=== PATIENT | female | born 1990 | race Caucasian/White ===

== ENCOUNTER 2023-01-31 21:58 | Inpatient (IN) ==
[2023-01-31 23:02] LABS: Hematocrit (blood only) 27.9 % (37.0-47.0); Hemoglobin 8.7 g/dl (12.0-16.0); Mean Corpuscular Hemoglobin 26.6 pg (25.0-34.0); Mean Corpuscular Hgb Conc 31.2 g/dL (32.0-36.0); Mean Corpuscular Volume 85.3 fL (80.0-100.0); Mean Platelet Volume 11.4 fL (9.4-12.4); Platelet Count 322 K/uL (130-400); RDW Coefficient of Variation 18.7 % (11.5-14.5); Red Blood Count 3.27 M/uL (4.20-5.40); White Blood Count 2.74 K/ul (4.8-10.8)
[2023-01-31 23:12] LABS: Albumin Globulin Ratio 1.1 (0.9-2); Albumin Level 3.4 gm/dl (3.4-5.0); Bilirubin,Total 0.5 mg/dl (0.2-1.0); Calcium 8.3 mg/dl (8.6-10.3); Creatinine Clr Calc Pharmacy 49.1 ml/min; Est GFR (African American) 70.9 ml/min; Est GFR (Non-African American) 61.2 ml/min; Potassium 3.4 mmol/L (3.5-5.1); Total Protein 6.4 gm/dl (6.0-8.3)
[2023-01-31] MEDS ORDERED: CEFEPIME 2,000 MG/20 ML VIAL IV STA (23:16)
--- NOTE | 2023-01-31 23:18 | Emergency Department Note ---
Impression & Plan Septic shock, Right lower lobe pneumonia, UTI (urinary tract infection) Admit to the ICU ED Provider Note NAME: VELASQUEZ RENEE AGE: 32 SEX: Female INFORMANT: Patient ED PROVIDER(S): Ijeoma Clement DO CHIEF COMPLAINT: High fever PLAN: Disposition: Admit to the ICU MEDICAL DECISION MAKING: This is a 32-year-old female patient with a history of stage IV breast cancer presents to the emergency department with a high fever. She states that it was as high as 107 at home. Patient states the wounds on her anterior chest wall are weeping fluid but they do not appear any different than they normally do. Laboratory studies revealed a white blood cell count of 2.7. Lactate was 3.8 procalcitonin was 45. Urinalysis appeared to be infected. Hemoglobin was low at 8.7. Patient presented to the emergency department in septic shock. She was aggressively fluid resuscitated with 2 IV lines as her port had previously been removed. Once IV crystalloids have been infused and were not supporting her blood pressure, she was switched over to IV Levophed which supported her blood pressure nicely. Initial heart rate was in the 160s. It began to come down into the 120s and 130s. She was initially treated empirically with cefepime and vancomycin. Source seems to be a right-sided pneumonia and a urinary tract infection and possibly the wounds on the anterior chest wall. I discussed the case with the [facility] hospitalist as well as the critical care team. I kept the patient and her family abreast of the situation. Care/management discussed with: manager customs, [facility] Hospitalist, critical care team, the patient's mother through an foreign language interpreter Triage Nursing notes: Reviewed and agree with them. Vital Signs: reviewed and remarkable for profound hypotension and tachycardia Chronic Medical/Social Conditions affecting care: Stage IV breast cancer- receiving chemotherapy; status post radiation Differential Diagnosis: Sepsis, septic shock, UTI, pneumonia, infected wounds about the chest Diagnostics, independently interpreted by me: ECG: Sinus tach at [address] segment elevation or signs of ischemia Cardiac Monitoring: Sinus tach at 140 Imaging studies: Portable chest x-ray: Moderate right-sided pleural effusion with underlying opacity most consistent with pneumonia as per my independent interpretation HPI: 32 year old Female arrives for evaluation of high fever. Patient has a history of stage IV breast cancer. She quickly developed a high fever to 107 at home associated with some nausea. She has had difficulty moving her bowels over the past couple days but did finally move them at home today. She describes this cancer as a recurrence with her first episode in 2019 and recurrence now in May 2022. PAST MEDICAL HISTORY: See Below, PAST SURGICAL HISTORY: See Below, SOCIAL HISTORY: See Below, HOME MEDICATIONS: See list ALLERGIES: None VITALS: See Below PHYSICAL EXAMINATION: HEENT: Head - normocephalic and atraumatic. Pupils are equal, round, and reactive to light. Extraocular eye muscles are intact, and sclera are anicteric. Nose -extremely dry nasal mucosa without discharge. Mouth - extremely dry buccal mucosa. Oropharynx is nonerythematous and there is no tonsillar exudate or edema noted. Neck: Supple; no JVD or cervical lymphadenopathy Chest wall: Patient has multiple open wounds about the anterior right chest wall status postmastectomy and radiation. These wounds are weeping and covered in Desitin. Heart: Tachycardic rate and regular rhythm. There is a normal S1 and S2 with no murmurs, clicks, or gallops appreciated. Lungs: Clear to auscultation bilaterally with no wheezes, rales, or rhonchi. Abdomen: Soft, completely nontender, nondistended, with good bowel sounds. There are no palpable pulsatile masses or hepatosplenomegaly. There is no guarding, rigidity, or rebound noted. Extremities: No evidence of cyanosis, clubbing, or edema. There are easily palpable peripheral pulses. Skin: Jaundiced, hot and dry with poor turgor and no rashes. Emergency department treatment: patient monitor, IV normal saline bolus, IV cefepime, IV Levophed, IV vancomycin Emergency department course: The patient was evaluated in room A10. A septic protocol was performed. A complete history and physical was performed. Patient was bolused with 1 L normal saline solution to support her blood pressure. Patient was given empiric IV cefepime and a portable chest x-ray was performed. Second IV lock was initiated a second liter of normal saline was infused. We used a blending tank tender helper to communicate with the patient's mother who speaks [place]itanian. Patient was given IV vancomycin. I discussed the case with the [facility] hospitalist as well as the copy chaser. The patient's blood pressure continued to drop and she was given an additional 500 cc bolus of saline and we initiated Levophed. CRITICAL CARE: I have personally spent greater than 90 minutes of critical care time in the direct management of this patient. This includes bedside care, interpretation of diagnostic studies, and testing, discussion with consultants, patient, and family members, and other required patient management activities. This 90 minutes is in excess of all separately billable procedures. Past Med/Surg History Medical History Ureteral obstruction History of anemia HX: breast cancer s/p right lumpectomy, chemo, xrt (no limb restriction) Hydronephrosis History of COVID-19 Early 01/2022 > symptoms resolved Surgical History Nephrostomy status S/P bilateral mastectomy History of hysterectomy History of section X 2 H/O myomectomy History of appendectomy H/O lumpectomy Right Sparkman teeth removed Family History Grandmother (Maternal) Lung cancer Grandmother (Paternal) Ovarian cancer Other No family history of adverse response to anesthesia Social History Smoking Status: Never smoker Second Hand Exposure: No; Do You Dip or Chew Tobacco: No; Hx Alcohol Use: No Hx Substance Use: No Preferred Language: [place]itanian Communication Ability: Effective Visual Impairment: No Limitations Food Service Aide Required: No Beliefs That Will Affect Care: None marital status: Current Living Situation: Spouse current occupational status: employed current occupation: Medical Billing Feels Safe at Home: Yes Assistive Devices: None Allergies Allergies Allergy/AdvReac Type Severity Reaction Status Date / Time No Known Allergies Allergy Verified 01/19/23 09:03 Home Meds Home Medications Medication Instructions Recorded Confirmed acetaminophen 500 mg tablet 1,000 mg PO Q6H PRN PAIN/FEVER 01/19/23 01/31/23 ondansetron HCl 8 mg tablet 8 mg PO Q8 PRN Nausea And Vomiting 01/19/23 01/31/23 oxycodone 10 mg tablet 10 mg PO .Q4-6H PRN PRN 01/19/23 01/31/23 mirtazapine 15 mg tablet 15 mg PO DAILY 12/05/23 12/05/23 oxycodone 20 mg tablet,crush 20 mg PO .Q 12 HOURS 01/31/23 01/31/23 resistant,extended release 12 hr (OxyContin) Results & Data (ED) Vital Signs Vital Signs - 24 hr 01/31/23 22:05 01/31/23 22:34 01/31/23 22:41 Temperature 37.7 C H Temperature Source Oral Pulse Rate 174 H 160 H 157 H Pulse Rate from SpO2 Sensor 157 H Respiratory Rate 18 29 H Respiratory Effort / Characteristics Non-Labored Spontaneous Respiratory Depth Normal Blood Pressure 107/71 77/53 L Blood Pressure Mean 83 61 Pulse Oximetry 95 95 Oxygen Delivery Method Room Air Room Air Sepsis Recent Fever Within 48 Hours Yes Sepsis New/Unexplained Change in Mental Status No Sepsis Action Taken by Nursing No Action Required 01/31/23 22:46 01/31/23 23:00 02/01/23 00:00 Temperature Temperature Source Pulse Rate 153 H 140 H 141 H Pulse Rate from SpO2 Sensor 154 H 140 H 134 H Respiratory Rate 31 H 25 H 29 H Respiratory Effort / Characteristics Respiratory Depth Blood Pressure 72/43 L 99/47 L 68/56 L Blood Pressure Mean 53 54 62 Pulse Oximetry 97 98 96 Oxygen Delivery Method Room Air Room Air Room Air Sepsis Recent Fever Within 48 Hours Sepsis New/Unexplained Change in Mental Status Sepsis Action Taken by Nursing 02/01/23 00:01 02/01/23 00:24 02/01/23 00:26 Temperature Temperature Source Pulse Rate 141 H 139 H 142 H Pulse Rate from SpO2 Sensor 140 H 139 H 143 H Respiratory Rate 29 H 34 H 32 H Respiratory Effort / Characteristics Respiratory Depth Blood Pressure 68/49 L 86/55 L 68/45 L Blood Pressure Mean 56 65 56 Pulse Oximetry 96 94 94 Oxygen Delivery Method Room Air Room Air Room Air Sepsis Recent Fever Within 48 Hours Sepsis New/Unexplained Change in Mental Status Sepsis Action Taken by Nursing 02/01/23 00:30 02/01/23 00:31 02/01/23 00:45 Temperature Temperature Source Pulse Rate 144 H 144 H Pulse Rate from SpO2 Sensor 144 H 144 H 142 H Respiratory Rate 34 H 34 H 38 H Respiratory Effort / Characteristics Respiratory Depth Blood Pressure 81/64 L 85/50 L 94/56 L Blood Pressure Mean 70 55 60 Pulse Oximetry 94 94 93 Oxygen Delivery Method Room Air Room Air Room Air Sepsis Recent Fever Within 48 Hours Sepsis New/Unexplained Change in Mental Status Sepsis Action Taken by Nursing 02/01/23 00:51 02/01/23 00:55 02/01/23 01:00 Temperature Temperature Source Pulse Rate 145 H 147 H 147 H Pulse Rate from SpO2 Sensor 146 H 145 H Respiratory Rate 35 H 37 H 32 H Respiratory Effort / Characteristics Respiratory Depth Blood Pressure 74/56 L 94/55 L 89/60 L Blood Pressure Mean 66 84 68 Pulse Oximetry 92 92 92 Oxygen Delivery Method Room Air Room Air Room Air Sepsis Recent Fever Within 48 Hours Sepsis New/Unexplained Change in Mental Status Sepsis Action Taken by Nursing 02/01/23 01:15 Temperature Temperature Source Pulse Rate 146 H Pulse Rate from SpO2 Sensor 146 H Respiratory Rate 33 H Respiratory Effort / Characteristics Respiratory Depth Blood Pressure 96/56 L Blood Pressure Mean 70 Pulse Oximetry 94 Oxygen Delivery Method Room Air Sepsis Recent Fever Within 48 Hours Sepsis New/Unexplained Change in Mental Status Sepsis Action Taken by Nursing Laboratory Data 02/01/23 15:18 02/01/23 15:13 Lab Results 01/31/23 01/31/23 02/01/23 Range/Units 22:25 23:55 01:27 WBC 2.74 L (4.8-10.8) K/ul RBC 3.27 L (4.20-5.40) M/uL Hgb 8.7 L (12.0-16.0) g/dl Hct 27.9 L (37.0-47.0) % MCV 85.3 (80.0-100.0) fL MCH 26.6 (25.0-34.0) pg MCHC 31.2 L (32.0-36.0) g/dL RDW Std Deviation 58.0 H (36.4-46.3) fL RDW Coeff of Marilou 18.7 H (11.5-14.5) % Plt Count 322 (130-400) K/uL MPV 11.4 (9.4-12.4) fL Immature Gran % (Auto) 0.4 % Neut % (Auto) 93.4 % Lymph % (Auto) 2.9 % Drew % (Auto) 2.9 % Eos % (Auto) 0.0 % Baso % (Auto) 0.4 % Neut # (Auto) 2.56 (1.40-6.50) K/uL Lymph # (Auto) 0.08 L (1.20-3.40) K/uL Drew # (Auto) 0.08 L (0.11-0.59) K/uL Eos # (Auto) 0.00 (0.00-0.50) K/uL Baso # (Auto) 0.01 (0.00-0.20) K/uL Immature Gran # (Auto) 0.01 (0.01-0.20) K/uL Polychromasia 1+ Sodium 130 L (136-145) mmol/L Potassium 3.4 L (3.5-5.1) mmol/L Chloride 92 L (98-107) mmol/L Carbon Dioxide 25 (21-32) mmol/L Anion Gap 13 H (3-11) BUN 14 (6-23) mg/dl Creatinine 1.17 (0.6-1.2) mg/dl Est Cr Clr Drug Dosing 49.1 ml/min Est GFR ( Amer) 70.9 ml/min Est GFR (Non-Af Amer) 61.2 ml/min BUN/Creatinine Ratio 12.0 (10-20) Glucose 131 H (70-99(Fasting)) mg/dl Lactate 3.8 H* (0.4-2.0) mmol/L Calcium 8.3 L (8.6-10.3) mg/dl Total Bilirubin 0.5 (0.2-1.0) mg/dl AST 28 (13-39) U/L ALT 20 (7-52) U/L Alkaline Phosphatase 83 (34-104) U/L Total Protein 6.4 (6.0-8.3) gm/dl Albumin 3.4 (3.4-5.0) gm/dl Globulin 3.0 (2.5-4.0) gm/dl Albumin/Globulin Ratio 1.1 (0.9-2) Procalcitonin 45.11 H (0-0.5) ng/ml Urine Color Yellow Urine Appearance Turbid A (Clear) Urine pH 8.0 H (4.5-7.5) Ur Specific [place] 1.014 (1.000-1.030) Urine Protein 4+ H (Negative) Urine Glucose (UA) Negative (Negative) Urine Ketones Negative (Negative) Urine Blood 2+ H (Negative) Urine Nitrite Positive A (Negative) Urine Bilirubin Negative (Negative) Urine Urobilinogen Negative (Negative) Ur Leukocyte Esterase 3+ H (Negative) Urine WBC (Auto) >30 H (0-5) /hpf Urine RBC (Auto) 5-10 H (0-4) /hpf U Hyaline Cast (Auto) 1-5 (0-5) /lpf U Epithel Cells (Auto) >30 H (0-5) /lpf Urine Bacteria (Auto) 4+ H (Negative) Urine Yeast Not Reportable Adenovirus (PCR) Not Detected (NotDetected) B. pertussis DNA (PCR) Not Detected (NotDetected) B.parapertussis DNA PCR Not Detected (NotDetected) C. pneumoniae DNA (PCR) Not Detected (NotDetected) Coronavirus OC43 (PCR) Not Detected (NotDetected) Coronavirus HKU1 (PCR) Not Detected (NotDetected) Coronavirus 229E (PCR) Not Detected (NotDetected) SARS-CoV-2 (PCR) Not Detected (NotDetected) Coronavirus NL63 (PCR) Not Detected (NotDetected) Human Metapneumovir PCR Not Detected (NotDetected) Influenza Type A (PCR) Not Detected (NotDetected) Influenza Type B (PCR) Not Detected (NotDetected) M. pneumoniae (PCR) Not Detected (NotDetected) Parainfluenza 1 (PCR) Not Detected (NotDetected) Parainfluenza 2 (PCR) Not Detected (NotDetected) Parainfluenza 3 (PCR) Not Detected (NotDetected) Parainfluenza 4 (PCR) Not Detected (NotDetected) RSV (PCR) Not Detected (NotDetected) Entero/Rhino (PCR) Not Detected (NotDetected) Administered Medications Acetaminophen (Acetaminophen 500 Mg Tab) 1,000 mg PO Q8H PRN PRN Reason: fever Stop: 03/03/23 03:00 Last Admin: 02/01/23 04:47 Dose: 1,000 mg Documented By: GG Enoxaparin Sodium (Enoxaparin Inj 40 Mg/0.4 Ml Syr) 40 mg SQ Q12H YESENIA Stop: 03/03/23 04:59 Last Admin: 02/01/23 06:05 Dose: 40 mg Documented By: TIA Acetaminophen (Ofirmev) 1,000 mg in 100 mls @ 400 mls/hr IV Q8H PRN PRN Reason: Fever Stop: 02/04/23 02:17 Last Infusion: 02/01/23 14:00 Dose: Infused Documented By: Admin: 02/01/23 11:33 Dose: 400 mls/hr Documented By: Infusion: 02/01/23 11:33 Dose: Infused Documented By: Admin: 02/01/23 11:25 Dose: 400 mls/hr Documented By: NEO Parenteral Electrolytes (Plasma-Lyte A Ph 7.4) 1,000 mls @ 125 mls/hr IV .Q8H YESENIA Stop: 03/03/23 02:29 Last Admin: 02/01/23 12:09 Dose: 125 mls/hr Documented By: Infusion: 02/01/23 11:14 Dose: Infused Documented By: Admin: 02/01/23 03:14 Dose: 125 mls/hr Documented By: YADIRA Vasopressin 20 units/ Sodium (Chloride) 101 mls @ 12.12 mls/hr IV .Q8H20M YESENIA Stop: 03/03/23 02:44 Last Infusion: 02/01/23 19:18 Dose: 0 unit/min, 0 mls/hr Documented By: DAQUAN Co-signed By: NEO Infusion: 02/01/23 10:40 Dose: 0 unit/min, 0 mls/hr Documented By: Infusion: 02/01/23 07:06 Dose: 0.04 unit/min, 12.1 mls/hr Documented By: TIA Co-signed By: CAM Admin: 02/01/23 04:20 Dose: 0.04 unit/min, 12.1 mls/hr Documented By: TIA Co-signed By: YADIRA Norepinephrine Bitartrate (Levophed/D5w) 4 mg in 250 mls @ 9.488 mls/hr IV .Q24H YESENIA; Protocol Stop: 03/03/23 04:44 Last Titration: 02/01/23 19:18 Dose: 0.03 mcg/kg/min, 5.7 mls/hr Documented By: Titration: 02/01/23 14:00 Dose: 0.03 mcg/kg/min, 5.7 mls/hr Documented By: Titration: 02/01/23 12:09 Dose: 0.05 mcg/kg/min, 9.5 mls/hr Documented By: Titration: 02/01/23 10:34 Dose: 0.08 mcg/kg/min, 15.2 mls/hr Documented By: Titration: 02/01/23 08:31 Dose: 0.1 mcg/kg/min, 19 mls/hr Documented By: Titration: 02/01/23 07:06 Dose: 0.12 mcg/kg/min, 22.8 mls/hr Documented By: TIA Co-signed By: NEO Admin: 02/01/23 05:26 Dose: 0.12 mcg/kg/min, 22.8 mls/hr Documented By: TIA Co-signed By: DAYANARA Vancomycin HCl 750 mg/ Sodium (Chloride) 265 mls @ 200 mls/hr IV Q12H YESENIA Stop: 02/03/23 07:59 Last Infusion: 02/01/23 11:22 Dose: Infused Documented By: Admin: 02/01/23 08:31 Dose: 200 mls/hr Documented By: NEO Meropenem 500 mg/ Syringe 10 mls @ 2 mls/min IV Q6H YESENIA; Protocol Stop: 02/08/23 09:59 Last Admin: 02/01/23 16:36 Dose: 2 mls/min Documented By: Admin: 02/01/23 11:23 Dose: 2 mls/min Documented By: NEO Mirtazapine (Mirtazapine Tab 15 Mg Tab) 15 mg PO DAILY YESENIA Stop: 03/03/23 08:59 Last Admin: 02/01/23 08:31 Dose: 15 mg Documented By: NEO Miscellaneous (Icu Protocol For Hyperglycemia) 1 each N/A ACHS YESENIA Stop: 02/03/23 07:29 Last Admin: 02/01/23 16:36 Dose: Not Given Documented By: Admin: 02/01/23 16:35 Dose: Not Given Documented By: Admin: 02/01/23 08:25 Dose: Not Given Documented By: NEO Discontinued Medications Sodium Chloride (Nss) 1,000 mls @ 999 mls/hr IV .Q1H1M YESENIA Stop: 02/01/23 01:15 Last Admin: 02/01/23 01:43 Dose: Not Given Documented By: Infusion: 02/01/23 00:22 Dose: Infused Documented By: Admin: 01/31/23 23:21 Dose: 999 mls/hr Documented By: GAUDENCIO Cefepime HCl (Maxipime) 2,000 mg in 20 mls @ 5 mls/min IV NOW STA; Protocol Stop: 01/31/23 23:19 Last Admin: 01/31/23 23:24 Dose: 5 mls/min Documented By: GAUDENCIO Vancomycin HCl 1,000 mg/ (Sodium Chloride) 520 mls @ 200 mls/hr IV NOW ONE Stop: 02/01/23 03:46 Last Infusion: 02/01/23 04:42 Dose: Infused Documented By: Admin: 02/01/23 01:33 Dose: 200 mls/hr Documented By: ELANA Potassium Chloride (K Mason / Wtr) 10 meq in 100 mls @ 100 mls/hr IV Q1H YESENIA Stop: 02/01/23 03:59 Last Infusion: 02/01/23 06:02 Dose: Infused Documented By: Admin: 02/01/23 04:47 Dose: 100 mls/hr Documented By: Infusion: 02/01/23 04:14 Dose: Infused Documented By: Admin: 02/01/23 03:14 Dose: 100 mls/hr Documented By: YADIRA Potassium Phosphate 15 mmol/ (Sodium Chloride) 255 mls @ 102 mls/hr IV 0700 ONE Stop: 02/01/23 09:29 Last Infusion: 02/01/23 11:22 Dose: Infused Documented By: Admin: 02/01/23 06:59 Dose: 102 mls/hr Documented By: YADIRA Calcium Chloride 500 mg/ (Dextrose) 55 mls @ 240 mls/hr IV NOW STA Stop: 02/01/23 08:19 Last Infusion: 02/01/23 11:21 Dose: Infused Documented By: Admin: 02/01/23 08:55 Dose: 240 mls/hr Documented By: NEO Magnesium Sulfate/Dextrose (Magnesium Sulfate / D5w) 1 gm in 100 mls @ 50 mls/hr IV Q2H YESENIA Stop: 02/01/23 12:14 Last Admin: 02/01/23 11:17 Dose: 50 mls/hr Documented By: Infusion: 02/01/23 10:34 Dose: Infused Documented By: Admin: 02/01/23 08:34 Dose: 50 mls/hr Documented By: NEO Norepinephrine Bitartrate (Norepinephrine/D5w 4 Mg/250 Ml) Confirm Administered Dose 4 mg IV .STK-MED ONE Stop: 02/01/23 00:26 Last Admin: 02/01/23 00:54 Dose: 4 mg Documented By: DMElizabeth Potassium Chloride (Potassium Chloride Crtab 20 Meq Tabcr) 40 meq PO NOW STA Stop: 02/01/23 03:02 Last Admin: 02/01/23 04:46 Dose: 40 meq Documented By: TIA Imaging Data Radiologist's Impression: Chest X-Ray 01/31/23 23:11 XR chest 1V portable CLINICAL HISTORY: fever TECHNIQUE: Single frontal radiograph of the chest was obtained. Comparison: Comparison is made to chest radiograph 01/19/2023 FINDINGS: No lines and tubes are seen. The cardiomediastinal silhouette is normal. Right lung airspace opacity has increased from prior exam. Moderate right pleural effusion. IMPRESSION: Moderate right pleural effusion with underlying opacities, likely representing atelectasis with superimposed aspiration/pneumonia. ACT 112: Negative or not required by law. Electronically signed by: Tay Merida M.D. 02/01/2023 8:14 AM Discharge Plan Visit Data Chief Complaint: Fever Stated Complaint: FEVER ED Provider: Ijeoma Clement Discharge Problem: Septic shock, Right lower lobe pneumonia, UTI (urinary tract infection) Patient Disposition: Admitted As Inpatient Discharge Instructions Interventions: ED Discharge Assessment Last Done: 02/01/23 02:26 Discharge Problem: UTI (urinary tract infection) Qualifiers: Urinary tract infection type: site unspecified Hematuria presence: with hematuria Qualified Code(s): N39.0 - Urinary tract infection, site not specified
[2023-01-31] MEDS: SODIUM CHLORIDE 0.9% 1,000 ML IV SCH (23:21)
[2023-01-31 23:24] LABS: Basophils # (auto) 0.01 K/uL (0.00-0.20); Basophils % (auto) 0.4 %; Immature Granulocytes # (auto) 0.01 K/uL (0.01-0.20); Immature Granulocytes % (auto) 0.4 %; Lymphocytes # (auto) 0.08 K/uL (1.20-3.40); Lymphocytes % (auto) 2.9 %; Monocytes # (auto) 0.08 K/uL (0.11-0.59); Monocytes % (auto) 2.9 %; Neutrophils # (auto) 2.56 K/uL (1.40-6.50); Neutrophils % (auto) 93.4 %; Polychromasia 1+
[2023-01-31 23:43] LABS: Adenovirus PCR Not Detected (NotDetected); Bordetella parapertussis PCR Not Detected (NotDetected); Bordetella pertussis PCR Not Detected (NotDetected); Chlamydia pneumoniae PCR Not Detected (NotDetected); Coronavirus 229E PCR Not Detected (NotDetected); Coronavirus CoV-2 (COVID19)PCR Not Detected (NotDetected); Coronavirus HKU1 PCR Not Detected (NotDetected); Coronavirus NL63 PCR Not Detected (NotDetected); Coronavirus OC43PCR Not Detected (NotDetected); Human Metapneumovirus PCR Not Detected (NotDetected); Influenza A PCR Not Detected (NotDetected); Influenza B PCR Not Detected (NotDetected); Mycoplasma pneumoniae PCR Not Detected (NotDetected); Parainfluenza Virus 1 PCR Not Detected (NotDetected); Parainfluenza Virus 2 PCR Not Detected (NotDetected); Parainfluenza Virus 3 PCR Not Detected (NotDetected); Parainfluenza Virus 4 PCR Not Detected (NotDetected); Respiratory Syncytial VirusPCR Not Detected (NotDetected); Rhinovirus/Enterovirus PCR Not Detected (NotDetected)
[2023-02-01] MEDS ORDERED: NOREPINEPHRINE/D5W 4 MG/250 ML IV ONE (00:25)
[2023-02-01] MEDS ORDERED: VANCOMYCIN CONSULT ACTIVE PRN (01:11)
[2023-02-01] MEDS ORDERED: VANCOMYCIN HCL 1,000 MG in SODIUM CHLORIDE 0.9% 500 ML IV ONE (01:11)
--- NOTE | 2023-02-01 01:37 | History & Physical Report ---
Date of Service February 01, 2023 Assessment & Plan (1) Septic shock: Plan: -Immunocompromised pt presents with fever, in septic shock of currently unknown source -Lactate 3.8, PCT 45, WBC 2.7 (below baseline) -Continue empiric antibiotics- cefepime, vancomycin -MRSA swab ordered -Continue infectious workup -UA pending -BCx pending, TTE ordered -CXR shows R pleural effusion, may have underlying pneumonia- will order chest CT for further evaluation -Hemodynamically unstable with hypotension, compensatory sinus tachycardia -Currently on pressor support with Levophed -Continue maintenance fluids- Plasmalyte -Tylenol PRN fever -Monitor CBC, repeat PCT in AM (2) Acute hypoxic respiratory failure: Plan: -Multiple desaturations to 80s and 70s noted in ER though pt denies dypsnea, other respiratory symptoms and currently saturating well on RA -Likely due to worsening pleural effusion which is most probably malignant -ABG ordered for acid-base assessment -Supplemental O2 as needed (3) Pleural effusion: Plan: -As above, probable malignant effusion likely driving hypoxia -Anticipate need for thoracentesis, withholding pulmonary consult for now as pt is being admitted to ICU -Chest CT pending (4) Breast cancer: Plan: -Noted stage IV metastatic invasive ductal carcinoma s/p double mastectomy and currently immunocompromised on chemotherapy -Follows with Dr. Moore at [facility] oncology -Deferring oncology consult for now until acute septic shock stabilizes (5) Anemia: Plan: -Hgb 8.7 on admission -Appears to be around baseline -No acute bleeding suspected at present -Trend CBC, added iron panel in AM (6) Hyponatremia: Plan: -Na 130 on admission -Possibly SIADH-driven given cancer, some contribution from low solute intake -Will continue fluids as above for septic shock -Monitor BMP (7) Hypokalemia: Plan: -K 3.4 on admission -Repletion per ICU protocol -Monitor BMP -Will check Mg, Phos as well in AM (8) Leukopenia: Plan: -WBC 2.7 on admission -Noted ongoing chemotherapy -Monitor CBC w/ differential (9) Depression: Plan: -Continue home mirtazapine Plan FENGI: Regular Code status: Full DVT prophylaxis: SCDs Isolation: None Unit: ICU Disposition planning: Pending clinical course History of Present Illness Chief Complaint: Fever Primary Care Provider: NO PCP Pt is 32 yo F with extensive history of stage IV metastatic b/l invasive ductal carcinoma of breast s/p chemotherapy, XRT, b/l mastectomy 11/2022 presenting with fever. Pt had onset of fever on prior evening. Denies any other symptoms including chest pain, dyspnea, cough, abdominal pain, urinary symptoms, etc although she has had sporadic fever over past month along with 2 ER visits on 12/29 (dyspnea, found to have R pleural effusion) and 01/19 (fever). Notes her fevers have been up to 105 F. Fever on 01/31 was apparently 107 F. Brought to ER by family. Pt arrived to ER hypotensive, BPs 60s-70s/40s which improved to 80s/50s with 1L NSS bolus x2. Tachycardia to 150s-170s, tachypnea to high 20s/low 30s. Afebrile in ER. Pt started on cefepime and then vancomycin in ER. Started on Levophed after persistent hypotension despite fluid repletin. Initial evaluation significant for WBC 2.7, Hgb 8.7, Na 130, K 3.4, lactate 3.8, PCT 45. CXR demonstrates worsening R pleural effusion. At present, pt denies any acute complaints. No dyspnea though multiple desaturations of O2 to 80s during evaluation, HR 130s-140s. Allergies Allergy/AdvReac Type Severity Reaction Status Date / Time No Known Allergies Allergy Verified 01/19/23 09:03 Home Medications Medication Instructions Recorded Confirmed Type acetaminophen 500 mg tablet 1,000 mg PO Q6H PRN PAIN/FEVER 01/19/23 01/31/23 History ondansetron HCl 8 mg tablet 8 mg PO Q8 PRN Nausea And Vomiting 01/19/23 01/31/23 History oxycodone 10 mg tablet 10 mg PO .Q4-6H PRN PRN 01/19/23 01/31/23 History mirtazapine 15 mg tablet 15 mg PO DAILY 01/31/23 01/31/23 History oxycodone 20 mg tablet,crush 20 mg PO .Q 12 HOURS 01/31/23 01/31/23 History resistant,extended release 12 hr (OxyContin) Past Med/Surg History Medical History Ureteral obstruction History of anemia HX: breast cancer s/p right lumpectomy, chemo, xrt (no limb restriction) Hydronephrosis History of COVID-19 Early 01/2022 > symptoms resolved Surgical History Nephrostomy status S/P bilateral mastectomy History of hysterectomy History of section X 2 H/O myomectomy History of appendectomy H/O lumpectomy Right [place] teeth removed Family History Grandmother (Maternal) Lung cancer Grandmother (Paternal) Ovarian cancer Other No family history of adverse response to anesthesia Social History Smoking Status: Never smoker Second Hand Exposure: No; Do You Dip or Chew Tobacco: No; Hx Alcohol Use: No Hx Substance Use: No Preferred Language: Yakut Communication Ability: Effective Visual Impairment: No Limitations Foreman/Pile Driving And Erection Required: No Beliefs That Will Affect Care: None marital status: Current Living Situation: Spouse current occupational status: employed current occupation: Medical Billing Feels Safe at Home: Yes Assistive Devices: None Review of Systems Review of Systems: Per HPI/Subjective Physical Exam Physical Exam: General: frail-appearing, no acute distress HEENT: PERRL, EOMI, conjunctivae clear without injection, anicteric sclerae, dry mucous membranes, clear oropharynx without exudate or erythema Neck: supple, trachea midline, no thyromegaly, no JVD, no cervical lymphadenopathy CV: RRR, normal S1 and S2, no murmurs Resp: Diminished breath sounds on R side, no increased work of breathing, no cr ackles or wheezes Abd: Soft, nontender, nondistended, no guarding or rebound, no hepatosplenomegaly MSK: Mild muscle wasting of all four extremities Neuro: AOx3, no focal motor or sensory deficits Skin: no rashes or lesions, warm and dry. Dressing over sternum from b/l mastectomy noted Ext: no LE peripheral edema or erythema, capillary refill <2s in all four extremities, 2+ LE peripheral pulses b/l Results & Data Results & Data Vital Signs (Past 12 Hours) Vital Signs Temp Pulse Resp BP Pulse Ox O2 Del Method 02/01/23 00:55 147 H 37 H 94/55 L 92 Room Air 02/01/23 00:51 145 H 35 H 74/56 L 92 Room Air 02/01/23 00:45 38 H 94/56 L 93 Room Air 02/01/23 00:31 144 H 34 H 85/50 L 94 Room Air 02/01/23 00:30 144 H 34 H 81/64 L 94 Room Air 02/01/23 00:26 142 H 32 H 68/45 L 94 Room Air 02/01/23 00:24 139 H 34 H 86/55 L 94 Room Air 02/01/23 00:01 141 H 29 H 68/49 L 96 Room Air 02/01/23 00:00 141 H 29 H 68/56 L 96 Room Air 01/31/23 23:00 140 H 25 H 99/47 L 98 Room Air 01/31/23 22:46 153 H 31 H 72/43 L 97 Room Air 01/31/23 22:41 157 H 29 H 77/53 L 95 Room Air 01/31/23 22:34 160 H 01/31/23 22:05 37.7 C H 174 H 18 107/71 95 Room Air Code Status & VTE Plan VTE Prophylaxis Plan VTE Prophylaxis will be ordered: Yes Critical Care Time 40 minutes Supervising Physician Co-Signing Physician Notes Attending addendum: I have physically seen this patient, have supervised the medical residents activities, and agree with the H&P unless as otherwise noted. Assessment and Plan: Septic shock/immunosuppression/acute hypoxemic respiratory failure- Admitted to intensive care unit Empiric broad-spectrum IV antibiotics with vancomycin IV per pharmacokinetic monitoring and cefepime 2 g IV every 12 hours Follow urine culture and sensitivity Follow blood culture and sensitivity Chest x-ray with right pleural effusion, likely parapneumonic. Order CT chest for further assessment Started on Levophed continuous infusion while in the ED, and will be continued in the ICU Maintenance fluids with Plasma-Lyte to be adjusted by ICU Acetaminophen 1 g IV every 8 hours as needed for mild pain or fever Follow serial CBC with differential, chemistry profile and magnesium level Order ABG Malignant pleural effusion- To be further characterized by CT of chest May need thoracentesis Breast cancer stage IV/metastatic invasive ductal carcinoma status post double mastectomy on chemotherapy- Consult oncology Dr. Moore to see after stabilization of blood pressure Consult edi analyst and ICU for further management staff Resident Activity Tracking Resident Involvement: Resident Care Provided Care Provided: Adult Hospital Medicine (5) Anemia Anemia type: unspecified type Qualified Code(s): D64.9 - Anemia, unspecified
[2023-02-01] MEDS: SODIUM CHLORIDE 0.9% 1,000 ML IV SCH (01:43)
[2023-02-01 01:49] LABS: Appearance Urine Turbid (Clear); Bacteria Urine Automated 4+ (Negative); Bilirubin Urine Negative (Negative); Blood Urine 2+ (Negative); Color Urine Yellow; Epithelial Cell Urine Auto >30 /lpf (0-5); Glucose Urine UA Negative (Negative); Ketones Urine Negative (Negative); Leukocyte Esterase Urine 3+ (Negative); Nitrite Urine Positive (Negative); Specific Gravity Urine 1.014 (1.000-1.030); Urobilinogen Urine Negative (Negative); WBC Urine Automated >30 /hpf (0-5)
[2023-02-01 01:52] LABS: Protein Urine 4+ (Negative)
[2023-02-01] MEDS ORDERED: STAT IV Infusion **Titration per Protocol STA ×2 (02:31→04:42)
[2023-02-01 02:40] LABS: iSTAT Arterial Blood Gas HCO3 19 meg/L (19-24); iSTAT Arterial Blood Gas pCO2 29 mmHg (35-46); iSTAT Arterial Blood Gas pH 7.42 (7.35-7.45); iSTAT Arterial Blood Gas pO2 < 32 mmHg (80-95); iSTAT Carbon Dioxide 20 mmol/L (24-31); iSTAT Hematocrit 22 % (37-47); iSTAT Hemoglobin 7.5 g/dl (12.0-16.0); iSTAT Potassium 3.3 mmol/L (3.3-5.0); iSTAT Sodium 134 mmol/L (135-144)
--- NOTE | 2023-02-01 02:44 | Critical Care Consultation ---
Date of Consultation February 01, 2023 Assessment & Plan (1) Septic shock: Reason Critically Ill: 32-year-old female with history significant for metastatic breast cancer with progression into the derma. Underwent radiation in 2020 and currently undergoing chemotherapy with docetaxol/cyclophosphamide. She presented to the emergency department earlier this evening with complaints of malaise and fever, found to be hypotensive. Admitted to ICU with septic shock, requiring vasopressor support with Levophed and vasopressin drips. Neuro - [facility] ICU: Negative Cardiac - Shockseptic in etiology from unknown source. See ID for treatment below -Remained hypotensive following IV fluid resuscitation in the emergency department. Now requiring vasopressor support with Levophed and vasopressin drip -Central venous catheter and arterial line inserted -Random cortisol pending -Troponin pending, EKG was sinus tachycardia. No ST elevation -Maintain maps greater than 65 vasopressors. Wean as tolerated -Continue with IV fluid resuscitation. Plasma-Lyte at 125 -Continuous monitoring on telemetry Respiratory - Pleural effusionchest x-ray appears to have significant progression of the right pleural effusion. She did undergo thoracentesis in November which resulted benign mesothelial cells and scattered mixed inflammation which was negative for malignancy? Possible source of infection? -She currently maintains O2 sat on room air without labored breathing when sitting up, but requires supplemental oxygen when laying flat -CT chest pending -Expect patient would like need thoracentesis versus chest tube. Defer to acute care occupational therapist -Continuous monitoring on pulse ox GI - N.p.o. RENAL/LYTES - AKIcreatinine 1.17 with previous baseline is 0.66. Likely prerenal/dehydration in the setting of sepsis -Continue with aggressive fluid resuscitation and maintain maps greater than 65 with vasopressor support -Avoid nephrotoxins and renally adjust medication -Monitor routine BMPs. Replete electrolytes as indicated History of nephrostomy tubepatient with left nephrostomy following development of hydronephrosis after hysterectomy. Does not appear to be related to metastatic disease with negative abdominal MRI. - Foleystrict I's and O's. Monitor nephrostomy output ENDO - No history of diabetes or thyroid disease ICU hyperglycemic protocol HEME - Leukopenia without neutropenia. Platelets within normal limits. Normocytic anemia. Monitor routine CBC. Transfuse for hemoglobin less than 7 ID - Sepsismultiple potential sources immunocompromise patient due to chemotherapy. Patient appears to have UTI on urinalysis. Purulent drainage from right chest wall at site of breast mass. And large right pleural effusion -Pro-Michael elevated at 45. Lactic acid elevated as well. Patient currently requiring vasopressor support -Bio fire negative -Blood cultures and urine culture pending. 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 Follows with Dr. Moore. Was noted to have poor prognosis and most recent visit noting aggressive progression of mass into the derma. She has undergone radiation in 2020 and a double mastectomy. She has undergone multiple chemotherapies and is currently being treated with docetaxel/cyclophosphamide. Most recent treatment last Monday. -Consult to heme-onc -Consult to palliative care LINES/IV ACCESS - Right internal jugular line, right radial A-line DVT PROPHYLAXIS - Toma Siu I have personally spent 70 minutes of critical care time in the direct management of this patient. This is a life/limb threatening event. This includes time spent evaluating patient, direct bedside care, chart review, placing orders, interpretation of diagnostic studies, discussion with consultants, patient, and family members, as well as other required patient management activities. This time is exclusive of all separately billable procedures, and teaching time and separate from and in addition to any other critical care service time. Thank you for allowing us to participate in the care of this patient. Please refer to my attending physician's documentation for any further recommendations. (2) Pleural effusion: (3) Metastatic malignant neoplasm to breast: (4) UTI (urinary tract infection): History of Present Illness History of Present Illness Patient is a 32-year-old female with stage IV metastatic breast cancer who presented to the emergency department with complaints of fever at home and malaise. Patient has previously gone double mastectomy and radiation in 2020, along with several different trials of chemotherapy. Her overall prognosis is poor with aggressive progression of dermal metastasis, although she has recently exhibited interest in clinical trials. She is currently undergoing treatment with Docetaxol/cyclophosphamide with the last treatment 1 week ago on Monday. On arrival to the emergency department the patient was found to be hypotensive and significantly febrile with temp of 39.4. Patient had elevated procalcitonin of 45 and lactic acid of 3.7. She was initially given IV fluid resuscitation per septic protocol, but remained hypotensive and required vasopressor support. Chest x-ray reveals significant progression of right pleural effusion. CT chest Noncon currently pending. Patient does have history of left hydronephrosis following hysterectomy, and has a nephrostomy tube. Urinalysis is consistent with UTI with +4 bacteria. Patient also has purulent drainage from cancerous mass protruding into the subcutaneous tissue in the right chest wall. She was started on broad-spectrum antibiotics with vancomycin and cefepime. She is currently awaiting transfer to the ICU, and will require central line and arterial line. I did discuss CODE STATUS with the patient and she is full code at this time. Allergies Allergy/AdvReac Type Severity Reaction Status Date / Time No Known Allergies Allergy Verified 01/19/23 09:03 Home Medications Medication Instructions Recorded Confirmed Type acetaminophen 500 mg tablet 1,000 mg PO Q6H PRN PAIN/FEVER 01/19/23 01/31/23 History ondansetron HCl 8 mg tablet 8 mg PO Q8 PRN Nausea And Vomiting 01/19/23 01/31/23 History oxycodone 10 mg tablet 10 mg PO .Q4-6H PRN PRN 01/19/23 01/31/23 History mirtazapine 15 mg tablet 15 mg PO DAILY 01/31/23 01/31/23 History oxycodone 20 mg tablet,crush 20 mg PO .Q 12 HOURS 01/31/23 01/31/23 History resistant,extended release 12 hr (OxyContin) Patient History Medical History Ureteral obstruction History of anemia HX: breast cancer s/p right lumpectomy, chemo, xrt (no limb restriction) Hydronephrosis History of COVID-19 Early 01/2022 > symptoms resolved Surgical History Nephrostomy status S/P bilateral mastectomy History of hysterectomy History of section X 2 H/O myomectomy History of appendectomy H/O lumpectomy Right [place] teeth removed Family History Grandmother (Maternal) Lung cancer Grandmother (Paternal) Ovarian cancer Other No family history of adverse response to anesthesia Social History Smoking Status: Never smoker Second Hand Exposure: No; Hx Alcohol Use: Yes Alcohol type: wine Preferred Language: Kinyarwanda Visual Impairment: No Limitations Comptometrist Required: No Beliefs That Will Affect Care: None marital status: Current Living Situation: Family current occupational status: employed current occupation: Medical Billing Feels Safe at Home: Yes Assistive Devices: Glasses Review of Systems Review of Systems: Patient reports malaise and diaphoresis with fevers at home. She reports pain at the right anterior chest wall at the site of cancerous mass. She denies headache, dizziness, syncopal events, changes in vision, cough or fevers, sore throat, shortness of breath, chest pain or palpitations, abdominal pain, nausea vomiting or diarrhea, swelling in hands or feet, changes in gait. Physical Exam Constitutional: + frail appearing and + diaphoretic Eyes: PERRL, conjunctivae normal, anicteric sclerae ENMT: external ear and nose normal, oropharynx normal Neck: trachea midline, no thyromegaly Respiratory: Left lung clear to auscultation, lungs diminished in right lung field, symmetrical chest wall movement, no labored breathing or use of accessory muscles Cardiovascular: Rate/Rhythm: regular rate and + tachycardic Vessels: no JVD Extremities: no edema Chest (Breasts): Additional Comments: Double mastectomy, right necrotic breast mass with purulent drainage and erythema Gastrointestinal (Abdomen): normal bowel sounds, soft, nontender, no hepatosplenomegaly Musculoskeletal: no cyanosis or clubbing, extremities motor strength 5/5 Skin: Right anterior chest wall with erythema and purulent drainage with necrosis from underlying mass. No rashes Neurologic: PERRL, EOMI, accommodation nl, no face palsy, no dysarthria Psychiatric: A+Ox3, euthymic affect Genitourinary: Left nephrostomy tube with dark concentrated yellow urine Results & Data Results & Data Vital Signs (Past 12 Hours) Vital Signs Temp Pulse Resp BP Pulse Ox O2 Del Method 02/01/23 02:00 150 H 36 H 80/42 L 95 Room Air 02/01/23 01:45 39.4 C H 144 H 30 H 78/45 L 93 Room Air 02/01/23 01:30 146 H 32 H 85/42 L 93 Room Air 02/01/23 01:30 153 H 40 H 85/42 L 93 Room Air 02/01/23 01:15 146 H 33 H 96/56 L 94 Room Air 02/01/23 01:00 147 H 32 H 89/60 L 92 Room Air 02/01/23 00:55 147 H 37 H 94/55 L 92 Room Air 02/01/23 00:51 145 H 35 H 74/56 L 92 Room Air 02/01/23 00:45 38 H 94/56 L 93 Room Air 02/01/23 00:31 144 H 34 H 85/50 L 94 Room Air 02/01/23 00:30 144 H 34 H 81/64 L 94 Room Air 02/01/23 00:26 142 H 32 H 68/45 L 94 Room Air 02/01/23 00:24 139 H 34 H 86/55 L 94 Room Air 02/01/23 00:01 141 H 29 H 68/49 L 96 Room Air 02/01/23 00:00 141 H 29 H 68/56 L 96 Room Air 01/31/23 23:00 140 H 25 H 99/47 L 98 Room Air 01/31/23 22:46 153 H 31 H 72/43 L 97 Room Air 01/31/23 22:41 157 H 29 H 77/53 L 95 Room Air 01/31/23 22:34 160 H 01/31/23 22:05 37.7 C H 174 H 18 107/71 95 Room Air Coding Level of Care Code 49952 CRITICAL CARE 1ST 30-74M Diagnoses Septic shock A41.9; R65.21 Pleural effusion J90 Metastatic malignant neoplasm to breast C79.81 UTI (urinary tract infection) N39.0
[2023-02-01] MEDS ORDERED: VASOPRESSIN 20 UNITS in 0.9 % SODIUM CHLORIDE 100 ML IV SCH (02:45)
[2023-02-01] MEDS ORDERED: PLASMA-LYTE A 1,000 ML IV SCH (03:01)
[2023-02-01] MEDS ORDERED: POTASSIUM CHLORIDE CRTAB 20 MEQ TABCR PO STA (03:01)
[2023-02-01] MEDS ORDERED: ACETAMINOPHEN 500 MG TAB PO PRN (03:01)
[2023-02-01] MEDS: PLASMA-LYTE A 1,000 ML IV SCH ×3 (03:14→19:57)
[2023-02-01] MEDS: POTASSIUM CHLORIDE / WTR 10 MEQ/100 ML PLCT IV SCH ×2 (03:14→04:47)
--- NOTE | 2023-02-01 04:23 | Procedure Note ---
Procedure Note Date of Service February 01, 2023 Note ARTERIAL LINE PROCEDURE NOTE: Procedure: Arterial Line Placement Attending: Dr. Pollard Provider: SRI Gomez Indication: Monitoring on Pressors Anesthesia: Lidocaine 1% Consent was signed and placed on the chart prior to procedure. Indication, risks, and benefits were explained at length. A time-out was completed verifying correct patient, procedure, site, positioning, and implant(s) or special equipment if applicable. Allens test was performed to ensure adequate perfusion. Patients right wrist was prepped and draped in the usual sterile fashion. Ultrasound guidance was used to aid needle placement. A 20g Arrow arterial line was introduced into the right radial artery. Catheter was threaded, and the needle was removed with appropriate blood return. Good waveform was observed. The patient tolerated the procedure well. Confirmation of placement with ultrasound. Blood Loss: Minimal Complications: None Procedural Ultrasound Guidance: Procedure Date: 02/01/2023 Indication: Arterial line insertion Attending: Dr. Pollard Provider: SRI Gomez Artery Identified: YES Line confirmed in Artery with ultrasound: Yes Complications: NONE Patient tolerated procedure: WELL Coding CPT Codes Tubes, Drains, and Vasc Access - Tubes, Drains, and Vasc Access: [id number] Arterial Cath/Cannulation Sampling/Monitoring/Transfusion ([id number]) Tubes, Drains, and Vasc Access - Tubes, Drains, and Vasc Access: [id number] Ultrasound Guidance For Vascular ([id number]) [facility] Procedure Codes (Charges) Tubes, Drains, and Vasc Access Procedure 1: Tubes, Drains, and Vasc Access: [id number] Arterial Cath/Cannulation Sampling/Monitoring/Transfusion Procedure 2: Tubes, Drains, and Vasc Access: [id number] Ultrasound Guidance For Vascular
--- NOTE | 2023-02-01 04:25 | Procedure Note ---
Procedure Note Date of Service February 01, 2023 Note INTERNAL JUGULAR CENTRAL LINE PROCEDURE NOTE: Procedure: Internal Jugular Central Line Placement Attending: Dr. Willis Provider: SRI Gomez Indication: Central Drug Administration Anesthesia: Lidocaine 1% Consent was signed and placed on the chart prior to procedure. Indication, risks, and benefits were explained at length. A time-out was completed verifying correct patient, procedure, site, positioning, and implants(s) or special equipment if applicable. Patients right neck was cleansed and draped in the typical sterile fashion using Chloraprep. The Internal Jugular Vein and Carotid Artery were identified using ultrasound. The superficial tissue was anesthetized using 3 mL of 1% lidocaine without epinephrine under direct visualization with the ultrasound. After adequate anesthetization was achieved, the Internal Jugular vein was cannulated under direct ultrasound guidance using an introducer needle on a syringe. Good venous blood return was maintained prior to removal of syringe from introducer needle. Using Seldinger Technique, a guide wire was advanced through the introducer needle without resistance. The introducer needle was removed and ultrasound images were obtained of the guide wire within the Internal Jugular Vein and saved to the patients medical record. A small incision was made in penetrating fashion at the guide wire insertion site utilizing an 11 blade scalpel. The dilator was advanced to the vessel without resistance. The dilator was exchanged for the triple lumen catheter which was advanced into the vessel without resistance. The guide wire was removed intact from the catheter without issue. Claves were placed on each catheter tip with confirmation of good blood flow from each lumen. Each port was easily flushed with sterile saline. The catheter was placed at 15 cm and sutured in place. BioPatch was applied to the catheter and a sterile Tegaderm dressing was applied over the catheter with careful attention to sterility. Patient tolerated procedure well. No immediate complications were met. Post procedure x-ray was completed, placement was appropriate and no pneumothorax was noted. Procedural Ultrasound Guidance: Procedure Date: 02/01/2023 Indication: Central venous catheter insertion Attending: Dr. Pollard Provider: SRI Gomez Artery AND Vein visualized: Yes Compressible Vein: Yes Guidewire or Short Catheter seen in vein prior to dilation: Yes Line confirmed in Vein with ultrasound: Yes Coding CPT Codes Tubes, Drains, and Vasc Access - Tubes, Drains, and Vasc Access: [id number] Insertion Of Non-tunneled Catheter Age 5 Yrs> ([id number]) Tubes, Drains, and Vasc Access - Tubes, Drains, and Vasc Access: [id number] Ultrasound Guidance For Vascular ([id number]) [facility] [place] Procedure Codes (Charges) Tubes, Drains, and Vasc Access Procedure 1: Tubes, Drains, and Vasc Access: [id number] Insertion Of Non-tunneled Catheter Age 4 Yrs> Procedure 2: Tubes, Drains, and Vasc Access: [id number] Ultrasound Guidance For Vascular
[2023-02-01] MEDS ORDERED: ENOXAPARIN INJ 40 MG/0.4 ML SYR SQ SCH (05:00)
[2023-02-01] MEDS: NOREPINEPHRINE/D5W 4 MG/250 ML PLCT IV SCH (05:26)
[2023-02-01 05:49] LABS: Base Excess ABG -3.2 mEq/L (-9-1.8); HCO3 ABG 19 mmol/L (19-24); Oxygen Saturation ABG 96.1 % (90-95); PCO2 ABG 27 mmHg (35-46); PO2 ABG 66 mmHg (80-95); pH ABG 7.46 (7.35-7.45)
[2023-02-01 05:50] LABS: Allen Test Pos (Pos)
--- NOTE | 2023-02-01 06:09 | CT Scan Report ---
Exam(s): CT CHEST Without Contrast EXAM: CT Chest Without Intravenous Contrast CLINICAL HISTORY: Reason for exam: Right pleural effusion, sepsis, brest CA. TECHNIQUE: Axial computed tomography images of the chest without intravenous contrast. CTDI is 8.23 mGy and DLP is 270.54 mGy-cm. Automated exposure control was utilized for the study. A dose lowering technique was utilized adhering to the principles of ALARA. COMPARISON: No relevant prior studies available. FINDINGS: Limitations: Limited evaluation in the absence of contrast. Lungs: See below. Pleural space: Redemonstrated multiple masses along the right breast and right chest wall with suspected invasion into the right pectoralis musculature and right pleural space. Additional soft tissue masses noted along the right and anterior chest wall. Please note packing material is noted overlying the lower anterior chest which likely relates to open wound. Recommend continued attention on follow-up imaging as dictated per patient's primary malignancy. Large right pleural effusion with adjacent airspace disease which may be due in part to compressive atelectasis. Superimposed infection is not excluded. This pleural effusion may be metastatic in nature. Heart: Unremarkable. No cardiomegaly. No significant pericardial effusion. No significant coronary artery calcifications. Bones/joints: Unremarkable. No acute fracture. No dislocation. Soft tissues: Bilateral axillary surgical clips. Bilateral mastectomy changes. Vasculature: Unremarkable. No thoracic aortic aneurysm. Lymph nodes: Enlarged supraclavicular lymph nodes which are likely related to metastatic disease. Other findings: Prior CT angiogram of the chest December 29, 2022. IMPRESSION: 1. Limited evaluation in the absence of contrast. 2. Redemonstrated multiple masses along the right breast and right chest wall with suspected invasion into the right pectoralis musculature and right pleural space. Additional soft tissue masses noted along the right and anterior chest wall. Please note packing material is noted overlying the lower anterior chest which likely relates to open wound. Recommend continued attention on follow-up imaging as dictated per patient's primary malignancy. 3. Large right pleural effusion with adjacent airspace disease which may be due in part to compressive atelectasis. Superimposed infection is not excluded. This pleural effusion may be metastatic in nature. 4. Enlarged supraclavicular lymph nodes which are likely related to metastatic disease. Electronically signed by: Emil Jaime MD 02/01/23 06:08 AM
[2023-02-01 06:19] LABS: Hematocrit (blood only) 21.2 % (37.0-47.0); Hemoglobin 6.7 g/dl (12.0-16.0); Mean Corpuscular Hemoglobin 26.5 pg (25.0-34.0); Mean Corpuscular Hgb Conc 31.6 g/dL (32.0-36.0); Mean Corpuscular Volume 83.8 fL (80.0-100.0); Mean Platelet Volume 11.8 fL (9.4-12.4); Platelet Count 171 K/uL (130-400); Red Blood Count 2.53 M/uL (4.20-5.40); White Blood Count 3.37 K/ul (4.8-10.8)
[2023-02-01 06:20] LABS: Immature Granulocytes # (auto) 0.14 K/uL (0.01-0.20); Immature Granulocytes % (auto) 4.2 %; Lymphocytes # (auto) 0.06 K/uL (1.20-3.40); Lymphocytes % (auto) 1.8 %; Monocytes # (auto) 0.17 K/uL (0.11-0.59); Polychromasia 1+
[2023-02-01 06:22] LABS: INR 1.6 (0.9-1.1); Prothrombin Time 16.6 Seconds (9.0-12.0)
[2023-02-01] MEDS ORDERED: SODIUM CHLORIDE 0.9% 250 ML IV PRN (06:36)
[2023-02-01 06:39] LABS: Alanine Aminotransferase 16 U/L (7-52); Albumin Globulin Ratio 1.1 (0.9-2); Albumin Level 2.4 gm/dl (3.4-5.0); Alkaline Phosphatase 57 U/L (34-104); Anion Gap 10 (3-11); Aspartate Aminotransferase 35 U/L (13-39); BUN Creatinine Ratio 13.5 (10-20); Bilirubin,Total 0.6 mg/dl (0.2-1.0); Blood Urea Nitrogen 14 mg/dl (6-23); Calcium 6.6 mg/dl (8.6-10.3); Carbon Dioxide 19 mmol/L (21-32); Chloride 103 mmol/L (98-107); Creatinine Clr Calc Pharmacy 55.3 ml/min; Est GFR (African American) 81.8 ml/min; Est GFR (Non-African American) 70.5 ml/min; Ferritin 660.4 ng/ml (8-388); Globulin 2.1 gm/dl (2.5-4.0); Glucose 115 mg/dl (70-99(Fasting)); Magnesium 1.3 mg/dl (1.7-2.4); Phosphorus 1.3 mg/dl (2.5-4.9); Potassium 3.8 mmol/L (3.5-5.1); Sodium 132 mmol/L (136-145); Total Protein 4.5 gm/dl (6.0-8.3); Troponin I High Sensitivity 92.1 pg/ml (0-14)
[2023-02-01] MEDS ORDERED: POTASSIUM PHOS 3 MMOL/1 ML INFUSION IV STA (06:43)
[2023-02-01] MEDS ORDERED: POTASSIUM PHOSPHATE 15 MMOL in SODIUM CHLORIDE 0.9% 250 ML IV ONE (07:00)
[2023-02-01] MEDS ORDERED: CEFEPIME 2,000 MG in SYRINGE 0 ML IV SCH ×2 (08:00→12:00)
[2023-02-01] MEDS ORDERED: CALCIUM CHLORIDE 10% 500 MG in DEXTROSE 5% 50 ML IV STA (08:06)
--- NOTE | 2023-02-01 08:15 | XRay Report ---
XR chest 1V portable CLINICAL HISTORY: fever TECHNIQUE: Single frontal radiograph of the chest was obtained. Comparison: Comparison is made to chest radiograph 01/19/2023 FINDINGS: No lines and tubes are seen. The cardiomediastinal silhouette is normal. Right lung airspace opacity has increased from prior exam. Moderate right pleural effusion. IMPRESSION: Moderate right pleural effusion with underlying opacities, likely representing atelectasis with super imposed aspiration/pneumonia. ACT 112: Negative or not required by law. Electronically signed by: Tay Merida M.D. 02/01/2023 8:14 AM
--- NOTE | 2023-02-01 08:17 | XRay Report ---
XR chest 1V portable CLINICAL HISTORY: CVC line placement TECHNIQUE: Single frontal radiograph of the chest was obtained. Comparison: Comparison is made to chest radiograph 01/31/2023 FINDINGS: Right central venous catheter terminates in the mid SVC. The cardiomediastinal silhouette is normal. Stable right airspace opacity and pleural effusion. IMPRESSION: Right venous catheter terminates in the mid SVC. Stable right pleural effusion and airspace opacity. ACT 112: Negative or not required by law. Electronically signed by: Tay Merida M.D. 02/01/2023 8:16 AM
[2023-02-01] MEDS: ICU Protocol for HYPERglycemia SCH ×4 (08:25→22:01)
[2023-02-01] MEDS: VANCOMYCIN HCL 750 MG in SODIUM CHLORIDE 0.9% 250 ML IV SCH ×2 (08:31→19:57)
[2023-02-01] MEDS: MIRTAZAPINE TAB 15 MG TAB PO SCH (08:31)
[2023-02-01] MEDS: MAGNESIUM SULFATE / D5W 1 GM/100 ML BAG IV SCH ×2 (08:34→11:17)
[2023-02-01 09:30] LABS: Hematocrit (blood only) 20.6 % (37.0-47.0); Hemoglobin 6.6 g/dl (12.0-16.0)
--- NOTE | 2023-02-01 09:48 | Palliative Care Consultation ---
Date of Consultation February 01, 2023 Assessment & Plan (1) Weakness generalized: (2) Palliative care by specialist: Met with pt/family. Provided overview of Palliative Medicine, a subspecialty that provides specialized medical care for people living with a serious illness by offering a focus on quality of life. Palliative Medicine is often conflated with hospice: I advised patient/family that Palliative and hospice can be partners but we are not the same. It is important to understand the difference so that we may be informed, and not afraid. Palliative Medicine works to improve QOL through reduction of symptom burden/more control over their illness, for both the patient and family. Palliative medicine clinicians are board certified, specially-trained and another member of the patient's medical care team. We often provide an extra layer of support because our care is based on the needs of the patient, not the prognosis; as such, it's appropriate at any age/advancing stage of a serious illness and can be provided along with curative treatment. Palliative Medicine clinicians are also trained in advanced communication methodologies, to facilitate complex discussions about advanced illness planning, which are needed to help assure that the treatment choices match the patient's goals, aka delivering Goal Concordant care. Finally, we discussed that hospice is a visiting nurse service that focuses on care delivered at the very end of life for patients with terminal illness, with life expectancy less than 6 month. (3) Septic shock: (4) Pleural effusion: (5) Acute hypoxic respiratory failure: (6) Metastatic malignant neoplasm to breast: (7) UTI (urinary tract infection): Urinary tract infection type: acute pyelonephritis Qualified Code(s): N10 - Acute pyelonephritis (8) Advanced care planning/counseling discussion: A [id number] advance care planning was held with patient and her mother at the bedside for approximately 45 minutes. Met with patient and her family at the bedside. Her mother was present, and her cousin was on the phone. Also present for this discussion was Dr. Moore from oncology. We reviewed our concerns that she is continue to have relatively rapid and aggressive progression of disease while on multiple lines of therapy. Interval progression is happening in a matter of a few weeks and not over a longer period of time. Concurrently, her performance status is weakening and she has lost weight and become more frail. Currently she is admitted with septic shock and respiratory distress. She is not a safe candidate for cancer related therapy at this time and chemo toxic regimens are on hold. She has conversed with her outside hospital oncology teams and their recommendations have not differed from those here at our center. She is tired and drifting off through this conversation. Family had several questions with regards to what potential next steps could be. Dr. Moore outlined that she would need to regain some strength and recover from this acute admission/infection before further chemotherapy could be considered. She also advised that we are getting lower on the list of available therapeutic options in the lower on the list we go, the less effective those regimens are known to be. The most effective regimens were the ones tried initially and in the earlier stages of her disease process. I expressed concern that when we see this combination of events happening around an advanced cancer patient, especially with rapid interval progression, it is often a sign that I may be running short and it is important that we know from the patient and her family what their goals, wishes and desires are so that the plan of care we propose provided to them is in alignment with the patient's wishes and preferences. Patient's cousin asked for a follow-up meeting. I recommended waiting 48 hours to see how she continues to respond to current septic shock therapies. So far she has been able to come off one of the vasopressors. She is tolerating the antibiotic therapy. Her diarrhea continues and so we will check for C. difficile. We agreed to have a follow-up meeting Monday at 10:30 AM in the patient's room. It is hopeful that as she may continue to improve with antibiotics, IV fluids and sepsis related therapies that she will become more alert and able to engage in the discussion. I gave the family some talking points to consider with regards to serious illness planning and encouraged them to talk amongst themselves and to also see what concerns another questions they may have. Her cousin requested that we have a x ray control equipment repairer present in room as she is finding it difficult to translate to the family some of the more nuanced medical issues. I assured her we would have medical translation services present in the room, most likely a virtual based. Plan PALLIATIVE PROGNOSTICS SCORES Palliative Prognostic Score (PaP) = 13.5 points Interpretation:30-day survival probability <30% 0 - 5.5: 30-day survival probability >70% | 5.6 - Palliative Prognostic Index Score (PPI) = 7 points Note:If the PPI is greater than 6.0, survival is less than three weeks (Sensitivity - 80%; Specificity - 85%). * Overall, palliative prognostic scoring indicates poor prognosis with high probability for 30-day mortality. She has a progressive metastatic breast cancer which is aggressively progressing despite several lines of cancer related treatment. She has a declining performance status and progressive weakness. Is unclear at this time and we will be able to tap her pleural effusion but will continue to reassess to determine a safe window of opportunity. * A [id number] advance care planning was held with patient and her mother at the bedside for approximately 45 minutes. Met with patient and her family at the bedside. Her mother was present, and her cousin was on the phone. Also present for this discussion was Dr. Moore from oncology. We reviewed our concerns that she is continue to have relatively rapid and aggressive progression of disease while on multiple lines of therapy. Interval progression is happening in a matter of a few weeks and not over a longer period of time. Concurrently, her performance status is weakening and she has lost weight and become more frail. Currently she is admitted with septic shock and respiratory distress. She is not a safe candidate for cancer related therapy at this time and chemo toxic regimens are on hold. She has conversed with her outside hospital oncology teams and their recommendations have not differed from those here at our center. She is tired and drifting off through this conversation. Family had several questions with regards to what potential next steps could be. Dr. Moore outlined that she would need to regain some strength and recover from this acute admission/infection before further chemotherapy could be considered. She also advised that we are getting lower on the list of available therapeutic options in the lower on the list we go, the less effective those regimens are known to be. The most effective regimens were the ones tried initially and in the earlier stages of her disease process. I expressed concern that when we see this combination of events happening around an advanced cancer patient, especially with rapid interval progression, it is often a sign that I may be running short and it is important that we know from the patient and her family what their goals, wishes and desires are so that the plan of care we propose provided to them is in alignment with the patient's wishes and preferences. Patient's cousin asked for a follow-up meeting. I recommended waiting 48 hours to see how she continues to respond to current septic shock therapies. So far she has been able to come off one of the vasopressors. She is tolerating the antibiotic therapy. Her diarrhea continues and so we will check for C. difficile. We agreed to have a follow-up meeting Monday at 10:30 AM in the patient's room. It is hopeful that as she may continue to improve with antibiotics, IV fluids and sepsis related therapies that she will become more alert and able to engage in the discussion. I gave the family some talking points to consider with regards to serious illness planning and encouraged them to talk amongst themselves and to also see what concerns another questions they may have. Her cousin requested that we have a x ray control equipment repairer present in room as she is finding it difficult to translate to the family some of the more nuanced medical issues. I assured her we would have medical translation services present in the room, most likely a virtual based. * I have updated nursing, primary team, critical care medicine and oncology. Thank you for allowing us to participate in the ongoing care of this patient. Please don't hesitate to call or page with any additional concerns. Dr. Vivien Stack DNP Director, Palliative Care History of Present Illness Reason for Consultation: On 02/01/23 @ 04:31 Denzel Miranda Wrote To Vivien Stack Metastatic breast CA, septic shock Attending Physician: Max Lauren DO History of Present Illness Per [facility] admission note: "Patient is a 32-year-old female with stage IV metastatic breast cancer who presented to the emergency department with complaints of fever at home and malaise. Patient has previously gone double mastectomy and radiation in 2020, along with several different trials of chemotherapy. Her overall prognosis is poor with aggressive progression of dermal metastasis, although she has recently exhibited interest in clinical trials. She is currently undergoing treatment with Docetaxol/cyclophosphamide with the last treatment 1 week ago on Monday. On arrival to the emergency department the patient was found to be hypotensive and significantly febrile with temp of 39.4. Patient had elevated procalcitonin of 45 and lactic acid of 3.7. She was initially given IV fluid resuscitation per septic protocol, but remained hypotensive and required vasopressor support. Chest x-ray reveals significant progression of right pleural effusion. CT chest Noncon currently pending. Patient does have history of left hydronephrosis following hysterectomy, and has a nephrostomy tube. Urinalysis is consistent with UTI with +4 bacteria. Patient also has purulent drainage from cancerous mass protruding into the subcutaneous tissue in the right chest wall. She was started on broad-spectrum antibiotics with vancomycin and cefepime. She is currently awaiting transfer to the ICU, and will require central line and arterial line. I did discuss CODE STATUS with the patient and she is full code at this time." Patient is seen in ICU together with oncology. She is lying supine in bed, her mother is at the bedside. Her cousin, Ling, is present by telephone. Patient is frail and acutely ill-appearing. Her skin is pale and cheeks are flushed. She has a cool washcloth across her forehead. She is very quiet and at times drifting off. Both oncology and mom confirm this is a significant departure from her usual baseline, which is noted to be talkative and engaging. Not able to provide substantial HPI. Allergies Allergy/AdvReac Type Severity Reaction Status Date / Time No Known Allergies Allergy Verified 01/19/23 09:03 Home Medications Medication Instructions Recorded Confirmed Type acetaminophen 500 mg tablet 1,000 mg PO Q6H PRN PAIN/FEVER 01/19/23 01/31/23 History ondansetron HCl 8 mg tablet 8 mg PO Q8 PRN Nausea And Vomiting 01/19/23 01/31/23 History oxycodone 10 mg tablet 10 mg PO .Q4-6H PRN PRN 01/19/23 01/31/23 History mirtazapine 15 mg tablet 15 mg PO DAILY 01/31/23 01/31/23 History oxycodone 20 mg tablet,crush 20 mg PO .Q 12 HOURS 01/31/23 01/31/23 History resistant,extended release 12 hr (OxyContin) Patient History Medical History Ureteral obstruction History of anemia HX: breast cancer s/p right lumpectomy, chemo, xrt (no limb restriction) Hydronephrosis History of COVID-19 Early 01/2022 > symptoms resolved Surgical History Nephrostomy status S/P bilateral mastectomy History of hysterectomy History of section X 2 H/O myomectomy History of appendectomy H/O lumpectomy Right [place] teeth removed Family History Grandmother (Maternal) Lung cancer Grandmother (Paternal) Ovarian cancer Other No family history of adverse response to anesthesia Social History Smoking Status: Never smoker Second Hand Exposure: No; Do You Dip or Chew Tobacco: No; Hx Alcohol Use: No Hx Substance Use: No Preferred Language: Turkish Communication Ability: Effective Visual Impairment: No Limitations Putty Glazer Required: No Beliefs That Will Affect Care: None marital status: Current Living Situation: Spouse current occupational status: employed current occupation: [employer] Feels Safe at Home: Yes Assistive Devices: None Review of Systems Review of Systems: All systems reviewed & are unremarkable except as noted in Subjective Physical Exam Physical Exam: Lying in bed, supine. Mild distress. Pale complexion. Bitemporal wasting. Pupils are equal round and reactive to light. Neck is supple. There is no stridor. No JVD. Respiratory effort is increased. She is tachycardic. Abdomen is scaphoid. Extremities are thin with significant muscle deconditioning noted. There is no gross edema, clubbing or cyanosis. She is awake and alert and oriented x 3 but she is quite tired and repeatedly drifts off to sleep. Her voice is very soft when she does answer a few questions but largely she does not speak much and most questions are answered by her family. Results & Data Vital Signs (Past 12 Hours) Vital Signs Temp Pulse Pulse Resp BP BP Pulse Ox 02/01/23 06:00 40.5 C H 135 H 34 H 103/38 L 98 02/01/23 05:30 40.6 C H 138 H 34 H 95/67 L 97 02/01/23 05:22 02/01/23 05:00 40.5 C H 143 H 34 H 109/64 99 02/01/23 04:30 146 H 34 H 84/44 L 97 02/01/23 04:00 147 H 34 H 82/40 L 96 02/01/23 04:00 02/01/23 03:30 149 H 32 H 84/46 L 95 02/01/23 03:01 153 H 02/01/23 03:00 39.7 C H 151 H 34 H 85/45 L 90 02/01/23 02:00 150 H 36 H 80/42 L 95 02/01/23 01:45 39.4 C H 144 H 30 H 78/45 L 93 02/01/23 01:30 146 H 32 H 85/42 L 93 02/01/23 01:30 153 H 40 H 85/42 L 93 02/01/23 01:15 146 H 33 H 96/56 L 94 02/01/23 01:00 147 H 32 H 89/60 L 92 02/01/23 00:55 147 H 37 H 94/55 L 92 02/01/23 00:51 145 H 35 H 74/56 L 92 02/01/23 00:45 38 H 94/56 L 93 02/01/23 00:31 144 H 34 H 85/50 L 94 02/01/23 00:30 144 H 34 H 81/64 L 94 02/01/23 00:26 142 H 32 H 68/45 L 94 02/01/23 00:24 139 H 34 H 86/55 L 94 02/01/23 00:01 141 H 29 H 68/49 L 96 02/01/23 00:00 141 H 29 H 68/56 L 96 01/31/23 23:00 140 H 25 H 99/47 L 98 01/31/23 22:46 153 H 31 H 72/43 L 97 01/31/23 22:41 157 H 29 H 77/53 L 95 01/31/23 22:34 160 H 01/31/23 22:05 37.7 C H 174 H 18 107/71 95 Pulse Ox O2 Del Method O2 Del Method O2 Flow Rate O2 Flow Rate 02/01/23 06:00 Nasal Cannula 2 02/01/23 05:30 Nasal Cannula 2 02/01/23 05:22 Nasal Cannula 2 02/01/23 05:00 Nasal Cannula 2 02/01/23 04:30 Nasal Cannula 2 02/01/23 04:00 Nasal Cannula 2 02/01/23 04:00 96 Nasal Cannula 2 02/01/23 03:30 Nasal Cannula 2 02/01/23 03:01 02/01/23 03:00 Room Air 02/01/23 02:00 Room Air 02/01/23 01:45 Room Air 02/01/23 01:30 Room Air 02/01/23 01:30 Room Air 02/01/23 01:15 Room Air 02/01/23 01:00 Room Air 02/01/23 00:55 Room Air 02/01/23 00:51 Room Air 02/01/23 00:45 Room Air 02/01/23 00:31 Room Air 02/01/23 00:30 Room Air 02/01/23 00:26 Room Air 02/01/23 00:24 Room Air 02/01/23 00:01 Room Air 02/01/23 00:00 Room Air 01/31/23 23:00 Room Air 01/31/23 22:46 Room Air 01/31/23 22:41 Room Air 01/31/23 22:34 01/31/23 22:05 Room Air Laboratory Results Data reviewed Diagnostic Findings Data reviewed PG Care Time/CCT Total # of Minutes Spent Total Time Spent: 105 Total Time Spent with Patient: Total time spent is greater than 50% in coordination of care (as documented) at patient's floor/unit and/or counseling patient: I spent 105 minutes overall addressing this case: 25 min in medical data review/discussion with referring provider(s) and/or preparation for the visit 10min in direct interaction with the patient/exam 45 min in Advance Care Planning/Goals of Care discussions as detailed above in note (must be >16min) 10 min in subsequent review and synthesis of assessment and plan 15 min communicating with other providers regarding the patient's case: Advanced Care Planning 38899 Advanced Care Planning 30 Min 17303 Advanced Care Planning Additional 30 [place] [address] IN/OBS CONSULT LVL 5,80M Patient Type New History Comprehensive Exam Comprehensive Medical Decision Making High Complexity Diagnoses Weakness generalized R53.1 Palliative care by specialist Z51.5 Septic shock A41.9; R65.21 Pleural effusion J90 Acute hypoxic respiratory failure J96.01 Metastatic malignant neoplasm to breast C79.81 Acute pyelonephritis N10 Urinary tract infection type: acute pyelonephritis Advanced care planning/counseling discussion Z71.89 Additional Codes Advanced Care Planning - 20220 Advanced Care Planning 30 Min: 27276 Advanced Care Planning 30 Min ([id number]) Advanced Care Planning - 68533 Advanced Care Planning Additional 30 Min: 48509 Advanced Care Planning Additional 30 Min ([id number])
--- NOTE | 2023-02-01 11:16 | Pharmacy Report ---
Pharmacy PK ABX Note - Date of Service February 01, 2023 - Assessment and Plan Assessment 32 year old F receiving vancomcyin/meropenem for empiric treatment of sepsis- with several possible sources including UTI, purulent drainage from right chest wall at site of breast mast, large right pleural effusion. Patient has stage IV breast cancer and is on chemotherapy. Blood cultures, urine culture, right breast culture pending. MRSA nasal screen negative. Tmax 40.6. Procal 46. Plan Vancomycin * Loading dose: 1000 mg IV x 1 * Maintenance dose: 750 mg IV every 12 hours * Regimen is predicted to achieve target AUC/TRINH of 400-600 mg/L.hr * Random level with AM labs on 02/02 Pharmacy will continue to follow and will adjust dose/frequency as necessary. Thank you. Pharmacy has transitioned to AUC monitoring for vancomycin. AUC/TRINH is the preferred PK/PD target and is associated with decreased risk of nephrotoxicity compared to traditional trough targets.
--- NOTE | 2023-02-01 11:18 | Communication Note ---
Date of Service: February 01, 2023 Patient separately seen and examined from [facility] overnight. Patient has ongoing septic shock with source being a large right breast wound that is draining pus. She remains on low-dose Levophed. She remains febrile and tachycardic. We will transition from cefepime to meropenem. Continue vancomycin. She also has a large right pleural effusion which was previously tapped and no malignancy was seen. She is fairly stable at this point and requiring low-flow oxygen. I do not suspect that the pleural effusion is the source of the infection. We can consider thoracentesis when she stabilizes. Replace electrolytes aggressively. Continue IV fluids. Appreciate palliative care and oncology input. Coding Level of Care Code None
[2023-02-01] MEDS: MEROPENEM 500 MG in SYRINGE 0 ML IV SCH ×3 (11:23→22:11)
[2023-02-01] MEDS: ACETAMINOPHEN 1,000 MG/100 ML VIAL IV PRN ×2 (11:25→11:33)
--- NOTE | 2023-02-01 13:28 | Oncology Consultation ---
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 She received cycle 1 day 8 of treatment on 01/24/2023 presented to the ER in septic shock possibly due to urinary tract infection versus right chest wall infection. Currently on broad- spectrum antibiotics with some improvement including her condition -Appreciate care from hospitalist and ICU teams as she appears to be improving from an infectious standpoint. Awaiting results from cultures but agree with broad-spectrum antibiotics for now. Also recommend considering obtaining CT abdomen and pelvis When she is more stable to assess for disease and evaluate right hydronephrosis/nephrostomy tube which is due for exchange. -Although diarrhea could be due to recent chemotherapy, recommend obtaining stool for C. difficile testing and if negative, would recommend antidiarrheal agents. -Consider thoracentesis when more stable given large right-sided pleural effusion. Would recommend obtaining cytology on sample -Had a long conversation today with the patient, her mother at bedside and her cousin over the phone with palliative care provider in attendance. Patient and her family are aware of extremely poor prognosis on multiple occasions with her and her family. She has progressed on multiple lines of treatment due to aggressive nature of her triple negative breast malignancy. She has been evaluated by oncologist at [facility] as well as [facility] and is not eligible for clinical trials. Based on our discussion today, we will wait until she is more stable to make more long-term decisions and whether she would like to try more systemic treatments. If clinical condition improves and she decides to receive more systemic therapy, would consider single agent doxorubicin as next line Of treatment Thank you for this consult. I will continue seeing patient while she is in the hospital. Please feel free to call if you have any further questions History of Present Illness Reason for Consultation: Metastatic Breast CA, septic shock Attending Physician: Max Lauren DO History of Present Illness Very pleasant but unfortunate 32-year-old female with triple negative right taiwo ast cancer for which she is s/p neoadjuvant chemoimmunotherapy treatment followed by bilateral mastectomies at [facility] on 11/29/2022. Patient has since had disease progression with anterior right chest wall masses which progressed while on Trodelvy. Was more recently started on Eribulin on 01/17/2023. Has been evaluated by medical oncologist at [facility] as well as [facility] for potential clinical trials and is not eligible for any available trials. She presented to the ER with fever, foul-smelling discharge from anterior right chest wall wound. On arrival to the ER, she was noted to be hypotensive, tachycardic for which she was placed on pressors. Workup for infection was obtained including urinalysis with reflex to culture, blood cultures, anterior chest wall wound culture. She was placed on broad-spectrum antibiotics and admitted to the ICU. Since admission, she has been weaned off vasopressin and is currently on low-dose Levophed. Continues to have temperature spikes and remains tachycardic. Urinalysis from urine collection bag revealed 4+ protein, 2+ blood, positive for nitrites, 3+ leukocyte esterase with culture pending at the time of today's visit.CT chest on 02/01/2023 revealed multiple masses along the right breast and right chest wall with suspected invasion into right pectoralis musculature and right pleural space, additional soft tissue masses noted along the right and anterior chest wall as well as large right pleural effusion with airspace disease and enlarged supraclavicular lymph nodes likely related to metastatic disease. Allergies Allergy/AdvReac Type Severity Reaction Status Date / Time No Known Allergies Allergy Verified 01/19/23 09:03 Home Medications Medication Instructions Recorded Confirmed Type acetaminophen 500 mg tablet 1,000 mg PO Q6H PRN PAIN/FEVER 01/19/23 01/31/23 History ondansetron HCl 8 mg tablet 8 mg PO Q8 PRN Nausea And Vomiting 01/19/23 01/31/23 History oxycodone 10 mg tablet 10 mg PO .Q4-6H PRN PRN 01/19/23 01/31/23 History mirtazapine 15 mg tablet 15 mg PO DAILY 01/31/23 01/31/23 History oxycodone 20 mg tablet,crush 20 mg PO .Q 12 HOURS 01/31/23 01/31/23 History resistant,extended release 12 hr (OxyContin) Patient History Medical History Ureteral obstruction History of anemia HX: breast cancer s/p right lumpectomy, chemo, xrt (no limb restriction) Hydronephrosis History of COVID-19 Early 01/2022 > symptoms resolved Surgical History Nephrostomy status S/P bilateral mastectomy History of hysterectomy History of section X 2 H/O myomectomy History of appendectomy H/O lumpectomy Right [place] teeth removed Family History Grandmother (Maternal) Lung cancer Grandmother (Paternal) Ovarian cancer Other No family history of adverse response to anesthesia Social History Smoking Status: Never smoker Second Hand Exposure: No; Do You Dip or Chew Tobacco: No; Hx Alcohol Use: No Hx Substance Use: No Preferred Language: Tongan Communication Ability: Effective Visual Impairment: No Limitations Product Support Sales Representative Required: No Beliefs That Will Affect Care: None marital status: Current Living Situation: Spouse current occupational status: employed current occupation: [employer] Feels Safe at Home: Yes Assistive Devices: None Results & Data Vital Signs (Past 12 Hours) Vital Signs Temp Pulse Pulse Resp BP BP Pulse Ox 02/01/23 12:15 39.7 C H 142 H 24 97 02/01/23 12:01 104/63 02/01/23 12:01 39.8 C H 149 H 25 H 98 02/01/23 12:00 39.8 C H 147 H 25 H 97 02/01/23 11:45 39.9 C H 146 H 33 H 98 02/01/23 11:44 39.9 C H 141 H 28 H 121/71 96 02/01/23 11:31 39.8 C H 146 H 38 H 95 02/01/23 11:31 121/71 02/01/23 11:30 39.8 C H 145 H 39 H 100 02/01/23 11:29 39.8 C H 140 H 28 H 130/70 96 02/01/23 11:15 39.7 C H 145 H 41 H 99 02/01/23 11:12 39.8 C H 144 H 14 150/53 H 97 02/01/23 11:01 95/72 L 02/01/23 11:01 39.7 C H 140 H 38 H 97 02/01/23 11:00 39.7 C H 140 H 36 H 96 02/01/23 10:45 39.6 C H 132 H 39 H 96 02/01/23 10:31 120/77 02/01/23 10:31 39.5 C H 130 H 20 95 02/01/23 10:30 39.5 C H 130 H 28 H 96 02/01/23 10:15 39.5 C H 128 H 38 H 96 02/01/23 10:01 139/79 02/01/23 10:01 39.5 C H 133 H 40 H 94 02/01/23 10:00 39.4 C H 134 H 44 H 94 02/01/23 09:31 39.4 C H 128 H 36 H 97 02/01/23 09:31 111/71 02/01/23 09:01 102/69 02/01/23 09:01 39.5 C H 126 H 37 H 02/01/23 09:00 39.5 C H 124 H 33 H 99 02/01/23 08:15 02/01/23 08:01 101/67 02/01/23 08:01 39.8 C H 130 H 43 H 99 02/01/23 08:00 39.8 C H 127 H 21 99 02/01/23 07:31 40.1 C H 133 H 11 L 97 02/01/23 07:31 101/63 02/01/23 07:01 40.2 C H 136 H 0 L 97 02/01/23 07:01 98/61 L 02/01/23 07:00 40.3 C H 135 H 7 L 97 02/01/23 06:00 40.5 C H 135 H 34 H 103/38 L 98 02/01/23 05:30 40.6 C H 138 H 34 H 95/67 L 97 02/01/23 05:22 02/01/23 05:00 40.5 C H 143 H 34 H 109/64 99 02/01/23 04:30 146 H 34 H 84/44 L 97 02/01/23 04:00 147 H 34 H 82/40 L 96 02/01/23 04:00 02/01/23 03:30 149 H 32 H 84/46 L 95 02/01/23 03:01 153 H 02/01/23 03:00 39.7 C H 151 H 34 H 85/45 L 90 02/01/23 02:00 150 H 36 H 80/42 L 95 02/01/23 01:45 39.4 C H 144 H 30 H 78/45 L 93 02/01/23 01:30 146 H 32 H 85/42 L 93 02/01/23 01:30 153 H 40 H 85/42 L 93 Pulse Ox O2 Del Method O2 Del Method O2 Flow Rate O2 Flow Rate 02/01/23 12:15 02/01/23 12:01 02/01/23 12:01 02/01/23 12:00 02/01/23 11:45 02/01/23 11:44 2 02/01/23 11:31 02/01/23 11:31 02/01/23 11:30 02/01/23 11:29 2 02/01/23 11:15 02/01/23 11:12 2 02/01/23 11:01 02/01/23 11:01 02/01/23 11:00 02/01/23 10:45 02/01/23 10:31 02/01/23 10:31 Nasal Cannula 2 02/01/23 10:30 02/01/23 10:15 02/01/23 10:01 02/01/23 10:01 02/01/23 10:00 02/01/23 09:31 02/01/23 09:31 02/01/23 09:01 02/01/23 09:01 02/01/23 09:00 02/01/23 08:15 Nasal Cannula 2 02/01/23 08:01 02/01/23 08:01 02/01/23 08:00 02/01/23 07:31 02/01/23 07:31 02/01/23 07:01 02/01/23 07:01 02/01/23 07:00 02/01/23 06:00 Nasal Cannula 2 02/01/23 05:30 Nasal Cannula 2 02/01/23 05:22 Nasal Cannula 2 02/01/23 05:00 Nasal Cannula 2 02/01/23 04:30 Nasal Cannula 2 02/01/23 04:00 Nasal Cannula 2 02/01/23 04:00 96 Nasal Cannula 2 02/01/23 03:30 Nasal Cannula 2 02/01/23 03:01 02/01/23 03:00 Room Air 02/01/23 02:00 Room Air 02/01/23 01:45 Room Air 02/01/23 01:30 Room Air 02/01/23 01:30 Room Air
--- NOTE | 2023-02-01 13:37 | XCELERA ---
[id number] \\[id number]
--- NOTE | 2023-02-01 15:24 | CT Scan Report ---
ABDOMEN AND PELVIS CT WITHOUT CONTRAST CT DOSE: 893.47 mGy.cm HISTORY: Sepsis. obstruction, infectious etiology? TECHNIQUE: Multiaxial CT images of the abdomen and pelvis were performed without contrast. A dose lo wering technique was utilized adhering to the principles of ALARA. COMPARISON STUDY: Chest CT 02/01/2023. Abdomen and pelvis CT 08/15/2022. FINDINGS: The lung bases are better appreciated on the same day chest CT. A large right pleural effus ion and a small left pleural effusions are again noted. Consolidation within the right lower lobe fav ors compressive atelectasis from the pleural effusion. Multiple soft tissue masses seen within the ri ght anterior and midline chest/abdominal wall again noted. This includes an ulcerating mass near the midline of the upper abdominal wall which demonstrates a 2 cm skin defect/wound. This skin defect ext ends to the anterior rib cartilage with associated destruction of the rib cartilage on image 27. Ther e is small focal area of bony destruction within the right side of the distal sternum best seen on im age 12 secondary to the adjacent chest wall mass. There is also mild bony destruction within the righ t anterior fifth rib on image 18 secondary to the chest wall masses. The chest wall masses surround m ultiple right anterior ribs. This is consistent with sites of metastatic disease. Left basilar consol idation also favors atelectasis. A pneumonia would be difficult to exclude by imaging. No pneumoperit oneum. No pneumatosis. Suboptimal evaluation of the upper abdominal structures due to streak artifact from the patient's overlapping arms. However, the unenhanced liver, gallbladder, pancreas, spleen, a nd adrenal glands unremarkable. A left percutaneous nephrostomy tube is unchanged in position. No lef t-sided hydronephrosis. Mild fullness within the right renal collecting system without yaa hydronep hrosis. This remains unchanged. No retroperitoneal lymphadenopathy. Normal caliber abdominal aorta. M ild bilateral perinephric edema is noted. Small amount of ascites is seen within the abdomen and pelv is. The bladder is mildly distended. There is gas within the bladder lumen likely due to the Blackwell ca theter. The catheter appears in good position. No bladder wall thickening. The uterus appears surgica lly absent. Suboptimal evaluation for bowel pathology due to the lack of intravenous and oral contras t. However, there are no dilated loops of bowel to suggest an obstruction. Questionable thickening wi thin the ascending colon hepatic flexure of the colon is likely due to underdistention. Otherwise, no definite bowel wall thickening. Fluid-filled nondilated gas-filled loops of large and small bowel se en throughout the abdomen. This can be seen in the setting of a diarrheal illness/gastroenteritis. IMPRESSION: 1. No evidence for bowel obstruction. 2. Nondilated fluid-filled loops of large small bowel. This could be seen in the setting of a gastroe nteritis/diarrheal illness. 3. Questionable thickening of the ascending colon and hepatic flexure of the colon is likely due to u nderdistention. A low-grade colitis is considered less likely but not entirely excluded. 4. Mild fullness within the right renal collecting system without yaa hydronephrosis. This is likel y secondary to the distended bladder. However, there is a Blackwell catheter within the bladder which natalie ears in good position. 5. Small amount of ascites. 6. Bilateral pleural effusions and bibasilar densities which favor atelectasis. A pneumonia would be difficult to exclude by imaging. 7. Multiple right anterior and midline chest/abdominal wall masses with adjacent bony/cartilage destr uction as described above. This is consistent with metastatic disease. 8. Additional findings as described above ACT 112: Negative or not required by law. Electronically signed by: Johnny Crain M.D. 02/01/2023 3:22 PM
[2023-02-01 15:43] LABS: Hematocrit (blood only) 25.9 % (37.0-47.0); Hemoglobin 8.5 g/dl (12.0-16.0); Mean Corpuscular Hgb Conc 32.8 g/dL (32.0-36.0); Mean Corpuscular Volume 79.2 fL (80.0-100.0); Mean Platelet Volume 10.7 fL (9.4-12.4); Platelet Count 205 K/uL (130-400); RDW Coefficient of Variation 19.3 % (11.5-14.5); RDW Standard Deviation 54.8 fL (36.4-46.3); Red Blood Count 3.27 M/uL (4.20-5.40); White Blood Count 6.39 K/ul (4.8-10.8)
--- NOTE | 2023-02-01 15:48 | Electrocardiogram Report ---
Test Reason : Blood Pressure : / mmHG Vent. Rate : 165 BPM Atrial Rate : 165 BPM P-R Int : 126 ms QRS Dur : 064 ms QT Int : 302 ms P-R-T Axes : 077 223 042 degrees QTc Int : 500 ms Sinus tachycardia Nonspecific ST and T wave abnormality Abnormal ECG When compared with ECG of 19-JAN-2023 06:46, QRS axis Shifted left Nonspecific T wave abnormality no longer evident in Inferior leads Nonspecific T wave abnormality, improved in Anterior leads Confirmed by Alton Moore ([id number]) on 02/01/2023 3:48:20 PM Referred By: REFERRED SELF Confirmed By:Alton Moore
[2023-02-01 16:01] LABS: Troponin I High Sensitivity 105.1 pg/ml (0-14)
[2023-02-01 16:09] LABS: Basophils # (auto) 0.02 K/uL (0.00-0.20); Basophils % (auto) 0.3 %; Echinocytes 1+; Immature Granulocytes # (auto) 0.14 K/uL (0.01-0.20); Immature Granulocytes % (auto) 2.2 %; Lymphocytes # (auto) 0.07 K/uL (1.20-3.40); Lymphocytes % (auto) 1.1 %; Monocytes # (auto) 0.35 K/uL (0.11-0.59); Monocytes % (auto) 5.5 %; Neutrophils # (auto) 5.81 K/uL (1.40-6.50); Neutrophils % (auto) 90.9 %; Tear Drop Cells 1+; Toxic Vacuolation 1+
[2023-02-01 16:59] LABS: BUN Creatinine Ratio 13.8 (10-20); Calcium 6.9 mg/dl (8.6-10.3); Creatinine Clr Calc Pharmacy 61.1 ml/min; Est GFR (African American) 92.4 ml/min; Est GFR (Non-African American) 79.7 ml/min; Potassium 3.3 mmol/L (3.5-5.1)
--- NOTE | 2023-02-01 17:03 | Hospitalist Progress Note ---
Date of Service February 01, 2023 Assessment & Plan (1) Metastatic malignant neoplasm to breast: Plan: With septic shockmost likely due to cellulitis, ICU also notes possible UTI. Continue empiric antibiotics, follow cultures, continue supportive care and pressor support. Appreciate school plant consultant input. Otherwise as per ICU at this time. Admission and Anticipated Discharge Date Admission Date: February 01, 2023 Subjective No acute complaints. Pain under control. Discussed with ICU team. Input appreciated. Mother present at the bedside. Physical Exam Physical Exam: In general she is awake and alert very quiet but does not appear to be in any significant distress just very still without a lot of spontaneous movement or animation. Breathing unlabored no accessory muscle use good effort. Neuro without focal deficits Results & Data Results & Data Vital Signs (Past 12 Hours) Vital Signs Temp Pulse Pulse Resp BP BP Pulse Ox 02/01/23 14:00 100.9 F H 125 H 30 H 97 02/01/23 13:45 101.3 F H 131 H 17 95 02/01/23 13:30 101.8 F H 128 H 17 97 02/01/23 13:15 102.2 F H 131 H 27 H 97 02/01/23 13:14 102.2 F H 130 H 26 H 106/45 L 98 02/01/23 13:00 102.4 F H 132 H 26 H 98 02/01/23 12:45 102.7 F H 137 H 28 H 97 02/01/23 12:31 89/51 L 02/01/23 12:31 103.1 F H 139 H 31 H 97 02/01/23 12:30 103.1 F H 139 H 29 H 98 02/01/23 12:15 103.5 F H 142 H 24 97 02/01/23 12:14 103.1 F H 134 H 28 H 110/45 L 98 02/01/23 12:01 104/63 02/01/23 12:01 103.6 F H 149 H 25 H 98 02/01/23 12:00 103.6 F H 147 H 25 H 97 02/01/23 11:45 103.8 F H 146 H 33 H 98 02/01/23 11:44 103.8 F H 141 H 28 H 121/71 96 02/01/23 11:31 103.6 F H 146 H 38 H 95 12/06/23 11:31 121/71 02/01/23 11:30 103.6 F H 145 H 39 H 100 02/01/23 11:29 103.6 F H 140 H 28 H 130/70 96 02/01/23 11:15 103.5 F H 145 H 41 H 99 02/01/23 11:12 103.6 F H 144 H 14 150/53 H 97 02/01/23 11:01 95/72 L 02/01/23 11:01 103.5 F H 140 H 38 H 97 02/01/23 11:00 103.5 F H 140 H 36 H 96 02/01/23 10:45 103.3 F H 132 H 39 H 96 02/01/23 10:31 120/77 02/01/23 10:31 103.1 F H 130 H 20 95 02/01/23 10:30 103.1 F H 130 H 28 H 96 02/01/23 10:15 103.1 F H 128 H 38 H 96 02/01/23 10:01 139/79 02/01/23 10:01 103.1 F H 133 H 40 H 94 02/01/23 10:00 102.9 F H 134 H 44 H 94 02/01/23 09:31 102.9 F H 128 H 36 H 97 02/01/23 09:31 111/71 02/01/23 09:01 102/69 02/01/23 09:01 103.1 F H 126 H 37 H 02/01/23 09:00 103.1 F H 124 H 33 H 99 02/01/23 08:15 02/01/23 08:01 101/67 02/01/23 08:01 103.6 F H 130 H 43 H 99 02/01/23 08:00 103.6 F H 127 H 21 99 02/01/23 07:31 104.2 F H 133 H 11 L 97 02/01/23 07:31 101/63 02/01/23 07:01 104.4 F H 136 H 0 L 97 02/01/23 07:01 98/61 L 02/01/23 07:00 104.5 F H 135 H 7 L 97 02/01/23 06:00 104.9 F H 135 H 34 H 103/38 L 98 02/01/23 05:30 105.1 F H 138 H 34 H 95/67 L 97 02/01/23 05:22 O2 Del Method O2 Flow Rate 02/01/23 14:00 02/01/23 13:45 02/01/23 13:30 02/01/23 13:15 02/01/23 13:14 2 02/01/23 13:00 02/01/23 12:45 02/01/23 12:31 02/01/23 12:31 02/01/23 12:30 02/01/23 12:15 02/01/23 12:14 2 02/01/23 12:01 02/01/23 12:01 02/01/23 12:00 02/01/23 11:45 02/01/23 11:44 2 02/01/23 11:31 02/01/23 11:31 02/01/23 11:30 02/01/23 11:29 2 02/01/23 11:15 02/01/23 11:12 2 02/01/23 11:01 02/01/23 11:01 02/01/23 11:00 02/01/23 10:45 02/01/23 10:31 02/01/23 10:31 Nasal Cannula 2 02/01/23 10:30 02/01/23 10:15 02/01/23 10:01 02/01/23 10:01 02/01/23 10:00 02/01/23 09:31 02/01/23 09:31 02/01/23 09:01 02/01/23 09:01 02/01/23 09:00 02/01/23 08:15 Nasal Cannula 2 02/01/23 08:01 02/01/23 08:01 02/01/23 08:00 02/01/23 07:31 02/01/23 07:31 02/01/23 07:01 02/01/23 07:01 02/01/23 07:00 02/01/23 06:00 Nasal Cannula 2 02/01/23 05:30 Nasal Cannula 2 02/01/23 05:22 Nasal Cannula 2 PG Care Time/CCT Total # of Minutes Spent Total Time Spent with Patient: Total time spent is greater than 50% in coordination of care (as documented) at patient's floor/unit and/or counseling patient: Coding Level of Care Code 38640 SUB INP/OBS CARE 03/23MIN Diagnoses Metastatic malignant neoplasm to breast C79.81
[2023-02-01 22:30] LABS: Adenovirus F 40/41 PCR Not Detected (NotDetected); Astrovirus PCR Not Detected (NotDetected); Campylobacter PCR Not Detected (NotDetected); Cryptosporidium PCR Not Detected (NotDetected); Cyclospora cayetanensis PCR Not Detected (NotDetected); Entamoeba histolytica PCR Not Detected (NotDetected); Enteroaggregative E.coli(EAEC) Not Detected (NotDetected); Enterotoxigenic E.coli (ETEC) Not Detected (NotDetected); Giardia lamblia PCR Not Detected (NotDetected); Norovirus GI/GII PCR Not Detected (NotDetected); Plesiomonas shigelloides PCR Not Detected (NotDetected); Rotavirus A PCR Not Detected (NotDetected); Salmonella PCR Not Detected (NotDetected); Sapovirus PCR Not Detected (NotDetected); Shiga-like Toxin E.coli (STEC) Not Detected (NotDetected); Vibrio cholerae PCR Not Detected (NotDetected); Vibrio species PCR Not Detected (NotDetected); Yersinia enterocolitica PCR Not Detected (NotDetected)
[2023-02-01 22:38] LABS: Enteropathogenic E.coli (EPEC) DETECTED (NotDetected); Shigella/Enteroinvasive E.coli DETECTED (NotDetected)
[2023-02-01] MEDS: ONDANSETRON INJ 2 MG/ML 2 ML VIAL IV PRN (23:37)
--- NOTE | 2023-02-02 01:35 | Billing Data ---
Date of Service February 02, 2023 Coding Level of Care Code 43125 CRITICAL CARE
[2023-02-02] MEDS: PLASMA-LYTE A 1,000 ML IV SCH ×2 (03:30→07:37)
[2023-02-02] MEDS: MEROPENEM 500 MG in SYRINGE 0 ML IV SCH ×4 (03:32→21:49)
[2023-02-02 05:43] LABS: Troponin I High Sensitivity 97.7 pg/ml (0-14)
[2023-02-02] MEDS ORDERED: POTASSIUM CHLORIDE 20 MEQ/15 ML UDC PO STA (05:54)
[2023-02-02] MEDS ORDERED: PLASMA-LYTE A 500 ML IV ONE (06:19)
[2023-02-02] MEDS: POTASSIUM CHLORIDE / WTR 20 MEQ/100 ML PLCT IV SCH ×2 (06:56→07:38)
--- NOTE | 2023-02-02 07:07 | Hospitalist Progress Note ---
Date of Service February 02, 2023 Assessment & Plan (1) Septic shock: Plan: Pt is a 32 yo immunocompromised pt with PMH of metastatic breast cancer s/p bilateral mastectomy, chemo, and radiation (in current tx) who presented to the hospital due to fevers. She was admitted to the ICU 02/01 and was downgraded to the PCU 02/02. Septic shock - improving- no longer requiring vasopressors - MRSA nares neg; blood cx neg; urine cx contaminated; wound cx growing staph and strep, awaiting sensitivities - CXR shows R pleural effusion; CT chest redemonstrated effusion and showed multiple right breast masses - continue meropenem, vanco until wound cx sensitivities result - continue midodrine 5 mg TID Acute nausea/vomiting - began last night and has persisted throughout the night into this AM - most likely viral in nature; may be secondary to ABX - s/p 1 dose of phenergan today; continue zofran 4 mg IV q6hr PRN, compazine 10 mg IV q6hr PRN, famotidine 20 mg BID, pantoprazole 40 mg BID Acute hypoxic respiratory failure - multiple desaturations upon admission; however, since admitted pt's O2 sat is stable - continue supplemental O2 as needed Elevated troponin - most likely demand ischemia in the setting of septic shock - originally downtrending, but increased again - will trend again until peak Pleural effusions - noted as above; prior thoracentesis w/o evidence of malignancy - consider pulm consult for thoracentesis once pt more stable Metastatic breast cancer - stage IV metastatic invasive ductal carcinoma s/p double mastectomy and currently immunocompromised on chemotherapy - consulted Dr. Moore, pt's primary oncologist - with pt's poor prognosis, palliative care consulted; family meeting planned for tomorrow at 10:30 AM Anemia - Hgb 8.7 on admission; appears to be around baseline - no signs of acute bleeding Electrolyte derangements - hyponatremia, hypokalemia - likely secondary to lack of PO intake and vomiting and possible contribution from SIADH in the setting of pt's malignancy - replete as necessary Depression - continue mirtazapine 15 mg daily Diet: regular Code: full VTE ppx: SCDs, lovenox BID Dispo: PCU (2) Acute hypoxic respiratory failure: (3) Pleural effusion: (4) Hyponatremia: (5) Hypokalemia: (6) Leukopenia: (7) Depression: (8) Elevated troponin: Admission and Anticipated Discharge Date Admission Date: February 01, 2023 Supervising Physician Co-Signing Physician Notes I personally examined the patient and verified all lang points of history and exam, discussed case, and agree with decision making with Dr Turner Feeling pretty terrible. Lots of nausea vomiting and diarrhea. Some abdominal pain. Vitals noted, in general she is awake and alert but appears uncomfortable and nauseaed. breathing unlabored no accessory muscles good effort abd soft mod diffuse tenderness no guarding no rebound intractable nausea/vomiting - per hx seems to have largely arisen over last ~day -- ddx viral GE > abx ADR > fallout from sepsis/whole milieu. stool EPEC and shigella noted but meropenem should be more than adequate treatment should those have been offenders (although possibly those are the offenders but it will just take more time to improve sx). supportive care. septic shock - most likely from cellulitis from breast CA - dapto; continue micaela for broad coverage since septic shock and no clear cx as of yet DVT proph - lovenox Subjective Pt vomited this morning upon examination. She has been vomiting throughout the night. Endorses mild abdominal pain. Review of Systems Review of Systems: As per HPI Physical Exam Physical Exam: Constitutional: pale, diaphoretic, ill appearing, mild distress HEENT: normocephalic, no conjunctival injection CV: tachycardic, regular rhythm, no murmur Respiratory: Clear to auscultation bilaterally. No rhonchi, wheezes, or crackles. No increased work of breathing GI: soft, nondistended, positive bowel sounds MSK: no gross deformities noted Skin: warm, diaphoretic, no rashes Neuro: alert, oriented, no FND noted Results & Data Results & Data Vital Signs (Past 12 Hours) Vital Signs Temp Pulse Resp Pulse Ox Pulse Ox O2 Del Method O2 Del Method 02/02/23 06:00 37.7 C H 117 H 8 L 94 02/02/23 05:00 37.6 C H 121 H 27 H 94 02/02/23 04:00 37.4 C 114 H 23 94 02/02/23 04:00 93 Room Air 02/02/23 03:30 37.7 C H 120 H 7 L 93 12/07/23 03:00 37.7 C H 120 H 22 94 02/02/23 02:30 37.7 C H 118 H 31 H 93 02/02/23 02:00 37.8 C H 119 H 7 L 93 02/02/23 01:00 37.7 C H 118 H 28 H 94 02/02/23 00:00 37.7 C H 117 H 40 H 95 02/01/23 23:00 37.6 C H 116 H 9 L 94 02/01/23 22:00 37.6 C H 118 H 36 H 94 02/01/23 21:00 37.7 C H 116 H 0 L 96 02/01/23 20:00 37.9 C H 118 H 6 L 95 02/01/23 20:00 Room Air Resident Activity Tracking Resident Involvement: Resident Care Provided Care Provided: Adult Hospital Medicine
[2023-02-02] MEDS ORDERED: STAT IV/IM STA (07:32)
[2023-02-02] MEDS: MIDODRINE HCL 2.5 MG TAB PO SCH ×3 (07:38→16:56)
[2023-02-02] MEDS ORDERED: SODIUM BICARBONATE 8.4% 150 MEQ in DEXTROSE 5% 1,000 ML IV SCH (07:45)
[2023-02-02 07:57] LABS: Hematocrit (blood only) 25.1 % (37.0-47.0); Hemoglobin 8.5 g/dl (12.0-16.0); Mean Corpuscular Hemoglobin 26.5 pg (25.0-34.0); Mean Corpuscular Hgb Conc 33.9 g/dL (32.0-36.0); Mean Corpuscular Volume 78.2 fL (80.0-100.0); Mean Platelet Volume 12.4 fL (9.4-12.4); Platelet Count 253 K/uL (130-400); RDW Coefficient of Variation 20.4 % (11.5-14.5); RDW Standard Deviation 57.7 fL (36.4-46.3); Red Blood Count 3.21 M/uL (4.20-5.40); White Blood Count 6.75 K/ul (4.8-10.8)
[2023-02-02] MEDS ORDERED: HYDROmorphone INJ 0.5 MG/0.5 ML SYR ONE (08:01)
[2023-02-02] MEDS: ONDANSETRON INJ 2 MG/ML 2 ML VIAL IV PRN ×3 (08:03→17:08)
[2023-02-02 08:15] LABS: Magnesium 2.6 mg/dl (1.7-2.4); Phosphorus 2.2 mg/dl (2.5-4.9)
[2023-02-02] MEDS ORDERED: DEXTROSE 50% 50 ML SYRINGE IV ONE ×2 (08:22→08:23)
[2023-02-02 08:30] LABS: Basophils # (auto) 0.02 K/uL (0.00-0.20); Basophils % (auto) 0.3 %; Immature Granulocytes % (auto) 5.9 %; Lymphocytes # (auto) 0.22 K/uL (1.20-3.40); Lymphocytes % (auto) 3.3 %; Monocytes # (auto) 0.38 K/uL (0.11-0.59); Monocytes % (auto) 5.6 %; Neutrophils # (auto) 5.73 K/uL (1.40-6.50); Neutrophils % (auto) 84.9 %; Polychromasia 1+; Tear Drop Cells 1+; Toxic Vacuolation 1+
[2023-02-02] MEDS: NOREPINEPHRINE/D5W 4 MG/250 ML PLCT IV SCH (08:37)
[2023-02-02] MEDS: ICU Protocol for HYPERglycemia SCH ×3 (08:37→15:49)
[2023-02-02] MEDS: VANCOMYCIN HCL 750 MG in SODIUM CHLORIDE 0.9% 250 ML IV SCH ×2 (08:39→19:17)
[2023-02-02] MEDS: MIRTAZAPINE TAB 15 MG TAB PO SCH (08:40)
--- NOTE | 2023-02-02 08:55 | Critical Care Progress Note ---
Date of Service February 02, 2023 Assessment & Plan (1) Septic shock: Plan: Reason Critically Ill: 32-year-old female with history significant for metastatic breast cancer with progression into the derma. Underwent radiation in 2020 and currently undergoing chemotherapy with docetaxol/cyclophosphamide. She presented to the emergency department earlier this evening with complaints of malaise and fever, found to be hypotensive. Admitted to ICU with septic sh ock, requiring vasopressor support with Levophed and vasopressin drips. Neuro - [facility] ICU: Negative 0.25 mg every 4 hours hydromorphone. Cardiac - Shockseptic in origin. Improving. Echo unremarkable with an LVEF of 50 to 55%. Continue midodrine 5 mg 3 times daily. Respiratory - Pleural effusionright pleural effusion noted. Prior thoracentesis without evidence of malignancy. Will consider thoracentesis when she stabilizes. Procedure may be technically difficult given significant body wall edema on the right. GI - N.p.o. RENAL/LYTES - AKIrenal function improving, however, he has ongoing acidosis from GI losses. Bicarbonate infusion initiated to discontinue Plasma-Lyte. History of nephrostomy tubepatient with left nephrostomy following development of hydronephrosis after hysterectomy. Does not appear to be related to metastatic disease with negative abdominal MRI. - Foleystrict I's and O's. Monitor nephrostomy output ENDO - No history of diabetes or thyroid disease ICU hyperglycemic protocol HEME - Leukopenia without neutropenia. Platelets within normal limits. Normocytic anemia. Monitor routine CBC. Transfuse for hemoglobin less than 7. Lactic acidosis yesterday was improving. Will repeat lactate today to ensure it has resolved. ID - Sepsismultiple potential sources immunocompromise patient due to chemotherapy. Patient appears to have UTI on urinalysis. Purulent drainage from right chest wall at site of breast mass. And large right pleural effusion -Pro-Michael elevated at 45. Vasopressors off at this time. -Bio fire negative -Right breast tissue growing Staphylococcus species. Blood and urine cultures pending. -Currently on vancomycin and meropenem. 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 Follows with Dr. Moore. Was noted to have poor prognosis and most recent visit noting aggressive progression of mass into the derma. She has undergone radiation in 2020 and a double mastectomy. She has undergone multiple chemotherapies and is currently being treated with docetaxel/cyclophosphamide. Most recent treatment last Monday. -Appreciate oncology and palliative care consults. Family meeting on Monday. LINES/IV ACCESS - Right internal jugular line, right radial A-line DVT PROPHYLAXIS - SCDs, Holding lovenox Likely stable for downgrade to PCU status later today. (2) Pleural effusion: (3) Metastatic malignant neoplasm to breast: (4) UTI (urinary tract infection): Admission and Anticipated Discharge Date Admission Date: February 01, 2023 Subjective Patient seen and examined. She has been weaned off of vasoactive medications. She is complaining of nausea and vomiting. She denies any chest pain. She does endorse some mild shortness of breath. No overt signs of bleeding at this time. Review of Systems Review of Systems: All systems reviewed & are unremarkable except as noted in HPI & below Physical Exam Constitutional: + frail appearing and + diaphoretic Eyes: PERRL, conjunctivae normal, anicteric sclerae ENMT: external ear and nose normal, oropharynx normal Neck: trachea midline, no thyromegaly Respiratory: Left lung clear to auscultation, lungs diminished in right lung field, symmetrical chest wall movement, no labored breathing or use of accessory muscles Cardiovascular: Rate/Rhythm: regular rate and + tachycardic Vessels: no JVD Extremities: no edema Chest (Breasts): Additional Comments: Double mastectomy, right necrotic breast mass with purulent drainage and erythema Gastrointestinal (Abdomen): normal bowel sounds, soft, nontender, no hepatosplenomegaly Musculoskeletal: no cyanosis or clubbing, extremities motor strength 5/5 Skin: Right anterior chest wall with erythema and purulent drainage with necrosis from underlying mass. No rashes Neurologic: PERRL, EOMI, accommodation nl, no face palsy, no dysarthria Psychiatric: A+Ox3, euthymic affect Genitourinary: Left nephrostomy tube with dark concentrated yellow urine Results & Data Results & Data Vital Signs (Past 12 Hours) Vital Signs Temp Pulse Resp Pulse Ox Pulse Ox O2 Del Method 02/02/23 06:00 37.7 C H 117 H 8 L 94 02/02/23 05:00 37.6 C H 121 H 27 H 94 02/02/23 04:00 37.4 C 114 H 23 94 02/02/23 04:00 93 Room Air 02/02/23 03:30 37.7 C H 120 H 7 L 93 02/02/23 03:00 37.7 C H 120 H 22 94 02/02/23 02:30 37.7 C H 118 H 31 H 93 02/02/23 02:00 37.8 C H 119 H 7 L 93 02/02/23 01:00 37.7 C H 118 H 28 H 94 02/02/23 00:00 37.7 C H 117 H 40 H 95 02/01/23 23:00 37.6 C H 116 H 9 L 94 02/01/23 22:00 37.6 C H 118 H 36 H 94 02/01/23 21:00 37.7 C H 116 H 0 L 96 Coding Level of Care Code 20190 SUB INP/OBS CARE MIN Diagnoses Septic shock A41.9; R65.21 Pleural effusion J90 Metastatic malignant neoplasm to breast C79.81 Acute pyelonephritis N10 Urinary tract infection type: acute pyelonephritis (4) UTI (urinary tract infection) Urinary tract infection type: acute pyelonephritis Qualified Code(s): N10 - Acute pyelonephritis
[2023-02-02] MEDS ORDERED: GLUCOSE 10 TAB/TUBE PO PRN (09:45)
[2023-02-02] MEDS ORDERED: DEXTROSE 50% 50 ML SYRINGE IV PRN (09:45)
[2023-02-02] MEDS ORDERED: GLUCAGON FOR INJ 1 MG VIAL SQ PRN (09:45)
[2023-02-02] MEDS ORDERED: CARBOHYDRATES FOR HYPOGLYCEMIA PO PRN (09:45)
[2023-02-02] MEDS ORDERED: GLUCOSE 40% GEL 15 GM TUBE PO PRN (09:45)
[2023-02-02 10:25] LABS: BUN Creatinine Ratio 17.9 (10-20); Calcium 7.1 mg/dl (8.6-10.3); Creatinine Clr Calc Pharmacy 73.7 ml/min; Est GFR (African American) 115.8 ml/min; Est GFR (Non-African American) 99.9 ml/min; Potassium 2.9 mmol/L (3.5-5.1)
[2023-02-02] MEDS: HYDROmorphone INJ 0.5 MG/0.5 ML SYR IV PRN ×2 (12:19→23:57)
--- NOTE | 2023-02-02 12:24 | Pharmacy Report ---
Pharmacy PK ABX Note - Date of Service February 02, 2023 - Assessment and Plan Assessment 02/02: Patient now titrated off of vasospressors. White count improved. Stool testing positive for EPEC, SHigella/EIEC. Breast culture growing staph species and grp A Strep. Blood cultures negative at 24 hours. Urine culture with 3+ organisms, repeat culture pending. Fever curve improving. SCr improving. Random level this AM predicts therapeutic dosing 02/01 32 year old F receiving vancomcyin/meropenem for empiric treatment of sepsis- with several possible sources including UTI, purulent drainage from right chest wall at site of breast mast, large right pleural effusion. Patient has stage IV breast cancer and is on chemotherapy. Blood cultures, urine culture, right breast culture pending. MRSA nasal screen negative. Tmax 40.6. Procal 46. Plan Vancomycin * Random level this AM 15.7 mcg/mL * Continue maintenance dose: 750 mg IV every 12 hours * Regimen is predicted to achieve target AUC/TRINH of 400-600 mg/L.hr * Random level with AM labs on 02/03- Pharmacy will continue to follow and will adjust dose/frequency as necessary. Thank you. Pharmacy has transitioned to AUC monitoring for vancomycin. AUC/TRINH is the preferred PK/PD target and is associated with decreased risk of nephrotoxicity compared to traditional trough targets.
[2023-02-02] MEDS: D5W AND NSS 1,000 ML IV SCH ×2 (12:45→21:50)
[2023-02-02] MEDS ORDERED: PROMETHAZINE HCL 12.5 MG in SODIUM CHLORIDE 0.9% 50 ML IV STA (12:47)
[2023-02-02] MEDS ORDERED: PROCHLORPERAZINE 10 MG in SYRINGE 8 ML IV PRN (13:04)
[2023-02-02] MEDS ORDERED: FAMOTIDINE 20 MG in SYRINGE 3 ML IV ONE (13:15)
--- NOTE | 2023-02-02 14:05 | Hematology/Oncology Prog Note ---
Date of Service February 02, 2023 Assessment & Plan (1) UTI (urinary tract infection): (2) Right lower lobe pneumonia: (3) Acute hypoxic respiratory failure: (4) Metastatic malignant neoplasm to breast: Plan Appears to be doing better clinically. Appreciate care from ICU and hospitalist teams. Since she continues to complain of GI symptoms, consider antibiotic coverage for Shigella Family meeting scheduled for tomorrow with palliative care. I will personally not be in the hospital tomorrow, but would be available by phone to join in if needed Admission and Anticipated Discharge Date Admission Date: February 01, 2023 Subjective Clinically appears to be doing better. Weaned off pressors. Wound culture positive for staph. Urine culture growing multiple microorganisms. Stool positive for Shigella. Complains of nausea, vomiting and diarrhea. Otherwise feels a lot better Results & Data Vital Signs (Past 12 Hours) Vital Signs Temp Pulse Resp Pulse Ox Pulse Ox O2 Del Method O2 Del Method 02/02/23 09:00 37.9 C H 128 H 43 H 90 02/02/23 08:00 118 H 02/02/23 08:00 37.8 C H 121 H 0 L 92 02/02/23 08:00 Room Air 02/02/23 07:00 37.7 C H 123 H 14 95 02/02/23 06:00 37.7 C H 117 H 8 L 94 02/02/23 05:00 37.6 C H 121 H 27 H 94 02/02/23 04:00 37.4 C 114 H 23 94 02/02/23 04:00 93 Room Air 02/02/23 03:30 37.7 C H 120 H 7 L 93 02/02/23 03:00 37.7 C H 120 H 22 94 02/02/23 02:30 37.7 C H 118 H 31 H 93 (1) UTI (urinary tract infection) Hematuria presence: with hematuria Urinary tract infection type: site unspecified Qualified Code(s): N39.0 - Urinary tract infection, site not specified; R31.9 - Hematuria, unspecified
--- NOTE | 2023-02-02 16:24 | Billing Data ---
Date of Service February 02, 2023 Coding Level of Care Code 91872 SUB INP/OBS CARE MIN
[2023-02-02] MEDS: metroNIDAZOLE 500 MG/100 ML BAG IV SCH ×2 (16:56→23:44)
[2023-02-02] MEDS ORDERED: ICU ELECTROLYTE REPLACEMENT PROTOCOL SCH (18:00)
[2023-02-02] MEDS: FAMOTIDINE 20 MG in SYRINGE 3 ML IV SCH (20:01)
[2023-02-02] MEDS: PANTOprazole 40 MG TAB PO SCH ×2 (20:01→20:11)
[2023-02-02] MEDS ORDERED: PROMETHAZINE HCL 6.25 MG in SODIUM CHLORIDE 0.9% 50 ML IV STA (22:38)
[2023-02-03] MEDS: MEROPENEM 500 MG in SYRINGE 0 ML IV SCH ×2 (04:15→09:00)
[2023-02-03 05:36] LABS: BUN Creatinine Ratio 17.8 (10-20); Calcium 7.1 mg/dl (8.6-10.3); Creatinine Clr Calc Pharmacy 86.7 ml/min; Est GFR (African American) 125.4 ml/min; Est GFR (Non-African American) 108.2 ml/min; Magnesium 2.4 mg/dl (1.7-2.4); Phosphorus 1.1 mg/dl (2.5-4.9); Potassium 2.7 mmol/L (3.5-5.1)
[2023-02-03] MEDS ORDERED: POTASSIUM PHOS 3 MMOL/1 ML INFUSION IV STA (05:47)
[2023-02-03] MEDS ORDERED: POTASSIUM PHOSPHATE 40 MMOL in SODIUM CHLORIDE 0.9% 1,000 ML IV ONE (06:00)
[2023-02-03] MEDS: POTASSIUM CHLORIDE / WTR 10 MEQ/100 ML PLCT IV SCH ×4 (06:09→10:24)
[2023-02-03] MEDS: ONDANSETRON INJ 2 MG/ML 2 ML VIAL IV PRN (07:35)
[2023-02-03] MEDS: D5W AND NSS 1,000 ML IV SCH ×2 (07:35→20:40)
[2023-02-03] MEDS: HYDROmorphone INJ 0.5 MG/0.5 ML SYR IV PRN ×2 (07:35→20:39)
[2023-02-03] MEDS: MIDODRINE HCL 2.5 MG TAB PO SCH ×2 (07:36→11:36)
[2023-02-03] MEDS: VANCOMYCIN HCL 750 MG in SODIUM CHLORIDE 0.9% 250 ML IV SCH (07:38)
[2023-02-03] MEDS: metroNIDAZOLE 500 MG/100 ML BAG IV SCH (07:38)
[2023-02-03] MEDS: MIRTAZAPINE TAB 15 MG TAB PO SCH (08:58)
[2023-02-03] MEDS: PANTOprazole 40 MG TAB PO SCH ×2 (08:59→20:40)
[2023-02-03] MEDS: FAMOTIDINE 20 MG in SYRINGE 3 ML IV SCH ×2 (09:00→20:39)
[2023-02-03] MEDS ORDERED: LORazepam 0.5 MG TAB PO STA ×2 (11:28→13:02)
--- NOTE | 2023-02-03 12:27 | Ultrasound Report ---
Ultrasound-guided thoracentesis INDICATION: Right pleural effusion PROCEDURE: Procedure and risks were explained. Informed consent was obtained. A final timeout was com pleted. The right posterior thorax was prepped and draped in sterile fashion. 1% buffered lidocaine w as utilized for skin anesthesia. Utilizing ultrasound guidance, a 5 [place] safety centesis catheter was advanced into the right pleura l effusion. Ultrasound images were obtained. 1500 mL of pleural fluid was removed and sent to the lab . The catheter was removed and Band-Aid applied. The patient tolerated the procedure well. Post proce dure chest x-ray is pending. Vital signs will be monitored postprocedure. IMPRESSION: Right thoracentesis as above. Performed, dictated, and signed by Emil Gaffney PA-C; to be co-signed by Dr. Curt Cortes. Electronically signed by: Curt Cortes M.D. 02/03/2023 12:35 PM
--- NOTE | 2023-02-03 12:51 | XRay Report ---
XR chest 1V portable HISTORY: Status post thoracentesis. COMPARISON: Chest 02/01/2023. FINDINGS: Significant decrease in size in the now small right pleural effusion status post thoracente sis. Right basilar densities have improved and favor atelectasis. No pneumothorax. No left pleural ef fusion. The heart remains mildly enlarged. There are low lung volumes. Surgical clips seen within the chest. Right jugular catheter terminates at the SVC. There is a 2.6 cm lobular pleural density withi n the right midlung zone. IMPRESSION: 1. Significant decrease in size in the now small right pleural effusion status post thoracentesis. No pneumothorax. 2. Stable cardiomegaly. 3. A 2.2 cm pleural lobular density within the right midlung zone. This could represent a pleural les ion or loculated pleural fluid. ACT 112: Negative or not required by law. Electronically signed by: Johnny Crain M.D. 02/03/2023 12:49 PM
--- NOTE | 2023-02-03 12:54 | Hospitalist Progress Note ---
Date of Service February 03, 2023 Assessment & Plan (1) Septic shock: Plan: Pt is a 32 yo immunocompromised pt with PMH of metastatic breast cancer s/p bilateral mastectomy, chemo, and radiation (in current tx) who presented to the hospital due to fevers. She was admitted to the ICU 02/01 and was downgraded to the PCU 02/02. Septic shock- resolved - no longer requiring vasopressors - MRSA nares neg; blood cx neg; urine cx neg; wound cx growing MSSA - CXR shows R pleural effusion; CT chest redemonstrated effusion and showed multiple right breast masses - d/c meropenem, vanco, and flagyl (1 day); continue tx with cefazolin (day 3 of total ABX tx) - hold midodrine 5 mg TID as MAP WNL Acute nausea/vomiting- improving - most likely viral in nature; may also be secondary to ABX - continue zofran 4 mg IV q6hr PRN, compazine 10 mg IV q6hr PRN, famotidine 20 mg BID, pantoprazole 40 mg BID Acute hypoxic respiratory failure in setting of pleural effusions - multiple desaturations upon admission; however, since admitted pt's O2 sat is stable - prior thoracentesis w/o evidence of malignancy - thoracentesis performed today by IR with removal of 1500mL of fluid; fluid studies pending - continue supplemental O2 as needed Metastatic breast cancer - stage IV metastatic invasive ductal carcinoma s/p double mastectomy and currently immunocompromised on chemotherapy - consulted Dr. Moore, pt's primary oncologist - with pt's poor prognosis, palliative care consulted; family meeting 02/03- refer to palliative note for details; with pt's anxiety increased due to family discussion, she was given PO ativan 0.5mg x2 Anemia - Hgb 8.7 on admission; appears to be around baseline - Hgb dropped to 6.6 and she was transfused 1u 02/01 - Hgb remains stable - no signs of acute bleeding Electrolyte derangements - hyponatremia, hypokalemia, hypophosphatemia - likely secondary to lack of PO intake and vomiting and possible contribution from SIADH in the setting of pt's malignancy - replete as necessary Elevated troponin - most likely demand ischemia in the setting of septic shock - trended to peak and has since downtrended Depression - continue mirtazapine 15 mg daily Diet: regular Code: full VTE ppx: SCDs, will resume lovenox as Hgb stable and pt high risk Dispo: PCU (2) Acute hypoxic respiratory failure: (3) Hyponatremia: (4) Hypokalemia: (5) Leukopenia: (6) Depression: (7) Elevated troponin: Admission and Anticipated Discharge Date Admission Date: February 01, 2023 Supervising Physician Co-Signing Physician Notes I personally examined the patient and verified all lang points of history and exam, discussed case, and agree with decision making with Dr Turner Nausea and vomiting are doing better. Vitals noted, in general she is awake and alert and does appear brighter than either of the previous 2 days. Breathing unlabored no accessory muscle use good effort. Skin shows no rashes no pallor or icterus. Neuro without focal deficits. intractable nausea/vomiting -has improved. Likely can reduce supportive care in the near future. septic shock - most likely from cellulitis from breast CA -shock is resolved. Continue antibiotics DVT proph - lovenox othewrise as above Subjective Pt seen this AM. Feeling about the same or slightly better in terms of nausea/vomiting/diarrhea. Otherwise no complaints. Called back to room later in the morning due to acute SOB. She and her mom endorse she was feeling anxious in anticipation of the family meeting scheduled for 10:30AM and she typically feels this way when she gets "emotionally excited." Review of Systems Review of Systems: As per HPI Physical Exam Physical Exam: Constitutional: well appearing, no acute distress HEENT: normocephalic, no conjunctival injection CV: regular rhythm, tachycardic, no murmur, no LE edema Respiratory: tachypneic but nonlabored breathing. Crackles heard in RLL base. Upper lungs clear. MSK: no gross deformities noted Skin: warm, dry, no rashes Neuro: alert, oriented, no FND noted Psych: mood and affect congruent Results & Data Results & Data Vital Signs (Past 12 Hours) Vital Signs Temp Pulse Resp BP Pulse Ox Pulse Ox O2 Del Method 02/03/23 11:05 124/87 02/03/23 11:05 37.8 C H 101 H 49 H 91 02/03/23 08:00 Room Air 02/03/23 07:06 37.8 C H 106 H 37 H 92 Room Air 02/03/23 07:06 133/84 02/03/23 04:36 37.2 C 110 H 28 H 94 02/03/23 04:36 137/92 02/03/23 04:00 91 02/03/23 02:35 119/80 02/03/23 02:35 37.8 C H 92 H 29 H 93 O2 Del Method 02/03/23 11:05 02/03/23 11:05 02/03/23 08:00 02/03/23 07:06 02/03/23 07:06 02/03/23 04:36 02/03/23 04:36 02/03/23 04:00 Room Air 02/03/23 02:35 02/03/23 02:35 Resident Activity Tracking Resident Involvement: Resident Care Provided Care Provided: Adult Hospital Medicine
[2023-02-03] MEDS ORDERED: LORazepam 2 MG/1 ML VIAL IM STA (12:58)
[2023-02-03 16:10] LABS: Glucose Pleural Fluid 87 mg/dl; LDH Pleural Fluid 868 U/L; Total Protein Pleural Fluid < 3.0 gm/dl
[2023-02-03 16:28] LABS: Hematocrit (blood only) 27.9 % (37.0-47.0); Hemoglobin 8.8 g/dl (12.0-16.0)
[2023-02-03] MEDS: ceFAZolin 2000MG 2,000 MG/15 ML SYR IV SCH ×2 (16:46→23:19)
[2023-02-03 16:57] LABS: Appearance Pleural Fluid Clear; Color Pleural Fluid Yellow; Lymphocytes, Fluid 3 %; Mono,Macrophage,Mesothelial 20 %; Neutrophils, Fluid 77 %; RBC Pleural Fluid Auto < 2000 /uL; Source Pleural Fluid Other; WBC Pleural Fluid Auto 573 /uL
[2023-02-03] MEDS ORDERED: ENOXAPARIN INJ 40 MG/0.4 ML SYR SQ SCH (17:45)
--- NOTE | 2023-02-03 18:46 | Billing Data ---
Date of Service February 03, 2023 Coding Level of Care Code 70153 SUB INP/OBS CARE
[2023-02-04] MEDS: HYDROmorphone INJ 0.5 MG/0.5 ML SYR IV PRN (00:42)
[2023-02-04 04:37] LABS: Basophils # (auto) 0.01 K/uL (0.00-0.20); Basophils % (auto) 0.1 %; Eosinophils # (auto) 0.01 K/uL (0.00-0.50); Eosinophils % (auto) 0.1 %; Hematocrit (blood only) 25.6 % (37.0-47.0); Hemoglobin 8.1 g/dl (12.0-16.0); Immature Granulocytes # (auto) 0.05 K/uL (0.01-0.20); Immature Granulocytes % (auto) 0.7 %; Lymphocytes # (auto) 0.72 K/uL (1.20-3.40); Lymphocytes % (auto) 9.8 %; Mean Corpuscular Hgb Conc 31.6 g/dL (32.0-36.0); Mean Corpuscular Volume 82.1 fL (80.0-100.0); Mean Platelet Volume 10.8 fL (9.4-12.4); Monocytes # (auto) 0.62 K/uL (0.11-0.59); Monocytes % (auto) 8.5 %; Neutrophils # (auto) 5.91 K/uL (1.40-6.50); Neutrophils % (auto) 80.8 %; Platelet Count 165 K/uL (130-400); RDW Coefficient of Variation 20.7 % (11.5-14.5); RDW Standard Deviation 61.7 fL (36.4-46.3); Red Blood Count 3.12 M/uL (4.20-5.40); White Blood Count 7.32 K/ul (4.8-10.8)
[2023-02-04 04:58] LABS: INR 1.2 (0.9-1.1); Prothrombin Time 13.5 Seconds (9.0-12.0)
[2023-02-04 05:04] LABS: BUN Creatinine Ratio 10.4 (10-20); Calcium 7.3 mg/dl (8.6-10.3); Creatinine Clr Calc Pharmacy 93.9 ml/min; Est GFR (African American) 133.9 ml/min; Est GFR (Non-African American) 115.5 ml/min; Magnesium 1.7 mg/dl (1.7-2.4); Phosphorus 2.2 mg/dl (2.5-4.9)
[2023-02-04 05:18] LABS: Anisocytosis Present; Ovalocytes 1+; Tear Drop Cells 1+
[2023-02-04] MEDS: D5W AND NSS 1,000 ML IV SCH (05:59)
[2023-02-04] MEDS ORDERED: POTASSIUM PHOS 3 MMOL/1 ML INFUSION IV STA (07:54)
[2023-02-04] MEDS ORDERED: POTASSIUM CHLORIDE CRTAB 20 MEQ TABCR PO STA (07:57)
[2023-02-04] MEDS ORDERED: INFLUENZA VIRUS QUADRIVALENT VACCINE (IIV4) 0.5 ML SYR IM ONE (08:00)
[2023-02-04] MEDS ORDERED: POTASSIUM PHOSPHATE 21 MMOL in SODIUM CHLORIDE 0.9% 500 ML IV ONE (08:15)
[2023-02-04] MEDS: PANTOprazole 40 MG TAB PO SCH (08:27)
[2023-02-04] MEDS: MIRTAZAPINE TAB 15 MG TAB PO SCH ×2 (08:27→09:16)
[2023-02-04] MEDS: ceFAZolin 2000MG 2,000 MG/15 ML SYR IV SCH (08:27)
[2023-02-04] MEDS: FAMOTIDINE 20 MG in SYRINGE 3 ML IV SCH (08:28)
--- NOTE | 2023-02-04 08:39 | Palliative Care Progress Note ---
Date of Service February 04, 2023 Assessment & Plan (1) Cancer related pain: (2) Weakness generalized: (3) Nausea & vomiting: (4) Dyspnea and respiratory abnormalities: (5) Metastatic malignant neoplasm to breast: (6) Diarrhea: (7) Advanced care planning/counseling discussion: Plan: 75-minute [id number] advance care planning conversation was held at the patient's bedside with the patient, her mother, her and then present by phone or her cousin Viktoria and her Father Mark. Also present from the medical team was the spiritual care continuity person, Anabella. Additionally, the hospital's director of graduate medical education service was used through virtual connection by iPad with video and audio capacity. The flat knitter helper's name is Lana. Our conversation today was extremely complicated and covered a broad range of concerns and questions raised by the multiple family members. Her father began with the question of stating he feels she needs to go to a clinical trial at the [facility] [place] in [place] where he found through his online research a clinical trial that he believes will help her. Patient indicated a preference to remain close to home and avoid extensive or laborious travel because she does not want to be away from her children and also because she wants to spend what ever time she can with them. I took this opportunity to ask Farheen if she could tell me what her top 2-3 goals for herself would be at this time so that we as a medical team could focus our interventions and recommendations to be in line with what she wants for herself. She responded that she definitely wanted to make the most of the time she could with her children and did not want to be away from them for very long. She also stated that another very important priority to her was to have an improvement in her cancer pain management regimen. She told me she could not identify a third goal at this time and wanted more time to think about this. Her father expressed concern that "Farheen is not of her right mind right now and cannot make decisions." I advised family that Farheen is lucid and mentally intact at this time. She is able to make her own decisions and it is important to her not to be away from her children and therefore trying to pursue or impose upon her plans of care that would require extensive travel and time away from the children would not aligned with her wishes, goals and preferences for herself. We then discussed the overriding concerns with regards to her disease progression and the complications we are beginning to see with the recurrent pleural effusions, the need for multiple admissions, with continued and worsening cancer related pain, her declining performance status/progressive weakness/malabsorption/cachexia, as well as the fact that her disease has progressed on multiple lines of chemotherapy and that the options are becoming less likely to offer meaningful benefit. We reviewed the recommendations that we had had in our conversation Monday with Dr. Sheikh. At that time we discussed there was the potential to offer new chemotherapy which we did not expect would cure her but may help buy some more time. The overriding concern however is that given how frail she has become and how prone she is now to more and more complications related to chemo as well as cancer progression which is including infections and such, the toxicities of these therapies may become more than she can bear and also may potentially accelerate and mortality versus the option of transitioning a focus that may be more about comfort good symptom management and quality of life. She was unsure which she would want at this time. She states that she is still hopeful that she can pursue cancer directed therapy. She still wants an opportunity to decide if chemo can be done and offer some benefit. She is very fearful of considering any scenario beyond continuing chemotherapy at this time and she expresses a deep and persistent concern and worry for the welfare of her children. Her mother had several questions with regards to home-based support. They want to know if there is a way that they can have [id number] nursing and caregiving support. I did advise them that the healthcare system and in surances do not offer that kind of support and that if it is felt patients need [id number] or 19/09 support and placement into a alf facility would be where that level of care would happen. Otherwise, patients are able to return home with some support through visiting nurse services and their families. Advised that she was recently referred to [facility] home health. They do offer a palliative senior living health program which is one of the Medicare transitional care programs. Transitional care is a pre-hospice program designed to advanced illness patients the care they want at home and keep them out of the hospital. Transitional care addresses the needs of patients in a declining state of health who are not yet ready to enter hospice care. Patients may continue to receive life-prolonging treatments in additional to palliative care that focuses on comfort measures and pain relief. Studies demonstrate these Palliative therapies can have a positive effect on a patients mobility, happiness and overall quality of life. In Transitional care programs, nurses and other members of the home care and hospice team will regularly visit patients at home to teach them how to better manage their diseases, advance care planning and when necessary, end of life care. Providers will review and modify medication regimen to assure patient is not getting any unnecessary medications. Unlike hospice care, patients in this program don't need to have a prognosis of six months or less to live, and they can continue getting treatment that is aimed at curing their illnesses, not just treating symptoms. Transitional care programs are useful for patients who may be at or nearing the point where they starting to realize there disease is becoming more end stage/advanced and medical moda lities have been maximized but no longer provide the relief they once did when patients' disease was not so severe. The overall goal of transitional care is to help our patients through this process so it's not filled with chaos. I advised that transitional care may be able to provide additional support in the home with home health aides. I emphasized very clearly however that this support is still on a visiting basis and would likely be in the 1 to 2-hour range. However this is a visit that can help offset some of the burdens of care from the family. The nurses would continue to visit on a scheduled basis to provide medication management, wound care, and overall medical assessment. or on-call support in that manner. If patient has issues that arise after hours and they called the visiting nurse service it is more than likely they will be advised to come to the emergency room for further assessment. They are able to be called for after-hours needs but they are not a 24/7 in-home presents. Patient's family had several questions with regards to her cancer at this stage. Her mother asked that I rereview the information presented at the discussion Monday when oncology was present. Patient states that she remembers people were in her room but cannot remember anything that was discussed. I provided her with a summary of that meeting, advising that Dr. Moore had told us about the overall disease progression, the fact that this was not a curable cancer, and that certainly we are very worried as a medical team that time is running out. I reviewed that she has been on multiple lines of chemotherapy and continued to have progression as well as additional complications. We continue to move down the list of cancer directed therapy options which also tells us that we are looking at options that offer less potential benefits. I advised patient that my concern for her is that time is looking shorter than we would like it to be given the overall picture of decline and continued complications we are seeing. That being said, I advised I feel it is important we also spent some time focusing on the things that matter most to her especially since she is able to tell me her talk to priorities are the welfare of her children as well as ongoing improvements in pain and symptom management. I advised her we can assist with Legacy work and other resource support for her children. Her cousin at that time stated that she has been initiating some early work in regards to legacy projects for her children and would like to speak with me inpatient privately when an opportunity can be arranged. Patient was in agreement for this. Her did not have any questions for me throughout the meeting. He was at times noted to be emotional and tearful. Patient's father felt all his questions were answered to his satisfaction. She continued to express concerns that patient should not make any decisions until she is feeling better and thinking more lucidly. Patient's mother remains concerned that she needs more help and support at home. She is reassured by the fact that the visiting nurse service has been notified of this need and that hopefully through the [facility] palliative care at home program they may have additional support. Her mother asked about the logistics of how they would follow-up with me and I advised him that I have an in person clinic in radiation oncology on and that I can also potentially see them by telemedicine if [facility]. Patient advised she does have a portal account and does access her records as does her cousin who is the approved HIPAA contact. I advised him that I would be happy to do a portal based telemedicine visit if transport to the hospital was felt to be too difficult for. Her mother asked if I would be able to offer any in-home visits or support and I advised that I do not do at home visits at this time. I also advised them that the palliative care at home program may offer some assistance with regards to child life support and child life mental health. I also advised him that there are child psychologist available to the [facility] physician group and that these are located in the [place] practice office. Patient asked if I could tell her a little bit more about what palliative medicine is. I provided overview of Palliative Medicine, a subspecialty that provides specialized medical care for people living with a serious illness by offering a focus on quality of life. Palliative Medicine is often conflated with hospice: I advised patient/family that Palliative and hospice can be partners but we are not the same. It is important to understand the difference so that we may be informed, and not afraid. Palliative Medicine works to improve QOL through reduction of symptom burden/more control over their illness, for both the patient and family. Palliative medicine clinicians are board certified, specially-trained and another member of the patient's medical care team. We often provide an extra layer of support because our care is based on the needs of the patient, not the prognosis; as such, it's appropriate at any age/advancing stage of a serious illness and can be provided along with curative treatment. Palliative Medicine clinicians are also trained in advanced communication methodologies, to facilitate complex discussions about advanced illness planning, which are needed to help assure that the treatment choices match the patient's goals, aka delivering Goal Concordant care. Finally, we discussed that hospice is a visiting nurse service that focuses on care delivered at the very end of life for patients with terminal illness, with life expectancy less than 6 month. Patient asked if at this time she was being told she could not have more chemotherapy. I advised her that that was not the case. Right now, she is dealing with an acute infection episode with septic shock. She is fortunately recovering from this, but no longer requires multi pressor support, antibiotics were able to be stopped and narrow down, and she needs some time to recover from this acute illness. I advised her that my recommendation would be that once she is discharged home, she spend a little time resting and recovering with the integration of home-based physical therapy to improve her conditioning and return to outpatient oncology clinic within 2 to 3 weeks of discharge to be reevaluated. At that time additional labs etc. can be done in addition to the assessment to determine what might be the best timing to offer further cancer directed therapies. That time we can also revisit the options available and determine what could be safely offered. I advised her I would continue to follow her through this admission as well as post discharge and outpatient palliative medicine. I told her that nothing I do in terms of pain and symptom management would interfere, did her or limit her in any way from obtaining her additional cancer directed therapies. I explained very specifically that I am another medical collections on her team working in collaboration with the rest of her medical specialists and like her oncologist or pulmonary providers, I am another specialty medicine provider with an area of focus on serious illness management. I advised her that part of serious illness management includes these types of very complex conversations about planning for serious illness and advance care as well as discussions that oftentimes can be complex and emotionally challenging as they focus on the potential what if scenarios of mortality. Advised her that she is not alone in this process and that we are all here to help her. Our goal of having these conversations, is difficult as they may be, is to assure that the care we offer in the plans we recommend continue to be in line with what she wants for herself. (8) Palliative care by specialist: (9) Acute hypoxic respiratory failure: Plan * Extensive family meeting with advance care planning discussion as documented above. * She is currently being offered hydromorphone 0.25 mg IV every 4 hours. I recommend increasing this to 0.5 every 4 hours as needed for cancer related pain and hold for somnolence or respiratory rate less than 14. * Please increase Zofran to 8 mg IV every 8 hours on a scheduled basis. * Please increase Remeron to 30 mg p.o. daily, might be easiest if this is given at bedtime. * Ativan should be offered 0.5 mg p.o. 3 times daily as needed for anxiety, panic, nausea vomiting, insomnia. * Add probiotic capsule daily * A "BRAT" diet (bananas, rice, apples, tea/toast) should be encouraged to relieve some of the symptoms of her diarrhea. Additionally, adding some binding foods with gelatin base such as marshmallows may help decrease total output of the diarrhea related to her Shigella and improve some comfort. * Plan of care at this time is to continue the current course, work towards an eventual discharge home. Oncology navigation has already submitted a referral to [facility] home health for their palliative care at home program. Patient should be discharged home with update to [facility] so the palliative care program can see her the same day she is discharged to ensure she is signed on and that they are working out a schedule of providing support and home for patient particularly after this acute admission when she may require more frequent visits and support. Additionally I would inform them that child life services may also need to be integrated. I will update cancer navigation team with regards to providing a referral to the peds psychology group/[facility]. Thank you for allowing us to participate in the ongoing care of this patient. Please don't hesitate to call or page with any additional concerns. Dr. Vivien Stack DNP Director, Palliative Care Admission and Anticipated Discharge Date Admission Date: February 01, 2023 Connie Reynolds is seen bedside with her mother and present. On the phone by mildred are her cousin Dori and father Mark. A spanish lecturer is used for the entirety of this visit, via iPad virtual connection. Gail has stage IV metastatic invasive ductal carcinoma who is status post double mastectomy and several lines of chemotherapy with continued disease progression in spite of therapy. Oncology has had several discussions with patient and family prior noting that overall she has a very poor prognosis and likely limited time. She is admitted from home with septic shock and acute hypoxic respiratory failure in the setting of pleural effusions. She is anticipated to have a thoracentesis today in interventional radiology. Prior admission, IR removed 1500 mL of fluid. That thoracentesis did not have evidence of malignancy. She is no longer requiring multi pressor support. Her MRSA swab was negative. Her blood cultures and urine cultures are negative. Her cancer related chest wound is growing MSSA. Her antibiotics have been discontinued: Meropenem, Vanco and Flagyl. Her stool was noted to be Shigella positive. She remains on cefazolin. She has continued nausea and vomiting. This is slightly improved but she cont inues to require Zofran IV every 6 hours along with Compazine. She is currently downgraded to PCU status. At the time of my visit this morning, she is awake and alert and oriented. She is more able to participate in conversation. She reports a continued struggle with she of the year and uncontrolled cancer related pain. She tells me she would like more attention given to improving her pain management. She is not feeling that hungry. She is having a regular diet but eats in small amounts and generally still prefers cooler liquids. Stefani continues to feel both cool and hot in the room. The time of this visit she is mostly huddled under a layer of several blankets. Review of Systems Review of Systems: All systems reviewed & are unremarkable except as noted in Subjective Physical Exam Physical Exam: Frail, cachectic appearing female, lying supine in bed. Multiple layers of blankets noted. Blackwell in place. Bitemporal wasting noted. Pupils are equal, round and reactive to light. Extraocular movements are intact. Neck is supple, without stridor and there is no JVD. Chest sounds are diminished. There are a few fine crackles. Heart tones S1-S2, noted to be tachycardic. Abdomen is soft and slightly distended. Mildly tender to palpation. Hyperactive bowel sounds. Generalized weakness. Skin is pale and cool to touch. There is no overt cyanosis. There is some mild edema to the lower extremities. She is awake alert and oriented x 3. She is able to follow simple commands. She is noted to be significantly anxious. This is her baseline. She notes that any discussions about her medical issues tend to make her more anxious and she describes herself as "emotionally excitable." Results & Data Vital Signs (Past 12 Hours) Vital Signs Temp Pulse Resp BP Pulse Ox Pulse Ox O2 Del Method 02/04/23 04:00 93 02/04/23 03:35 37.7 C H 92 H 38 H 02/04/23 03:35 119/84 02/04/23 00:27 90 02/03/23 23:27 92 Room Air 02/03/23 23:06 37.8 C H 90 34 H 02/03/23 23:06 131/90 O2 Del Method 02/04/23 04:00 Room Air 02/04/23 03:35 02/04/23 03:35 02/04/23 00:27 02/03/23 23:27 02/03/23 23:06 02/03/23 23:06 Laboratory Results Data reviewed see HPI Diagnostic Findings Data reviewed see HPI PG Care Time/CCT Total # of Minutes Spent Total Time Spent: 140 Total Time Spent with Patient: Total time spent is greater than 50% in coordination of care (as documented) at patient's floor/unit and/or counseling patient: I spent 140 minutes overall addressing this very complicated case: 15 min in medical data review/discussion with referring provider(s) and/or preparation for the visit 15 min in direct interaction with the patient/exam 75 min in Advance Care Planning/Goals of Care discussions as detailed above in note (must be >16min) 15 min in subsequent review and synthesis of assessment and plan 20 min communicating with other providers regarding the patient's case:ccm, pulm, oncology, nursing, continuity person Prolonged Care Time Prolonged Care Time: Yes Advanced Care Planning 66583 Advanced Care Planning 30 Min 34036 Advanced Care Planning Additional 30 Min [place] [address] SUB INP/OBS CARE 3/50MIN Patient Type Established History Comprehensive Exam Comprehensive Medical Decision Making High Complexity Diagnoses Cancer related pain G89.3 Weakness generalized R53.1 Nausea and vomiting, unspecified vomiting type R11.2 Vomiting type: unspecified Dyspnea and respiratory abnormalities R06.00; R06.89 Metastatic malignant neoplasm to breast C79.81 Diarrhea of presumed infectious origin R19.7 Diarrhea type: presumed infectious Advanced care planning/counseling discussion Z71.89 Palliative care by specialist Z51.5 Acute hypoxic respiratory failure J96.01 Additional Codes Advanced Care Planning - 44392 Advanced Care Planning 30 Min: 24106 Advanced Care Planning 30 Min ([id number]) Advanced Care Planning - 79326 Advanced Care Planning Additional 30 Min: 89722 Advanced Care Planning Additional 30 Min ([id number]) Prolonged Care Time - Prolonged Care Time: Yes ([id number]) (3) Nausea & vomiting Vomiting type: unspecified Qualified Code(s): R11.2 - Nausea with vomiting, unspecified (6) Diarrhea Diarrhea type: presumed infectious Qualified Code(s): R19.7 - Diarrhea, unspecified
[2023-02-04] MEDS ORDERED: ACETAMINOPHEN 1,000 MG/100 ML VIAL IV PRN (09:51)
[2023-02-04] MEDS ORDERED: LOPERAMIDE HCL 2 MG CAP PO PRN (09:51)
--- NOTE | 2023-02-04 12:58 | Discharge Summary ---
Date of Service February 04, 2023 Admission HPI Per Admitting Provider Pt is 32 yo F with extensive history of stage IV metastatic b/l invasive ductal carcinoma of breast s/p chemotherapy, XRT, b/l mastectomy 11/2022 presenting with fever. Pt had onset of fever on prior evening. Denies any other symptoms including chest pain, dyspnea, cough, abdominal pain, urinary symptoms, etc although she has had sporadic fever over past month along with 2 ER visits on 12/29 (dyspnea, found to have R pleural effusion) and 01/19 (fever). Notes her fevers have been up to 105 F. Fever on 01/31 was apparently 107 F. Brought to ER by family. Pt arrived to ER hypotensive, BPs 60s-70s/40s which improved to 80s/50s with 1L NSS bolus x2. Tachycardia to 150s-170s, tachypnea to high 20s/low 30s. Afebrile in ER. Pt started on cefepime and then vancomycin in ER. Started on Levophed after persistent hypotension despite fluid repletin. Initial evaluation significant for WBC 2.7, Hgb 8.7, Na 130, K 3.4, lactate 3.8, PCT 45. CXR demonstrates worsening R pleural effusion. At present, pt denies any acute complaints. No dyspnea though multiple desaturations of O2 to 80s during evaluation, HR 130s-140s. Admission Exam Per Admitting Provider General: frail-appearing, no acute distress HEENT: PERRL, EOMI, conjunctivae clear without injection, anicteric sclerae, dry mucous membranes, clear oropharynx without exudate or erythema Neck: supple, trachea midline, no thyromegaly, no JVD, no cervical lymphadenopathy CV: RRR, normal S1 and S2, no murmurs Resp: Diminished breath sounds on R side, no increased work of breathing, no crackles or wheezes Abd: Soft, nontender, nondistended, no guarding or rebound, no hepatosplenomegaly MSK: Mild muscle wasting of all four extremities Neuro: AOx3, no focal motor or sensory deficits Skin: no rashes or lesions, warm and dry. Dressing over sternum from b/l mastectomy noted Ext: no LE peripheral edema or erythema, capillary refill <2s in all four extremities, 2+ LE peripheral pulses b/l Principal Diagnosis septic shock secondary to right wound Discharge Exam Constitutional: well appearing, no acute distress HEENT: normocephalic, no conjunctival injection CV: regular rhythm, tachycardic, no murmur, no LE edema Respiratory: Clear to auscultation bilaterally. No rhonchi, wheezes, or crackles. No increased work of breathing MSK: no gross deformities noted Neuro: alert, oriented, no FND noted Discharge Data Allergies Allergy/AdvReac Type Severity Reaction Status Date / Time No Known Allergies Allergy Verified 01/19/23 09:03 Consultations 02/01/23 00:21 ED Decision to Admit Stat 02/01/23 01:29 Consult Director [facility]it System Routine 02/01/23 04:29 Consult Palliative Care Routine 02/01/23 06:45 Consult Oncology Routine Ordered Studies 02/01/23 01:45 CT chest diagnostic wo con Stat IMPRESSION: 1. Limited evaluation in the absence of contrast. 2. Redemonstrated multiple masses along the right breast and right chest wall with suspected invasion into the right pectoralis musculature and right pleural space. Additional soft tissue masses noted along the right and anterior chest wall. Please note packing material is noted overlying the lower anterior chest which likely relates to open wound. Recommend continued attention on follow-up imaging as dictated per patient's primary malignancy. 3. Large right pleural effusion with adjacent airspace disease which may be due in part to compressive atelectasis. Superimposed infection is not excluded. This pleural effusion may be metastatic in nature. 4. Enlarged supraclavicular lymph nodes which are likely related to metastatic disease. 02/01/23 02:59 US point of care ultrasound Stat 02/01/23 12:48 CT abd pelvis wo con Stat IMPRESSION: 1. No evidence for bowel obstruction. 2. Nondilated fluid-filled loops of large small bowel. This could be seen in the setting of a gastroenteritis/diarrheal illness. 3. Questionable thickening of the ascending colon and hepatic flexure of the colon is likely due to underdistention. A low-grade colitis is considered less likely but not entirely excluded. 4. Mild fullness within the right renal collecting system without yaa hydronephrosis. This is likely secondary to the distended bladder. However, there is a Blackwell catheter within the bladder which appears in good position. 5. Small amount of ascites. 6. Bilateral pleural effusions and bibasilar densities which favor atelectasis. A pneumonia would be difficult to exclude by imaging. 7. Multiple right anterior and midline chest/abdominal wall masses with adjacent bony/cartilage destruction as described above. This is consistent with metastatic disease. 8. Additional findings as described above 02/03/23 09:41 IR thoracentesis wo tube US Urgent Hospital Course (1) Septic shock: Pt is a 32 yo immunocompromised pt with PMH of metastatic breast cancer s/p bilateral mastectomy, chemo, and radiation (in current tx) who presented to the hospital due to fevers. She was admitted to the ICU 02/01 and was downgraded to the PCU 02/02. Septic shock- resolved - no longer requiring vasopressors - MRSA nares neg; blood cx neg; urine cx neg; wound cx growing MSSA - CXR shows R pleural effusion; CT chest redemonstrated effusion and showed multiple right breast masses - d/c meropenem, vanco, and flagyl (1 day); tx with cefazolin x2 days - d/c midodrine 5 mg TID as MAP WNL - discharged with 12 day course of keflex; may need to be extended based on clinical improvement Acute nausea/vomiting/diarrhea- improving - most likely viral in nature; may also be secondary to ABX - received zofran 4 mg IV q6hr PRN, compazine 10 mg IV q6hr PRN, famotidine 20 mg BID, pantoprazole 40 mg BID - may continue zofran, PPI, and H2 corazon PRN as outpatient - may use immodium PRN Acute hypoxic respiratory failure in setting of pleural effusions - multiple desaturations upon admission; however, since admitted pt's O2 sat is stable - prior thoracentesis w/o evidence of malignancy - thoracentesis performed 02/03 by IR with removal of 1500mL of fluid; fluid studies pending Metastatic breast cancer - stage IV metastatic invasive ductal carcinoma s/p double mastectomy and currently immunocompromised on chemotherapy - consulted Dr. Moore, pt's primary oncologist - with pt's poor prognosis, palliative care consulted; family meeting 02/03- refer to palliative note for details - f/u with Dr. Moore within 1-2 weeks after discharge Anemia - Hgb 8.7 on admission; appears to be around baseline - Hgb dropped to 6.6 and she was transfused 1u 02/01 - Hgb remained stable - no signs of acute bleeding Electrolyte derangements - hyponatremia, hypokalemia, hypophosphatemia - likely secondary to lack of PO intake and vomiting and possible contribution from SIADH in the setting of pt's malignancy - repleted as necessary Elevated troponin - most likely demand ischemia in the setting of septic shock - trended to peak and has since downtrended Depression - continue mirtazapine 15 mg daily Diet: regular Code: full VTE ppx: lovenox Dispo: home with close outpatient f/u (2) Acute hypoxic respiratory failure: (3) Hyponatremia: (4) Hypokalemia: (5) Leukopenia: (6) Depression: (7) Elevated troponin: Total Time Total Time Spent Total Time Spent (In Minutes): <30 Discharge Plan Discharge Items Patient Disposition: Home - Self-Care Reason For Visit: SEPTIC SHOCK Discharge Diagnosis: septic shock secondary to right chest wound infection Activity: Per Instructions section Non-emergency contact: Primary Care Provider and Oncologist Call non-emergency contact if: you have any medication questions and your symptoms worsen Follow-up/Referrals: Hailee Turner DO [Resident] - ( f/u right chest wall wound) PCP,NO [Primary Care Provider] - 02/07/23 2:00 pm (PCP follow up: Dr Guera Byrd 02/07/23 @2pm) Diet: Regular Addtl Attending Provider Instructions: You were admitted to the hospital for an infection causing your blood pressures to be too low (septic shock). You were treated with antibiotics for the infection of your right chest wall. It was also found that there was a fluid collection in your right lung- this was drained. The fluid was sent for further analysis. By the time of discharge, you were no longer requiring medication to keep your blood pressures within a reasonable range. A discharge summary will be sent to your primary care physician to ensure continuity of care. Please bring this discharge summary with you to your next office appointment so that your provider can review it at that time. Medications: Your medication list has been reviewed and reconciled upon discharge to ensure accuracy and continuity of care. An updated list of all your medications is included with your hospital discharge paperwork. Please review this list closely and make note of any changes to your medications. - You are to take the antibiotic cephalexin (Keflex) 1 capsule every 6 hours for at least the next 12 days. Further antibiotics should be discussed with your PCP/oncologist. - You may take loperamide (Imodium) as needed for diarrhea. A script was sent for this, but you may also buy it over the counter instead. Follow up appointments: - Make a follow up appointment with your PCP within the next week. Since you have not had a PCP in the past, you are able to follow up with Dr. Turner (who saw you in the hospital) or any of the physicians at [facility] ([address] Josue, in front of the hospital, phone number [phone]) if you so choose. We recommend you see a PCP within the next week to check on your chest wall infection. - You should also see your oncologist, Dr. Moore, sometime within the next 1-2 weeks. - Keep all of your follow up appointments as already scheduled. If you cannot make an appointment, notify your provider. CONTACT YOUR PRIMARY CARE PROVIDER if you experience any of the following: - Difficulty following your treatment plan - Difficulty taking any of your medications CALL 911 OR GO TO THE EMERGENCY DEPARTMENT if you experience any of the following: - Persistent fevers - Worsening of your wound infection - Lethargy, confusion, or altered mental status - Sudden, severe abdominal pain or nausea/vomiting - Severe chest pain or chest pain that radiates to your jaw or arm - Sudden, severe shortness of breath or difficulty breathing Pending Studies at Discharge: No Stand-Alone Forms: My [facility], Smoking Cessation Medications and DC Order Prescriptions: New loperamide 2 mg Capsule 2 mg PO Q8H PRN (Reason: loose stool) Qty: 20 0RF cephalexin 500 mg capsule 500 mg PO Q6H 12 Days Qty: 48 0RF cephalexin 500 mg capsule 500 mg PO Q6H 12 Days Qty: 48 0RF Continued ondansetron HCl 8 mg tablet 8 mg PO Q8 PRN (Reason: Nausea And Vomiting) acetaminophen 500 mg Tablet 1,000 mg PO Q6H PRN (Reason: PAIN/FEVER) oxycodone 10 mg tablet 10 mg PO .Q4-6H MDD PAIN PRN (Reason: PRN) mirtazapine 15 mg tablet 15 mg PO DAILY oxycodone [OxyContin] 20 mg tablet,oral only,ext.rel.12 hr 20 mg PO .Q 12 HOURS Discharge Orders: Discharge Order (Routine); Ordered 02/04/23 Ordered By: Hailee Turner Admission Data Admit Date/Time: 02/01/23 01:29 Attending Provider: Max Lauren Admit Provider: Sandoval Pichardo Primary Care Provider: PCP,NO Other Providers: David Mcclendon; Salvatore Bhat; Balwinder Muniz; Luis Pollard; Denzel Miranda; Bryant Ibarra; Itzel Armenta; Jez Awad; Rosario Borges; Shani Vazquez; Jose Guadalupe Charles; Alejandro Leonard; Damaris Stock; Vivien Stack; Willian Terrazas; Eboni Duran; Tamara Rivera; Cuauhtemoc Thomas; Autumn Cespedes; Juan Carlos Britt; Charlotte Tierney; Zaria Orellana; Ashu Rodrigez; John Marinelli; Gemini Moore; lisaCCP,No Attending; [facility]; [facility] Other Interventions: Discharge Summary Assessment (RN) Last Done: 02/04/23 13:44 Supervising Physician Co-Signing Physician Notes I personally examined the patient and verified all lang points of history and exam, discussed case, and agree with decision making with Dr Turner Feels okay, repeatedly asking about going home. After in-depth discussion that with her immunosuppression and septic shock, medically speaking I would prefer that she stay until she is at least 24 hours afebrile, at the same time with her terrible diagnosis and poor prognosis we discussed that if her value system really is to spend what time she has left with her family even if it means not following as tightly with recovery from the infection as would be medically warranted, it is quite reasonable. She expressed that she very much wants to spend her remaining time with her family, and would like to go home. Vitals noted, in general she is awake and alert continues to appear quite bright. Breathing unlabored no accessory muscle use good effort. Skin shows no rashes no pallor or icterus. Neuro without focal deficits. septic shock - most likely from cellulitis from breast CA -shock is resolved. Continue antibioticshas been on cefazolin, after discussion of risk/benefit we will send home on cephalexin. Hard to gauge the duration she will needwill treat for presumptive 14 days, but would ask that she is seen weekly or more as she is improving, given her immune system and the open wound, treatment may need to be extended. DVT proph - lovenox otherwise as above Resident Activity Tracking Resident Involvement: Resident Care Provided Care Provided: Adult Hospital Medicine
--- NOTE | 2023-02-04 14:32 | Billing Data ---
Date of Service February 04, 2023 Coding Level of Care Code 26220 IN/OBS DISCH 30 MIN/LESS
== END 2023-02-04 14:38 | disposition home health service (06) | DRG 871 ==
LOC: ED 21:58 → 1E 02-01 01:29 → SUATTDRO 02-01 01:29 → 1E 02-01 02:26

== ENCOUNTER 2023-02-21 08:20 | Inpatient (IN) ==
--- OUTSIDE RECORDS SUMMARY | 2023-02-21 08:29 | External Medical Summary | Continuity of Care Document ---
Author Name Unknown Organization [facility] Address [address] [place] [phone] Care Team Providers Care Pediatric Dentist Name Role Phone Laura De La Vega Primary Care Physician [phone] Encounter [facility] [id number] Date(s): 02/15/23 - 02/15/[address] [phone] Encounter Diagnosis Unspecified hydronephrosis(Final) - Encounter for attention to other artificial openings of urinary tract(Final) - Discharge Disposition: Home or Self Care Attending Physician: MD Silas, Chris Shi Referring Physician: MD Villalba Frank C Allergies, Adverse Reactions, Alerts No Known Allergies Assessment and Plan Extracted from: Title:CVIR Orders for 02/02/2023 Author :TORRIE Smith, Jailene Johnson Date:01/09/23 INTERVENTIONAL RADIOLOGY OUTPATIENT ORDERS Name: VELASQUEZ RENEE Patient Number: [id number] : 1990 Date of Service: 01/09/2023 PROCEDURE: CVIR Evaluation and Treatment SCHEDULED DATE: 02/02/2023 Diet and Medications: No food after midnight except for clear non-carbonated liquids up to 1 hour prior to arrival time. Take all prescribed medications with small sips of water except as directed below. Medications dexamethasone 4 mg oral tablet Start: 07/07/22 10:20:00 EDT, 12 each, TAKE TWO TABLETS BY MOUTH TWICE A DAY THE DAY BEFORE, THEN DAY OF AND THE DAY AFTER DOCETAXEL THERAPY. Start Date: 07/07/22 Status: Ordered ondansetron 8 mg oral tablet Start: 07/07/22 10:19:00 EDT, 30 each, TAKE ONE TABLET BY MOUTH EVERY 8 HOURS NEEDED FOR NAUSEA Start Date: 07/07/22 Status: Ordered oxyCODONE 5 mg oral tablet Start: 07/07/22 10:19:00 EDT, 60 each, TAKE ONE TABLET BY MOUTH EVERY 4 TO 6 HOURS NEEDED FOR PAIN Start Date: 07/07/22 Status: Ordered OxyCONTIN Start: 11/10/22 8:55:00 EDT, 20 mg =, PO, q12h, Refills: 0 Start Date: 11/10/22 Status: Ordered prochlorperazine 10 mg oral tablet Start: 07/07/22 10:20:00 EDT, 100 each, TAKE ONE TABLET BY MOUTH EVERY 6 HOURS NEEDED Start Date: 07/07/22 Status: Ordered Problem List Condition Confirmation Course Effective Dates Status Health St atus Informant Breast CA Confirmed Active Ureteral stricture, left Confirmed Active Procedures Procedure Date Related Diagnosis Body Site Status Hysterectomy Completed Lumpectomy of right breast Completed Percutaneous insertion of LE FT nephrostomy tube Completed Results Radiology Reports * Exam Date Time Procedure Performing Provider Status 02/15/23 10:55 AM IR Neph Tube Change Jeremy Medeiros; Final Notes: (IR Neph Tube Change) Reason For Exam: Routine left nephrostomy change IR Neph Tube Change EXAMINATION: IR Neph Tube Change CLINICAL HISTORY: N13.30: Unspecified hydronephrosis; Routine left nephrostomy change PROCEDURES: Moderate Sedation, Physician Supervised Nephrostogram Nephrostomy Tube Change HISTORY: 33-year-old female with a history of Unspecified hydronephrosis; Other artificial openings of urinary tract status INDICATIONS: Routine Tube Change PHYSICIANS: MD Jez Falcon DO SUPERVISION: The Attending was physically present in the room and supervised the performance of the procedure. SEDATION: The risks and benefits of moderate sedation were discussed with the patient as part of the procedural informed consent process. Provider supervised intra- procedure moderate sedation was performed using a trained independent observer who monitored the patient's level of sedation and physiologic status throughout the procedure. Pre-procedure and post-procedure sedation assessments were performed inaccordance with institutional sedation policy and are documented separately in the medical record. Total Provider Sedation Supervision Time: 15 minutes. MEDICATIONS: Fentanyl 50 mcg Midazolam 1 mg CONTRAST: Omnipaque 300 - 10 ml DOSIMETRY: Fluoroscopy Time: 1.40 min Cumulative Dose: 10 mGy MEASUREMENTS: None. IMPLANTED DEVICES: [employer] Multipurpose Drainage Catheter 10.2FR 25 cm (Reference # [id number] Lot [id number]) SPECIMENS: None. EST. BLOOD LOSS: None. COMPLICATIONS: None. SUPPORTING DOCUMENTATION: Pre-Procedure Verification (Physician/Provider) [X]: Patient Name and Verified Against Patient ID Band [ ]: Written Consent Verified (Patient, Procedure, Site/Side) [ ]: Site Marking Verified (keep unchecked if not applicable) [X]: H \T\ P Completed (if required) Documented 02/15/2023 at 10:23:50 By Laverne Francisco MD Pre-Procedure Verification (Nurse/Technologist) [X]: Patient Name and Verified Against Patient ID Band [ ]: Written Consent Verified (Patient, Procedure, Site/Side) [ ]: Site Marking Verified (keep unchecked if not applicable) [X]: H \T\ P Verified (if required) Documented 02/15/2023 at 10:23:50 By Mitul Crowley RN Time Out [X]: Patient Identified by Name and [ ]: Written Consent Verified (Patient,Procedure, Site/Side) [X]: Patient Positioned Correctly [X]: Patient Records Available (Order, Images) [X]: Anticipated Procedure Equipment / Devices Available [ ]: Site / Side Marking Completed (keep unchecked if not applicable) [ ]: Preprocedure Medications Administered (Antibiotics,Premedications, or n/a) [X]: All team members are present and are in agreement with Time Out (not documented prior to 07/08/2017). Documented 02/15/2023 at 10:45:49 By Nanette Max RN Physician Post Procedure Sign Out [X]: Diagnosis Confirmed [X]: Performed Procedure Confirmed [ ]: Specimen Identification Confirmed [X]: Patient Recovery / Post Procedure Care Concerns Discussed Documented 02/15/2023 at 11:55:12 By Laverne Francisco MD TECHNIQUE: Following a conversation with verbal consent, verification of the correct patient identity and planned procedure, the left flank, including the left nephrostomy tube was sterilely prepped and draped. Local anesthesia around the tube was administered using 1% Lidocaine. Contrast was injected through the tube and spot film imaging was performed as a baseline nephrostogram. The tube was removed over an Amplatz Extra Stiff wire. Over the wire, a new 10.2FR , 25 cm MPD was introduced under fluoroscopic guidance. The pigtail was formed and locked in the renal pelvis. Post placement nephrostogram confirmed appropriate position. The tube was sutured to the skin and placed to gravity drainage. FINDINGS: 1. The indwelling catheter is in good position with the loop in the renal pelvis. 2. The collecting system is decompressed. The distal ureter is occluded. 3. The newly placed catheter is in good position with the loop in the renal pelvis. INTERPRETATION: 1. Uneventful left 10.2FR, 25 cm MPD change. 2. Routine tube change should be performed in 12 weeks. Workstation ID: [id number] Final Dictated by:MD Francisco Allene S Dictated DT/TM:02/15/2023 12:54 Signed by:MD Francisco Allene S Signed (Electronic Signature):02/15/2023 12:53 Vital Signs Most recent to oldest [Reference Range]: 1 2 Patient Weight 63 kg (02/15/23 7:11 AM) Temperature [36.5-37.9 DegC] 36.4 DegC *LOW* (02/15/23 11:13 AM) 36.4 DegC *LOW* (02/15/23 9:32 AM) Heart Rate 132 bpm (02/15/23 11:13 AM) 131 bpm (02/15/23 9:32 AM) Respiratory Rate 16 br/min (02/15/23 11:13 AM) 18 br/min (02/15/23 9:32 AM) Blood Pressure 123/80mmHg (02/15/23 11:13 AM) 131/85mmHg (02/15/23 9:32 AM) Cuff Pulse Pressure 43 mmHg (02/15/23 11:13 AM) 46 mmHg (02/15/23 9:32 AM) Social History Social History Type Response Smoking Status Never smoked cigaret rob Sex Female Pre-OP H & P * MD Francisco Allene S: PERFORM Event Display: Pre-OP H & P Authored Date: [id number] Interventional Radiology Pre-procedure History and Physical Patient Name: VELASQUEZ RENEE Date Of : 1990 Medical Record: [id number] Date of Service: 2023-02-15 Planned Procedure: IR Neph Tube Change Reason For Consult: : Nephrostomy Tube Change History of Present Illness: 33 yof w/ L hydro s/p failed retrograde stenting/unable to cross obstruction antegrade. For ureteral recon. after chemo completed. Last PCN change 11/10/22. 10.2 Fr 25 cm MPD. Past Medical and Surgical History: Left hydronephrosis, Left ureteral obstruction/disruption, Breast cancer, Surgical Procedures, Hysterectomy, Right breast lumpectomy, Mastectomy Allergies: NKA Medications: Ondansetron, Oxycodone, Prochlorperazine, Dexamethasone Other Studies: XA 11/10/22: The tube is patent and in good position. The renal pelvis was non- dilated. The ureter is occluded distally. 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 Physical Exam: LOC / Mental Status: Awake, Alert, Oriented Airway: Mallampati Score: Class 3: Visualization only of the base of the uvula Lungs: Clear Cardiac: Normal Sinus Rhythm Tachy Abdomen: Left sided PCN Other: Multiple right chest wall tumors ASA Classification: Class I: Normal healthy patient Assessment: 33 yof w/ L hydro s/p failed retrograde stenting/unable to cross obstruction antegrade. For ureteral recon. after chemo completed. LastPCN change 11/10/22. 10.2 Fr 25 cm MPD. Plan: Routine 12 week left nephrostomy tube change sedation for last change. Patient position is RLD due to chest wall tumors and inability to be prone Sedation / Anesthesia Plan: Moderate Sedation Consent by Patient Electronic Signature on File Electronically Reviewed/Signed by: Laverne Francisco MD Author Signature Dt/Tm:02/15/2023 10:23 AM [facility] Interventional Rad Outpt Note * TORRIE Smith, Jailene Johnson: PERFORM Event Display: Interventional Rad Outpt Note Authored Date: [id number] INTERVENTIONAL RADIOLOGY OUTPATIENT ORDERS Name: VELASQUEZ RENEE Patient Number: [id number] : 1990 Date of Service: 01/09/2023 PROCEDURE: CVIR Evaluation and Treatment SCHEDULED DATE: 02/02/2023 Diet and Medications: No food after midnight except for clear non-carbonated liquids up to 1 hour prior to arrival time. Take all prescribed medications with small sips of water except as directed below. Electronic Signature on File Electronically Reviewed/Signed by: Jailene Smith PA-C Author Signature Dt/Tm:01/09/2023 08:45 AM Division of Interventional Cardiology [facility] records * Services, CPDI: PERFORM Event Display: Sedation & Analgesia Record Authored Date: [id number] Patient Care team information Care Team Personnel Name: MD Ceferino, Laura Zhong Position: Referring Member Role: Primary Care Provider Address: Address: [facility] [address] [place] [id number]
[2023-02-21] MEDS ORDERED: ACETAMINOPHEN 1,000 MG/100 ML VIAL IV STA (08:41)
[2023-02-21] MEDS ORDERED: fentaNYL citrate PF 100 MCG/2 ML VIAL IV STA (08:41)
--- NOTE | 2023-02-21 08:46 | Emergency Department Note ---
Impression & Plan Septic shock, Complicated wound infection, Open wound of chest wall, Radiation burn, Pleural effusion on right ED Provider Note Name: VELASQUEZ RENEE Age: 33 Sex: Female Arrives Via: Walk-In Informant: Patient, brother, mother ED Provider: Oleg Lieberman MD Chief Complaint: Illness Impression: As per impressions above Medical Decision Makin-year-old female with metastatic breast cancer who is still attempting to try and be on chemo arrives for evaluation of worsening illness and fever.Patient is quite unwell on arrival. She is tachycardic with a heart rate in the 170s her blood pressure is in the 60s and she is febrile. Septic protocol initiated. Chest x-ray with large right pleural effusion which is new. She is weeping from the wound on the right chest due to radiation miller. Weeping seems to be new as well. There is no evidence of necrotizing fasciitis though by examination. I suspect the source is pleural effusion infected versus skin. She is denying any urinary burning or frequency. She does not have any abdominal pain or flank pain to suggest obstructing stone and she is not meningitis by examination. Labs are remarkable for an elevated lactic acid and mildly elevated procalcitonin. Following 2 L of fluid she looks remarkably better. Blood pressure is now 100/60 following fluids and she is breathing comfortably. Heart rate has come down from 170s to the 120s. She was empirically given IV Zosyn and IV vancomycin. Hospitalist consulted for further management. Triage/Nursing Notes reviewed by Me Differential: Sepsis, UTI, pneumonia, metabolic, electrolyte abnormalities, cardiac sources, intracerebral event, toxicologic, neurologic, as well as other pathologies. Vital Signs: reviewed and remarkable for tachy, hypotension, febrile Interventions: Normal Saline bolus 2 L IV, Zosyn IV, Vanco IV, fentanyl 25 mcg IV, Tylenol 1 g IV Labs:ED labs Reviewed by me and remarkable for elevated lactate, elevated procalcitonin Imagin view chest x-ray as per my interpretation moderate to large sized right-sided pleural effusion which is new EKG:As per my interpretation. Indication sepsis. Sinus tachycardia 168 bpm QTc of 491. There is no ectopy nor overt ischemic changes. When compared to EKG of January 31, 2023 is actually relatively similar when she was here previously for sepsis. Cardiac/Tele Monitoring: Cardiac Monitoring: An Order was placed for continuous cardiac monitoring. The monitor shows a rate of 170 with a sinus tach rhythm. Consults:Dr Hakan MORALES Hospitalist Plan: Disposition:Hospitalization Condition: Critically ill History of Present Illness: 33-year-old female with metastatic breast cancer arrives for evaluation of fevers chills and illness. Patient notes feeling increasingly ill overnight. Developed fevers at home. Associated with increasing drainage from the wounds on her right chest. Patient states that she is having increasing pain in the wound on her right chest from previous radiation. Using gabapentin at home with mild improvement. Denies syncope. Notes increasing shortness of breath, cough, chills. Denies any abdominal or back pain. Patient was recently discharged from the hospital following septic shock secondary to pneumonia and UTI. She denies any current flank pain or abdominal discomfort. Past Medical History:See Below Home Medications:See Below Allergies:nkda Vitals:Blood Pressure: 67/56, Pulse 183, RR 18, T 38.3C, O2 96% on RA Physical Exam: GENERAL: Patient is unwell/ill appearing and in mild distress. Dehydrated appearing. Cachectic CHEST: Extensive weeping radiation wounds of right chest. Drainage right lower medial chest wound from 2x3 cm opening. RESPIRATORY: Tachypneic, dyspneic, crackles RLL. CARDIOVASCULAR: Tachy.No murmur appreciated. GASTROINTESTINAL: Abdomen soft, non-tender, no peritonitis. EXTREMITIES: Normal motion all extremities, no cyanosis, no edema. NEUROLOGIC: Alert and oriented. No focal neurologic deficits appreciated SKIN: No rash, no jaundice, no diaphoresis. PSYCH: Appropriate GCS: 15 ED Course: Times/Reassessments: Patient was given 2 L normal saline bolus IV with vast improvement in her blood pressure and heart rate. 11:30 AM on 02/21/2023 repeat volume status exam by me and sepsis evaluation patient does not require further fluids her blood pressure is improved to her baseline. Good cap refill patient review of systems obtained unremarkable other than above. Critical Care: I have personally spent 45 minutes of critical care time in the direct management of this patient. Acute septic shock secondary. This was a life/limb threatening event. This 45 minutes is in excess of all separately billable procedures. Oleg Lieberman MD Past Med/Surg History Medical History Ureteral obstruction History of anemia HX: breast cancer s/p right lumpectomy, chemo, xrt (no limb restriction) Hydronephrosis History of COVID-19 Early 01/2022 > symptoms resolved Surgical History Nephrostomy status S/P bilateral mastectomy History of hysterectomy History of section X 2 H/O myomectomy History of appendectomy H/O lumpectomy Right [place] teeth removed Family History Grandmother (Maternal) Lung cancer Grandmother (Paternal) Ovarian cancer Other No family history of adverse response to anesthesia Social History Smoking Status: Never smoker Second Hand Exposure: No; Do You Dip or Chew Tobacco: No; Hx Alcohol Use: No Hx Substance Use: No Preferred Language: Estonian Communication Ability: Effective Visual Impairment: No Limitations Cvt Rn Required: No Beliefs That Will Affect Care: None marital status: Current Living Situation: Family current occupational status: employed current occupation: [employer] Feels Safe at Home: Yes Assistive Devices: Glasses Allergies Allergies Allergy/AdvReac Type Severity Reaction Status Date / Time No Known Allergies Allergy Verified 01/19/23 09:03 Home Meds Home Medications Medication Instructions Recorded Confirmed acetaminophen 500 mg tablet 1,000 mg PO Q6H PRN PAIN/FEVER 01/19/23 01/31/23 ondansetron HCl 8 mg tablet 8 mg PO Q8 PRN Nausea And Vomiting 01/19/23 02/21/23 mirtazapine 15 mg tablet 15 mg PO DAILY 01/31/23 02/21/23 cephalexin 500 mg capsule 500 mg PO Q6H 02/21/23 02/21/23 olanzapine 2.5 mg tablet 2.5 mg PO DIRECTED nausea 02/21/23 02/21/23 Previous Rx's Medication Instructions Recorded loperamide 2 mg capsule 2 mg PO Q8H PRN loose stool #20 02/04/23 caps oxycodone 10 mg tablet 10 mg PO Q4H PRN breakthru cancer 02/16/23 pain 1 month #120 tabs oxycodone 30 mg tablet,crush 30 mg PO BID very severe 02/16/23 resistant,extended release 12 hr metastatic cancer pain 1 month #60 (OxyContin) tabs Results & Data (ED) Vital Signs Vital Signs - 24 hr 02/21/23 08:21 02/21/23 08:39 02/21/23 08:39 Temperature 38.3 C H Temperature Source Oral Pulse Rate 183 H 172 H Pulse Rate from SpO2 Sensor Pulse Rhythm Respiratory Rate 18 17 Blood Pressure 67/56 L 101/66 Blood Pressure Mean 59 78 Pulse Oximetry 96 Oxygen Delivery Method Sepsis Recent Fever Within 48 Hours No Sepsis New/Unexplained Change in Mental Status N/A Sepsis Action Taken by Nursing Physician Notified 02/21/23 08:40 02/21/23 08:44 02/21/23 08:46 Temperature Temperature Source Pulse Rate 169 H 161 H 172 H Pulse Rate from SpO2 Sensor 169 H Pulse Rhythm Regular Respiratory Rate 42 H Blood Pressure Blood Pressure Mean Pulse Oximetry 95 97 Oxygen Delivery Method Room Air Sepsis Recent Fever Within 48 Hours Sepsis New/Unexplained Change in Mental Status Sepsis Action Taken by Nursing 02/21/23 08:50 02/21/23 09:00 02/21/23 09:10 Temperature Temperature Source Pulse Rate 169 H 167 H 167 H Pulse Rate from SpO2 Sensor 167 H 167 H Pulse Rhythm Respiratory Rate 40 H 36 H 31 H Blood Pressure Blood Pressure Mean Pulse Oximetry 96 96 Oxygen Delivery Method Sepsis Recent Fever Within 48 Hours Sepsis New/Unexplained Change in Mental Status Sepsis Action Taken by Nursing 02/21/23 09:13 02/21/23 09:13 02/21/23 09:15 Temperature Temperature Source Pulse Rate 161 H 161 H Pulse Rate from SpO2 Sensor 162 H 161 H Pulse Rhythm Respiratory Rate 38 H 37 H Blood Pressure 91/52 L Blood Pressure Mean 61 Pulse Oximetry 97 97 Oxygen Delivery Method Sepsis Recent Fever Within 48 Hours Sepsis New/Unexplained Change in Mental Status Sepsis Action Taken by Nursing 02/21/23 09:30 02/21/23 09:30 02/21/23 09:45 Temperature Temperature Source Pulse Rate 151 H 153 H Pulse Rate from SpO2 Sensor 151 H 154 H Pulse Rhythm Respiratory Rate 30 H 27 H Blood Pressure 103/55 L Blood Pressure Mean 65 Pulse Oximetry 95 96 Oxygen Delivery Method Sepsis Recent Fever Within 48 Hours Sepsis New/Unexplained Change in Mental Status Sepsis Action Taken by Nursing 02/21/23 10:00 02/21/23 10:00 02/21/23 10:15 Temperature Temperature Source Pulse Rate 148 H 139 H Pulse Rate from SpO2 Sensor 148 H 140 H Pulse Rhythm Respiratory Rate 25 H 34 H Blood Pressure 104/50 L Blood Pressure Mean 68 Pulse Oximetry 94 94 Oxygen Delivery Method Sepsis Recent Fever Within 48 Hours Sepsis New/Unexplained Change in Mental Status Sepsis Action Taken by Nursing 02/21/23 10:30 02/21/23 10:36 02/21/23 10:45 Temperature 37.9 C H Temperature Source Oral Pulse Rate 135 H 134 H Pulse Rate from SpO2 Sensor 136 H 133 H Pulse Rhythm Respiratory Rate 24 36 H Blood Pressure Blood Pressure Mean Pulse Oximetry 94 95 Oxygen Delivery Method Sepsis Recent Fever Within 48 Hours Sepsis New/Unexplained Change in Mental Status Sepsis Action Taken by Nursing 02/21/23 10:47 02/21/23 10:47 02/21/23 11:00 Temperature Temperature Source Pulse Rate 134 H Pulse Rate from SpO2 Sensor 134 H Pulse Rhythm Respiratory Rate 31 H Blood Pressure 88/47 L 85/43 L Blood Pressure Mean 59 58 Pulse Oximetry 95 Oxygen Delivery Method Sepsis Recent Fever Within 48 Hours Sepsis New/Unexplained Change in Mental Status Sepsis Action Taken by Nursing 02/21/23 11:00 02/21/23 11:15 02/21/23 11:15 Temperature Temperature Source Pulse Rate 123 H 121 H Pulse Rate from SpO2 Sensor 124 H Pulse Rhythm Respiratory Rate 20 19 Blood Pressure 86/44 L Blood Pressure Mean 61 Pulse Oximetry 94 94 Oxygen Delivery Method Sepsis Recent Fever Within 48 Hours Sepsis New/Unexplained Change in Mental Status Sepsis Action Taken by Nursing Laboratory Data 02/21/23 08:58 02/21/23 08:58 Lab Results 02/21/23 02/21/23 02/21/23 Range/Units 08:58 09:52 10:47 WBC 6.21 (4.8-10.8) K/ul RBC 3.76 L (4.20-5.40) M/uL Hgb 9.9 L (12.0-16.0) g/dl Hct 32.2 L (37.0-47.0) % MCV 85.6 (80.0-100.0) fL MCH 26.3 (25.0-34.0) pg MCHC 30.7 L (32.0-36.0) g/dL RDW Std Deviation 61.7 H (36.4-46.3) fL RDW Coeff of Marilou 19.8 H (11.5-14.5) % Plt Count 260 (130-400) K/uL MPV 10.1 (9.4-12.4) fL Immature Gran % (Auto) 3.5 % Neut % (Auto) 81.7 % Lymph % (Auto) 5.6 % Mclean % (Auto) 2.7 % Eos % (Auto) 6.3 % Baso % (Auto) 0.2 % Neut # (Auto) 5.07 (1.40-6.50) K/uL Lymph # (Auto) 0.35 L (1.20-3.40) K/uL Mclean # (Auto) 0.17 (0.11-0.59) K/uL Eos # (Auto) 0.39 (0.00-0.50) K/uL Baso # (Auto) 0.01 (0.00-0.20) K/uL Immature Gran # (Auto) 0.22 H (0.01-0.20) K/uL VBG pH 7.41 (7.36-7.41) VBG pCO2 46 (38-50) mmHg VBG pO2 26 mmHg VBG HCO3 29 mmol/L VBG O2 Saturation < 60.0 % VBG Base Excess 4.1 mEq/L Sodium 135 L (136-145) mmol/L Potassium 3.9 (3.5-5.1) mmol/L Chloride 97 L (98-107) mmol/L Carbon Dioxide 28 (21-32) mmol/L Anion Gap 10 (3-11) BUN 14 (6-23) mg/dl Creatinine 0.87 (0.6-1.2) mg/dl Est Cr Clr Drug Dosing 65.4 ml/min Est GFR ( Amer) 100.7 ml/min Est GFR (Non-Af Amer) 86.9 ml/min BUN/Creatinine Ratio 16.1 (10-20) Glucose 130 H (70-99(Fasting)) mg/dl Lactate 2.4 H* 1.3 (0.4-2.0) mmol/L Calcium 9.2 (8.6-10.3) mg/dl Magnesium 1.9 (1.7-2.4) mg/dl Total Bilirubin 0.5 (0.2-1.0) mg/dl Direct Bilirubin 0.1 (0-0.2) mg/dl AST 30 (13-39) U/L ALT 29 (7-52) U/L Alkaline Phosphatase 89 (34-104) U/L Troponin I High Sens 6.9 (0-14) pg/ml Total Protein 6.8 (6.0-8.3) gm/dl Albumin 3.4 (3.4-5.0) gm/dl Procalcitonin 2.71 H (0-0.5) ng/ml Adenovirus (PCR) Not Detected (NotDetected) B. pertussis DNA (PCR) Not Detected (NotDetected) B.parapertussis DNA PCR Not Detected (NotDetected) C. pneumoniae DNA (PCR) Not Detected (NotDetected) Coronavirus OC43 (PCR) Not Detected (NotDetected) Coronavirus HKU1 (PCR) Not Detected (NotDetected) Coronavirus 229E (PCR) Not Detected (NotDetected) SARS-CoV-2 (PCR) Not Detected (NotDetected) Coronavirus NL63 (PCR) Not Detected (NotDetected) Human Metapneumovir PCR Not Detected (NotDetected) Influenza Type A (PCR) Not Detected (NotDetected) Influenza Type B (PCR) Not Detected (NotDetected) M. pneumoniae (PCR) Not Detected (NotDetected) Parainfluenza 1 (PCR) Not Detected (NotDetected) Parainfluenza 2 (PCR) Not Detected (NotDetected) Parainfluenza 3 (PCR) Not Detected (NotDetected) Parainfluenza 4 (PCR) Not Detected (NotDetected) RSV (PCR) Not Detected (NotDetected) Entero/Rhino (PCR) Not Detected (NotDetected) Administered Medications Enoxaparin Sodium (Enoxaparin Inj 40 Mg/0.4 Ml Syr) 40 mg SQ Q24H [facility] Stop: 03/23/23 13:59 Last Admin: 02/21/23 16:08 Dose: Not Given Documented By: ETHELP Potassium Chloride/Sodium Chloride (Normal Saline W/20 Meq Kcl) 20 meq in 1,000 mls @ 100 mls/hr IV .Q10H [facility] Stop: 02/22/23 09:59 Last Admin: 02/21/23 14:09 Dose: 100 mls/hr Documented By: RICARDO Piperacillin Sod/Tazobactam (Sod 4.5 gm/ Dextrose) 100 mls @ 25 mls/hr IV Q8H [facility]; Protocol Stop: 02/28/23 15:59 Last Admin: 02/21/23 16:08 Dose: 25 mls/hr Documented By: RICARDO Oxycodone HCl (Oxycodone Hcl Ir 5 Mg Tab (Immediate Release)) 10 mg PO Q4H PRN PRN Reason: breakthru cancer pain Stop: 03/07/23 13:11 Last Admin: 02/21/23 14:56 Dose: 10 mg Documented By: RICARDO Discontinued Medications Fentanyl Citrate (Fentanyl Citrate Pf 100 Mcg/2 Ml Vial) 25 mcg IV NOW STA Stop: 02/21/23 08:42 Last Admin: 02/21/23 09:21 Dose: 25 mcg Documented By: AM Sodium Chloride (Nss) 1,000 mls @ 999 mls/hr IV .Q1H1M YESENIA Stop: 02/21/23 10:45 Last Infusion: 02/21/23 12:25 Dose: Infused Documented By: Admin: 02/21/23 11:24 Dose: 999 mls/hr Documented By: Infusion: 02/21/23 11:24 Dose: Infused Documented By: Admin: 02/21/23 09:36 Dose: 999 mls/hr Documented By: AM Acetaminophen (Ofirmev) 1,000 mg in 100 mls @ 400 mls/hr IV NOW STA Stop: 02/21/23 08:55 Last Infusion: 02/21/23 09:55 Dose: Infused Documented By: Admin: 02/21/23 09:25 Dose: 400 mls/hr Documented By: AM Piperacillin Sod/Tazobactam Sod (Zosyn) 4.5 gm in 100 mls @ 200 mls/hr IV NOW ONE Stop: 02/21/23 09:36 Last Infusion: 02/21/23 10:34 Dose: Infused Documented By: Admin: 02/21/23 09:59 Dose: 200 mls/hr Documented By: AM Vancomycin HCl 1,000 mg/ (Sodium Chloride) 520 mls @ 200 mls/hr IV NOW ONE Stop: 02/21/23 11:36 Last Infusion: 02/21/23 14:13 Dose: Infused Documented By: Admin: 02/21/23 10:34 Dose: 200 mls/hr Documented By: AM Imaging Data Radiologist's Impression: Chest X-Ray 02/21/23 08:41 XR chest 1V portable CLINICAL HISTORY: Sepsis. Breast cancer. COMPARISON STUDY: Chest CT February 01, 2023. Chest radiograph February 03, 2023. FINDINGS: A moderate to large right pleural effusion has significantly increased in size since prior chest radiograph. Associated airspace opacity is present. There is no pneumothorax. No left pleural effusion. No evidence for pulmonary edema. There are bilateral axillary surgical clips. IMPRESSION: Significant increase in size of a moderate to large right pleural effusion with asymmetric right lung airspace opacity. No pneumothorax. ACT 112: Negative or not required by law. Electronically signed by: Jc Wilson M.D. 02/21/2023 9:12 AM Discharge Plan Visit Data Chief Complaint: Illness Stated Complaint: HIGH FEVER, COUGH ED Provider: Oleg Lieberman Discharge Problem: Septic shock, Complicated wound infection, Open wound of chest wall, Radiation burn, Pleural effusion on right Patient Disposition: Admitted As Inpatient Discharge Instructions Interventions: ED Discharge Assessment Last Done: 02/21/23 12:23 Discharge Problem: Open wound of chest wall Qualifiers: Encounter type: initial encounter Laterality: right Qualified Code(s): S21.101A - Unspecified open wound of right front wall of thorax without penetration into thoracic cavity, initial encounter
[2023-02-21] MEDS ORDERED: VANCOMYCIN HCL 1,000 MG in SODIUM CHLORIDE 0.9% 500 ML IV ONE (09:07)
[2023-02-21] MEDS ORDERED: PIPERACILLIN/TAZOBACTAM 4.5 GM/100 ML BAG IV ONE (09:07)
[2023-02-21] MEDS ORDERED: VANCOMYCIN CONSULT ACTIVE PRN ×2 (09:07→13:12)
--- NOTE | 2023-02-21 09:13 | XRay Report ---
XR chest 1V portable CLINICAL HISTORY: Sepsis. Breast cancer. COMPARISON STUDY: Chest CT February 01, 2023. Chest radiograph February 03, 2023. FINDINGS: A moderate to large right pleural effusion has significantly increased in size since prior chest radiograph. Associated airspace opacity is present. There is no pneumothorax. No left pleural e ffusion. No evidence for pulmonary edema. There are bilateral axillary surgical clips. IMPRESSION: Significant increase in size of a moderate to large right pleural effusion with asymmetr ic right lung airspace opacity. No pneumothorax. ACT 112: Negative or not required by law. Electronically signed by: Jc Wilson M.D. 02/21/2023 9:12 AM
[2023-02-21 09:22] LABS: Basophils # (auto) 0.01 K/uL (0.00-0.20); Basophils % (auto) 0.2 %; Eosinophils # (auto) 0.39 K/uL (0.00-0.50); Eosinophils % (auto) 6.3 %; Hematocrit (blood only) 32.2 % (37.0-47.0); Hemoglobin 9.9 g/dl (12.0-16.0); Immature Granulocytes # (auto) 0.22 K/uL (0.01-0.20); Immature Granulocytes % (auto) 3.5 %; Lymphocytes # (auto) 0.35 K/uL (1.20-3.40); Lymphocytes % (auto) 5.6 %; Mean Corpuscular Hemoglobin 26.3 pg (25.0-34.0); Mean Corpuscular Hgb Conc 30.7 g/dL (32.0-36.0); Mean Corpuscular Volume 85.6 fL (80.0-100.0); Mean Platelet Volume 10.1 fL (9.4-12.4); Monocytes # (auto) 0.17 K/uL (0.11-0.59); Monocytes % (auto) 2.7 %; Neutrophils # (auto) 5.07 K/uL (1.40-6.50); Neutrophils % (auto) 81.7 %; Platelet Count 260 K/uL (130-400); RDW Coefficient of Variation 19.8 % (11.5-14.5); RDW Standard Deviation 61.7 fL (36.4-46.3); Red Blood Count 3.76 M/uL (4.20-5.40); White Blood Count 6.21 K/ul (4.8-10.8)
[2023-02-21] MEDS: SODIUM CHLORIDE 0.9% 1,000 ML IV SCH ×2 (09:36→11:24)
[2023-02-21 09:46] LABS: Albumin Level 3.4 gm/dl (3.4-5.0); BUN Creatinine Ratio 16.1 (10-20); Bilirubin Direct 0.1 mg/dl (0-0.2); Bilirubin,Total 0.5 mg/dl (0.2-1.0); Calcium 9.2 mg/dl (8.6-10.3); Creatinine Clr Calc Pharmacy 65.4 ml/min; Est GFR (African American) 100.7 ml/min; Est GFR (Non-African American) 86.9 ml/min; Magnesium 1.9 mg/dl (1.7-2.4); Potassium 3.9 mmol/L (3.5-5.1); Total Protein 6.8 gm/dl (6.0-8.3)
[2023-02-21 09:52] LABS: Troponin I High Sensitivity 6.9 pg/ml (0-14)
[2023-02-21 09:59] LABS: Base Excess VBG 4.1 mEq/L; HCO3 VBG 29 mmol/L; Oxygen Saturation VBG < 60.0 %; PCO2 VBG 46 mmHg (38-50); PO2 VBG 26 mmHg; pH VBG 7.41 (7.36-7.41)
[2023-02-21 10:14] LABS: Adenovirus PCR Not Detected (NotDetected); Bordetella parapertussis PCR Not Detected (NotDetected); Bordetella pertussis PCR Not Detected (NotDetected); Chlamydia pneumoniae PCR Not Detected (NotDetected); Coronavirus 229E PCR Not Detected (NotDetected); Coronavirus CoV-2 (COVID19)PCR Not Detected (NotDetected); Coronavirus HKU1 PCR Not Detected (NotDetected); Coronavirus NL63 PCR Not Detected (NotDetected); Coronavirus OC43PCR Not Detected (NotDetected); Human Metapneumovirus PCR Not Detected (NotDetected); Influenza A PCR Not Detected (NotDetected); Influenza B PCR Not Detected (NotDetected); Mycoplasma pneumoniae PCR Not Detected (NotDetected); Parainfluenza Virus 1 PCR Not Detected (NotDetected); Parainfluenza Virus 2 PCR Not Detected (NotDetected); Parainfluenza Virus 3 PCR Not Detected (NotDetected); Parainfluenza Virus 4 PCR Not Detected (NotDetected); Respiratory Syncytial VirusPCR Not Detected (NotDetected); Rhinovirus/Enterovirus PCR Not Detected (NotDetected)
--- NOTE | 2023-02-21 11:57 | History & Physical Report ---
Date of Service February 21, 2023 Assessment & Plan (1) Metastatic breast cancer: (2) Diarrhea: (3) Cancer related pain: (4) Septic shock: (5) Depression: (6) Hypotension: Plan Sepsis of unknown source- Patient at risk due to undergoing chemotherapy for metastatic breast cancer Follow urine culture and sensitivity Follow blood culture and sensitivity Noted to have drainage from chest wall wound, follow culture and sensitivity Empiric vancomycin IV and Zosyn IV Blood pressure upon arrival 67/56, which did improve with 2 L normal saline bolus and maintained at 85/42 Admit to telemetry Required ICU level admission earlier in January from 02/01-02/04/2023 with pressor support Right pleural effusion- Underwent thoracentesis during last admission, with 1500 mL fluid removed, with final diagnosis negative for malignancy. Did show histiocytes, mesothelial cells and inflammatory cells Gram stain showed moderate polys, rare mononucleated cells and no organisms seen Aerobic and anaerobic cultures showed no growth Fluid has returned Consult pulmonology Dr. Armenta Metastatic breast cancer/breast cancer pain- Continue outpatient regimen of oxycodone and OxyContin as noted per palliative Insomnia- Continue mirtazapine History of Present Illness Chief Complaint: The patient returns to the emergency department with concerns regarding fevers, chills and generalized malaise over the past 24 hours Primary Care Provider: NO PCP The patient is a 33-year-old female with a past medical history including metastatic breast cancer, cancer pain, urinary tract infection, pneumonia, septic shock requiring ICU admission, and diarrhea. She presents to the emergency department with fevers, chills, generalized malaise worsening over the past 24 hours. Her most recent hospitalization from 02/01-02/04/2023 involved ICU level admission due to hypotension requiring pressors. Patient presented to the emergency department with blood pressure 67/56, which has responded to 2 L normal saline, has been maintaining an 86/44 zone. Allergies Allergy/AdvReac Type Severity Reaction Status Date / Time No Known Allergies Allergy Verified 01/19/23 09:03 Home Medications Medication Instructions Recorded Confirmed Type acetaminophen 500 mg tablet 1,000 mg PO Q6H PRN PAIN/FEVER 01/19/23 01/31/23 History ondansetron HCl 8 mg tablet 8 mg PO Q8 PRN Nausea And Vomiting 01/19/23 01/31/23 History mirtazapine 15 mg tablet 15 mg PO DAILY 01/31/23 01/31/23 History loperamide 2 mg capsule 2 mg PO Q8H PRN loose stool #20 02/04/23 Rx caps oxycodone 10 mg tablet 10 mg PO Q4H PRN breakthru cancer 02/16/23 02/16/23 Rx pain 1 month #120 tabs oxycodone 30 mg tablet,crush 30 mg PO BID very severe 02/16/23 02/16/23 Rx resistant,extended release 12 hr metastatic cancer pain 1 month #60 (OxyContin) tabs Past Med/Surg History Medical History Ureteral obstruction History of anemia HX: breast cancer s/p right lumpectomy, chemo, xrt (no limb restriction) Hydronephrosis History of COVID-19 Early 01/2022 > symptoms resolved Surgical History Nephrostomy status S/P bilateral mastectomy History of hysterectomy History of section X 2 H/O myomectomy History of appendectomy H/O lumpectomy Right [place] teeth removed Family History Grandmother (Maternal) Lung cancer Grandmother (Paternal) Ovarian cancer Other No family history of adverse response to anesthesia Social History Smoking Status: Never smoker Second Hand Exposure: No; Do You Dip or Chew Tobacco: No; Hx Alcohol Use: No Hx Substance Use: No Preferred Language: Greenlandic Communication Ability: Effective Visual Impairment: No Limitations Black Pickler Required: No Beliefs That Will Affect Care: None marital status: Current Living Situation: Spouse current occupational status: employed current occupation: [employer] Feels Safe at Home: Yes Assistive Devices: None Review of Systems Review of Systems: The patient denies chest pain, palpitations, shortness of breath, dyspnea on exertion, lower extremity swelling, sore throat, nausea, vomiting, diarrhea , constipation, abdominal pain, pelvic pain, blood in urine or stool, dysuria, urinary frequency or urgency, lightheadedness, dizziness, headache, rash, abnormal bruising or bleeding, imbalance, focal weakness, numbness or tingling in arms or legs, generalized arthralgias or myalgias, back or neck pain, or night sweats. The review of systems is otherwise negative other than for that already noted above, and at least 10 systems have been reviewed. Physical Exam Physical Exam: The patient is awake, alert and oriented 3, well developed and well nourished, normocephalic and atraumatic, lying in bed and in no acute distress. HEENT--PERRL, EOMI, mucous membranes and oropharynx mildly dry. Neck--supple. No JVD. No bruits. Thyroid normal, trachea midline, no adenopathy. Heart--normal S1 and S2. No murmurs, rubs or gallops. Lungs--clear bilaterally, no respiratory distress, no accessory muscle use. Abdomen--normal bowel sounds and soft. Nontender. Nondistended Extremities--no cyanosis or clubbing. No edema. Dermatologic--normal skin turgor, Neurologic--cranial nerves II through XII grossly intact. Rheumatologic--normal range of motion. Psychiatric--normal affect. Results & Data Results & Data Vital Signs (Past 12 Hours) Vital Signs Temp Pulse Resp BP Pulse Ox O2 Del Method 02/21/23 11:15 121 H 19 94 02/21/23 11:15 86/44 L 02/21/23 11:00 123 H 20 94 02/21/23 11:00 85/43 L 02/21/23 10:47 88/47 L 02/21/23 10:47 134 H 31 H 95 02/21/23 10:45 134 H 36 H 95 02/21/23 10:36 37.9 C H 02/21/23 10:30 135 H 24 94 02/21/23 10:15 139 H 34 H 94 02/21/23 10:00 148 H 25 H 94 02/21/23 10:00 104/50 L 02/21/23 09:45 153 H 27 H 96 02/21/23 09:30 151 H 30 H 95 02/21/23 09:30 103/55 L 02/21/23 09:15 161 H 37 H 97 02/21/23 09:13 161 H 38 H 97 02/21/23 09:13 91/52 L 02/21/23 09:10 167 H 31 H 96 02/21/23 09:00 167 H 36 H 96 02/21/23 08:50 169 H 40 H 02/21/23 08:46 172 H 02/21/23 08:44 161 H 97 Room Air 02/21/23 08:40 169 H 42 H 95 02/21/23 08:39 101/66 02/21/23 08:39 172 H 17 02/21/23 08:21 38.3 C H 183 H 18 67/56 L 96 Laboratory Results Laboratory Results WBC 6.21 K/ul (4.8-10.8) 02/21/23 08:58 RBC 3.76 M/uL (4.20-5.40) L 02/21/23 08:58 Hgb 9.9 g/dl (12.0-16.0) L 02/21/23 08:58 Hct 32.2 % (37.0-47.0) L 02/21/23 08:58 MCV 85.6 fL (80.0-100.0) 02/21/23 08:58 MCH 26.3 pg (25.0-34.0) 02/21/23 08:58 MCHC 30.7 g/dL (32.0-36.0) L 02/21/23 08:58 RDW Std Deviation 61.7 fL (36.4-46.3) H 02/21/23 08:58 RDW Coeff of Marilou 19.8 % (11.5-14.5) H 02/21/23 08:58 Plt Count 260 K/uL (130-400) 02/21/23 08:58 MPV 10.1 fL (9.4-12.4) 02/21/23 08:58 Immature Gran % (Auto) 3.5 % 02/21/23 08:58 Neut % (Auto) 81.7 % 02/21/23 08:58 Lymph % (Auto) 5.6 % 02/21/23 08:58 [place] % (Auto) 2.7 % 02/21/23 08:58 Eos % (Auto) 6.3 % 02/21/23 08:58 Baso % (Auto) 0.2 % 02/21/23 08:58 Neut # (Auto) 5.07 K/uL (1.40-6.50) 02/21/23 08:58 Lymph # (Auto) 0.35 K/uL (1.20-3.40) L 02/21/23 08:58 [place] # (Auto) 0.17 K/uL (0.11-0.59) 02/21/23 08:58 Eos # (Auto) 0.39 K/uL (0.00-0.50) 02/21/23 08:58 Baso # (Auto) 0.01 K/uL (0.00-0.20) 02/21/23 08:58 Immature Gran # (Auto) 0.22 K/uL (0.01-0.20) H 02/21/23 08:58 VBG pH 7.41 (7.36-7.41) 02/21/23 09:52 VBG pCO2 46 mmHg (38-50) 02/21/23 09:52 VBG pO2 26 mmHg 02/21/23 09:52 VBG HCO3 29 mmol/L 02/21/23 09:52 VBG O2 Saturation < 60.0 % 02/21/23 09:52 VBG Base Excess 4.1 mEq/L 02/21/23 09:52 Sodium 135 mmol/L (136-145) L 02/21/23 08:58 Potassium 3.9 mmol/L (3.5-5.1) 02/21/23 08:58 Chloride 97 mmol/L (98-107) L 02/21/23 08:58 Carbon Dioxide 28 mmol/L (21-32) 02/21/23 08:58 Anion Gap 10 (3-11) 02/21/23 08:58 BUN 14 mg/dl (6-23) 02/21/23 08:58 Creatinine 0.87 mg/dl (0.6-1.2) 02/21/23 08:58 Est Cr Clr Drug Dosing 65.4 ml/min 02/21/23 08:58 Est GFR ( Amer) 100.7 ml/min 02/21/23 08:58 Est GFR (Non-Af Amer) 86.9 ml/min 02/21/23 08:58 BUN/Creatinine Ratio 16.1 (10-20) 02/21/23 08:58 Glucose 130 mg/dl (70-99(Fasting)) H 02/21/23 08:58 Lactate 1.3 mmol/L (0.4-2.0) 02/21/23 10:47 Calcium 9.2 mg/dl (8.6-10.3) 02/21/23 08:58 Magnesium 1.9 mg/dl (1.7-2.4) 02/21/23 08:58 Total Bilirubin 0.5 mg/dl (0.2-1.0) 02/21/23 08:58 Direct Bilirubin 0.1 mg/dl (0-0.2) 02/21/23 08:58 AST 30 U/L (13-39) 02/21/23 08:58 ALT 29 U/L (7-52) 02/21/23 08:58 Alkaline Phosphatase 89 U/L (34-104) 02/21/23 08:58 Troponin I High Sens 6.9 pg/ml (0-14) 02/21/23 08:58 Total Protein 6.8 gm/dl (6.0-8.3) 02/21/23 08:58 Albumin 3.4 gm/dl (3.4-5.0) 02/21/23 08:58 Procalcitonin 2.71 ng/ml (0-0.5) H 02/21/23 08:58 Adenovirus (PCR) Not Detected (NotDetected) 02/21/23 08:58 B. pertussis DNA (PCR) Not Detected (NotDetected) 02/21/23 08:58 B.parapertussis DNA PCR Not Detected (NotDetected) 02/21/23 08:58 C. pneumoniae DNA (PCR) Not Detected (NotDetected) 02/21/23 08:58 Coronavirus OC43 (PCR) Not Detected (NotDetected) 02/21/23 08:58 Coronavirus HKU1 (PCR) Not Detected (NotDetected) 02/21/23 08:58 Coronavirus 229E (PCR) Not Detected (NotDetected) 02/21/23 08:58 SARS-CoV-2 (PCR) Not Detected (NotDetected) 02/21/23 08:58 Coronavirus NL63 (PCR) Not Detected (NotDetected) 02/21/23 08:58 Human Metapneumovir PCR Not Detected (NotDetected) 02/21/23 08:58 Influenza Type A (PCR) Not Detected (NotDetected) 02/21/23 08:58 Influenza Type B (PCR) Not Detected (NotDetected) 02/21/23 08:58 M. pneumoniae (PCR) Not Detected (NotDetected) 02/21/23 08:58 Parainfluenza 1 (PCR) Not Detected (NotDetected) 02/21/23 08:58 Parainfluenza 2 (PCR) Not Detected (NotDetected) 02/21/23 08:58 Parainfluenza 3 (PCR) Not Detected (NotDetected) 02/21/23 08:58 Parainfluenza 4 (PCR) Not Detected (NotDetected) 02/21/23 08:58 RSV (PCR) Not Detected (NotDetected) 02/21/23 08:58 Entero/Rhino (PCR) Not Detected (NotDetected) 02/21/23 08:58 Impressions Chest X-Ray 02/21/23 08:41 XR chest 1V portable CLINICAL HISTORY: Sepsis. Breast cancer. COMPARISON STUDY: Chest CT February 01, 2023. Chest radiograph February 03, 2023. FINDINGS: A moderate to large right pleural effusion has significantly increased in size since prior chest radiograph. Associated airspace opacity is present. There is no pneumothorax. No left pleural effusion. No evidence for pulmonary edema. There are bilateral axillary surgical clips. IMPRESSION: Significant increase in size of a moderate to large right pleural effusion with asymmetric right lung airspace opacity. No pneumothorax. ACT 112: Negative or not required by law. Electronically signed by: Jc Wilson M.D. 02/21/2023 9:12 AM Code Status & VTE Plan Code Status Full code VTE Prophylaxis Plan VTE Prophylaxis will be ordered: Yes PG Care Time/CCT Total # of Minutes Spent Total Time Spent with Patient: Total time spent is greater than 50% in coordination of care (as documented) at patient's floor/unit and/or counseling patient: Coding Level of Care Code 27542 INT INP/OBS CARE 3/75MIN Diagnoses Metastatic breast cancer C50.919 Diarrhea of presumed infectious origin R19.7 Diarrhea type: presumed infectious Cancer related pain G89.3 Septic shock A41.9; R65.21 Depression F32.A Hypotension I95.9 (2) Diarrhea Diarrhea type: presumed infectious Qualified Code(s): R19.7 - Diarrhea, unspecified
[2023-02-21] MEDS ORDERED: oxyCODONE HCL IR 5 MG TAB (IMMEDIATE RELEASE) PO PRN (13:12)
--- NOTE | 2023-02-21 13:43 | Pharmacy Report ---
Pharmacy PK ABX Note - Date of Service February 21, 2023 - Assessment and Plan Assessment 33 year old F receiving vancomycin/zosyn for treatment of pulmonary indication. Pertinent microbiologic data includes: breast culture from 02/01 grew MSSA. Patient previously admitted early January for which she received meropenem, vancomycin (at 750 mg IV q12), and keflex Day # 1 of antimicrobial therapy. Plan Vancomycin * Loading dose: 1000 mg IV x 1 * Maintenance dose: 750 mg IV every 12 hours * Regimen is predicted to achieve target AUC/TRINH of 400-600 mg/L.hr * Random level ordered for: 02/23/23 Pharmacy will continue to follow and will adjust dose/frequency as necessary. Thank you. Pharmacy has transitioned to AUC monitoring for vancomycin. AUC/TRINH is the preferred PK/PD target and is associated with decreased risk of nephrotoxicity compared to traditional trough targets.
[2023-02-21] MEDS ORDERED: ONDANSETRON 4 MG OD TAB PO PRN (13:46)
--- NOTE | 2023-02-21 14:04 | Pulmonary Consultation ---
Date of Consultation February 21, 2023 Assessment & Plan (1) Pleural effusion on right: (2) Open wound of chest wall: Encounter type: initial encounter Laterality: right Qualified Code(s): S21.101A - Unspecified open wound of right front wall of thorax without penetration into thoracic cavity, initial encounter (3) Metastatic breast cancer: Plan Chest x-ray 02/21/2023 personally reviewed: Large right-sided pleural effusion 2D echo 02/01/2023: EF 50-55%, RV normal in size and function -- Right-sided pleural effusion Patient had 2 thoracentesis done in the past Last one on 02/03/2023 with removal of 1500 mill pleural fluid Cytology has been negative twice so far Respiratory bio fire negative for everything Consideration for thoracentesis versus Pleurx could be made of Patient is not interested in Pleurx catheter or any other foreign body/tubes. She does understand that the fluid is most likely coming from underlying cancer --Fever Etiology is not clear Procalcitonin 2.71 Chest x-ray does not show any significant change compared to before, right-sided pleural effusion is worsened UA is clean, will send UA from the nephrostomy tube Cancer itself can give fever Cellulitis of the ulcerating wound is a possibility Plan: For thoracentesis tomorrow. Hold Lovenox Continue with antibiotic All questions inquiries of the patient as well as patient's were answered in depth. Please note the above document was generated using voice recognition software. It may contain grammatical, syntax or spelling errors.Any formal questions or concerns about the content, text or information contained within the body of this dictation should be directly addressed to the provider for clarification. History of Present Illness Attending Physician: David Mcclendon MD History of Present Illness 33-year-old female presented to hospital for fever Past medical history: Metastatic breast cancer Pulmonary consulted for pleural effusion At the time of examination patient was in the room.. She was not any respiratory distress. Saturating 94% on room air. She was lying in the bed Has been complaining of cough since last week or so. Bringing up clear phlegm. Denies any hemoptysis No pleuritic chest pain. No dysuria, no diarrhea. Nephrostomy was changed on the left side approximately a week ago. Denies any unusual headache or blurry vision No night sweats, no new unintentional weight loss Social history: Lifetime non-smoker Allergies Allergy/AdvReac Type Severity Reaction Status Date / Time No Known Allergies Allergy Verified 01/19/23 09:03 Home Medications Medication Instructions Recorded Confirmed Type acetaminophen 500 mg tablet 1,000 mg PO Q6H PRN PAIN/FEVER 01/19/23 01/31/23 History ondansetron HCl 8 mg tablet 8 mg PO Q8 PRN Nausea And Vomiting 01/19/23 02/21/23 History mirtazapine 15 mg tablet 15 mg PO DAILY 01/31/23 02/21/23 History loperamide 2 mg capsule 2 mg PO Q8H PRN loose stool #20 02/04/23 02/21/23 Rx caps oxycodone 10 mg tablet 10 mg PO Q4H PRN breakthru cancer 02/16/23 02/21/23 Rx pain 1 month #120 tabs oxycodone 30 mg tablet,crush 30 mg PO BID very severe 02/16/23 02/21/23 Rx resistant,extended release 12 hr metastatic cancer pain 1 month #60 (OxyContin) tabs cephalexin 500 mg capsule 500 mg PO Q6H 02/21/23 02/21/23 History olanzapine 2.5 mg tablet 2.5 mg PO DIRECTED nausea 02/21/23 02/21/23 History Patient History Medical History Ureteral obstruction History of anemia HX: breast cancer s/p right lumpectomy, chemo, xrt (no limb restriction) Hydronephrosis History of COVID-19 Early 01/2022 > symptoms resolved Surgical History Nephrostomy status S/P bilateral mastectomy History of hysterectomy History of section X 2 H/O myomectomy History of appendectomy H/O lumpectomy Right [place] teeth removed Family History Grandmother (Maternal) Lung cancer Grandmother (Paternal) Ovarian cancer Other No family history of adverse response to anesthesia Social History Smoking Status: Never smoker Second Hand Exposure: No; Do You Dip or Chew Tobacco: No; Hx Alcohol Use: No Hx Substance Use: No Preferred Language: Setswana Communication Ability: Effective Visual Impairment: No Limitations 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 Beliefs That Will Affect Care: None marital status: Current Living Situation: Family current occupational status: employed current occupation: [employer] Feels Safe at Home: Yes Assistive Devices: Glasses Review of Systems 2 Review of Systems: All systems reviewed & are unremarkable except as noted in HPI & below Physical Exam 2 Physical Exam: Constitutional: No acute distress HEENT: EOMI, PERRLA Respiratory system: Decreased air entry on the right side, no wheeze, no rhonchi, no crackles CVS: S1-S2 positive, no murmurs or gallops, tachycardia Abdomen: Soft, nontender, nondistended, positive bowel sounds x4 Extremities: +2 pulses bilaterally radialis/ dorsalis pedis, no cyanosis, s welling of the right upper extremity, no edema bilateral lower extremity Neuro: Awake alert oriented x3 Psych: Normal mood and affect G/U: No Blackwell, left-sided nephrostomy Skin: Right anterior chest tumor with ulcerations and greenish drainage. No clear fluctuance Skin: no rashes, warm and dry Lymphatic: no cervical or axillary lymphadenopathy Results & Data Results & Data Vital Signs (Past 12 Hours) Vital Signs Temp Pulse Resp BP BP Pulse Ox O2 Del Method 02/21/23 12:41 36.9 C 17 90/55 L 97 Room Air 02/21/23 12:15 117 H 20 95 02/21/23 12:15 90/42 L 02/21/23 12:00 115 H 15 94 02/21/23 12:00 87/44 L 02/21/23 11:45 117 H 20 94 02/21/23 11:45 85/42 L 02/21/23 11:30 115 H 26 H 94 02/21/23 11:30 88/40 L 02/21/23 11:15 121 H 19 94 02/21/23 11:15 86/44 L 02/21/23 11:00 123 H 20 94 02/21/23 11:00 85/43 L 02/21/23 10:47 88/47 L 02/21/23 10:47 134 H 31 H 95 02/21/23 10:45 134 H 36 H 95 02/21/23 10:36 37.9 C H 02/21/23 10:30 135 H 24 94 02/21/23 10:15 139 H 34 H 94 02/21/23 10:00 148 H 25 H 94 02/21/23 10:00 104/50 L 02/21/23 09:45 153 H 27 H 96 02/21/23 09:30 151 H 30 H 95 02/21/23 09:30 103/55 L 02/21/23 09:15 161 H 37 H 97 02/21/23 09:13 161 H 38 H 97 02/21/23 09:13 91/52 L 02/21/23 09:10 167 H 31 H 96 02/21/23 09:00 167 H 36 H 96 02/21/23 08:50 169 H 40 H 02/21/23 08:46 172 H 02/21/23 08:44 161 H 97 Room Air 02/21/23 08:40 169 H 42 H 95 02/21/23 08:39 101/66 02/21/23 08:39 172 H 17 02/21/23 08:21 38.3 C H 183 H 18 67/56 L 96 Laboratory Results 02/21/23 08:58 02/21/23 08:58 PG Care Time/CCT Total # of Minutes Spent Total Time Spent with Patient: Total time spent is greater than 50% in coordination of care (as documented) at patient's floor/unit and/or counseling patient: Coding Level of Care Code 43197 INT INP/OBS CARE 3/75MIN Diagnoses Pleural effusion on right J90 Open wound of chest wall S21.101A Encounter type: initial encounter Laterality: right Metastatic breast cancer C50.919
[2023-02-21] MEDS: NSS + 20MEQ KCL 20 MEQ/1,000 ML BAG IV SCH (14:09)
[2023-02-21 15:24] LABS: Appearance Urine Clear (Clear); Bilirubin Urine Negative (Negative); Blood Urine Negative (Negative); Color Urine Orange; Glucose Urine UA Negative (Negative); Ketones Urine Negative (Negative); Leukocyte Esterase Urine Negative (Negative); Nitrite Urine Negative (Negative); Protein Urine Negative (Negative); Urobilinogen Urine Negative (Negative); pH Urine 6.5 (4.5-7.5)
--- NOTE | 2023-02-21 15:47 | Electrocardiogram Report ---
Test Reason : Blood Pressure : / mmHG Vent. Rate : 168 BPM Atrial Rate : 168 BPM P-R Int : 116 ms QRS Dur : 062 ms QT Int : 294 ms P-R-T Axes : 062 212 031 degrees QTc Int : 491 ms Sinus tachycardia Right superior axis deviation Incomplete right bundle branch block Abnormal ECG When compared with ECG of 31-JAN-2023 22:19, No significant change was found Confirmed by Kaden Garnica ([id number]) on 02/21/2023 3:46:21 PM Referred By: REFERRED SELF Confirmed By:Anuj Garnica
[2023-02-21] MEDS: PIPERACILLIN/TAZOBACTAM 4.5 GM in DEXTROSE 5% MINI-B 100 ML IV SCH ×2 (16:08→23:42)
[2023-02-21] MEDS: ENOXAPARIN INJ 40 MG/0.4 ML SYR SQ SCH (16:08)
[2023-02-21] MEDS: ACETAMINOPHEN 500 MG TAB PO PRN (18:26)
[2023-02-21] MEDS: oxyCODONE HCL 15 MG TABCR (OxyCONTIN) PO SCH (21:01)
[2023-02-21] MEDS: MIRTAZAPINE TAB 15 MG TAB PO SCH (21:01)
[2023-02-21] MEDS: guaiFENesin/DEXTROM SYRUP 200MG/20MG 10ML UDC PO PRN (21:01)
[2023-02-21] MEDS: VANCOMYCIN HCL 750 MG in SODIUM CHLORIDE 0.9% 250 ML IV SCH (21:02)
[2023-02-21 22:38] LABS: A calco-baum cmplx NotReported Not Detected (NotDetected); Bact fragilis Not Reported Not Detected (NotDetected); Blood Culture Id Panel See PCR Comment (NotDetected); C auris Not Reported Not Detected (NotDetected); Calbicans Not Reported Not Detected (NotDetected); Candida glabrata Not Reported Not Detected (NotDetected); Candida krusei Not Reported Not Detected (NotDetected); Cneoformans/gatti Not Reported Not Detected (NotDetected); Cparapsilosis Not Reported Not Detected (NotDetected); E cloacae compx Not Reported Not Detected (NotDetected); Efaecalis Not Reported Not Detected (NotDetected); Efaecium Not Reported Not Detected (NotDetected); Enterobacterales Not Reported Not Detected (NotDetected); Escherichia coli Not Reported Not Detected (NotDetected); H influenzae Not Reported Not Detected (NotDetected); K aerogenes Not Reported Not Detected (NotDetected); Koxytoca Not Reported Not Detected (NotDetected); Kpneumoniae grp Not Reported Not Detected (NotDetected); Lmonocyt Not Reported Not Detected (NotDetected); N meningitidis Not Reported Not Detected (NotDetected); P aeruginosa Not Reported Not Detected (NotDetected); Proteus spp Not Reported Not Detected (NotDetected); Salmonella spp Not Reported Not Detected (NotDetected); Smarcescens Not Reported Not Detected (NotDetected); Staph lugdunensis Not Reported Not Detected (NotDetected); Staph spp. Not Reported Not Detected (NotDetected); Staphaureus Not Reported Not Detected (NotDetected); Staphepi Not Reported Not Detected (NotDetected); Stenmaltophilia Not Reported Not Detected (NotDetected); Strep agal(GrpB) Not Reported Not Detected (NotDetected); Strep pneum Not Reported Not Detected (NotDetected); Strep pyog (GrpA) Not Reported DETECTED (NotDetected); Strep spp Not Reported DETECTED (NotDetected)
[2023-02-21 22:41] LABS: Streptococcus pyogenes (GrpA) DETECTED (NotDetected); Streptococcus spp DETECTED (NotDetected)
[2023-02-22] MEDS: ACETAMINOPHEN 500 MG TAB PO PRN (03:22)
[2023-02-22] MEDS: guaiFENesin/DEXTROM SYRUP 200MG/20MG 10ML UDC PO PRN ×3 (03:31→17:02)
[2023-02-22] MEDS: NSS + 20MEQ KCL 20 MEQ/1,000 ML BAG IV SCH (06:16)
[2023-02-22] MEDS: PIPERACILLIN/TAZOBACTAM 4.5 GM in DEXTROSE 5% MINI-B 100 ML IV SCH ×3 (08:08→23:28)
[2023-02-22] MEDS: oxyCODONE HCL 15 MG TABCR (OxyCONTIN) PO SCH ×3 (08:27→21:10)
[2023-02-22] MEDS: VANCOMYCIN HCL 750 MG in SODIUM CHLORIDE 0.9% 250 ML IV SCH ×2 (08:40→21:08)
[2023-02-22] MEDS ORDERED: LIDOCAINE 2% LOCAL 50 ML VIAL ONE (14:00)
--- NOTE | 2023-02-22 14:43 | Pulmonology Progress Note ---
Date of Service February 22, 2023 Assessment & Plan (1) Pleural effusion on right: (2) Open wound of chest wall: Encounter type: initial encounter Laterality: right Qualified Code(s): S21.101A - Unspecified open wound of right front wall of thorax without penetration into thoracic cavity, initial encounter (3) Metastatic breast cancer: Plan Chest x-ray 02/21/2023 personally reviewed: Large right-sided pleural effusion 2D echo 02/01/2023: EF 50-55%, RV normal in size and function -- Right-sided pleural effusion Patient had 2 thoracentesis done in the past Last one on 02/03/2023 with removal of 1500 mill pleural fluid Cytology has been negative twice so far Respiratory bio fire negative for everything Consideration for thoracentesis versus Pleurx could be made of although it would be very difficult given the significant deformity/ulceration of the right anterior chest Patient is not interested in Pleurx catheter or any other foreign body/tubes. She does understand that the fluid is most likely coming from underlying cancer --Fever Etiology is not clear Procalcitonin 2.71 Chest x-ray does not show any significant change compared to before, right-sided pleural effusion is worsened UA is clean, will send UA from the nephrostomy tube Cancer itself can give fever Cellulitis of the ulcerating wound is a possibility Plan: For thoracentesis today Risk and benefit of the procedure explained to the patient in depth Consent signed, witnessed and put in the chart Please note the above document was generated using voice recognition software. It may contain grammatical, syntax or spelling errors.Any formal questions or concerns about the content, text or information contained within the body of this dictation should be directly addressed to the provider for clarification. Admission and Anticipated Discharge Date Admission Date: February 21, 2023 Subjective Patient seen and examined at bedside. No acute distress, no events overnight Denies any headache, no nausea, no vomiting Still complains of cough bringing up clear phlegm Denies any hemoptysis Appetite is poor No headache, no blurry vision Review of Systems 2 Review of Systems: All systems reviewed & are unremarkable except as noted in Subjective Physical Exam 2 Physical Exam: Constitutional: No acute distress HEENT: EOMI, PERRLA Respiratory system: Decreased air entry on the right side, no wheeze, no rhonchi, no crackles CVS: S1-S2 positive, no murmurs or gallops, tachycardia Abdomen: Soft, nontender, nondistended, positive bowel sounds x4 Extremities: +2 pulses bilaterally radialis/ dorsalis pedis, no cyanosis, s welling of the right upper extremity, no edema bilateral lower extremity Neuro: Awake alert oriented x3 Psych: Normal mood and affect G/U: No Blackwell, left-sided nephrostomy Skin: Right anterior chest tumor with ulcerations and greenish drainage. No clear fluctuance Skin: no rashes, warm and dry Lymphatic: no cervical or axillary lymphadenopathy Results & Data Results & Data Vital Signs (Past 12 Hours) Vital Signs Temp Pulse Pulse Resp BP Pulse Ox O2 Del Method 02/22/23 10:38 36.9 C 116 H 18 107/68 94 Room Air 02/22/23 09:00 116 H 02/22/23 07:23 36.6 C 108 H 17 99/65 L Room Air 02/22/23 03:13 39.5 C H 121 H 20 108/56 L 92 Room Air Laboratory Results 02/21/23 08:58 02/21/23 08:58 PG Care Time/CCT Total # of Minutes Spent Total Time Spent with Patient: Total time spent is greater than 50% in coordination of care (as documented) at patient's floor/unit and/or counseling patient: Coding Level of Care Code 04893 SUB INP/OBS CARE 3/50MIN Diagnoses Pleural effusion on right J90 Open wound of chest wall S21.101A Encounter type: initial encounter Laterality: right Metastatic breast cancer C50.919
[2023-02-22] MEDS ORDERED: LIDOCAINE 2% LOCAL 50 ML VIAL INFIL STA (14:45)
--- NOTE | 2023-02-22 14:47 | Procedure Note ---
Procedure Note Date of Service February 22, 2023 Note Procedure: Diagnostic therapeutic ultrasound-guided catheter thoracentesis Supervising Editor News Reel: Dr. Itzel Armenta Indication: Right pleural effusion Consent: Signed by patient and verified with timeout prior to procedure Anesthesia: 1% lidocaine without epinephrine local. Procedure: Consent was verified and timeout performed. Appropriate imaging studies were reviewed prior to the procedure. Patient was placed in a seated position and limited thoracic ultrasound was performed of the right chest. See separate imaging. Appropriate site above the diaphragm for thoracentesis was selected. The skin was prepped and draped in normal sterile fashion. Lidocaine was used for local analgesia. Fluid was aspirated via the finder needle. A small skin miriam was made with the scalpel and the catheter over the needle apparatus was advanced over the rib into the pleural space. Using the syringe one-way valve system, a total of 1100 mL's of serous-cloudy fluid was removed. The catheter was removed and observed to be intact. A sterile dressing was applied. Post procedure chest x-ray was ordered. Fluid was sent for labs, culture and cytology. Complications: None Blood loss: Less than 1 cc Coding CPT Codes Pulmonary/Thoracic - Pulmonary and Thoracic: 36503 Thoracentesis w imaging ([id number]) [facility] [place] Procedure Codes (Charges) Pulmonary/Thoracic Procedure 1: Pulmonary and Thoracic: 07603 Thoracentesis w imaging
--- NOTE | 2023-02-22 15:06 | XRay Report ---
XR chest 1V portable HISTORY: 33 years-old Female s/p right thorcentesis follow-up study in a patient with right-sided pl eural effusion COMPARISON: Chest radiograph 02/21/2023, chest CT 02/01/2023. TECHNIQUE: AP view of the chest FINDINGS: Cardiac silhouette is enlarged. Decreased size of the right pleural effusion status post thoracentesi s. Persistent right lung volume loss with right lung opacities. No postprocedural pneumothorax. The l eft lung is generally clear. Surgical clips are again noted projected over the chest. The bones appea r grossly intact. Mass lesions of the right chest wall are better seen on the prior chest CT. IMPRESSION: 1. Decreased size of the right pleural effusion status post thoracentesis. 2. Persistent right pleural effusion with right lung opacities. 3. No postprocedural pneumothorax identified. ACT 112: Negative or not required by law. The above report was generated using voice recognition software. It may contain grammatical, syntax o r spelling errors. Electronically signed by: Curt Cortes M.D. 02/22/2023 3:04 PM
--- NOTE | 2023-02-22 15:40 | Hospitalist Progress Note ---
Date of Service February 22, 2023 Assessment & Plan (1) Metastatic breast cancer: Plan: High likelihood of malignant right pleural effusion. She underwent thoracentesis again today, February 22. 1100 cc of serous fluid were aspirated. Studies are pending. She is receiving local care for the metastatic wounds to the right anterior chest wall. She remains on vancomycin and Zosyn. Recent cardiac echo reveals normal ejection fraction. She is on room air. (2) Diarrhea: Plan: Doubt infectious etiology. Supportive care (3) Cancer related pain: Plan: Pain control measures in place (4) Septic shock: Plan: Blood pressure was somewhat low on admission but has responded to IV fluids. This may not have been septic shock but may have simply been volume depletion. She remains on intravenous vancomycin and Zosyn. Cultures are pending (5) Depression: Plan: Supportive care. Continue current medical management Plan Anticipate eventual discharge back to her home. Awaiting final culture results. Admission and Anticipated Discharge Date Admission Date: February 21, 2023 Subjective The patient was seen before she underwent thoracentesis today. She is alert and oriented. She subsequently had right thoracentesis with aspiration of 1100 cc of serous fluid. Studies are pending. Follow-up chest x-ray is negative for pneumothorax. She remains on vancomycin and Zosyn. Appreciate pulmonology consultation and recommendations. She remains on room air. Review of Systems 2 Review of Systems: Constitutional-intermittent fever. No rigors ENT-no blurred vision, no double vision, no epistaxis, no sore throat Respiratory-nonproductive cough. Dyspnea on exertion Cardiac-no palpitations, no chest pain, no syncope GI-no nausea, vomiting, diarrhea, melena, hematochezia -no urinary retention, no urinary incontinence, no dysuria, no hematuria Musculoskeletal-no joint pain, no muscle tenderness Skin-no bruising, no rashes, no pruritus Neuro-no isolated weakness, no paresthesia, no weakness Psych-no depression, no anxiety Physical Exam 2 Physical Exam: General-alert and oriented x3. No distress HEENT-head atraumatic and normocephalic, pupils equal and reactive to light, extraocular muscles intact Neck-no lymphadenopathy or thyromegaly, trachea midline Chest-diminished breath sounds and dullness right midlung field to right base. No wheezing. Bandages in place over metastatic lesions right anterior chest wall i Cardiac-regular rate and rhythm, normal S1 and S2 Abdomen-normal bowel sounds, nontender, no hepatosplenomegaly Extremities-no cyanosis, clubbing, or edema Neuro-cranial nerves II through XII intact, motor and sensory function within normal limits, strength symmetrical, no focal deficits Psych-flat affect Results & Data Results & Data Vital Signs (Past 12 Hours) Vital Signs Temp Pulse Pulse Resp BP Pulse Ox O2 Del Method 02/22/23 15:24 38.1 C H 144 H 20 117/65 Room Air 02/22/23 10:38 36.9 C 116 H 18 107/68 94 Room Air 02/22/23 09:00 116 H 02/22/23 07:23 36.6 C 108 H 17 99/65 L Room Air Laboratory Results 02/21/23 08:58 02/21/23 08:58 PG Care Time/CCT Total # of Minutes Spent Total Time Spent with Patient: Total time spent is greater than 50% in coordination of care (as documented) at patient's floor/unit and/or counseling patient: Coding Level of Care Code 20786 SUB INP/OBS CARE 3/50MIN Diagnoses Metastatic breast cancer C50.919 Diarrhea of presumed infectious origin R19.7 Diarrhea type: presumed infectious Cancer related pain G89.3 Septic shock A41.9; R65.21 Depression F32.A (2) Diarrhea Diarrhea type: presumed infectious Qualified Code(s): R19.7 - Diarrhea, unspecified
[2023-02-22 16:08] LABS: Total Protein Pleural Fluid 3.6 gm/dl
[2023-02-22 16:19] LABS: Appearance Pleural Fluid Hazy; Color Pleural Fluid Yellow; Lymphocytes, Fluid 8 %; Mono,Macrophage,Mesothelial 1 %; Neutrophils, Fluid 91 %; RBC Pleural Fluid Auto 4000 /uL; Source Pleural Fluid Right Lung; WBC Pleural Fluid Auto 1380 /uL
[2023-02-22] MEDS: MIRTAZAPINE TAB 15 MG TAB PO SCH (23:27)
[2023-02-23] MEDS: PIPERACILLIN/TAZOBACTAM 4.5 GM in DEXTROSE 5% MINI-B 100 ML IV SCH ×2 (07:43→15:07)
--- NOTE | 2023-02-23 08:14 | Pulmonology Progress Note ---
Date of Service February 23, 2023 Assessment & Plan (1) Pleural effusion on right: (2) Open wound of chest wall: Encounter type: initial encounter Laterality: right Qualified Code(s): S21.101A - Unspecified open wound of right front wall of thorax without penetration into thoracic cavity, initial encounter (3) Metastatic breast cancer: Plan Chest x-ray 02/21/2023 personally reviewed: Large right-sided pleural effusion 2D echo 02/01/2023: EF 50-55%, RV normal in size and function -- Right-sided pleural effusion Patient had 2 thoracentesis done in the past Last one on 02/03/2023 with removal of 1500 mill pleural fluid, Cytology has been negative twice so far S/p thoracentesis 02/22/2023, 1100 mL cloudy serous fluid removed, neutrophilic, exudative Pleural fluid: LDH 1329, protein 3.6, pH 7.43 Respiratory bio fire negative for everything Consideration for thoracentesis versus Pleurx could be made of although it would be very difficult given the significant deformity/ulceration of the right anterior chest Patient is not interested in Pleurx catheter or any other foreign body/tubes. She does understand that the fluid is most likely coming from underlying cancer --Fever Etiology is not clear Procalcitonin 2.71 Chest x-ray does not show any significant change compared to before, right-sided pleural effusion is worsened UA is clean, will send UA from the nephrostomy tube Cancer itself can give fever Cellulitis of the ulcerating wound is a possibility Plan: Chest x-ray from today does not show any significant change compared to yesterday. Right costophrenic angle is still blunted Patient fluid is likely malignant from underlying history of cancer. She might benefit from Pleurx catheter but unfortunately her anatomy is restricted from the skin ulceration anteriorly. Patient is also not interested in Pleurx catheter herself. Serial thoracentesis could be thought of going forward. No further recommendation from pulmonary perspective, will sign off, please call directly with any questions Please note the above document was generated using voice recognition software. It may contain grammatical, syntax or spelling errors.Any formal questions or concerns about the content, text or information contained within the body of this dictation should be directly addressed to the provider for clarification. Admission and Anticipated Discharge Date Admission Date: February 21, 2023 Subjective Patient seen and examined at bedside. No acute distress, notable symptoms overnight She says she is feeling better after taking the fluid off Occasional cough with clear phlegm. No hemoptysis Denies any nausea or vomiting, appetite is poor Urinating well Review of Systems 2 Review of Systems: All systems reviewed & are unremarkable except as noted in Subjective Physical Exam 2 Physical Exam: Constitutional: No acute distress HEENT: EOMI, PERRLA Respiratory system: Decreased air entry on the right side, no wheeze, no rhonchi, no crackles CVS: S1-S2 positive, no murmurs or gallops, tachycardia Abdomen: Soft, nontender, nondistended, positive bowel sounds x4 Extremities: +2 pulses bilaterally radialis/ dorsalis pedis, no cyanosis, s welling of the right upper extremity, no edema bilateral lower extremity Neuro: Awake alert oriented x3 Psych: Normal mood and affect G/U: No Blackwell, left-sided nephrostomy Skin: Right anterior chest tumor with ulcerations and greenish drainage. No clear fluctuance Skin: no rashes, warm and dry Lymphatic: no cervical or axillary lymphadenopathy Results & Data Results & Data Vital Signs (Past 12 Hours) Vital Signs Temp Pulse Pulse Resp BP Pulse Ox O2 Del Method 02/23/23 07:36 36.7 C 116 H 18 120/75 98 Room Air 02/23/23 03:04 36.8 C 113 H 20 123/69 98 Room Air 02/22/23 22:57 37.1 C 119 H 20 111/70 97 Room Air 02/22/23 22:00 117 H Laboratory Results 02/21/23 08:58 02/21/23 08:58 PG Care Time/CCT Total # of Minutes Spent Total Time Spent with Patient: Total time spent is greater than 50% in coordination of care (as documented) at patient's floor/unit and/or counseling patient: Coding Level of Care Code 44679 SUB INP/OBS CARE 2/35MIN Diagnoses Pleural effusion on right J90 Open wound of chest wall S21.101A Encounter type: initial encounter Laterality: right Metastatic breast cancer C50.919
--- NOTE | 2023-02-23 08:39 | XRay Report ---
XR chest 1V portable CLINICAL HISTORY: f/u COMPARISON STUDY: Chest CT February 01, 2023. Chest radiograph February 22, 2023. FINDINGS: No pneumothorax is identified. Bilateral axillary surgical clips are present. Small right p leural effusion and right lung airspace opacity have minimally increased since prior chest radiograph . Left lung is clear. Cardiomediastinal silhouette is stable. IMPRESSION: 1. Slight increase in a small right pleural effusion with asymmetric right lung opacity and interstit ial thickening. 2. No pneumothorax. ACT 112: Negative or not required by law. Electronically signed by: Jc Wilson M.D. 02/23/2023 8:38 AM
[2023-02-23] MEDS: oxyCODONE HCL 15 MG TABCR (OxyCONTIN) PO SCH ×2 (08:44→23:03)
[2023-02-23 10:36] LABS: Creatinine Clr Calc Pharmacy 90.4 ml/min; Est GFR (African American) 135.6 ml/min
[2023-02-23] MEDS: VANCOMYCIN HCL 750 MG in SODIUM CHLORIDE 0.9% 250 ML IV SCH (11:09)
[2023-02-23] MEDS ORDERED: PROMETHAZINE HCL 12.5 MG in SODIUM CHLORIDE 0.9% 50 ML IV STA (11:13)
[2023-02-23] MEDS ORDERED: PROMETHAZINE HCL 12.5 MG in SODIUM CHLORIDE 0.9% 50 ML IV PRN (11:53)
--- NOTE | 2023-02-23 13:26 | Pharmacy Report ---
Pharmacy PK ABX Note - Date of Service February 23, 2023 - Assessment and Plan Assessment 33 year old F receiving vancomycin/zosyn for treatment of pulmonary indication. Pertinent microbiologic data includes: breast culture from 02/01 grew MSSA. Blood cultures from 02/21 growing Group A Beta Strep. Patient previously admitted early January for which she received meropenem, vancomycin (at 750 mg IV q12), and keflex Day # 2 of antimicrobial therapy. Plan Vancomycin * Random level this morning was 11.3 which was prior to steady state * Maintenance dose: 750 mg IV every 12 hours * Regimen is predicted to achieve target AUC/TRINH of 400-600 mg/L.hr * Random level ordered for: 02/24/23 Pharmacy will continue to follow and will adjust dose/frequency as necessary. Thank you. Pharmacy has transitioned to AUC monitoring for vancomycin. AUC/TRINH is the preferred PK/PD target and is associated with decreased risk of nephrotoxicity compared to traditional trough targets.
--- NOTE | 2023-02-23 14:52 | Hospitalist Progress Note ---
Date of Service February 23, 2023 Assessment & Plan (1) Streptococcal bacteremia: Plan: Blood cultures obtained February 21 that are positive. She remains on Zosyn for now. Vancomycin has been discontinued. Infectious disease consultation requested and pending. Will repeat blood cultures again today, Feb 23. Recent transthoracic cardiac echo was negative for any evidence of vegetations. Will await ID recommendations whether this needs to be repeated. (2) Metastatic breast cancer: Plan: High likelihood of malignant right pleural effusion. She underwent thoracentesis again on February 22. 1100 cc of serous fluid were aspirated. Studies are pending. She is receiving local care for the metastatic wounds to the right anterior chest wall. (3) Diarrhea: Plan: Doubt infectious etiology. Probably associated with IV antibiotics. Supportive care (4) Cancer related pain: Plan: Pain control measures in place (5) Septic shock: Plan: Blood pressure was somewhat low on admission but has responded to IV fluids. Probably was septic shock since blood cultures are positive for strep. She remains on Zosyn. Infectious disease consultation pending. (6) Depression: Plan: Supportive care. Continue current medical management Plan Anticipate eventual discharge back to her home. Admission and Anticipated Discharge Date Admission Date: February 21, 2023 Subjective Alert and oriented. No distress. Unfortunately, blood cultures obtained February 21 are growing group A beta strep. Vancomycin has been discontinued and she remains on Zosyn. Infectious disease consultation ordered and pending. I suspect the antibiotics will be changed again and PICC line will be recommended for long-term IV antibiotic therapy. Recent transthoracic cardiac echo was negative for any evidence of vegetations. I am not sure if infectious disease will recommend this to be repeated. She has some loose stools probably from the antibiotics. She also has some nausea and vomiting which should respond to Phenergan IV. Chest x-ray looks better after right thoracentesis completed yesterday, February 22, at which time 1100 cc of fluid were aspirated. Review of Systems 2 Review of Systems: Constitutional-intermittent fever. No rigors ENT-no blurred vision, no double vision, no epistaxis, no sore throat Respiratory-nonproductive cough. Dyspnea on exertion Cardiac-no palpitations, no chest pain, no syncope GI-no nausea, vomiting, diarrhea, melena, hematochezia -no urinary retention, no urinary incontinence, no dysuria, no hematuria Musculoskeletal-no joint pain, no muscle tenderness Skin-chronic skin wounds anterior right chest are bandaged Neuro-no isolated weakness, no paresthesia Psych-no depression, no anxiety Physical Exam 2 Physical Exam: General-alert and oriented x3. No distress HEENT-head atraumatic and normocephalic, pupils equal and reactive to light, extraocular muscles intact Neck-no lymphadenopathy or thyromegaly, trachea midline Chest-diminished breath sounds and dullness right base. No wheezing. Bandages in place over metastatic lesions right anterior chest wall i Cardiac-regular rate and rhythm, normal S1 and S2 Abdomen-normal bowel sounds, nontender, no hepatosplenomegaly Extremities-no cyanosis, clubbing, or edema Neuro-cranial nerves II through XII intact, motor and sensory function within normal limits, strength symmetrical, no focal deficits Psych-flat affect Results & Data Results & Data Vital Signs (Past 12 Hours) Vital Signs Temp Pulse Pulse Resp BP Pulse Ox O2 Del Method 02/23/23 11:11 36.7 C 106 H 18 109/73 99 Room Air 02/23/23 09:24 109 H 02/23/23 07:36 36.7 C 116 H 18 120/75 98 Room Air 02/23/23 03:04 36.8 C 113 H 20 123/69 98 Room Air Laboratory Results 02/21/23 08:58 02/23/23 06:14 PG Care Time/CCT Total # of Minutes Spent Total Time Spent with Patient: Total time spent is greater than 50% in coordination of care (as documented) at patient's floor/unit and/or counseling patient: Coding Level of Care Code 61351 SUB INP/OBS CARE 3/50MIN Diagnoses Streptococcal bacteremia R78.81; B95.5 Metastatic breast cancer C50.919 Diarrhea of presumed infectious origin R19.7 Diarrhea type: presumed infectious Cancer related pain G89.3 Septic shock A41.9; R65.21 Depression F32.A (3) Diarrhea Diarrhea type: presumed infectious Qualified Code(s): R19.7 - Diarrhea, unspecified
[2023-02-23] MEDS: ENOXAPARIN INJ 40 MG/0.4 ML SYR SQ SCH (15:07)
--- NOTE | 2023-02-23 16:01 | Infectious Disease Consult ---
Date of Consultation February 23, 2023 Assessment & Plan (1) Streptococcal bacteremia: (2) Open wound of chest wall: (3) Pleural effusion on right: Plan Micro: 02/23 BCx x2: pending 02/22 Pleural fluid -Aerobic/anaerobic cx: NGTD. GS--neg -AFB smear, cx: pending 02/21 RVP: negative 02/21 BCx x2: GAS in 4/4 bottles (S penicillin) 02/03 Pleural fluid cx: NG 02/01 R breast wound cx: GAS, MSSA (S clinda, tetra, TMP/SMX) Abx: Pip-tazo 02/21 - present Vancomycin 02/21 - 02/23 Problems: #Group A Strep bacteremia #Metastatic breast cancer #R chest wall wound with SSTI 33 yo F with history of metastatic breast cancer s/p bilateral mastectomy (11/29/22), chemo, radiation, with continued growth in anterior chest wall tumors, R pleural effusion, recent admission for septic shock thought due to MSSA/GAS R chest wall wound infection, who presented on 02/21 with fevers, chills, generalized malaise, found to have Group A Strep bacteremia thought 2/2 wound infection. During her recent admission, she had foul-smelling purulent drainage from her anterior R chest wall wound, and wound culture grew MSSA and Group A Strep. She was treated with IV antibiotics, then discharged on 02/04 on cephalexin 500 mg q6h x 12 days. On presentation 02/21, pt was febrile to 38.3, HR 183, BP 67/56 with WBC 6.21, lactate 2.4, CRP 21.42, procalcitonin 2.71. CXR showed significant increase in size of moderate to large R pleural effusion with asymmetric R lung airspace opacities. She was noted to have drainage from her chest wall wound. Pt was started on empiric vanc, pip-tazo. Her BP improved with IVF. Blood cultures grew Group A Strep in 4/4 bottles. Pt underwent R thoracentesis on 02/22, with fluid studies showing an exudative effusion. Pleural fluid gram stain negative, culture NGTD. Group A Strep bacteremia may be due to R chest wall wound infection. Strep pyogenes endocarditis is uncommon. Recent CT chest on 02/01 showed multiple masses along R breast and R chest wall with suspected invasion into the right pectoralis musculature and right pleural space--worry that a wound infection may enter the pleural space. R pleural fluid culture from 02/22 is NGTD, after receiving ~1 day of antibiotics. I worry that with rapid growth in her chest wall tumors, she may continue to have wound infections. Recommendations: -Strep pyogenes endocarditis is uncommon, but in the setting of high grade bacteremia despite recent treatment of wound infection with appropriate antibiotics, think it is reasonable to obtain a TTE. Ordered -Follow-up 02/23 blood cultures for clearance -Ordered R chest wound culture -Discontinued pip-tazo, started cefazolin 2 g IV q8h. This will cover Strep pyogenes, as well as MSSA which grew from prior wound culture -If TTE negative and blood cultures clear, hope to discharge on PO antibiotic. Discussed with hospitalist. Will continue to follow. Please page [facility] Call Center with further questions. Consultation Information This patient recommendation is based on a telemedicine consult request which was completed asynchronously through chart review and information provided by the primary physician. The patient was not seen or examined today. The evaluation is consultative in nature and all patient care and treatment decisions can either be accepted or rejected by the patient's primary hospital-based treating physician using their own independent medical judgment for their patient. Overhauler Bus Truck contact information: Please call [facility] Call Center . (Phone Number For Physician Use Only) Time Spent Reviewing Chart: 31+ minutes History of Present Illness Reason for Consultation: Group A Strep bacteremia Attending Physician: Mitul Boucher MD History of Present Illness 33 yo F with history of metastatic breast cancer s/p bilateral mastectomy (11/29/22), chemo, radiation, with continued growth in anterior chest wall tumors, R pleural effusion, recent admission for septic shock thought due to MSSA wound infection, who presented on 02/21 with fevers, chills, generalized malaise worsening over the last 24 hours. She was recently admitted to [facility] from 02/01-02/04 with septic shock thought due to cellulitis. At that time, she had foul-smelling purulent drainage from her anterior R chest wall wound. CT chest on 02/01 showed multiple masses along R breast and R chest wall with suspected invasion into the right pectoralis musculature and right pleural space. The wound culture grew MSSA and Group A Strep. She was treated with IV antibiotics while inpatient, then discharged on 02/04 on cephalexin 500 mg q6h x 12 days. On presentation 02/21, pt was febrile to 38.3, HR 183, BP 67/56, saturating well on room air. Labs showed WBC 6.21, lactate 2.4, CRP 21.42, procalcitonin 2.71. RVP negative. CXR showed significant increase in size of moderate to large R pleural effusion with asymmetric R lung airspace opacities. Blood cultures were collected, with BCID + Strep pyogenes. She was noted to have drainage from her chest wall wound. Pt was started on empiric vanc, pip-tazo. Her BP improved with IVF. Pt underwent R thoracentesis on 02/22, with removal of 1100 ml serous- cloudy fluid. Pleural fluid studies showed 1380 WBCs, 91% neutrophils, protein 3.6, LDH 1329, indicating exudative effusion. Pleural fluid gram stain negative, culture NGTD. Allergies Allergy/AdvReac Type Severity Reaction Status Date / Time No Known Allergies Allergy Verified 01/19/23 09:03 Home Medications Medication Instructions Recorded Confirmed Type acetaminophen 500 mg tablet 1,000 mg PO Q6H PRN PAIN/FEVER 01/19/23 01/31/23 History ondansetron HCl 8 mg tablet 8 mg PO Q8 PRN Nausea And Vomiting 01/19/23 02/21/23 History mirtazapine 15 mg tablet 15 mg PO DAILY 01/31/23 02/21/23 History loperamide 2 mg capsule 2 mg PO Q8H PRN loose stool #20 02/04/23 02/21/23 Rx caps oxycodone 10 mg tablet 10 mg PO Q4H PRN breakthru cancer 02/16/23 02/21/23 Rx pain 1 month #120 tabs oxycodone 30 mg tablet,crush 30 mg PO BID very severe 02/16/23 02/21/23 Rx resistant,extended release 12 hr metastatic cancer pain 1 month #60 (OxyContin) tabs cephalexin 500 mg capsule 500 mg PO Q6H 02/21/23 02/21/23 History olanzapine 2.5 mg tablet 2.5 mg PO DIRECTED nausea 02/21/23 02/21/23 History Patient History Medical History Ureteral obstruction History of anemia HX: breast cancer s/p right lumpectomy, chemo, xrt (no limb restriction) Hydronephrosis History of COVID-19 Early 01/2022 > symptoms resolved Surgical History Nephrostomy status S/P bilateral mastectomy History of hysterectomy History of section X 2 H/O myomectomy History of appendectomy H/O lumpectomy Right [place] teeth removed Family History Grandmother (Maternal) Lung cancer Grandmother (Paternal) Ovarian cancer Other No family history of adverse response to anesthesia Social History Smoking Status: Never smoker Second Hand Exposure: No; Do You Dip or Chew Tobacco: No; Hx Alcohol Use: No Hx Substance Use: No Preferred Language: Japanese Communication Ability: Effective Visual Impairment: No Limitations Predatory Animal Hunter Required: No Beliefs That Will Affect Care: None marital status: Current Living Situation: Family current occupational status: employed current occupation: Medical Billing Feels Safe at Home: Yes Assistive Devices: None Review of System pt not seen Physical Exam Physical Exam: pt not seen Results & Data Vital Signs (Past 12 Hours) Vital Signs Temp Pulse Pulse Resp BP Pulse Ox O2 Del Method 02/23/23 15:17 122 H 02/23/23 11:11 36.7 C 106 H 18 109/73 99 Room Air 02/23/23 09:24 109 H 02/23/23 07:36 36.7 C 116 H 18 120/75 98 Room Air Laboratory Results [facility] 02/23/23 06:14 Creatinine 0.63 Liver Function 02/22/23 Range/Units 15:37 Albumin 3.0 L (3.4-5.0) gm/dl Diagnostic Findings Chest X-Ray 02/21/23 08:41 XR chest 1V portable CLINICAL HISTORY: Sepsis. Breast cancer. COMPARISON STUDY: Chest CT February 01, 2023. Chest radiograph February 03, 2023. FINDINGS: A moderate to large right pleural effusion has significantly increased in size since prior chest radiograph. Associated airspace opacity is present. There is no pneumothorax. No left pleural effusion. No evidence for pulmonary edema. There are bilateral axillary surgical clips. IMPRESSION: Significant increase in size of a moderate to large right pleural effusion with asymmetric right lung airspace opacity. No pneumothorax. ACT 112: Negative or not required by law. Electronically signed by: Jc Wilson M.D. 02/21/2023 9:12 AM Chest X-Ray 02/22/23 14:15 XR chest 1V portable HISTORY: 33 years-old Female s/p right thorcentesis follow-up study in a patient with right-sided pleural effusion COMPARISON: Chest radiograph 02/21/2023, chest CT 02/01/2023. TECHNIQUE: AP view of the chest FINDINGS: Cardiac silhouette is enlarged. Decreased size of the right pleural effusion status post thoracentesis. Persistent right lung volume loss with right lung opacities. No postprocedural pneumothorax. The left lung is generally clear. Surgical clips are again noted projected over the chest. The bones appear grossly intact. Mass lesions of the right chest wall are better seen on the prior chest CT. IMPRESSION: 1. Decreased size of the right pleural effusion status post thoracentesis. 2. Persistent right pleural effusion with right lung opacities. 3. No postprocedural pneumothorax identified. ACT 112: Negative or not required by law. The above report was generated using voice recognition software. It may contain grammatical, syntax or spelling errors. Electronically signed by: Curt Cortes M.D. 02/22/2023 3:04 PM Chest X-Ray 02/23/23 07:00 XR chest 1V portable CLINICAL HISTORY: f/u COMPARISON STUDY: Chest CT February 01, 2023. Chest radiograph February 22, 2023. FINDINGS: No pneumothorax is identified. Bilateral axillary surgical clips are present. Small right pleural effusion and right lung airspace opacity have minimally increased since prior chest radiograph. Left lung is clear. Cardiomediastinal silhouette is stable. IMPRESSION: 1. Slight increase in a small right pleural effusion with asymmetric right lung opacity and interstitial thickening. 2. No pneumothorax. ACT 112: Negative or not required by law. Electronically signed by: Jc Wilson M.D. 02/23/2023 8:38 AM Medications Administered Current Inpatient Medications Acetaminophen (Acetaminophen 500 Mg Tab) 1,000 mg PO Q6H PRN PRN Reason: Pain or Fever Stop: 03/23/23 13:11 Last Admin: 02/22/23 03:22 Dose: 1,000 mg Enoxaparin Sodium (Enoxaparin Inj 40 Mg/0.4 Ml Syr) 40 mg SQ Q24H YESENIA Stop: 03/23/23 13:59 Last Admin: 02/23/23 15:07 Dose: 40 mg Guaifenesin/Dextromethorphan (Guaifenesin/Dextrom Syrup 200mg/20mg 10ml Udc) 10 ml PO Q6H PRN PRN Reason: Cough Stop: 03/23/23 20:33 Last Admin: 02/22/23 17:02 Dose: 10 ml Piperacillin Sod/Tazobactam (Sod 4.5 gm/ Dextrose) 100 mls @ 25 mls/hr IV Q8H YESENIA; Protocol Stop: 02/28/23 15:59 Last Admin: 02/23/23 15:07 Dose: 25 mls/hr Promethazine HCl 12.5 mg/ (Sodium Chloride) 50.5 mls @ 202 mls/hr IV Q6H PRN PRN Reason: Nausea And Vomiting Stop: 03/25/23 11:52 Mirtazapine (Mirtazapine Tab 15 Mg Tab) 15 mg PO HS YESENIA Stop: 03/23/23 20:59 Last Admin: 02/22/23 23:27 Dose: Not Given Oxycodone HCl (Oxycodone Hcl 15 Mg Tabcr (Oxycontin)) 30 mg PO BID YESENIA Stop: 03/07/23 20:59 Last Admin: 02/23/23 08:44 Dose: Not Given Oxycodone HCl (Oxycodone Hcl Ir 5 Mg Tab (Immediate Release)) 10 mg PO Q4H PRN PRN Reason: breakthru cancer pain Stop: 03/07/23 13:11 Last Admin: 02/21/23 14:56 Dose: 10 mg (2) Open wound of chest wall Encounter type: initial encounter Laterality: right Qualified Code(s): S21.101A - Unspecified open wound of right front wall of thorax without penetration into thoracic cavity, initial encounter
[2023-02-23] MEDS: SODIUM CHLORIDE 0.9% 1,000 ML IV SCH (16:58)
[2023-02-23] MEDS ORDERED: PROCHLORPERAZINE 5 MG in SYRINGE 4 ML IV PRN (17:20)
[2023-02-23] MEDS: ondansetron HCL 8 MG in DEXTROSE 5% 50 ML IV PRN (21:32)
[2023-02-23] MEDS ORDERED: diphenhydrAMINE 50 MG/ML VIAL IV STA (22:50)
[2023-02-23] MEDS: PSYLLIUM or GUAR GUM FIBER POWDER PACKET PO SCH (23:03)
[2023-02-23] MEDS: MIRTAZAPINE TAB 15 MG TAB PO SCH (23:03)
[2023-02-23] MEDS: ceFAZolin 2000MG 2,000 MG/15 ML SYR IV SCH (23:12)
[2023-02-24] MEDS ORDERED: LORazepam 0.5 MG in SYRINGE 0.25 ML IV STA (01:34)
[2023-02-24] MEDS ORDERED: METOCLOPRAMIDE HCL INJ 5 MG/ML 2 ML VIAL IV STA (05:53)
[2023-02-24 06:19] LABS: Hematocrit (blood only) 25.7 % (37.0-47.0); Hemoglobin 7.9 g/dl (12.0-16.0); Immature Granulocytes # (auto) 0.03 K/uL (0.01-0.20); Immature Granulocytes % (auto) 0.5 %; Lymphocytes # (auto) 0.48 K/uL (1.20-3.40); Lymphocytes % (auto) 8.1 %; Mean Corpuscular Hemoglobin 26.3 pg (25.0-34.0); Mean Corpuscular Hgb Conc 30.7 g/dL (32.0-36.0); Mean Corpuscular Volume 85.7 fL (80.0-100.0); Monocytes # (auto) 0.31 K/uL (0.11-0.59); Monocytes % (auto) 5.2 %; Neutrophils % (auto) 86.2 %; Platelet Count 271 K/uL (130-400); RDW Coefficient of Variation 19.2 % (11.5-14.5); RDW Standard Deviation 60.3 fL (36.4-46.3); White Blood Count 5.92 K/ul (4.8-10.8)
[2023-02-24 06:33] LABS: BUN Creatinine Ratio 12.1 (10-20); Creatinine Clr Calc Pharmacy 86.3 ml/min; Est GFR (African American) 133.6 ml/min; Est GFR (Non-African American) 115.3 ml/min
[2023-02-24 06:41] LABS: Polychromasia 2+; Tear Drop Cells 1+
[2023-02-24] MEDS: ceFAZolin 2000MG 2,000 MG/15 ML SYR IV SCH (07:23)
[2023-02-24] MEDS: PSYLLIUM or GUAR GUM FIBER POWDER PACKET PO SCH ×2 (07:28→21:26)
[2023-02-24] MEDS: oxyCODONE HCL 15 MG TABCR (OxyCONTIN) PO SCH ×2 (07:28→21:30)
[2023-02-24] MEDS: SODIUM CHLORIDE 0.9% 1,000 ML IV SCH ×2 (07:28→17:48)
--- NOTE | 2023-02-24 09:03 | Infectious Disease Progress Nt ---
Date of Service February 24, 2023 Assessment & Plan (1) Streptococcal bacteremia: (2) Open wound of chest wall: (3) Pleural effusion on right: Plan Micro: 02/23 R breast wound cx: GNRs, Staph species, low counts probable skin monty. GS--GPCs 02/23 BCx x2: NGTD 02/22 Pleural fluid -Aerobic/anaerobic cx: NGTD. GS--neg -AFB smear, cx: pending 02/21 RVP: negative 02/21 BCx x2: GAS in 4/4 bottles (S penicillin) 02/03 Pleural fluid cx: NG 02/01 R breast wound cx: GAS, MSSA (S clinda, tetra, TMP/SMX) Abx: Cefazolin 02/23-02/24 Pip-tazo 02/21 - 02/23 Vancomycin 02/21 - 02/23 Problems: #Group A Strep bacteremia #Metastatic breast cancer #R chest wall wound with SSTI 33 yo F with history of metastatic breast cancer s/p bilateral mastectomy (11/29/22), chemo, radiation, with continued growth in anterior chest wall tumors, R pleural effusion, recent admission for septic shock thought due to MSSA/GAS R chest wall wound infection, who presented on 02/21 with fevers, chills, generalized malaise, found to have Group A Strep bacteremia likely 2/2 wound infection. During her recent admission, she had foul-smelling purulent drainage from her anterior R chest wall wound, and wound culture grew MSSA and Group A Strep. She was treated with IV antibiotics, then discharged on 02/04 on cephalexin 500 mg q6h x 12 days. On presentation 02/21, pt was febrile to 38.3, HR 183, BP 67/56 with WBC 6.21, lactate 2.4, CRP 21.42, procalcitonin 2.71. CXR showed significant increase in size of moderate to large R pleural effusion with asymmetric R lung airspace opacities. She was noted to have drainage from her chest wall wound. Pt was started on empiric vanc, pip-tazo. Her BP improved with IVF. Blood cultures grew Group A Strep in 4/4 bottles. Pt underwent R thoracentesis on 02/22, with fluid studies showing an exudative effusion. Pleural fluid gram stain negative, culture NGTD. Group A Strep bacteremia may be due to R chest wall wound infection. Recent CT chest on 02/01 showed multiple masses along R breast and R chest wall with suspected invasion into the right pectoralis musculature and right pleural space--worry that a wound infection may enter the pleural space. However, R pleural fluid culture from 02/22 is NGTD (after receiving ~1 day of antibiotics). I worry that with rapid growth in her chest wall tumors, she may continue to have wound infections. She has already been admitted twice this month with septic shock related to wound infections, so it would be reasonable to discharge pt with fpc antibiotics to help prevent further hospitalizations. A TTE today was technically limited, insufficient to exclude valvular vegetations or endocarditis. Strep pyogenes is a rare/unusual cause of endocarditis, so think endocarditis is less likely here. Repeat blood cultures from 02/23 are NGTD. Recommendations: -With wound culture growing GNRs and Staph species, will stop cefazolin and start ceftriaxone 2 g IV q24h (will cover group A Strep, MSSA, many GNRs) -Follow-up 02/23 blood cultures for clearance -Follow-up R chest wound culture -If 02/23 blood cultures are NGTD x 2 days, ok to discharge on PO antibiotic. Pending wound culture susceptibilities, potential options include: cefadroxil 500 mg PO BID (preferred), or TMP/SMX 1 DS tab PO BID, or cefpodoxime 400 mg PO BID -Do not feel we need to pursue DIDI at this time Please note that ID will not round or write notes over the weekend including 02/27/23. If questions or concerns arise, please contact the Infectious Disease Call Center and ask to speak with the covering ID physician. Admission and Anticipated Discharge Date Admission Date: February 21, 2023 Subjective Subsequent visit was provided via telemedicine using two-way real-time interactive telecommunication between the patient and the telemedicine provider. For the duration of the visit, the provider was performing the assessment from a different facility than the patient. This includesuse of bluetooth stethoscope forauscultationperformed by the telepresenter that the telemedici ne provider can hear if described in the physical exam. Generation Mechanic Helper contact information: Please call [facility] Call Center . (Phone Number For Physician Use Only) After establishing a telemedicine visit, patient was: Patient was verified with two unique identifiers, Patient/authorized rep acknowledged consent and unde rstanding and Gave permission to continue telehealth session Time Spent with Patient: Initial => 40 min Pt denies complaints Reports feeling improved Afebrile Review of System A complete ROS was performed and is negative except as mentioned in the HPI. Physical Exam Physical Exam: GEN: laying in bed in NAD RESP: No increased work of breathing SKIN: Masses on R chest with purulent yellow discharge on dressing NEURO: Alert and oriented. Answers all questions appropriately. Speech not slurred. Results & Data Vital Signs (Past 12 Hours) Vital Signs Temp Pulse Pulse Resp BP Pulse Ox O2 Del Method 02/24/23 07:45 37.4 C 118 H 18 139/68 98 Room Air 02/24/23 07:31 116 H 02/24/23 03:13 36.8 C 116 H 22 148/82 H 99 Room Air 02/23/23 22:48 36.8 C 108 H 20 116/73 99 Room Air 02/23/23 22:00 121 H Laboratory Results Short CBC 02/24/23 Range/Units 05:44 WBC 5.92 (4.8-10.8) K/ul Hgb 7.9 L (12.0-16.0) g/dl Hct 25.7 L (37.0-47.0) % Plt Count 271 (130-400) K/uL [facility] 02/23/23 02/24/23 06:14 05:44 Sodium 139 Potassium 3.0 L Chloride 105 Carbon Dioxide 19 L BUN 8 Creatinine 0.63 0.66 Glucose 90 Calcium 9.0 Medications Administered Current Inpatient Medications Acetaminophen (Acetaminophen 500 Mg Tab) 1,000 mg PO Q6H PRN PRN Reason: Pain or Fever Stop: 03/23/23 13:11 Last Admin: 02/22/23 03:22 Dose: 1,000 mg Enoxaparin Sodium (Enoxaparin Inj 40 Mg/0.4 Ml Syr) 40 mg SQ Q24H YESENIA Stop: 03/23/23 13:59 Last Admin: 02/23/23 15:07 Dose: 40 mg Guaifenesin/Dextromethorphan (Guaifenesin/Dextrom Syrup 200mg/20mg 10ml Udc) 10 ml PO Q6H PRN PRN Reason: Cough Stop: 03/23/23 20:33 Last Admin: 02/22/23 17:02 Dose: 10 ml Promethazine HCl 12.5 mg/ (Sodium Chloride) 50.5 mls @ 202 mls/hr IV Q6H PRN PRN Reason: Nausea And Vomiting Stop: 03/25/23 11:52 Last Infusion: 02/24/23 03:50 Dose: Infused Sodium Chloride (Nss) 1,000 mls @ 80 mls/hr IV .[id number] [facility] Stop: 03/25/23 16:44 Last Admin: 02/24/23 07:28 Dose: Not Given Cefazolin Sodium (Ancef 2000mg) 2,000 mg in 15 mls @ 3.75 mls/min IV Q8H [facility] Stop: 03/09/23 22:59 Last Admin: 02/24/23 07:23 Dose: 3.75 mls/min Ondansetron HCl 8 mg/ Dextrose 54 mls @ 200 mls/hr IV Q6H PRN PRN Reason: Nausea And Vomiting Stop: 03/25/23 17:16 Last Infusion: 02/23/23 22:15 Dose: Infused Mirtazapine (Mirtazapine Tab 15 Mg Tab) 15 mg PO HS [facility] Stop: 03/23/23 20:59 Last Admin: 02/23/23 23:03 Dose: Not Given Oxycodone HCl (Oxycodone Hcl 15 Mg Tabcr (Oxycontin)) 30 mg PO BID [facility] Stop: 03/07/23 20:59 Last Admin: 02/24/23 07:28 Dose: Not Given Oxycodone HCl (Oxycodone Hcl Ir 5 Mg Tab (Immediate Release)) 10 mg PO Q4H PRN PRN Reason: breakthru cancer pain Stop: 03/07/23 13:11 Last Admin: 02/21/23 14:56 Dose: 10 mg Psyllium Hydrophilic Mucilloid (Psyllium Or Guar Gum Fiber Powder Packet) 1 pkt PO BID [facility] Stop: 03/25/23 20:59 Last Admin: 02/24/23 07:28 Dose: Not Given (2) Open wound of chest wall Encounter type: initial encounter Laterality: right Qualified Code(s): S21.101A - Unspecified open wound of right front wall of thorax without penetr ation into thoracic cavity, initial encounter
--- NOTE | 2023-02-24 10:24 | XCELERA ---
[id number] \\[id number]
[2023-02-24] MEDS: cefTRIAXone SODIUM 2,000 MG in DEXTROSE 5 % MINI-B 50 ML IV SCH (12:37)
--- NOTE | 2023-02-24 15:14 | Hospitalist Progress Note ---
Date of Service February 24, 2023 Assessment & Plan (1) Streptococcal bacteremia: Plan: Blood cultures obtained February 21 are positive for strep. Repeat blood cultures obtained February 23 are negative to date. Zosyn was switched to Ancef then again to Rocephin after the chest wall wounds grew gram-negative rods along with the staff. Infectious disease consultation and recommendations appreciated. Recent transthoracic cardiac echo was negative for any evidence of vegetations. Hopefully she can go home on an oral antibiotic, possibly cefadroxil, and avoid long-term IV antibiotic therapy. (2) Metastatic breast cancer: Plan: High likelihood of malignant right pleural effusion. She underwent thoracentesis again on February 22. 1100 cc of serous fluid were aspirated. Studies are pending. She is receiving local care for the metastatic wounds to the right anterior chest wall. Culture grew gram-negative rods and staph. (3) Diarrhea: Plan: Doubt infectious etiology. Probably associated with IV antibiotics. Supportive care (4) Cancer related pain: Plan: Pain control measures in place (5) Septic shock: Plan: Blood pressure was somewhat low on admission but has responded to IV fluids. Probably was septic shock since blood cultures are positive for strep. She is now on intravenous Ancef. Infectious disease consultation and recommendations appreciated (6) Depression: Plan: Supportive care. Continue current medical management Plan Anticipate eventual discharge back to her home. Hopefully on oral antibiotic. Possibly tomorrowFebruary 25 Admission and Anticipated Discharge Date Admission Date: February 21, 2023 Subjective As needed Phenergan has helped with nausea symptoms. Infectious disease entry noted. Blood cultures obtained on February 23 remain negative to date. Wound culture however is growing gram-negative rods and staph. Infectious disease has changed the IV antibiotic to Rocephin. Hopefully the Gram negative rods will also be sensitive to cefadroxil. The patient would like to go home tomorrow, February 25 Review of Systems 2 Review of Systems: Constitutional-intermittent fever. No rigors ENT-no blurred vision, no double vision, no epistaxis, no sore throat Respiratory-nonproductive cough. Dyspnea on exertion Cardiac-no palpitations, no chest pain, no syncope GI-nausea has improved with Phenergan. No vomiting, melena, hematochezia. She has loose stools probably from antibiotic therapy -no urinary retention, no urinary incontinence, no dysuria, no hematuria Musculoskeletal-no joint pain, no muscle tenderness Skin-chronic skin wounds anterior right chest are bandaged Neuro-no isolated weakness, no paresthesia Psych-no depression, no anxiety Physical Exam 2 Physical Exam: General-alert and oriented x3. No distress HEENT-head atraumatic and normocephalic, pupils equal and reactive to light, extraocular muscles intact Neck-no lymphadenopathy or thyromegaly, trachea midline Chest-diminished breath sounds and dullness right base. No wheezing. Bandages in place over metastatic lesions right anterior chest wall i Cardiac-regular rate and rhythm, normal S1 and S2 Abdomen-normal bowel sounds, nontender, no hepatosplenomegaly Extremities-no cyanosis, clubbing, or edema Neuro-cranial nerves II through XII intact, motor and sensory function within normal limits, strength symmetrical, no focal deficits Psych-flat affect Results & Data Results & Data Vital Signs (Past 12 Hours) Vital Signs Temp Pulse Pulse Resp BP Pulse Ox O2 Del Method 02/24/23 11:04 37.0 C 96 H 20 147/74 H 99 Room Air 02/24/23 07:45 37.4 C 118 H 18 139/68 98 Room Air 02/24/23 07:31 116 H Laboratory Results 02/24/23 05:44 02/24/23 05:44 PG Care Time/CCT Total # of Minutes Spent Total Time Spent with Patient: Total time spent is greater than 50% in coordination of care (as documented) at patient's floor/unit and/or counseling patient: Coding Level of Care Code 35926 SUB INP/OBS CARE 3/50MIN Diagnoses Streptococcal bacteremia R78.81; B95.5 Metastatic breast cancer C50.919 Diarrhea of presumed infectious origin R19.7 Diarrhea type: presumed infectious Cancer related pain G89.3 Septic shock A41.9; R65.21 Depression F32.A (3) Diarrhea Diarrhea type: presumed infectious Qualified Code(s): R19.7 - Diarrhea, unspecified
[2023-02-24] MEDS: ondansetron HCL 8 MG in DEXTROSE 5% 50 ML IV PRN (15:22)
[2023-02-24] MEDS: ENOXAPARIN INJ 40 MG/0.4 ML SYR SQ SCH (15:22)
[2023-02-24] MEDS: MIRTAZAPINE TAB 15 MG TAB PO SCH (20:06)
[2023-02-25 05:56] LABS: Appearance Urine Clear (Clear); Bilirubin Urine Negative (Negative); Blood Urine Negative (Negative); Color Urine Yellow; Glucose Urine UA Negative (Negative); Ketones Urine 2+ (Negative); Leukocyte Esterase Urine Negative (Negative); Nitrite Urine Negative (Negative); Protein Urine Negative (Negative); Specific Gravity Urine 1.015 (1.000-1.030); Urobilinogen Urine Negative (Negative); pH Urine 6.5 (4.5-7.5)
[2023-02-25] MEDS: SODIUM CHLORIDE 0.9% 1,000 ML IV SCH (06:20)
[2023-02-25 07:12] LABS: Eosinophils # (auto) 0.04 K/uL (0.00-0.50); Eosinophils % (auto) 1.1 %; Hematocrit (blood only) 23.4 % (37.0-47.0); Hemoglobin 7.3 g/dl (12.0-16.0); Immature Granulocytes # (auto) 0.09 K/uL (0.01-0.20); Immature Granulocytes % (auto) 2.4 %; Lymphocytes % (auto) 10.6 %; Mean Corpuscular Hemoglobin 26.3 pg (25.0-34.0); Mean Corpuscular Hgb Conc 31.2 g/dL (32.0-36.0); Mean Corpuscular Volume 84.2 fL (80.0-100.0); Monocytes # (auto) 0.39 K/uL (0.11-0.59); Monocytes % (auto) 10.3 %; Neutrophils # (auto) 2.85 K/uL (1.40-6.50); Neutrophils % (auto) 75.6 %; Platelet Count 267 K/uL (130-400); RDW Coefficient of Variation 19.5 % (11.5-14.5); RDW Standard Deviation 59.6 fL (36.4-46.3); Red Blood Count 2.78 M/uL (4.20-5.40); White Blood Count 3.77 K/ul (4.8-10.8)
[2023-02-25 07:21] LABS: BUN Creatinine Ratio 6.9 (10-20); Calcium 8.4 mg/dl (8.6-10.3); Creatinine Clr Calc Pharmacy 98.2 ml/min; Est GFR (African American) 139.4 ml/min; Est GFR (Non-African American) 120.3 ml/min; Potassium 2.8 mmol/L (3.5-5.1)
[2023-02-25 07:32] LABS: Anisocytosis Present; Polychromasia 1+; Tear Drop Cells 1+
[2023-02-25] MEDS ORDERED: POTASSIUM CHLORIDE CRTAB 20 MEQ TABCR PO SCH (09:00)
[2023-02-25] MEDS: PSYLLIUM or GUAR GUM FIBER POWDER PACKET PO SCH (09:24)
[2023-02-25] MEDS: oxyCODONE HCL 15 MG TABCR (OxyCONTIN) PO SCH (09:24)
[2023-02-25] MEDS ORDERED: POTASSIUM CHLORIDE PWD 20 MEQ PACK PO SCH (10:15)
[2023-02-25] MEDS: cefTRIAXone SODIUM 2,000 MG in DEXTROSE 5 % MINI-B 50 ML IV SCH (11:03)
--- NOTE | 2023-02-25 12:07 | Discharge Summary ---
Date of Service February 25, 2023 Admission HPI Per Admitting Provider The patient is a 33-year-old female with a past medical history including metastatic breast cancer, cancer pain, urinary tract infection, pneumonia, septic shock requiring ICU admission, and diarrhea. She presents to the emergency department with fevers, chills, generalized malaise worsening over the past 24 hours. Her most recent hospitalization from 02/01-02/04/2023 involved ICU level admission due to hypotension requiring pressors. Patient presented to the emergency department with blood pressure 67/56, which has responded to 2 L normal saline, has been maintaining an 86/44 zone. Principal Diagnosis Metastatic breast cancer with suspected malignant right pleural effusion, MSSA bacteremia, metastatic chest wall wounds growing Pseudomonas and MSSA Discharge Exam General-alert and oriented x3. No distress HEENT-head atraumatic and normocephalic, pupils equal and reactive to light, extraocular muscles intact Neck-no lymphadenopathy or thyromegaly, trachea midline Chest-diminished breath sounds and dullness right base. No wheezing. Bandages in place over metastatic lesions right anterior chest wall i Cardiac-regular rate and rhythm, normal S1 and S2 Abdomen-normal bowel sounds, nontender, no hepatosplenomegaly Extremities-no cyanosis, clubbing, or edema Neuro-cranial nerves II through XII intact, motor and sensory function within normal limits, strength symmetrical, no focal deficits Psych-flat affect Discharge Data Allergies Allergy/AdvReac Type Severity Reaction Status Date / Time No Known Allergies Allergy Verified 01/19/23 09:03 Consultations 02/21/23 10:59 ED Decision to Admit Stat 02/21/23 12:01 Consult Pulmonology Routine 02/23/23 14:10 Consult Infectious Diseases Routine Ordered Studies 02/22/23 11:18 US point of care ultrasound Urgent Hospital Course (1) Streptococcal bacteremia: Blood cultures obtained February 21 are positive for strep. Repeat blood cultures obtained February 23 are negative to date. Zosyn was switched to Ancef then again to Rocephin after the chest wall wounds grew gram-negative rods along with the staff. Infectious disease consultation and recommendations appreciated. Recent transthoracic cardiac echo was negative for any evidence of vegetations. Chest wall metastatic wounds growing Pseudomonas and MSSA. She will need to antibiotics at discharge including ciprofloxacin and Bactrim. (2) Metastatic breast cancer: High likelihood of malignant right pleural effusion. She underwent thoracentesis again on February 22. 1100 cc of serous fluid were aspirated. Pathology is negative for malignant cells. However, the right pleural effusion is undoubtedly caused by the breast cancer. She is receiving local care for the metastatic wounds to the right anterior chest wall. Culture grew Pseudomonas and MSSA. (3) Diarrhea: Doubt infectious etiology. Probably associated with IV antibiotics. Supportive care. The patient states this has resolved (4) Cancer related pain: Pain control measures in place (5) Septic shock: Blood pressure was somewhat low on admission but has responded to IV fluids. Probably was septic shock since blood cultures are positive for strep. Blood pressure has stabilized with antibiotic therapy. Infectious disease consultation and recommendations appreciated (6) Depression: Supportive care. Continue current medical management Plan The patient was offered blood transfusion for hemoglobin 7.3 due to her underlying chronic disease. No evidence of GI bleeding. She refused blood transfusion and wants to go home on oral antibiotics. She will be discharged home today, February 25 Total Time Total Time Spent Total Time Spent (In Minutes): 45 minutes Discharge Plan Discharge Items Patient Disposition: Home - Home Health Services Reason For Visit: SEPSIS, HYPOTENSION Discharge Diagnosis: Strep bacteremia, Pseudomonas and MSSA chest wound infection, metastatic breast cancer, malignant right pleural effusion Activity: Resume your previous activity Non-emergency contact: Primary Care Provider Call non-emergency contact if: you have any medication questions and your symptoms worsen Follow-up/Referrals: PCP,NO [Primary Care Provider] - Diet: Regular Addtl Attending Provider Instructions: Take Cipro and Bactrim antibiotics as directed. Take potassium once daily as directed Pending Studies at Discharge: No Stand-Alone Forms: [facility], Smoking Cessation Medications and DC Order Prescriptions: New potassium chloride 20 mEq Packet 20 meq PO DAILY Qty: 30 0RF ciprofloxacin HCl [Cipro] 500 mg tablet 500 mg PO BID Qty: 28 0RF sulfamethoxazole-trimethoprim [Bactrim DS] 800-160 mg tablet 1 tab PO BID 14 Days Qty: 28 0RF Continued oxycodone [OxyContin] 30 mg tablet,oral only,ext.rel.12 hr 30 mg PO BID 30 Days Qty: 60 0RF oxycodone 10 mg tablet 10 mg PO Q4H MDD 40mg PRN (Reason: breakthru cancer pain) 30 Days Qty: 120 0RF ondansetron HCl 8 mg tablet 8 mg PO Q8 PRN (Reason: Nausea And Vomiting) acetaminophen 500 mg Tablet 1,000 mg PO Q6H PRN (Reason: PAIN/FEVER) olanzapine 2.5 mg tablet 2.5 mg PO DIRECTED mirtazapine 15 mg tablet 15 mg PO DAILY loperamide 2 mg Capsule 2 mg PO Q8H PRN (Reason: loose stool) Qty: 20 0RF Discontinued cephalexin 500 mg capsule 500 mg PO Q6H Discharge Orders: Discharge Order (Routine); Ordered 02/25/23 Ordered By: Mitul Boucher Admission Data Admit Date/Time: 02/21/23 11:17 Attending Provider: Mitul Boucher Admit Provider: David Mcclendon Primary Care Provider: PCP,INDY Other Providers: David Mcclendon; Itzel Armenta; [facility]; Genevieve Vargas; Lexie Nicole; Isabela Guthrie; Lynsey Chavez; Mellisa Daniel; Anne García; Radha Steele; Dorie Ibrahim Coding Level of Care Code 61023 INP/OBS DISCH >30 MIN Diagnoses Streptococcal bacteremia R78.81; B95.5 Metastatic breast cancer C50.919 Diarrhea of presumed infectious origin R19.7 Diarrhea type: presumed infectious Cancer related pain G89.3 Septic shock A41.9; R65.21 Depression F32.A
== END 2023-02-25 14:04 | disposition home health service (06) | DRG 871 ==
LOC: ED 08:20 → 2S 11:17 → SUATTDRO 11:17 → 2S 12:23

== ENCOUNTER 2023-03-07 22:45 | Inpatient (IN) ==
[2023-03-07] MEDS ORDERED: VANCOMYCIN HCL 1,000 MG in SODIUM CHLORIDE 0.9% 500 ML IV STA (22:56)
[2023-03-07] MEDS ORDERED: PIPERACILLIN/TAZOBACTAM 4.5 GM/100 ML BAG IV STA (22:56)
[2023-03-07] MEDS ORDERED: VANCOMYCIN CONSULT ACTIVE PRN (22:56)
[2023-03-07] MEDS ORDERED: SODIUM CHLORIDE 0.9% 500 ML IV ONE (22:58)
[2023-03-07] MEDS ORDERED: ACETAMINOPHEN 1,000 MG/100 ML VIAL IV STA (22:58)
[2023-03-07] MEDS ORDERED: SODIUM CHLORIDE 0.9% 1,000 ML IV SCH (23:00)
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
[2023-03-07] MEDS ORDERED: MoRPHine SULFATE 4 MG/ML 1 ML CARP\\VIAL IV PRN (23:47)
[2023-03-07] MEDS ORDERED: ONDANSETRON INJ 2 MG/ML 2 ML VIAL IV STA (23:47)
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
[2023-03-07 23:56] LABS: Appearance Urine Cloudy (Clear); Bacteria Urine Automated Negative (Negative); Bilirubin Urine Negative (Negative); Blood Urine Negative (Negative); Color Urine Yellow; Epithelial Cell Urine Auto >30 /lpf (0-5); Glucose Urine UA Negative (Negative); Ketones Urine Negative (Negative); Leukocyte Esterase Urine 1+ (Negative); Nitrite Urine Negative (Negative); Protein Urine Trace (Negative); RBC Urine Automated 0-4 /hpf (0-4); Specific Gravity Urine 1.025 (1.000-1.030); Urobilinogen Urine Negative (Negative); WBC Urine Automated >30 /hpf (0-5); pH Urine 5.5 (4.5-7.5)
[2023-03-08 00:06] LABS: Hematocrit (blood only) 25.2 % (37.0-47.0); Hemoglobin 7.8 g/dl (12.0-16.0); Mean Corpuscular Hemoglobin 26.8 pg (25.0-34.0); Mean Corpuscular Volume 86.6 fL (80.0-100.0); Mean Platelet Volume 10.2 fL (9.4-12.4); Platelet Count 243 K/uL (130-400); RDW Coefficient of Variation 19.9 % (11.5-14.5); RDW Standard Deviation 62.3 fL (36.4-46.3); Red Blood Count 2.91 M/uL (4.20-5.40); White Blood Count 12.17 K/ul (4.8-10.8)
[2023-03-08 00:20] LABS: Calcium Oxalate Crystals Urine Present (None Prsent)
[2023-03-08] MEDS ORDERED: LOPERAMIDE HCL 2 MG CAP PO PRN (00:23)
[2023-03-08] MEDS ORDERED: oxyCODONE HCL IR 5 MG TAB (IMMEDIATE RELEASE) PO PRN (00:23)
[2023-03-08] MEDS ORDERED: ACETAMINOPHEN 500 MG TAB PO PRN (00:23)
[2023-03-08] MEDS ORDERED: VANCOMYCIN CONSULT ACTIVE PRN (00:23)
[2023-03-08 00:24] LABS: Anisocytosis Present; Basophils # (auto) 0.02 K/uL (0.00-0.20); Basophils % (auto) 0.2 %; Dohle Bodies 1+; Eosinophils # (auto) 0.03 K/uL (0.00-0.50); Eosinophils % (auto) 0.2 %; Immature Granulocytes # (auto) 0.12 K/uL (0.01-0.20); Lymphocytes # (auto) 0.31 K/uL (1.20-3.40); Lymphocytes % (auto) 2.5 %; Monocytes # (auto) 0.11 K/uL (0.11-0.59); Monocytes % (auto) 0.9 %; Neutrophils # (auto) 11.58 K/uL (1.40-6.50); Neutrophils % (auto) 95.2 %; Ovalocytes 1+; Polychromasia 1+; Tear Drop Cells 1+; Toxic Vacuolation 1+
[2023-03-08 00:26] LABS: Albumin Level 3.1 gm/dl (3.4-5.0); BUN Creatinine Ratio 17.7 (10-20); Bilirubin Direct 0.1 mg/dl (0-0.2); Bilirubin,Total 0.4 mg/dl (0.2-1.0); Creatinine Clr Calc Pharmacy 91.8 ml/min; Est GFR (African American) 136.4 ml/min; Est GFR (Non-African American) 117.6 ml/min; Magnesium 1.8 mg/dl (1.7-2.4); Potassium 3.9 mmol/L (3.5-5.1); Total Protein 6.2 gm/dl (6.0-8.3)
[2023-03-08] MEDS ORDERED: ONDANSETRON 4 MG OD TAB PO PRN (00:30)
[2023-03-08 00:32] LABS: Troponin I High Sensitivity 5.7 pg/ml (0-14)
[2023-03-08 00:40] LABS: Adenovirus PCR Not Detected (NotDetected); Bordetella parapertussis PCR Not Detected (NotDetected); Bordetella pertussis PCR Not Detected (NotDetected); Chlamydia pneumoniae PCR Not Detected (NotDetected); Coronavirus 229E PCR Not Detected (NotDetected); Coronavirus CoV-2 (COVID19)PCR Not Detected (NotDetected); Coronavirus HKU1 PCR Not Detected (NotDetected); Coronavirus NL63 PCR Not Detected (NotDetected); Coronavirus OC43PCR Not Detected (NotDetected); Human Metapneumovirus PCR Not Detected (NotDetected); Influenza A PCR Not Detected (NotDetected); Influenza B PCR Not Detected (NotDetected); Mycoplasma pneumoniae PCR Not Detected (NotDetected); Parainfluenza Virus 1 PCR Not Detected (NotDetected); Parainfluenza Virus 2 PCR Not Detected (NotDetected); Parainfluenza Virus 3 PCR Not Detected (NotDetected); Parainfluenza Virus 4 PCR Not Detected (NotDetected); Respiratory Syncytial VirusPCR Not Detected (NotDetected); Rhinovirus/Enterovirus PCR Not Detected (NotDetected)
[2023-03-08] MEDS ORDERED: ALBUMIN 5% 250 ML IV ONE (00:55)
[2023-03-08] MEDS: NSS + 20MEQ KCL 20 MEQ/1,000 ML BAG IV SCH ×2 (03:25→16:02)
[2023-03-08] MEDS ORDERED: VANCOMYCIN HCL 1,250 MG in SODIUM CHLORIDE 0.9% 250 ML IV SCH (04:00)
[2023-03-08 07:18] LABS: Hematocrit (blood only) 21.6 % (37.0-47.0); Hemoglobin 6.5 g/dl (12.0-16.0); Mean Corpuscular Hemoglobin 26.4 pg (25.0-34.0); Mean Corpuscular Hgb Conc 30.1 g/dL (32.0-36.0); Mean Corpuscular Volume 87.8 fL (80.0-100.0); Mean Platelet Volume 10.3 fL (9.4-12.4); Platelet Count 189 K/uL (130-400); RDW Coefficient of Variation 19.8 % (11.5-14.5); RDW Standard Deviation 64.2 fL (36.4-46.3); Red Blood Count 2.46 M/uL (4.20-5.40); White Blood Count 9.98 K/ul (4.8-10.8)
--- NOTE | 2023-03-08 07:25 | XRay Report ---
SINGLE VIEW CHEST CLINICAL HISTORY: Sepsis. Breast cancer. FINDINGS: An AP, portable, upright chest radiograph is compared to study dated 02/23/2023 and correla claire with chest CT dated 02/01/2023. Surgical clips are noted in the axilla bilaterally. The cardiomedi astinal silhouette is unremarkable. There is a right pleural effusion with airspace consolidation thr oughout the right lung. This has increased from 02/23/2023. The left lung appears clear noting basila r atelectasis. No pneumothorax is seen. The bony thorax is grossly intact. IMPRESSION: 1. Right pleural effusion with airspace consolidation throughout the right lung. This has increased f rom 02/23/2023. Correlate clinically for evidence of pneumonia. 2. The left lung appears clear. ACT 112: Negative or not required by law. Electronically signed by: Willian Jovel M.D. 03/08/2023 7:24 AM
[2023-03-08 07:33] LABS: Albumin Globulin Ratio 1.1 (0.9-2); Albumin Level 2.7 gm/dl (3.4-5.0); BUN Creatinine Ratio 15.4 (10-20); Basophils # (auto) 0.02 K/uL (0.00-0.20); Basophils % (auto) 0.2 %; Bilirubin,Total 0.3 mg/dl (0.2-1.0); Calcium 8.2 mg/dl (8.6-10.3); Creatinine Clr Calc Pharmacy 109.5 ml/min; Dohle Bodies 1+; Eosinophils # (auto) 0.03 K/uL (0.00-0.50); Eosinophils % (auto) 0.3 %; Est GFR (African American) 144.5 ml/min; Est GFR (Non-African American) 124.7 ml/min; Globulin 2.4 gm/dl (2.5-4.0); Hypochromasia Present; Immature Granulocytes # (auto) 0.26 K/uL (0.01-0.20); Immature Granulocytes % (auto) 2.6 %; Lymphocytes # (auto) 0.38 K/uL (1.20-3.40); Lymphocytes % (auto) 3.8 %; Magnesium 1.9 mg/dl (1.7-2.4); Monocytes # (auto) 0.11 K/uL (0.11-0.59); Monocytes % (auto) 1.1 %; Neutrophils # (auto) 9.18 K/uL (1.40-6.50); Polychromasia 1+; Potassium 3.9 mmol/L (3.5-5.1); Tear Drop Cells 1+; Total Protein 5.1 gm/dl (6.0-8.3)
[2023-03-08] MEDS: PIPERACILLIN/TAZOBACTAM 4.5 GM in DEXTROSE 5% MINI-B 100 ML IV SCH ×3 (07:35→21:50)
[2023-03-08] MEDS ORDERED: SODIUM CHLORIDE 0.9% 250 ML IV PRN ×2 (08:43→09:00)
[2023-03-08] MEDS ORDERED: oxyCODONE HCL 10 MG TABCR (OxyCONTIN) PO SCH (09:00)
--- NOTE | 2023-03-08 09:37 | Electrocardiogram Report ---
Test Reason : Blood Pressure : / mmHG Vent. Rate : 164 BPM Atrial Rate : 144 BPM P-R Int : 136 ms QRS Dur : 064 ms QT Int : 306 ms P-R-T Axes : 048 -27 034 degrees QTc Int : 505 ms Sinus tachycardia Abnormal ECG When compared with ECG of 21-FEB-2023 08:44, No significant change Confirmed by Francisco Javier Cortez ([id number]) on 03/08/2023 9:37:21 AM Referred By: REFERRED SELF Confirmed By:Francisco Javier Cortez
--- NOTE | 2023-03-08 10:45 | XRay Report ---
XR chest 1V not portable HISTORY: Status post right thoracentesis. COMPARISON: Chest 03/07/2023. PET CT 03/01/2023. FINDINGS: Interval decrease in size in the now small right pleural effusion status post thoracentesis . No pneumothorax. Right chest wall lobular masses are again noted. There are surgical clips within t he right chest wall and bilateral axilla. The heart is stable in size. Right basilar linear densities favor subsegmental atelectasis. The left lung is clear. No mediastinal shift. No evidence for pulmon leanna edema. Chronic sinus tissue swelling within the right shoulder/arm is again noted. IMPRESSION: 1. Decrease in size in the now small right pleural effusion status post thoracentesis. No pneumothora x. 2. Right chest wall masses and right shoulder/right arm soft tissue swelling again noted. ACT 112: Negative or not required by law. Electronically signed by: Johnny Crain M.D. 03/08/2023 10:44 AM
[2023-03-08] MEDS ORDERED: FILGRASTIM 480 MCG/1.6 ML VIAL SC ONE (12:45)
--- NOTE | 2023-03-08 14:16 | Pharmacy Report ---
Pharmacy PK ABX Note - Date of Service March 08, 2023 - Assessment and Plan Assessment 33 year old F receiving vancomycin and zosyn empirically. Patient remains febrile and chest wall wound considered to be a possible source. Pertinent microbiologic data includes: pseudomonas and MSSA from breast cx and group A beta strep bacteremia at the end of January. Plan Vancomycin * Loading dose: 1250 mg IV x 1 (already administered) * Maintenance dose: 750 mg IV every 8 hours * Regimen is predicted to achieve target AUC/TRINH of 400-600 mg/L.hr * Random level ordered for: 03/09/23 @0700 Pharmacy will continue to follow and will adjust dose/frequency as necessary. Thank you. Pharmacy has transitioned to AUC monitoring for vancomycin. AUC/TRINH is the preferred PK/PD target and is associated with decreased risk of nephrotoxicity compared to traditional trough targets.
--- NOTE | 2023-03-08 14:37 | Ultrasound Report ---
Ultrasound-guided thoracentesis INDICATION: Right pleural effusion PROCEDURE: Procedure and risks were explained. Informed consent was obtained. A final timeout was com pleted. The right posterior thorax was prepped and draped in sterile fashion. 1% buffered lidocaine w as utilized for skin anesthesia. Utilizing ultrasound guidance, a 5 [place] safety centesis catheter was advanced into the right pleura l effusion. Ultrasound images were obtained. 850 mL of pleural fluid was removed and discarded. The c atheter was removed and Band-Aid applied. The patient tolerated the procedure well. Post procedure est x-ray demonstrated no pneumothorax. Vital signs will be monitored prior to discharge. IMPRESSION: Right thoracentesis as above. Performed, dictated, and signed by Emil aGffney PA-C; to be co-signed by Dr. Johnny Crain. Electronically signed by: Johnny Crain M.D. 03/08/2023 2:40 PM
--- NOTE | 2023-03-08 15:39 | Hospitalist Progress Note ---
Date of Service March 08, 2023 Assessment & Plan (1) Sepsis: Plan: Present on admission. Multiple culture results are pending. She remains on intravenous Zosyn, day 2 (2) Breast cancer: Plan: With recurrent malignant right pleural effusion that will require thoracentesis again this admission. She flatly refuses placement of a Pleurx catheter (3) Anemia: Plan: Chronic. Hemoglobin 6.5 on admission. 2 units packed red blood cell transfusion ordered. Serial labs. No evidence of overt GI bleeding. (4) Pleural effusion on right: Plan: Recurrent. Malignant. Thoracentesis was completed earlier this morning, March 08, with aspiration of 850 cc of fluid. Follow-up chest x-ray appears better. (5) Cancer associated pain: Plan: Pain control measures Plan Hopefully home soon Admission and Anticipated Discharge Date Admission Date: March 07, 2023 Subjective Alert and oriented. No distress. She states she came to the ER because she had a fever at home but no other symptoms. She was found to have hemoglobin 6.5 which is chronic. No evidence of overt blood loss. Transfusion has been ordered. The malignant right effusion has reaccumulated and she underwent right thoracentesis today with 850 cc of fluid aspirated. This is undoubtedly malignant related to the metastatic breast cancer. She flatly refuses placement of a Pleurx catheter for future drainage procedures which undoubtedly will be necessary. She presented with mild hypoxic respiratory failure but hopefully this will resolve. Blood/urine/wound cultures are pending. She is now on Zosyn. She has been taking Cipro and Bactrim at home after recent hospital discharge to keep the chronic right chest wall infection in check Review of Systems 2 Review of Systems: [id number] fever at home. No rigors ENT-no blurred vision, no double vision, no epistaxis, no sore throat Respiratory-no cough, no wheezing. Dyspnea on exertion Cardiac-no palpitations, no chest pain, no syncope GI-no nausea, vomiting, diarrhea, melena, hematochezia -no urinary retention, no urinary incontinence, no dysuria, no hematuria Musculoskeletal-no joint pain, no muscle tenderness Skin-chronically infected appearing right chest wall metastatic lesions Neuro-generalized weakness Psych-flat affect Physical Exam 2 Physical Exam: General-alert and oriented x3, no rigors HEENT-head atraumatic and normocephalic, pupils equal and reactive to light, extraocular muscles intact Neck-no lymphadenopathy or thyromegaly, trachea midline Chest-diminished breath sounds and dullness at the right base. No wheezing Cardiac-tachycardic regular rhythm, normal S1 and S2 Abdomen-normal bowel sounds, nontender, no hepatosplenomegaly Skinmetastatic lesions involving the right chest wall Extremities-no cyanosis, clubbing, or edema Neuro-cranial nerves II through XII intact, motor and sensory function within normal limits, strength symmetrical, no focal deficits Psych-flat affect Results & Data Results & Data Vital Signs (Past 12 Hours) Vital Signs Temp Pulse Pulse Resp BP BP Pulse Ox 03/08/23 14:08 133 H 20 110/57 L 96 03/08/23 14:00 133 H 5 L 97 03/08/23 14:00 117/57 L 03/08/23 13:55 109/61 03/08/23 13:55 130 H 20 97 03/08/23 13:50 131 H 21 96 03/08/23 13:50 110/57 L 03/08/23 13:45 132 H 21 96 03/08/23 13:45 108/58 L 03/08/23 13:45 108/58 L 03/08/23 13:40 133 H 20 99 03/08/23 13:40 110/59 L 03/08/23 13:40 110/59 L 03/08/23 13:35 132 H 19 97 03/08/23 13:35 94/58 L 03/08/23 13:30 133 H 20 99/59 L 98 03/08/23 13:30 133 H 10 L 98 03/08/23 13:30 99/59 L 03/08/23 13:30 99/59 L 03/08/23 13:25 107/57 L 03/08/23 13:25 134 H 9 L 97 03/08/23 13:20 105/60 03/08/23 13:20 134 H 3 L 96 03/08/23 13:15 132 H 0 L 97 03/08/23 13:15 107/57 L 03/08/23 13:15 107/57 L 03/08/23 13:10 110/58 L 03/08/23 13:10 133 H 5 L 97 03/08/23 13:05 137 H 28 H 97 03/08/23 13:05 131/76 03/08/23 13:00 105/58 L 03/08/23 13:00 136 H 22 95 03/08/23 13:00 37.6 C H 131 H 16 110/59 L 97 03/08/23 12:55 136 H 0 L 96 03/08/23 12:55 109/57 L 03/08/23 12:51 38.1 C H 137 H 24 114/64 95 03/08/23 12:50 114/64 03/08/23 12:50 139 H 4 L 96 03/08/23 12:45 135 H 10 L 97 03/08/23 12:45 104/58 L 03/08/23 12:40 97/60 L 03/08/23 12:40 134 H 19 96 03/08/23 12:35 104/61 03/08/23 12:35 136 H 25 H 96 03/08/23 12:31 37.8 C H 138 H 24 99/61 L 97 03/08/23 12:30 139 H 9 L 95 03/08/23 12:30 99/61 L 03/08/23 12:25 106/58 L 03/08/23 12:25 139 H 25 H 95 03/08/23 12:25 138 H 22 106/58 L 95 03/08/23 12:20 143 H 18 94 03/08/23 12:20 141 H 88/59 L 03/08/23 12:15 155 H 03/08/23 12:11 39.2 C H 135 H 24 101/58 L 95 03/08/23 12:00 143 H 20 101/58 L 94 03/08/23 11:45 145 H 24 94 03/08/23 11:30 144 H 10 L 99/62 L 93 03/08/23 11:00 143 H 20 94 03/08/23 11:00 97/61 L 03/08/23 10:30 137 H 20 99 03/08/23 10:30 107/54 L 03/08/23 10:24 144 H 24 94 03/08/23 10:24 120/57 L 03/08/23 09:15 137 H 25 H 90 03/08/23 09:15 133/74 03/08/23 09:15 133/74 03/08/23 09:00 126/68 03/08/23 09:00 127 H 17 95 03/08/23 08:45 128/85 03/08/23 08:45 129 H 30 H 03/08/23 08:30 119/75 03/08/23 08:30 119 H 17 95 03/08/23 08:15 116 H 3 L 92 03/08/23 08:15 115/63 03/08/23 08:00 112 H 17 94 03/08/23 08:00 112/60 03/08/23 07:45 115/61 03/08/23 07:45 113 H 3 L 95 03/08/23 07:30 113/65 03/08/23 07:30 110 H 10 L 95 03/08/23 07:15 99/63 L 03/08/23 07:15 109 H 14 94 03/08/23 07:00 98/60 L 03/08/23 07:00 105 H 15 93 03/08/23 06:56 11 L 03/08/23 06:45 100/58 L 03/08/23 06:45 109 H 9 L 94 03/08/23 06:30 104/68 03/08/23 06:30 109 H 27 H 93 03/08/23 06:30 108 H 15 104/68 94 03/08/23 06:15 121/64 03/08/23 06:15 117 H 10 L 91 03/08/23 06:15 36.7 C 115 H 15 121/64 91 03/08/23 06:00 100/65 03/08/23 06:00 105 H 4 L 97 03/08/23 06:00 109 H 15 100/65 98 03/08/23 05:45 103/54 L 03/08/23 05:45 104 H 21 97 03/08/23 05:45 104 H 15 103/54 L 97 03/08/23 05:30 105 H 19 95 03/08/23 05:30 99/52 L 03/08/23 05:30 105 H 15 99/52 L 95 03/08/23 05:16 99/57 L 03/08/23 05:16 102 H 8 L 94 03/08/23 05:15 85/58 L 03/08/23 05:15 106 H 9 L 94 03/08/23 05:15 102 H 15 100/57 L 95 03/08/23 05:00 107 H 6 L 95 03/08/23 05:00 100/61 03/08/23 05:00 107 H 15 100/61 94 03/08/23 04:45 95/54 L 03/08/23 04:45 105 H 12 93 03/08/23 04:45 105 H 15 95/54 L 92 03/08/23 04:30 90/54 L 03/08/23 04:30 108 H 1 L 92 03/08/23 04:30 108 H 17 90/54 L 93 03/08/23 04:15 82/54 L 03/08/23 04:15 112 H 9 L 94 03/08/23 04:15 110 H 15 82/54 L 94 03/08/23 04:00 113 H 9 L 94 03/08/23 04:00 94/52 L 03/08/23 04:00 112 H 15 94/52 L 93 03/08/23 03:45 116 H 13 91 03/08/23 03:45 94/57 L 03/08/23 03:45 115 H 15 94/57 L 94 O2 Del Method O2 Flow Rate 03/08/23 14:08 03/08/23 14:00 03/08/23 14:00 03/08/23 13:55 03/08/23 13:55 03/08/23 13:50 03/08/23 13:50 03/08/23 13:45 03/08/23 13:45 03/08/23 13:45 03/08/23 13:40 03/08/23 13:40 03/08/23 13:40 03/08/23 13:35 03/08/23 13:35 03/08/23 13:30 03/08/23 13:30 03/08/23 13:30 03/08/23 13:30 03/08/23 13:25 03/08/23 13:25 03/08/23 13:20 03/08/23 13:20 03/08/23 13:15 03/08/23 13:15 03/08/23 13:15 03/08/23 13:10 03/08/23 13:10 03/08/23 13:05 03/08/23 13:05 03/08/23 13:00 03/08/23 13:00 03/08/23 13:00 03/08/23 12:55 03/08/23 12:55 03/08/23 12:51 03/08/23 12:50 03/08/23 12:50 03/08/23 12:45 03/08/23 12:45 03/08/23 12:40 03/08/23 12:40 03/08/23 12:35 03/08/23 12:35 03/08/23 12:31 03/08/23 12:30 03/08/23 12:30 03/08/23 12:25 03/08/23 12:25 03/08/23 12:25 0 03/08/23 12:20 03/08/23 12:20 03/08/23 12:15 03/08/23 12:11 03/08/23 12:00 03/08/23 11:45 03/08/23 11:30 03/08/23 11:00 03/08/23 11:00 03/08/23 10:30 03/08/23 10:30 03/08/23 10:24 03/08/23 10:24 03/08/23 09:15 03/08/23 09:15 03/08/23 09:15 03/08/23 09:00 03/08/23 09:00 03/08/23 08:45 03/08/23 08:45 03/08/23 08:30 03/08/23 08:30 03/08/23 08:15 03/08/23 08:15 03/08/23 08:00 03/08/23 08:00 03/08/23 07:45 03/08/23 07:45 03/08/23 07:30 03/08/23 07:30 03/08/23 07:15 03/08/23 07:15 03/08/23 07:00 03/08/23 07:00 03/08/23 06:56 03/08/23 06:45 03/08/23 06:45 03/08/23 06:30 03/08/23 06:30 03/08/23 06:30 Nasal Cannula 2 03/08/23 06:15 03/08/23 06:15 03/08/23 06:15 Nasal Cannula 2 03/08/23 06:00 03/08/23 06:00 03/08/23 06:00 Nasal Cannula 2 03/08/23 05:45 03/08/23 05:45 03/08/23 05:45 Nasal Cannula 2 03/08/23 05:30 03/08/23 05:30 03/08/23 05:30 Nasal Cannula 2 03/08/23 05:16 03/08/23 05:16 03/08/23 05:15 03/08/23 05:15 03/08/23 05:15 Nasal Cannula 2 03/08/23 05:00 03/08/23 05:00 03/08/23 05:00 Nasal Cannula 2 03/08/23 04:45 03/08/23 04:45 03/08/23 04:45 Nasal Cannula 2 03/08/23 04:30 03/08/23 04:30 03/08/23 04:30 Nasal Cannula 2 03/08/23 04:15 03/08/23 04:15 03/08/23 04:15 Nasal Cannula 2 03/08/23 04:00 03/08/23 04:00 03/08/23 04:00 Nasal Cannula 2 03/08/23 03:45 03/08/23 03:45 03/08/23 03:45 Nasal Cannula 2 Laboratory Results 03/08/23 06:15 03/08/23 06:15 PG Care Time/CCT Total # of Minutes Spent Total Time Spent with Patient: Total time spent is greater than 50% in coordination of care (as documented) at patient's floor/unit and/or counseling patient: Coding Level of Care Code 25956 SUB INP/OBS CARE 3/50MIN Diagnoses Sepsis A41.9 Breast cancer C50.919 Anemia D64.9 Anemia type: unspecified type Pleural effusion on right J90 Cancer associated pain G89.3 (3) Anemia Anemia type: unspecified type Qualified Code(s): D64.9 - Anemia, unspecified
[2023-03-08] MEDS ORDERED: MoRPHine SULFATE 2 MG/ML CARP IV PRN (16:02)
[2023-03-08] MEDS: VANCOMYCIN HCL 750 MG in SODIUM CHLORIDE 0.9% 250 ML IV SCH (16:35)
--- NOTE | 2023-03-08 17:35 | Ultrasound Report ---
RIGHT UPPER EXTREMITY VENOUS DOPPLER ULTRASOUND CLINICAL HISTORY: pain, swelling, breast cancer COMPARISON STUDY: Right upper extremity venous Doppler ultrasound February 16, 2023. PET/CT March 01, 2023. TECHNIQUE: Sonography of the deep venous system of the right upper extremity was performed. FINDINGS: This exam was technically difficult to obtain given patient's significant pain and multiple pathologic right supraclavicular and axillary lymph nodes shown on PET/CT of March 01, 2023. There is probable deep venous thrombus within the right subclavian, axillary and brachial veins. No additio nal sites of deep venous thrombus within the right upper extremity were identified. IMPRESSION: Technically difficult study to obtain, as described above. However, probable deep venous thrombus within the right subclavian, axillary and brachial veins. ACT 112: Negative or not required by law. Electronically signed by: Jc Wilson M.D. 03/08/2023 5:34 PM
[2023-03-08] MEDS: MoRPHine SULFATE 2 MG/ML CARP IV PRN (18:19)
[2023-03-08] MEDS ORDERED: ENOXAPARIN 1 MG/KG SC SCH (18:30)
[2023-03-08] MEDS: ENOXAPARIN INJ 60 MG/0.6 ML SYR SQ SCH (19:43)
[2023-03-08] MEDS ORDERED: MIRTAZAPINE TAB 15 MG TAB PO SCH (21:00)
[2023-03-08] MEDS: oxyCODONE HCL 15 MG TABCR (OxyCONTIN) PO SCH (21:48)
[2023-03-09] MEDS: VANCOMYCIN HCL 750 MG in SODIUM CHLORIDE 0.9% 250 ML IV SCH ×2 (00:13→08:47)
[2023-03-09] MEDS: MoRPHine SULFATE 2 MG/ML CARP IV PRN (00:45)
[2023-03-09] MEDS ORDERED: MoRPHine SULFATE 4 MG/ML 1 ML CARP\\VIAL IV PRN (01:08)
[2023-03-09] MEDS ORDERED: ACETAMINOPHEN 500 MG TAB PO PRN (04:31)
[2023-03-09] MEDS: PIPERACILLIN/TAZOBACTAM 4.5 GM in DEXTROSE 5% MINI-B 100 ML IV SCH (06:21)
[2023-03-09] MEDS: ENOXAPARIN INJ 60 MG/0.6 ML SYR SQ SCH (06:22)
[2023-03-09 08:25] LABS: Hematocrit (blood only) 30.9 % (37.0-47.0); Hemoglobin 9.6 g/dl (12.0-16.0); Mean Corpuscular Hemoglobin 27.4 pg (25.0-34.0); Mean Corpuscular Hgb Conc 31.1 g/dL (32.0-36.0); Mean Corpuscular Volume 88.3 fL (80.0-100.0); Mean Platelet Volume 10.7 fL (9.4-12.4); Platelet Count 183 K/uL (130-400); RDW Coefficient of Variation 17.8 % (11.5-14.5); RDW Standard Deviation 57.1 fL (36.4-46.3); White Blood Count 8.79 K/ul (4.8-10.8)
[2023-03-09 08:26] LABS: Anion Gap 8 (3-11); Blood Urea Nitrogen 6 mg/dl (6-23); Calcium 8.5 mg/dl (8.6-10.3); Carbon Dioxide 23 mmol/L (21-32); Chloride 104 mmol/L (98-107); Creatinine Clr Calc Pharmacy 123.8 ml/min; Est GFR (African American) > 150.0 ml/min; Est GFR (Non-African American) 129.8 ml/min; Glucose 87 mg/dl (70-99(Fasting)); Potassium 3.6 mmol/L (3.5-5.1); Sodium 135 mmol/L (136-145)
[2023-03-09] MEDS: oxyCODONE HCL 15 MG TABCR (OxyCONTIN) PO SCH (08:42)
[2023-03-09 08:46] LABS: ANC (manual) 8.44 K/uL (1.4-6.5); Basophils # (manual) 0.09 K/uL (0-0.2); Basophils % (manual) 1 %; Dohle Bodies 2+; Echinocytes 1+; Eosinophils # (manual) 0.09 K/uL (0-0.50); Eosinophils % (manual) 1 %; Metamyelocytes # (manual) 0.18 K/uL (0-0); Metamyelocytes % (manual) 2 %; Neutrophils # (manual) 8.44 K/uL (1.40-6.50); Neutrophils % (manual) 96 %
[2023-03-09] MEDS ORDERED: ACETIC ACID 0.25% IRRIG SOLN 1000 ML PLCT IR SCH (11:15)
--- NOTE | 2023-03-09 12:35 | Discharge Summary ---
Date of Service March 09, 2023 Admission HPI Per Admitting Provider The patient is a 33-year-old female with a past medical history of metastatic breast cancer undergoing chemotherapy, cancer related pain, septic shock, depression, insomnia. Her most recent admission from 02/21-02/25/2023 began with hypotension in the ED that responded to 2 L normal saline, and explored diagnoses developed of MSSA bacteremia, and metastatic chest wall wound growing Pseudomonas and MSSA. Upon presentation to the emergency department this evening, her lowest blood pressure was 88/61, and improved with 1.5 L normal saline to 120/69 and heart rate in the 130s to 140s sinus tachycardia. From the ED she also received vancomycin IV and Zosyn IV. Principal Diagnosis Right upper extremity DVT, metastatic breast cancer with right malignant pleural effusion, acute hypoxic respiratory failure Discharge Exam General-alert and oriented x3, no rigors HEENT-head atraumatic and normocephalic, pupils equal and reactive to light, extraocular muscles intact Neck-no lymphadenopathy or thyromegaly, trachea midline Chest-diminished breath sounds and dullness at the right base. No wheezing Cardiac-tachycardic regular rhythm, normal S1 and S2 Abdomen-normal bowel sounds, nontender, no hepatosplenomegaly Skinmetastatic lesions involving the right chest wall Extremities-diffuse edema of the right arm and right hand Neuro-cranial nerves II through XII intact, motor and sensory function within normal limits, strength symmetrical, no focal deficits Psych-flat affect Discharge Data Allergies Allergy/AdvReac Type Severity Reaction Status Date / Time No Known Allergies Allergy Verified 03/07/23 23:51 Consultations 03/07/23 23:32 ED Decision to Admit Stat Ordered Studies 03/08/23 08:43 IR thoracentesis w/tube US Urgent 03/08/23 16:02 US venous doppler UE RT Urgent Hospital Course (1) Sepsis: Present on admission. Now resolved. Blood cultures are negative. Treated while hospitalized with intravenous Zosyn, day 3. She will continue her oral Cipro and Bactrim at the time of discharge. (2) Breast cancer: With recurrent malignant right pleural effusion that required thoracentesis on March 08. Nearly 1 L of fluid was aspirated. Oxygen has been weaned off. She is now on room air. She flatly refuses placement of a Pleurx catheter for future pleural fluid drainage as needed (3) Deep vein thrombosis, upper right extremity: Due to malignancy. She is now on Lovenox 1 mg/kg subcutaneously every 12 hours (4) Anemia: Chronic. Hemoglobin 6.5 on admission. 2 units packed red blood cell transfusion transfused. Hemoglobin improved to 9.6. Fortunately fecal occult blood is negative. No evidence of overt GI bleeding. (5) Pleural effusion on right: Recurrent. Malignant. Thoracentesis was completed earlier this morning, March 08, with aspiration of 850 cc of fluid. Follow-up chest x-ray appears better. (6) Cancer associated pain: Pain control measures Plan The patient is adamant about going home today, March 09. Nurse navigator was messaged to arrange follow-up in the residents clinic and then hopefully with a local physician after that Total Time Total Time Spent Total Time Spent (In Minutes): 45 minutes Discharge Plan Discharge Items Patient Disposition: Home - Self-Care Reason For Visit: SEPSIS Discharge Diagnosis: Right upper extremity DVT, recurrent malignant right pleural effusion, acute hypoxic respiratory failure Activity: Resume your previous activity Non-emergency contact: Primary Care Provider and Oncologist Call non-emergency contact if: you have any medication questions and your symptoms worsen Follow-up/Referrals: PCP,NO [Primary Care Provider] - Diet: Regular Addtl Attending Provider Instructions: Take Lovenox injections twice daily until further notice. Resume oral antibiotics (Cipro and Bactrim) Pending Studies at Discharge: No Stand-Alone Forms: My [facility] [employer], Smoking Cessation Medications and DC Order Prescriptions: New enoxaparin 60 mg/0.6 mL Syringe 50 mg subcut Q12H Qty: 60 0RF Continued oxycodone [OxyContin] 30 mg tablet,oral only,ext.rel.12 hr 30 mg PO BID 30 Days Qty: 60 0RF oxycodone 10 mg tablet 10 mg PO Q4H MDD 40mg PRN (Reason: breakthru cancer pain) 30 Days Qty: 120 0RF ondansetron HCl 8 mg tablet 8 mg PO Q8 PRN (Reason: Nausea And Vomiting) olanzapine 2.5 mg tablet 2.5 mg PO DIRECTED potassium chloride 20 mEq Packet 20 meq PO DAILY Qty: 30 0RF gabapentin 300 mg capsule See Rx Instructions .ROUTE .COMPLEX Rx Instructions: TAKES 300 MG QAM AND AFTERNOON, THEN 600 MG QHS. morphine 30 mg tablet extended release 30 mg PO Q12H Rx Instructions: PER PT "DID NOT START YET, FINISHING OXYCONTIN FIRST". TOTAL DOSE 45 MG--TAKES WITH 15 MG TAB. morphine 15 mg tablet extended release 15 mg PO Q12H Rx Instructions: PER PT "DID NOT START YET, FINISHING OXYCONTIN FIRST". TOTAL DOSE 45 MG--TAKES WITH 30 MG TAB. ciprofloxacin HCl [Cipro] 500 mg tablet 500 mg PO BID Qty: 28 0RF Rx Instructions: STARTED 02/25/23 FOR 14 DAYS sulfamethoxazole-trimethoprim [Bactrim DS] 800-160 mg tablet 1 tab PO BID 14 Days Qty: 28 0RF Rx Instructions: STARTED 02/25/23 FOR 14 DAYS. mirtazapine 15 mg tablet 15 mg PO HS Discharge Orders: Discharge Order (Routine); Ordered 03/09/23 Ordered By: Mitul Escalante/Other Patient Handouts: Wound Care Admission Data Admit Date/Time: 03/07/23 23:55 Attending Provider: Mitul Boucher Admit Provider: David Mcclendon Primary Care Provider: PCP,NO Other Providers: David Mcclendon; [facility] Coding Level of Care Code 16427 INP/OBS DISCH >30 MIN Diagnoses Sepsis A41.9 Breast cancer C50.919 Deep vein thrombosis, upper right extremity I82.621 Anemia D64.9 Anemia type: unspecified type Pleural effusion on right J90 Cancer associated pain G89.3
== END 2023-03-09 13:53 | disposition home health service (06) | DRG 871 ==
LOC: ED 22:45 → SUATTDRO 23:55 → EDINP 23:55 → 2E 03-08 13:07

== ENCOUNTER 2023-03-29 06:43 | Inpatient (IN) ==
--- NOTE | 2023-03-29 07:11 | Emergency Department Note ---
Impression & Plan Shortness of breath, Tachycardia, Tachypnea, Anemia, Acute hyponatremia, Acidosis, lactic, Metabolic acidosis ED Provider Note NAME: VELASQUEZ RENEE AGE: 33 SEX: F : 1990 ARRIVES VIA: Walk-In INFORMANT: Patient ED PROVIDER(S): Max Sam DO CHIEF COMPLAINT: shortness of breath HPI: Patient is a 33-year-old female who presents to the ER for shortness of breath. This started earlier today/last night. She notes that she has metastatic breast cancer. Denies any headache or change in vision. No belly pain, nausea, vomiting, or diarrhea. No dysuria, urgency, or frequency. No other exacerbating or remitting factors. Does have a history of pleural effusion and feels as though she is filling up with fluid. ADDITIONAL HISTORY OBTAINED: Per HPI Chronic Medical/Social Conditions Affecting Care: Per HPI PAST MEDICAL HISTORY:See Below PAST SURGICAL HISTORY:See Below FAMILY HISTORY:See Below SOCIAL HISTORY:See Below HOME MEDICATIONS:See Below ALLERGIES:See Below VITALS:See Below PHYSICAL EXAMINATION: GENERAL: Sitting up in bed, alert, ill-appearing, disheveled, cachectic EYE EXAM: normal conjunctiva. OROPHARYNX: mucous membranes are moist NECK: supple, no nuchal rigidity, no adenopathy, non-tender CHEST: Multiple open wounds LUNGS: Clear to auscultation. Normal chest wall mechanics HEART: no murmurs, S1 normal and S2 normal ABDOMEN: abdomen soft, non-tender, normo-active bowel sounds, no masses, no rebound or guarding. UPPER EXTREMITIES: upper extremities are grossly normal. LOWER EXTREMITIES: No pitting edema. Calves are equal bilateral NEURO EXAM: Normal sensorium, cranial nerves II-XII grossly intact, normal speech, no gross weakness of arms, no gross weakness of legs. MEDICAL DECISION MAKING: Patient is a 33-year-old female who presents to the ER for the above-stated complaint. IV was established blood was obtained. Upon presentation patient is extremely ill-appearing. She is found to be tachycardic with a heart rate in the 150s and respiratory rate of 50. She is not hypoxic. She is afebrile. She is maintaining her blood pressures. IV was established blood work was obtained. Labs show no significant leukocytosis. There is an anemia at 7.6 consistent with previous. Platelets slightly low at 74. VBG with pH 7.4. BMP with mild hyponatremia 128 and a subtle anion gap. Creatinine 1.5. Lactate was significantly elevated at 8. Faint transaminitis. Troponin was negative. Pro- Michael was elevated at 3.8. Patient was typed and screened. She was ordered 3 L of IV fluids. Heart rate trended down to the 120s. Respiratory rate did improve. She was given IV narcotics. She is updated bedside. Protracted conversation with her at bedside and she would still like to be a full code. She notes that no one has really discussed CODE STATUS with her. CT of the chest shows diffuse metastatic disease. She was updated bedside discussed with the hospitalist and was given IV cefepime and vancomycin as well and admitted for further workup of possible sepsis. Consults/Care Managements Discussions: Per [facility] Triage Nursing notes reviewed. Limited review of prior medical records performed Vital Signs: reviewed and remarkable for tachy Differential diagnosis: Differential diagnosis includes etiologies such as sepsis, UTI, pneumonia, metabolic, electrolyte abnormalities, cardiac sources, intracerebral event, toxicologic, neurological, as well as others were entertained. ER treatment provided: See below Diagnostics interpreted by me include EKG and cardiac monitoring as listed below: -Cardiac Monitoring: An order was placed for continuous cardiac monitoring. The monitor shows a rate of 145 with sinus rhythm. -ECG: Sinus tachycardia rate of 143 Normal axis No PVCs Poor baseline QTc 429 -Laboratory studies:Interpreted by me as stated above in MDM and shown below. Imaging studies: Xrays: As interpreted by me: Portable AP upright 1 view of the chest shows infiltrates on the right chest/lung which likely represents a cancer over the right chest CTs show: none Procedures:none Critical Care: I have personally spent 31 minutes of critical care time in the direct management of this patient. This includes bedside care, interpretation of diagnostic studies, and testing, discussion with consultants, patient, and family members, and other required patient management activities. This 31 minutes is in excess of all separately billable procedures. Past Med/Surg History Medical History (Updated 03/29/23 @ 13:08 by Max Sam DO) Advanced care planning/counseling discussion Constipation due to opioid therapy Palliative care by specialist Breast cancer metastasized to multiple sites Cancer associated pain Pseudomonas aeruginosa infection Chest wall abscess Streptococcal bacteremia Septic shock Metastatic malignant neoplasm to breast Stage IV metastatic ductal carcinoma. Aggressive disease. Continued and persistent disease progression on multiple lines of chemotherapy. Radiation burn Open wound of chest wall Metastatic breast cancer Depression Ureteral obstruction History of anemia HX: breast cancer s/p right lumpectomy, chemo, xrt (no limb restriction) Hydronephrosis History of COVID-19 Early 01/2022 > symptoms resolved Surgical History Nephrostomy status S/P bilateral mastectomy History of hysterectomy History of section X 2 H/O myomectomy History of appendectomy H/O lumpectomy Right [place] teeth removed Family History Grandmother (Maternal) Lung cancer Grandmother (Paternal) Ovarian cancer Other No family history of adverse response to anesthesia Social History Smoking Status: Never smoker Second Hand Exposure: No; Do You Dip or Chew Tobacco: No; Hx Alcohol Use: No Hx Substance Use: No Preferred Language: Azeri Communication Ability: Effective Visual Impairment: No Limitations Mini Lab Operator Required: No Beliefs That Will Affect Care: None marital status: Current Living Situation: Parent and Family current occupational status: employed current occupation: [employer] Feels Safe at Home: Yes Assistive Devices: None Allergies Allergies Allergy/AdvReac Type Severity Reaction Status Date / Time No Known Allergies Allergy Verified 03/07/23 23:51 Home Meds Home Medications Medication Instructions Recorded Confirmed mirtazapine 15 mg tablet 15 mg PO HS 01/31/23 03/29/23 olanzapine 2.5 mg tablet 2.5 mg PO DIRECTED nausea 02/21/23 03/29/23 gabapentin 300 mg capsule See Rx Instructions .Route .COMPLEX 03/07/23 03/29/23 senna 2 tab PO BID constipation 03/29/23 03/29/23 sulfamethoxazole 800 1 tab PO BID 03/29/23 03/29/23 mg-trimethoprim 160 mg tablet Previous Rx's Medication Instructions Recorded oxycodone 30 mg tablet,crush 30 mg PO BID very severe 02/16/23 resistant,extended release 12 hr metastatic cancer pain 1 month #60 (OxyContin) tabs potassium chloride 20 mEq oral 20 meq PO DAILY #30 ea 02/25/23 packet ciprofloxacin HCl 500 mg tablet 500 mg PO BID #28 tabs 03/09/23 (Cipro) enoxaparin 60 mg/0.6 mL 50 mg (0.5 mL) subcut Q12H #60 mL 03/09/23 subcutaneous syringe ondansetron HCl 8 mg tablet 8 mg PO Q8 PRN Nausea And Vomiting 03/16/23 1 month #120 tabs polyethylene glycol 3350 17 17 g PO DAILY OIC 1 month #510 03/16/23 gram/dose oral powder (Miralax) grams hydromorphone 4 mg tablet 4 mg PO Q4H PRN breakthrough 03/17/23 (Dilaudid) cancer pain #100 tabs Results & Data (ED) Vital Signs Vital Signs - 24 hr 03/29/23 06:45 03/29/23 07:00 03/29/23 07:03 Temperature 36.5 C Temperature Source Temporal Artery Scan Pulse Rate 158 H 149 H 149 H Pulse Rate [Apical] Pulse Rate from SpO2 Sensor Pulse Rhythm Regular Pulse Rhythm [Apical] Pulse Strength Normal Respiratory Rate 24 12 Respiratory Effort / Characteristics Non-Labored Spontaneous Respiratory Depth Shallow Respiratory Pattern Regular Blood Pressure 130/93 Blood Pressure [Left Arm] Blood Pressure Mean 105 Blood Pressure Mean [Left Arm] Blood Pressure Position Sitting Pulse Oximetry 100 Oxygen Delivery Method Room Air Sepsis Recent Fever Within 48 Hours No Sepsis New/Unexplained Change in Mental Status No Sepsis Action Taken by Nursing No Action Required Oxygen Flow Rate - Titration 03/29/23 07:06 03/29/23 07:06 03/29/23 07:10 Temperature Temperature Source Pulse Rate 142 H 141 H Pulse Rate [Apical] Pulse Rate from SpO2 Sensor 139 H 141 H Pulse Rhythm Pulse Rhythm [Apical] Pulse Strength Respiratory Rate 54 H 52 H Respiratory Effort / Characteristics Respiratory Depth Respiratory Pattern Blood Pressure 113/83 Blood Pressure [Left Arm] Blood Pressure Mean 91 Blood Pressure Mean [Left Arm] Blood Pressure Position Pulse Oximetry 100 100 Oxygen Delivery Method Sepsis Recent Fever Within 48 Hours Sepsis New/Unexplained Change in Mental Status Sepsis Action Taken by Nursing Oxygen Flow Rate - Titration 03/29/23 07:20 03/29/23 07:20 03/29/23 07:23 Temperature Temperature Source Pulse Rate 142 H Pulse Rate [Apical] Pulse Rate from SpO2 Sensor Pulse Rhythm Pulse Rhythm [Apical] Pulse Strength Respiratory Rate 47 H Respiratory Effort / Characteristics Short of Breath Respiratory Depth Shallow Respiratory Pattern Tachypnea Blood Pressure 112/80 Blood Pressure [Left Arm] Blood Pressure Mean 89 Blood Pressure Mean [Left Arm] Blood Pressure Position Pulse Oximetry Oxygen Delivery Method Room Air Sepsis Recent Fever Within 48 Hours Sepsis New/Unexplained Change in Mental Status Sepsis Action Taken by Nursing Oxygen Flow Rate - Titration 03/29/23 07:23 03/29/23 07:23 03/29/23 07:23 Temperature Temperature Source Pulse Rate 142 H Pulse Rate [Apical] 142 H Pulse Rate from SpO2 Sensor Pulse Rhythm Regular Pulse Rhythm [Apical] Regular Pulse Strength Respiratory Rate 50 H 50 H Respiratory Effort / Characteristics Accessory Muscle Use Short of Breath Respiratory Depth Shallow Respiratory Pattern Tachypnea Blood Pressure Blood Pressure [Left Arm] 113/83 Blood Pressure Mean Blood Pressure Mean [Left Arm] 93 Blood Pressure Position Pulse Oximetry 100 100 100 Oxygen Delivery Method Room Air Room Air Room Air Sepsis Recent Fever Within 48 Hours Sepsis New/Unexplained Change in Mental Status Sepsis Action Taken by Nursing Oxygen Flow Rate - Titration 2 03/29/23 07:30 03/29/23 07:40 03/29/23 07:50 Temperature Temperature Source Pulse Rate 138 H 139 H 144 H Pulse Rate [Apical] Pulse Rate from SpO2 Sensor 139 H 140 H 143 H Pulse Rhythm Pulse Rhythm [Apical] Pulse Strength Respiratory Rate 46 H 43 H 51 H Respiratory Effort / Characteristics Respiratory Depth Respiratory Pattern Blood Pressure Blood Pressure [Left Arm] Blood Pressure Mean Blood Pressure Mean [Left Arm] Blood Pressure Position Pulse Oximetry 100 100 100 Oxygen Delivery Method Sepsis Recent Fever Within 48 Hours Sepsis New/Unexplained Change in Mental Status Sepsis Action Taken by Nursing Oxygen Flow Rate - Titration 03/29/23 07:53 03/29/23 07:53 03/29/23 08:00 Temperature Temperature Source Pulse Rate 143 H Pulse Rate [Apical] Pulse Rate from SpO2 Sensor 143 H Pulse Rhythm Pulse Rhythm [Apical] Pulse Strength Respiratory Rate 49 H Respiratory Effort / Characteristics Respiratory Depth Respiratory Pattern Blood Pressure 117/85 120/76 Blood Pressure [Left Arm] Blood Pressure Mean 96 94 Blood Pressure Mean [Left Arm] Blood Pressure Position Pulse Oximetry 100 Oxygen Delivery Method Sepsis Recent Fever Within 48 Hours Sepsis New/Unexplained Change in Mental Status Sepsis Action Taken by Nursing Oxygen Flow Rate - Titration 03/29/23 08:00 03/29/23 08:20 03/29/23 08:30 Temperature Temperature Source Pulse Rate 135 H 134 H 133 H Pulse Rate [Apical] Pulse Rate from SpO2 Sensor 135 H 134 H 133 H Pulse Rhythm Pulse Rhythm [Apical] Pulse Strength Respiratory Rate 51 H 33 H 48 H Respiratory Effort / Characteristics Respiratory Depth Respiratory Pattern Blood Pressure Blood Pressure [Left Arm] Blood Pressure Mean Blood Pressure Mean [Left Arm] Blood Pressure Position Pulse Oximetry 100 100 100 Oxygen Delivery Method Sepsis Recent Fever Within 48 Hours Sepsis New/Unexplained Change in Mental Status Sepsis Action Taken by Nursing Oxygen Flow Rate - Titration 03/29/23 08:30 03/29/23 08:40 03/29/23 08:50 Temperature Temperature Source Pulse Rate 133 H 133 H Pulse Rate [Apical] Pulse Rate from SpO2 Sensor 133 H 133 H Pulse Rhythm Pulse Rhythm [Apical] Pulse Strength Respiratory Rate 47 H 46 H Respiratory Effort / Characteristics Respiratory Depth Respiratory Pattern Blood Pressure 126/80 Blood Pressure [Left Arm] Blood Pressure Mean 104 Blood Pressure Mean [Left Arm] Blood Pressure Position Pulse Oximetry 100 100 Oxygen Delivery Method Sepsis Recent Fever Within 48 Hours Sepsis New/Unexplained Change in Mental Status Sepsis Action Taken by Nursing Oxygen Flow Rate - Titration 03/29/23 09:00 03/29/23 09:00 Temperature Temperature Source Pulse Rate 133 H Pulse Rate [Apical] Pulse Rate from SpO2 Sensor 132 H Pulse Rhythm Pulse Rhythm [Apical] Pulse Strength Respiratory Rate 53 H Respiratory Effort / Characteristics Respiratory Depth Respiratory Pattern Blood Pressure 108/79 Blood Pressure [Left Arm] Blood Pressure Mean 88 Blood Pressure Mean [Left Arm] Blood Pressure Position Pulse Oximetry 100 Oxygen Delivery Method Sepsis Recent Fever Within 48 Hours Sepsis New/Unexplained Change in Mental Status Sepsis Action Taken by Nursing Oxygen Flow Rate - Titration Laboratory Data 03/29/23 07:49 03/29/23 07:49 Lab Results 03/29/23 Range/Units 07:49 WBC 10.53 (4.8-10.8) K/ul RBC 2.80 L (4.20-5.40) M/uL Hgb 7.6 L (12.0-16.0) g/dl Hct 24.1 L (37.0-47.0) % MCV 86.1 (80.0-100.0) fL MCH 27.1 (25.0-34.0) pg MCHC 31.5 L (32.0-36.0) g/dL RDW Std Deviation 55.7 H (36.4-46.3) fL RDW Coeff of Marilou 19.5 H (11.5-14.5) % Plt Count 74 L (130-400) K/uL MPV 10.8 (9.4-12.4) fL Absolute Nucleated RBC 0.78 H (0.00-0.12) K/uL Nucleated RBC % (auto) 7.4 % Neutrophils % (Manual) 85 % Lymphocytes % (Manual) 5 % Monocytes % (Manual) 5 % Metamyelocytes % (Man) 3 % Myelocytes % (Man) 2 % Neutrophils # (Manual) 8.95 H (1.40-6.50) K/uL Total Absolute Neuts 8.95 H (1.4-6.5) K/uL Lymphocytes # (Manual) 0.53 L (1.2-3.4) K/uL Total Abs Lymphocytes 0.53 L (1.2-3.4) K/uL Monocytes # (Manual) 0.53 (0.11-0.59) K/uL Metamyelocytes # (Man) 0.32 H (0-0) K/uL Myelocytes # (Manual) 0.21 H (0-0) K/uL Platelet Estimate Decreased L (Normal) Polychromasia 1+ Tear Drop Cells 1+ VBG pH 7.40 (7.36-7.41) VBG pCO2 40 (38-50) mmHg VBG pO2 23 mmHg VBG HCO3 25 mmol/L VBG O2 Saturation < 60.0 % VBG Base Excess 0 mEq/L Sodium 128 L (136-145) mmol/L Potassium 4.3 (3.5-5.1) mmol/L Chloride 90 L (98-107) mmol/L Carbon Dioxide 26 (21-32) mmol/L Anion Gap 12 H (3-11) BUN 16 (6-23) mg/dl Creatinine 0.51 L (0.6-1.2) mg/dl Est Cr Clr Drug Dosing 108.0 ml/min Est GFR ( Amer) 145.4 ml/min Est GFR (Non-Af Amer) 125.5 ml/min BUN/Creatinine Ratio 31.4 H (10-20) Glucose 101 H (70-99(Fasting)) mg/dl Lactate 7.4 H* (0.4-2.0) mmol/L Calcium 10.6 H (8.6-10.3) mg/dl Magnesium 2.1 (1.7-2.4) mg/dl Total Bilirubin 0.7 (0.2-1.0) mg/dl Direct Bilirubin 0.2 (0-0.2) mg/dl AST 204 H (13-39) U/L ALT 85 H (7-52) U/L Alkaline Phosphatase 863 H (34-104) U/L Troponin I High Sens 13.9 (0-14) pg/ml Total Protein 6.3 (6.0-8.3) gm/dl Albumin 3.5 (3.4-5.0) gm/dl Procalcitonin 3.87 H (0-0.5) ng/ml Blood Type O Positive Antibody Screen NEGATIVE Administered Medications Oxycodone HCl (Oxycodone Hcl 10 Mg Tabcr (Oxycontin)) 30 mg PO BID [facility] Stop: 04/12/23 12:13 Last Admin: 03/29/23 12:57 Dose: 30 mg Documented By: DMH Discontinued Medications Hydromorphone HCl (Hydromorphone Inj 0.5 Mg/0.5 Ml Syr) 0.5 mg IV NOW STA Stop: 03/29/23 10:21 Last Admin: 03/29/23 10:28 Dose: 0.5 mg Documented By: EVIN Hydromorphone HCl (Hydromorphone Inj 0.5 Mg/0.5 Ml Syr) Confirm Administered Dose 0.5 mg .ROUTE .STK-MED ONE Stop: 03/29/23 10:25 Last Admin: 03/29/23 10:28 Dose: Not Given Documented By: EVIN Hydromorphone HCl (Hydromorphone Inj 0.5 Mg/0.5 Ml Syr) 0.5 mg IV NOW STA Stop: 03/29/23 11:26 Last Admin: 03/29/23 11:44 Dose: 0.5 mg Documented By: CHIOMA Sodium Chloride (Nss) 1,000 mls @ 999 mls/hr IV .Q1H1M YESENIA Stop: 03/29/23 09:15 Last Infusion: 03/29/23 10:51 Dose: Infused Documented By: Admin: 03/29/23 09:33 Dose: 999 mls/hr Documented By: Infusion: 03/29/23 09:30 Dose: Infused Documented By: Admin: 03/29/23 07:56 Dose: 999 mls/hr Documented By: MES Cefepime HCl (Maxipime) 2,000 mg in 20 mls @ 5 mls/min IV NOW STA; Protocol Stop: 03/29/23 07:14 Last Admin: 03/29/23 08:34 Dose: 5 mls/min Documented By: EVIN Vancomycin HCl 1,000 mg/ (Sodium Chloride) 520 mls @ 200 mls/hr IV NOW ONE Stop: 03/29/23 10:01 Last Infusion: 03/29/23 11:10 Dose: Infused Documented By: Admin: 03/29/23 08:34 Dose: 200 mls/hr Documented By: EVIN Parenteral Electrolytes (Plasma-Lyte A Ph 7.4) 1,000 mls @ 999 mls/hr IV .Q1H1M ONE Stop: 03/29/23 09:55 Last Admin: 03/29/23 10:45 Dose: 999 mls/hr Documented By: MES Morphine Sulfate (Morphine Sulfate 4 Mg/Ml 1 Ml Carp\Vial) 4 mg IV NOW STA Stop: 03/29/23 09:59 Last Admin: 03/29/23 10:03 Dose: 4 mg Documented By: EVIN Morphine Sulfate (Morphine Sulfate 10 Mg/Ml Carp/Vial) 6 mg IV NOW STA Stop: 03/29/23 11:09 Last Admin: 03/29/23 11:14 Dose: 6 mg Documented By: MN Imaging Data Radiologist's Impression: Chest X-Ray 03/29/23 06:59 XR chest 1V portable CLINICAL HISTORY: Sepsis TECHNIQUE: Single frontal radiograph of the chest was obtained. Comparison: Comparison is made to chest radiograph 03/08/2023 and PET/CT on 05/17/2023 FINDINGS: No lines and tubes are seen. The cardiomediastinal silhouette is normal. Right lung underinflation is seen with underlying density compatible with known malignancy. No evidence of pleural effusion or pneumothorax. IMPRESSION: Atelectasis of the right lung with right chest density is compatible with known chest wall masses and metastatic disease. Superimposed pneumonia is considered less likely. ACT 112: Negative or not required by law. Electronically signed by: Tay Merida M.D. 03/29/2023 7:[address] 03/29/23 07:52 CT SCAN OF THE CHEST WITHOUT IV CONTRAST CLINICAL HISTORY: Dyspnea. Breast cancer. COMPARISON STUDY: Chest x-ray dated 03/29/2023. Chest CT dated 02/01/2023. PET/CT dated 03/01/2023. TECHNIQUE: CT scan of the thorax was performed from the thoracic inlet to the upper abdomen. Images are reviewed in the axial, sagittal, and coronal planes. IV contrast was not administered for this examination as per the referring clinician. The examination is significant suboptimal without IV contrast. A dose lowering technique was utilized adhering to the principles of ALARA. CT DOSE: 306.11 mGy.cm FINDINGS: Thyroid: Imaged portions of the thyroid gland are normal in size and attenuation. Thoracic aorta: The thoracic aorta is normal in caliber and demonstrates standard 3-vessel arch anatomy. Heart: The heart is normal in size and without pericardial effusion. There is diminished attenuation of the cardiac blood pool as compared to the myocardium suggesting anemia. Lungs and pleural spaces: There is metastatic pleural disease throughout the right lung and a small right pleural effusion. Loculated fluid is seen along the right major fissure. Consolidation of the right lung base likely represents atelectasis. The left lung appears clear. Lower neck: There is bilateral supraclavicular lymphadenopathy. A left supraclavicular node on image #36 measures approximately 3 x 2.5 cm. Mediastinum: There is mediastinal lymphadenopathy. A precarinal node measures 13 mm short axis. There is likely a subcarinal node which is not well assessed without contrast. There is also diffuse internal mammary lymphadenopathy. Yamel: Not well assessed without IV contrast. Axillae: Axillary surgical clips are seen bilaterally. There is bulky bilateral axillary lymphadenopathy. A administrative representative left axillary/subpectoral lesion on the left measures approximately 5 x 3 cm. Upper abdomen: There is evidence of multifocal hepatic metastatic disease. A administrative representative lesion in the left lobe on image #153 measures 3.5 cm. There is marked asymmetrical cortical atrophy of the partially imaged left kidney. Skeletal structures: A rind of soft tissue around the lower thoracic spine is consistent with metastatic disease. There is no clear bony destruction. Metastatic disease is seen involving the sternum. Soft tissues: The patient is cachectic. Findings suggest bilateral mastectomy. Extensive metastatic disease is again seen throughout the chest wall. A administrative representative lesion in the right anterior chest on image #97 measures approximately 14 x 6.5 cm. A lesion in the right lateral chest wall on image #129 measures 4.4 x 3.2 cm. IMPRESSION: 1. Extensive multifocal metastatic disease as above. This has progressed as compared to 03/01/2023 PET examination. 2. There is bulky metastatic pleural disease seen in the right lung with a small right pleural effusion. 3. There is extensive/multifocal hepatic metastatic disease. This has significantly progressed from the prior PET. 4. Extensive metastatic disease throughout the chest wall, axillae, and supraclavicular region is again noted. There is also mediastinal and internal mammary lymphadenopathy. This has also progressed from previous. 5. Airspace consolidation at the right lung base likely resonance atelectasis. Correlate clinically. 6. There is a rind of abnormal soft tissue around the lower thoracic spine consistent with metastatic disease. There is no clear bony destruction of the underlying thoracic vertebral bodies. There is metastatic involvement of the sternum. 7. The left lung appears clear. 8. Additional findings as above. ACT 112: Negative or not required by law. Electronically signed by: Willian Jovel M.D. 03/29/2023 8:40 AM Discharge Plan Visit Data Chief Complaint: Shortness of Breath/Dyspnea Stated Complaint: SHORTNESS OF BREATH,TROUBLE BREATHING ED Provider: Max Sam Discharge Problem: Shortness of breath, Tachycardia, Tachypnea, Anemia, Acute hyponatremia, Acidosis, lactic, Metabolic acidosis Discharge Instructions Interventions: ED Discharge Assessment Last Done: 03/29/23 12:14 Discharge Problem: Anemia Qualifiers: Anemia type: unspecified type Qualified Code(s): D64.9 - Anemia, unspecified
[2023-03-29] MEDS ORDERED: VANCOMYCIN CONSULT ACTIVE PRN (07:26)
--- NOTE | 2023-03-29 07:53 | XRay Report ---
XR chest 1V portable CLINICAL HISTORY: Sepsis TECHNIQUE: Single frontal radiograph of the chest was obtained. Comparison: Comparison is made to chest radiograph 03/08/2023 and PET/CT on 05/17/2023 FINDINGS: No lines and tubes are seen. The cardiomediastinal silhouette is normal. Right lung underinflation is seen with underlying density compatible with known malignancy. No evidence of pleural effusion or pn eumothorax. IMPRESSION: Atelectasis of the right lung with right chest density is compatible with known chest wall masses and metastatic disease. Superimposed pneumonia is considered less likely. ACT 112: Negative or not required by law. Electronically signed by: Tay Merida M.D. 03/29/2023 7:52 AM
[2023-03-29] MEDS: SODIUM CHLORIDE 0.9% 1,000 ML IV SCH ×3 (07:56→13:55)
[2023-03-29 08:06] LABS: Base Excess VBG 0 mEq/L; HCO3 VBG 25 mmol/L; Oxygen Saturation VBG < 60.0 %; PCO2 VBG 40 mmHg (38-50); PO2 VBG 23 mmHg
[2023-03-29 08:28] LABS: Albumin Level 3.5 gm/dl (3.4-5.0); BUN Creatinine Ratio 31.4 (10-20); Bilirubin Direct 0.2 mg/dl (0-0.2); Bilirubin,Total 0.7 mg/dl (0.2-1.0); Calcium 10.6 mg/dl (8.6-10.3); Est GFR (African American) 145.4 ml/min; Est GFR (Non-African American) 125.5 ml/min; Magnesium 2.1 mg/dl (1.7-2.4); Potassium 4.3 mmol/L (3.5-5.1); Total Protein 6.3 gm/dl (6.0-8.3)
[2023-03-29 08:33] LABS: Hematocrit (blood only) 24.1 % (37.0-47.0); Hemoglobin 7.6 g/dl (12.0-16.0); Mean Corpuscular Hemoglobin 27.1 pg (25.0-34.0); Mean Corpuscular Hgb Conc 31.5 g/dL (32.0-36.0); Mean Corpuscular Volume 86.1 fL (80.0-100.0); Mean Platelet Volume 10.8 fL (9.4-12.4); Nucleated RBC # (auto) 0.78 K/uL (0.00-0.12); Nucleated RBC % (auto) 7.4 %; Platelet Count 74 K/uL (130-400); RDW Coefficient of Variation 19.5 % (11.5-14.5); RDW Standard Deviation 55.7 fL (36.4-46.3); Troponin I High Sensitivity 13.9 pg/ml (0-14); White Blood Count 10.53 K/ul (4.8-10.8)
[2023-03-29] MEDS: CEFEPIME 2,000 MG/20 ML VIAL IV STA (08:34)
[2023-03-29] MEDS: VANCOMYCIN HCL 1,000 MG in SODIUM CHLORIDE 0.9% 500 ML IV ONE (08:34)
--- NOTE | 2023-03-29 08:42 | CT Scan Report ---
CT SCAN OF THE CHEST WITHOUT IV CONTRAST CLINICAL HISTORY: Dyspnea. Breast cancer. COMPARISON STUDY: Chest x-ray dated 03/29/2023. Chest CT dated 02/01/2023. PET/CT dated 03/01/2023. TECHNIQUE: CT scan of the thorax was performed from the thoracic inlet to the upper abdomen. Images are reviewed in the axial, sagittal, and coronal planes. IV contrast was not administered for this ex amination as per the referring clinician. The examination is significant suboptimal without IV contra st. A dose lowering technique was utilized adhering to the principles of ALARA. CT DOSE: 306.11 mGy.cm FINDINGS: Thyroid: Imaged portions of the thyroid gland are normal in size and attenuation. Thoracic aorta: The thoracic aorta is normal in caliber and demonstrates standard 3-vessel arch anato my. Heart: The heart is normal in size and without pericardial effusion. There is diminished attenuation of the cardiac blood pool as compared to the myocardium suggesting anemia. Lungs and pleural spaces: There is metastatic pleural disease throughout the right lung and a small r ight pleural effusion. Loculated fluid is seen along the right major fissure. Consolidation of the ri ght lung base likely represents atelectasis. The left lung appears clear. Lower neck: There is bilateral supraclavicular lymphadenopathy. A left supraclavicular node on image #36 measures approximately 3 x 2.5 cm. Mediastinum: There is mediastinal lymphadenopathy. A precarinal node measures 13 mm short axis. There is likely a subcarinal node which is not well assessed without contrast. There is also diffuse inter nal mammary lymphadenopathy. Yamel: Not well assessed without IV contrast. Axillae: Axillary surgical clips are seen bilaterally. There is bulky bilateral axillary lymphadenopa thy. A liability claims representative left axillary/subpectoral lesion on the left measures approximately 5 x 3 cm. Upper abdomen: There is evidence of multifocal hepatic metastatic disease. A liability claims representative lesion in the left lobe on image #153 measures 3.5 cm. There is marked asymmetrical cortical atrophy of the pa rtially imaged left kidney. Skeletal structures: A rind of soft tissue around the lower thoracic spine is consistent with metasta tic disease. There is no clear bony destruction. Metastatic disease is seen involving the sternum. Soft tissues: The patient is cachectic. Findings suggest bilateral mastectomy. Extensive metastatic d isease is again seen throughout the chest wall. A liability claims representative lesion in the right anterior chest o n image #97 measures approximately 14 x 6.5 cm. A lesion in the right lateral chest wall on image #12 9 measures 4.4 x 3.2 cm. IMPRESSION: 1. Extensive multifocal metastatic disease as above. This has progressed as compared to 03/01/2023 PET examination. 2. There is bulky metastatic pleural disease seen in the right lung with a small right pleural effusi on. 3. There is extensive/multifocal hepatic metastatic disease. This has significantly progressed from t he prior PET. 4. Extensive metastatic disease throughout the chest wall, axillae, and supraclavicular region is aga in noted. There is also mediastinal and internal mammary lymphadenopathy. This has also progressed fr om previous. 5. Airspace consolidation at the right lung base likely resonance atelectasis. Correlate clinically. 6. There is a rind of abnormal soft tissue around the lower thoracic spine consistent with metastatic disease. There is no clear bony destruction of the underlying thoracic vertebral bodies. There is me tastatic involvement of the sternum. 7. The left lung appears clear. 8. Additional findings as above. ACT 112: Negative or not required by law. Electronically signed by: Willian Jovel M.D. 03/29/2023 8:40 AM
[2023-03-29 08:48] LABS: ALC (manual) 0.53 K/uL (1.2-3.4); ANC (manual) 8.95 K/uL (1.4-6.5); Lymphocytes # (manual) 0.53 K/uL (1.2-3.4); Lymphocytes % (manual) 5 %; Metamyelocytes # (manual) 0.32 K/uL (0-0); Metamyelocytes % (manual) 3 %; Monocytes # (manual) 0.53 K/uL (0.11-0.59); Monocytes % (manual) 5 %; Myelocytes # (manual) 0.21 K/uL (0-0); Myelocytes % (manual) 2 %; Neutrophils # (manual) 8.95 K/uL (1.40-6.50); Neutrophils % (manual) 85 %; Platelet Estimate Decreased (Normal); Polychromasia 1+; Tear Drop Cells 1+
[2023-03-29] MEDS ORDERED: OLANZAPINE 2.5 MG TAB PO PRN (09:00)
[2023-03-29] MEDS: MoRPHine SULFATE 4 MG/ML 1 ML CARP\\VIAL IV STA (10:03)
[2023-03-29] MEDS: HYDROmorphone INJ 0.5 MG/0.5 ML SYR ONE (10:28)
[2023-03-29] MEDS: HYDROmorphone INJ 0.5 MG/0.5 ML SYR IV STA ×2 (10:28→11:44)
[2023-03-29] MEDS: PLASMA-LYTE A 1,000 ML IV ONE (10:45)
[2023-03-29] MEDS: MoRPHine SULFATE 10 MG/ML CARP/VIAL IV STA (11:14)
--- NOTE | 2023-03-29 11:19 | History & Physical Report ---
Date of Service March 29, 2023 Assessment & Plan (1) Acute respiratory failure: Plan: With tachypnea, not hypoxic, not hypercarbic. Secondary to tachycardia, widely metastatic disease in chest wall, pleural mets, atelectasis, pleural effusion all contributing Doubt PE as taking Lovenox and POx normal Cannot rule out secondary bacterial PNA Using supplemental O2 for comfort in ER Pulm consult appreciated-no intervention will help except Palliative meds and pain control Appreciate Oncology and Palliative consults--> plan to give IVFs, antibiotics for PNA, start Dilaudid PERIANESTHESIA RN pump and discharge to home with hospice in the next couple of days once arrangements are made Continue supplemental O2 as needed for comfort or to keep POx> 92% (2) Tachycardia: Plan: sinus tachycardia in the 150s on arrival secondary to dehydration, anemia, widely metastatic disease, and pain giving IVFs, pain control monitor on tele (3) Breast cancer metastasized to multiple sites: Plan: Not responding to numerous treatment regimens. With open, fungating chest wall masses, mets to pleura, LNs, lungs, pl effusion, liver, and bones With cancer-associated pain Would not be able to withstand any further chemo. Was to possibly start a new trial in the near future but Oncology here recommends hospice Appreciate Palliative and Oncology recommendations-as above, plan to transition to hospice at home with Dilaudid PERIANESTHESIA RN Start Dilaudid PERIANESTHESIA RN here, continue home Oxycontin 30mg po bid continue bowel regimen, olanzaprine prn nausea (4) Deep vein thrombosis, upper right extremity: Plan: causing pain continue Lovenox SQ, pain control (5) Hyponatremia: Plan: Na+ 128 up from 124 a few days ago after started Na tabs likely from hypovolemia but could be some SIADH from pulmonary process and from pain giving IVF with NS follow BMP in AM (6) Anemia: Plan: hgb low but stable in the 7-8 range, secondary to chemotherapy follow CBC (7) Lactic acidosis: Plan: lactate 7 on admission from metastatic CA not likely from sepsis but treating with IVFs and antibiotics (8) Open wound of chest wall: Plan: multiple large open areas from breast CAN eroding chest wall consult wound care, keep covered (9) Cancer associated pain: Plan: as above Plan Dispo-admit to PCU, planto go home with hospice in 1-2 days after stabilized further and pain controlled. Discussed with telephonic nurse case manager History of Present Illness Chief Complaint: SOB Primary Care Provider: NO PCP This pt is a 33 yo female with a h/o widely metastatic breast CA with mets to chest wall, lungs, malignant pleural effusion, liver, bones, and lymph nodes that has been unresponsive to numerous rounds of chemotherapy, RUE DVT on Lovenox who presents to the ER with worsening SOB. She was found to have a normal POx but was tachycardic in the 150s, tachypneic in the 50s, normotensive, and afebrile. She denies any recent fevers/chills and does not have a port present. She has been getting wound care for her open, fungating chest wall masses at home and does not note any worsening drainage from her wounds. She has been eating but it is very minimal. SHe reports she has not been able to get out of bed for several weeks due to generalized weakness. Denies diarrhea or constipation. Denies chest pain. In the ER, she was found to have chronic anemia with hgb 7, hyponatremia, elevated LFTs, elevated lactate at 7, and elevated procal at 3. CT CHest no contrast shows loculated pleural effusion, atelectasis, chest wall masses, skeletal mets, all progressed from previous. She was given IVFs and HR improved down to the 130s from the 150s. She knows that her dying time is near and states she does not want to in the hospital. She wants to be at home with her kids to pass away. Initially when I saw her she was wavering back and forth about code status. Later, after speaking to Oncology and Palliative, she decided to become a full code, pursue antibiotic therapy and IVF resuscitation for now to stabilize herself enough to get home and go on hospice. She does report a significant amount of pain in her RUE from her DVT as well as her chest and back. Allergies Allergy/AdvReac Type Severity Reaction Status Date / Time No Known Allergies Allergy Verified 03/07/23 23:51 Home Medications Medication Instructions Recorded Confirmed Type mirtazapine 15 mg tablet 15 mg PO HS 01/31/23 03/29/23 History oxycodone 30 mg tablet,crush 30 mg PO BID very severe 02/16/23 03/29/23 Rx resistant,extended release 12 hr metastatic cancer pain 1 month #60 (OxyContin) tabs olanzapine 2.5 mg tablet 2.5 mg PO DIRECTED nausea 02/21/23 03/29/23 History potassium chloride 20 mEq oral 20 meq PO DAILY #30 ea 02/25/23 03/29/23 Rx packet gabapentin 300 mg capsule See Rx Instructions .Route .COMPLEX 03/07/23 03/29/23 History ciprofloxacin HCl 500 mg tablet 500 mg PO BID #28 tabs 03/09/23 03/29/23 Rx (Cipro) enoxaparin 60 mg/0.6 mL 50 mg (0.5 mL) subcut Q12H #60 mL 03/09/23 03/29/23 Rx subcutaneous syringe ondansetron HCl 8 mg tablet 8 mg PO Q8 PRN Nausea And Vomiting 03/16/23 03/29/23 Rx 1 month #120 tabs polyethylene glycol 3350 17 17 g PO DAILY OIC 1 month #510 03/16/23 03/29/23 Rx gram/dose oral powder (Miralax) grams hydromorphone 4 mg tablet 4 mg PO Q4H PRN breakthrough 03/17/23 03/29/23 Rx (Dilaudid) cancer pain #100 tabs senna 2 tab PO BID constipation 03/29/23 03/29/23 History sulfamethoxazole 800 1 tab PO BID 03/29/23 03/29/23 History mg-trimethoprim 160 mg tablet Past Med/Surg History Medical History Advanced care planning/counseling discussion Constipation due to opioid therapy Palliative care by specialist Breast cancer metastasized to multiple sites Cancer associated pain Pseudomonas aeruginosa infection Chest wall abscess Streptococcal bacteremia Septic shock Metastatic malignant neoplasm to breast Stage IV metastatic ductal carcinoma. Aggressive disease. Continued and persistent disease progression on multiple lines of chemotherapy. Radiation burn Open wound of chest wall Metastatic breast cancer Depression Ureteral obstruction History of anemia HX: breast cancer s/p right lumpectomy, chemo, xrt (no limb restriction) Hydronephrosis History of COVID-19 Early 01/2022 > symptoms resolved Surgical History Nephrostomy status S/P bilateral mastectomy History of hysterectomy History of section X 2 H/O myomectomy History of appendectomy H/O lumpectomy Right [place] teeth removed Family History Grandmother (Maternal) Lung cancer Grandmother (Paternal) Ovarian cancer Other No family history of adverse response to anesthesia Social History Smoking Status: Never smoker Second Hand Exposure: No; Do You Dip or Chew Tobacco: No; Hx Alcohol Use: No Hx Substance Use: No Preferred Language: Bulgarian Communication Ability: Effective Visual Impairment: No Limitations [employer] Mathematics Teacher Required: No Beliefs That Will Affect Care: None marital status: Current Living Situation: Family current occupational status: employed current occupation: Medical Billing Feels Safe at Home: Yes Assistive Devices: None Physical Exam Constitutional: + ill appearing and + cachectic Eyes: + anicteric sclerae Respiratory: + tachypneic Auscultation: + diminish ed lung sounds (throughout); no rhonchi and no wheezes Cardiovascular: Rate/Rhythm: regular rhythm and + tachycardic Heart Sounds: no murmur Extremities: no edema Chest (Breasts): Chest: + mass (multiple large fungating masses across entire chest,draining serous fluid) Gastrointestinal (Abdomen): normal bowel sounds, soft, nontender, no hepatosplenomegaly Musculoskeletal: Extremities: + extremities abnormal to inspection (diffuse sarcopenia; RUE with 3+ edema to shoulder) Psychiatric: Orientation: alert and oriented x 3 Affect: + anxious affect Results & Data Results & Data Vital Signs (Past 12 Hours) Vital Signs Temp Pulse Pulse Resp BP BP Pulse Ox 03/29/23 11:00 100 03/29/23 09:00 133 H 53 H 100 03/29/23 09:00 108/79 03/29/23 08:50 133 H 46 H 100 03/29/23 08:40 133 H 47 H 100 03/29/23 08:30 126/80 03/29/23 08:30 133 H 48 H 100 03/29/23 08:20 134 H 33 H 100 03/29/23 08:00 135 H 51 H 100 03/29/23 08:00 120/76 03/29/23 07:53 143 H 49 H 100 03/29/23 07:53 117/85 03/29/23 07:50 144 H 51 H 100 03/29/23 07:40 139 H 43 H 100 03/29/23 07:30 138 H 46 H 100 03/29/23 07:23 142 H 50 H 100 03/29/23 07:23 142 H 50 H 113/83 100 03/29/23 07:23 100 03/29/23 07:23 03/29/23 07:20 142 H 47 H 03/29/23 07:20 112/80 03/29/23 07:10 141 H 52 H 100 03/29/23 07:06 142 H 54 H 100 03/29/23 07:06 113/83 03/29/23 07:03 149 H 03/29/23 07:00 149 H 12 03/29/23 06:45 36.5 C 158 H 24 130/93 100 O2 Del Method 03/29/23 11:00 Room Air 03/29/23 09:00 03/29/23 09:00 03/29/23 08:50 03/29/23 08:40 03/29/23 08:30 03/29/23 08:30 03/29/23 08:20 03/29/23 08:00 03/29/23 08:00 03/29/23 07:53 03/29/23 07:53 03/29/23 07:50 03/29/23 07:40 03/29/23 07:30 03/29/23 07:23 Room Air 03/29/23 07:23 Room Air 03/29/23 07:23 Room Air 03/29/23 07:23 Room Air 03/29/23 07:20 03/29/23 07:20 03/29/23 07:10 03/29/23 07:06 03/29/23 07:06 03/29/23 07:03 03/29/23 07:00 03/29/23 06:45 Room Air Laboratory Results Laboratory Results WBC 10.53 K/ul (4.8-10.8) 03/29/23 07:49 RBC 2.80 M/uL (4.20-5.40) L 03/29/23 07:49 Hgb 7.6 g/dl (12.0-16.0) L 03/29/23 07:49 Hct 24.1 % (37.0-47.0) L 03/29/23 07:49 MCV 86.1 fL (80.0-100.0) 03/29/23 07:49 MCH 27.1 pg (25.0-34.0) 03/29/23 07:49 MCHC 31.5 g/dL (32.0-36.0) L 03/29/23 07:49 RDW Std Deviation 55.7 fL (36.4-46.3) H 03/29/23 07:49 RDW Coeff of Marilou 19.5 % (11.5-14.5) H 03/29/23 07:49 Plt Count 74 K/uL (130-400) L 03/29/23 07:49 MPV 10.8 fL (9.4-12.4) 03/29/23 07:49 Absolute Nucleated RBC 0.78 K/uL (0.00-0.12) H 03/29/23 07:49 Nucleated RBC % (auto) 7.4 % 03/29/23 07:49 Neutrophils % (Manual) 85 % 03/29/23 07:49 Lymphocytes % (Manual) 5 % 03/29/23 07:49 Monocytes % (Manual) 5 % 03/29/23 07:49 Metamyelocytes % (Man) 3 % 03/29/23 07:49 Myelocytes % (Man) 2 % 03/29/23 07:49 Neutrophils # (Manual) 8.95 K/uL (1.40-6.50) H 03/29/23 07:49 Total Absolute Neuts 8.95 K/uL (1.4-6.5) H 03/29/23 07:49 Lymphocytes # (Manual) 0.53 K/uL (1.2-3.4) L 03/29/23 07:49 Total Abs Lymphocytes 0.53 K/uL (1.2-3.4) L 03/29/23 07:49 Monocytes # (Manual) 0.53 K/uL (0.11-0.59) 03/29/23 07:49 Metamyelocytes # (Man) 0.32 K/uL (0-0) H 03/29/23 07:49 Myelocytes # (Manual) 0.21 K/uL (0-0) H 03/29/23 07:49 Platelet Estimate Decreased (Normal) L 03/29/23 07:49 Polychromasia 1+ 03/29/23 07:49 Tear Drop Cells 1+ 03/29/23 07:49 VBG pH 7.40 (7.36-7.41) 03/29/23 07:49 VBG pCO2 40 mmHg (38-50) 03/29/23 07:49 VBG pO2 23 mmHg 03/29/23 07:49 VBG HCO3 25 mmol/L 03/29/23 07:49 VBG O2 Saturation < 60.0 % 03/29/23 07:49 VBG Base Excess 0 mEq/L 03/29/23 07:49 Sodium 128 mmol/L (136-145) L 03/29/23 07:49 Potassium 4.3 mmol/L (3.5-5.1) 03/29/23 07:49 Chloride 90 mmol/L (98-107) L 03/29/23 07:49 Carbon Dioxide 26 mmol/L (21-32) 03/29/23 07:49 Anion Gap 12 (3-11) H 03/29/23 07:49 BUN 16 mg/dl (6-23) 03/29/23 07:49 Creatinine 0.51 mg/dl (0.6-1.2) L 03/29/23 07:49 Est Cr Clr Drug Dosing 108.0 ml/min 03/29/23 07:49 Est GFR ( Amer) 145.4 ml/min 03/29/23 07:49 Est GFR (Non-Af Amer) 125.5 ml/min 03/29/23 07:49 BUN/Creatinine Ratio 31.4 (10-20) H 03/29/23 07:49 Glucose 101 mg/dl (70-99(Fasting)) H 03/29/23 07:49 Lactate 7.4 mmol/L (0.4-2.0) H* 03/29/23 07:49 Calcium 10.6 mg/dl (8.6-10.3) H 03/29/23 07:49 Magnesium 2.1 mg/dl (1.7-2.4) 03/29/23 07:49 Total Bilirubin 0.7 mg/dl (0.2-1.0) 03/29/23 07:49 Direct Bilirubin 0.2 mg/dl (0-0.2) 03/29/23 07:49 AST 204 U/L (13-39) H 03/29/23 07:49 ALT 85 U/L (7-52) H 03/29/23 07:49 Alkaline Phosphatase 863 U/L (34-104) H 03/29/23 07:49 Troponin I High Sens 13.9 pg/ml (0-14) 03/29/23 07:49 Total Protein 6.3 gm/dl (6.0-8.3) 03/29/23 07:49 Albumin 3.5 gm/dl (3.4-5.0) 03/29/23 07:49 Procalcitonin 3.87 ng/ml (0-0.5) H 03/29/23 07:49 Blood Type O Positive 03/29/23 07:49 Antibody Screen NEGATIVE 03/29/23 07:49 Impressions Chest X-Ray 03/29/23 06:59 XR chest 1V portable CLINICAL HISTORY: Sepsis TECHNIQUE: Single frontal radiograph of the chest was obtained. Comparison: Comparison is made to chest radiograph 03/08/2023 and PET/CT on 05/17/2023 FINDINGS: No lines and tubes are seen. The cardiomediastinal silhouette is normal. Right lung underinflation is seen with underlying density compatible with known malignancy. No evidence of pleural effusion or pneumothorax. IMPRESSION: Atelectasis of the right lung with right chest density is compatible with known chest wall masses and metastatic disease. Superimposed pneumonia is considered less likely. ACT 112: Negative or not required by law. Electronically signed by: Tay Merida M.D. 03/29/2023 7:[address] 03/29/23 07:52 CT SCAN OF THE CHEST WITHOUT IV CONTRAST CLINICAL HISTORY: Dyspnea. Breast cancer. COMPARISON STUDY: Chest x-ray dated 03/29/2023. Chest CT dated 02/01/2023. PET/CT dated 03/01/2023. TECHNIQUE: CT scan of the thorax was performed from the thoracic inlet to the upper abdomen. Images are reviewed in the axial, sagittal, and coronal planes. IV contrast was not administered for this examination as per the referring cli nician. The examination is significant suboptimal without IV contrast. A dose lowering technique was utilized adhering to the principles of ALARA. CT DOSE: 306.11 mGy.cm FINDINGS: Thyroid: Imaged portions of the thyroid gland are normal in size and attenuation. Thoracic aorta: The thoracic aorta is normal in caliber and demonstrates standard 3-vessel arch anatomy. Heart: The heart is normal in size and without pericardial effusion. There is diminished attenuation of the cardiac blood pool as compared to the myocardium suggesting anemia. Lungs and pleural spaces: There is metastatic pleural disease throughout the right lung and a small right pleural effusion. Loculated fluid is seen along the right major fissure. Consolidation of the right lung base likely represents atelectasis. The left lung appears clear. Lower neck: There is bilateral supraclavicular lymphadenopathy. A left supraclavicular node on image #36 measures approximately 3 x 2.5 cm. Mediastinum: There is mediastinal lymphadenopathy. A precarinal node measures 13 mm short axis. There is likely a subcarinal node which is not well assessed without contrast. There is also diffuse internal mammary lymphadenopathy. Yamel: Not well assessed without IV contrast. Axillae: Axillary surgical clips are seen bilaterally. There is bulky bilateral axillary lymphadenopathy. A manufacturer's service representative left axillary/subpectoral lesion on the left measures approximately 5 x 3 cm. Upper abdomen: There is evidence of multifocal hepatic metastatic disease. A manufacturer's service representative lesion in the left lobe on image #153 measures 3.5 cm. There is marked asymmetrical cortical atrophy of the partially imaged left kidney. Skeletal structures: A rind of soft tissue around the lower thoracic spine is consistent with metastatic disease. There is no clear bony destruction. Metastatic disease is seen involving the sternum. Soft tissues: The patient is cachectic. Findings suggest bilateral mastectomy. Extensive metastatic disease is again seen throughout the chest wall. A manufacturer's service representative lesion in the right anterior chest on image #97 measures approximately 14 x 6.5 cm. A lesion in the right lateral chest wall on image #129 measures 4.4 x 3.2 cm. IMPRESSION: 1. Extensive multifocal metastatic disease as above. This has progressed as compared to 03/01/2023 PET examination. 2. There is bulky metastatic pleural disease seen in the right lung with a small right pleural effusion. 3. There is extensive/multifocal hepatic metastatic disease. This has significantly progressed from the prior PET. 4. Extensive metastatic disease throughout the chest wall, axillae, and supraclavicular region is again noted. There is also mediastinal and internal mammary lymphadenopathy. This has also progressed from previous. 5. Airspace consolidation at the right lung base likely resonance atelectasis. Correlate clinically. 6. There is a rind of abnormal soft tissue around the lower thoracic spine consistent with metastatic disease. There is no clear bony destruction of the underlying thoracic vertebral bodies. There is metastatic involvement of the sternum. 7. The left lung appears clear. 8. Additional findings as above. ACT 112: Negative or not required by law. Electronically signed by: Willian Jovel M.D. 03/29/2023 8:40 AM ECG Additional Comments: sinus tach, TWI anterior leads Code Status & VTE Plan Code Status DNR/DNI VTE Prophylaxis Plan VTE Prophylaxis will be ordered: Yes PG Care Time/CCT Total # of Minutes Spent Total Time Spent with Patient: Total time spent is greater than 50% in coordination of care (as documented) at patient's floor/unit and/or counseling patient: Coding Level of Care Code 99261 INT INP/OBS CARE 3/75MIN Diagnoses Acute respiratory failure J96.00 Tachycardia R00.0 Breast cancer metastasized to multiple sites C50.919 Deep vein thrombosis, upper right extremity I82.621 Hyponatremia E87.1 Anemia D64.9 Anemia type: unspecified type Lactic acidosis E87.20 Open wound of chest wall S21.101A Encounter type: initial encounter Laterality: right Cancer associated pain G89.3 (6) Anemia Anemia type: unspecified type Qualified Code(s): D64.9 - Anemia, unspecified (8) Open wound of chest wall Encounter type: initial encounter Laterality: right Qualified Code(s): S21.101A - Unspecified open wound of right front wall of thorax without penetration into thoracic cavity, initial encounter
[2023-03-29] MEDS ORDERED: NALOXONE HCL 0.4 MG/1 ML VIAL/CARP IV PRN (11:43)
--- NOTE | 2023-03-29 11:54 | Palliative Care Consultation ---
Date of Consultation March 29, 2023 Assessment & Plan (1) Dyspnea and respiratory abnormalities: Multifactorial dyspnea related to progressive and extensive multifocal metastatic disease. There is a bulky metastatic pleural disease noted in the right lung with small right pleural effusion. There is extrusion of the breast tumor lesions through the anterior chest wall. There is been continued disease progression noted on multiple imaging studies including the PET/CT from 03/01/[address] from 03/29/2023. She has persisting atelectasis at the right lung base. She is also tachycardic which is contributing to her dyspnea and air hunger. She has severe and uncontrolled cancer related pain which is also likely contributing to her anxiety, dyspnea and tachycardia. (2) Cancer associated pain: Gail received several doses of IV opioids without control of her pain have to include included the following: Morphine IV 4 mg, hydromorphone IV 0.5 mg, morphine IV 6 mg, hydromorphone IV 0.5 mg. (3) Nausea & vomiting: Vomiting type: unspecified Qualified Code(s): R11.2 - Nausea with vomiting, unspecified (4) Constipation due to opioid therapy: I have modified her bowel regimen to improve her opioid-induced constipation. (5) Advanced care planning/counseling discussion: I met with patient and her at the bedside, [id number], 11am-11:45am Gail tells me that she was having an earlier conversation with provider teams and had discussed CODE STATUS. She perceives that she "has to go on the ventilator" if her shortness of breath and heart rate issues do not resolve. We spoke at length about her desires and wishes at this junction. She is very clear that she does not wish to on a machine. She also does not wish to in the hospital. She tells me again today, as she has in clinic visits, that her time is short, she wants to be at home and with her family, especially her children. We discussed that although we cannot always guarantee healing or a cure, we can and must always care for the living, without ourselves shortening their life, but also without futilely resisting their . This approach is reflected in palliative care, which opposes what makes most terrifying and unwelcome - pain and loneliness. We spoke about the data on CPR survival: Only about 10% of patients who have out -of-hospital sudden cardiac arrest survive to hospital discharge, with many survivors having neurologic impairment. This rate is even lower among patients with serious coexisting conditions, ie chance of survival to hospital discharge for in-hospital CPR in older people is low to moderate (15%) and decreases with age, comorbidities, performance status and frailty: for pts > 70 yo, more than half of the patients who initially survived resuscitation in the hospital before hospital discharge. The pooled survival to discharge after in-hospital CPR was 18% for patients between 70 and 79 years old, 15% for patients between 80 and 89 years old and 11% for patients of 90 years and older. (Nguyễn HAYDENY, Calin LJ, Emily F, et al. Trends in short- and long-term survival among [id number] cardiac arrest patients alive at hospital arrival. Circulation 2014;130:4296-3055. AND Deshawn C, Viridiana T, Tamia R, et al. Performance of clinical risk scores to predict mortality and neurological outcome in cardiac arrest patients. Resuscitation 2019;136:21-29.) Gail elect DNR/DNI She would like to continue Abtx and see if she can feel better even if subjectively vs cancer getting "better" I returned later this afternoon with Dr Moore and met with pt and face to face for another 30min along with her cousin Shilpa who joined by teleconference at pt request We reviewed results of her scan this admission and labs which demonstrate rising liver fxn. Cancer is rapidly progressing and organ dysfunction is worsening, now across multiple organ systems. I very gently advised I believe she is heading to [facility] and time is running out. Likely days to few weeks. Dr Moore agreed and also advised she did not feel more chemo was going to help. She also noted the clinical trial is weeks away from starting and Gail is already too sick, unlikely she will be able to even tolerate trip to [facility] much less the therapies if she makes it to them - we anticipate continued rapid disease progression. Gail was aggrieved by this news and very clearly indicated desire to be with her children and if time is short. She expressed very appropriate sadness that this clinical trial was launching at a time that will be too late for her. She knows her time is short. She does not want to be in hospital more than is needed to stabilize/optimize her pain, dyspnea and infection. Then she wants to go home, with hospice and focus on QOL/comfort. SHE WILL NEED A PASSENGER VESSEL CHEF FOR HOME HOSPICE, THEREFORE REFER ONLY TO [facility]. PT IS NOT TAKING MUCH PO AND CANNOT SAFELY KEEP DOWN MEDS DUE TO PROGRESSIVE N/V SHE IS NOT HAVING OPTIMAL PAIN RELIEF DESPITE ESCALATING OPIOID DOSING AND ROTATION OF OPIOID MEDICATIONS DILAUDID PASSENGER VESSEL CHEF HAS BEEN STARTED TODAY TO TRY AND IMPROVE VERY SEVERE TERMINAL CANCER PAIN (6) Palliative care by specialist: Met with pt/family. Provided overview of Palliative Medicine, a subspecialty that provides specialized medical care for people living with a serious illness by offering a focus on quality of life. Palliative Medicine is often conflated with hospice: I advised patient/family that Palliative and hospice can be partners but we are not the same. It is important to understand the difference so that we may be informed, and not afraid. Palliative Medicine works to improve QOL through reduction of symptom burden/more control over their illness, for both the patient and family. Palliative medicine clinicians are board certified, specially-trained and another member of the patient's medical care team. We often provide an extra layer of support because our care is based on the needs of the patient, not the prognosis; as such, it's appropriate at any age/advancing stage of a serious illness and can be provided along with curative treatment. Palliative Medicine clinicians are also trained in advanced communication methodologies, to facilitate complex discussions about advanced illness planning, which are needed to help assure that the treatment choices match the patient's goals, aka delivering Goal Concordant care. Finally, we discussed that hospice is a visiting nurse service that focuses on care d elivered at the very end of life for patients with terminal illness, with life expectancy less than 6 month. (7) Open wound of chest wall: Encounter type: initial encounter Laterality: right Qualified Code(s): S21.101A - Unspecified open wound of right front wall of thorax without penetration into thoracic cavity, initial encounter (8) Acute respiratory failure: Respiratory failure complication: hypoxia Qualified Code(s): J96.01 - Acute respiratory failure with hypoxia (9) Breast cancer metastasized to multiple sites: Laterality: unspecified laterality Qualified Code(s): C50.919 - Malignant neoplasm of unspecified site of unspecified female breast Plan * Treat what's treatable, fix what's fixable - optimize for home hospice dc with IVF, Abtx, O2 support * Home with hospice when stable: SHE WILL NEED A PASSENGER VESSEL CHEF FOR HOME HOSPICE, THEREFORE REFER ONLY TO [facility]. * If she has acute decline in hospital, immediately move to comfort care * Code is DNR/DNI, reaffirmed with pt, then with pt, and her cousin * ALL updates for dc planning and hospice to go through Ling Trivedi/cousin and primary contact: [phone] please note Ling is best option as she is the easiest to reach and has no language barriers/packaging line attendant need for Tristanian to Persian as would be needed if calling pt mother or . * Letter for court written, printed on letter head and hand delivered to at bedside. * Primary team, nursing, oncology updated Thank you for allowing us to participate in the ongoing care of this patient. Please don't hesitate to call or page with any additional concerns. Dr. Vivien Stack DNP Director, Palliative Care History of Present Illness Reason for Consultation: metastatic breast CA, goals of care,pain control Attending Physician: Angelina Salgado MD History of Present Illness Gail is well known to me from prior admissions and outpatient [facility] clinic She has recurrent right breast triple negative cancer. She is status post neoadjuvant systemic therapy and has historically received the following: Pembrolizumab, carboplatin, paclitaxel, (keynote 522 trial), partial mastectomy 08/05/2020, RADCOMP trial at [facility], recurrent breast malignancy diagnosed 06/15/2022 and she started neoadjuvant Doxil Taxol, cyclophosphamide. Received cycle 3 of docetaxel cyclophosphamide with a mixed response. She was then switched to carboplatin, docetaxel and pembrolizumab for approximately 4-6 cycles with a decent response and switch back to docetaxel cyclophosphamide pembrolizumab 10/18/2022. In November 2022 she underwent a bilateral mastectomy at [facility]. 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 This was also confirmed in the right breast pathology. In late November, she started Trodelvy for disease progression. This was discontinued after cycle 1 day 8 of treatment due to an increase in the size of her breast tumor. On January 02, 2023, she received cycle 1 day 8 of treatment. Unfortunately, her anterior chest wall tumors continue to increase in size of the tumor around her right supraclavicular area has doubled. She was then switched to eribulin therapy. A CAT scan done February 01, 2023 showed disease progression and she opted to retry Jadony. PET/CT on 03/01/2023 was consistent for disease significant disease progression of metastatic disease with progression of bilateral breast and chest wall masses, lymphadenopathy, development of multiple skeletal metastatic and several hepatic metastatic foci, moderately sized loculated malignant right pleural effusion and moderate stool retention. She received cycle 1 liposomal doxorubicin/gemcitabine on 03/06/2023. She has unfortunately had multiple readmissions for infection and sepsis related complications. Her anterior chest wall tumors continue to progress. She has had numerous conversations with both myself and Dr. Sheikh in oncology clinic with regards to an extremely poor prognosis. Clinical exam continues to demonstrate a tumor that appears to be rapidly increasing in size. Her chest wall continues to have secondary infections with septic complications due to this malignancy. Prior discussions with patient and family were held with regards to a transition that would be more comfort and quality of life focused with the addition of hospice. I met with patient today at the bedside in the emergency department, B02. Her is also present. She tells me that she is having very severe pain. Her current medications are not controlling her pain adequately. Gail tells me she is having very severe and uncontrolled pain in her anterior chest wall lesions as well as her right upper extremity. She is also feeling it extremely difficult to move around. Pain has been limiting her to the point where she spends most of her time in her bedroom. She is no longer able to get out of bed and join her children at the dinner table. She finds it more distressing to be unable to have that time with her family as she greatly prioritizes the need to be with her children. She is needing assistance with nearly all aspects of her daily life. Appetite is diminished. She has likely been losing more weight but has not weighed herself recently. She is feeling very weak and tired. She is in a resting position over 90% of the day. She is not doing any type of sustained or physical activity. Her mood has been declining. She tells me that she feels her energy leaving her body. She is also not feeling significantly short of breath and starting to feel more panic when the diet did not sukhjinder overnight, ultimately making a decision to come to the emergency department further evaluation. On arrival here it is noted that she was tachycardic And tachypnea. Initial workup in the ED demonstrates white blood cell count of 10.53, hemoglobin 7.6 and hematocrit 24.1 Her platelets are 74 Lactate is elevated at 4.3. AST is 204, ALT is 85, alkaline phos is 863. Procalcitonin is markedly elevated at 3.7. Chest CT done earlier this morning demonstrated the following findings: Extensive multifocal metastatic disease. This is progressed compared to the 03/01/2023 PET/CT. There is bulky metastatic pleural disease seen in the right lung with a small right pleural effusion There is extensive multifocal hepatic metastatic disease. This is significantly progressed from prior PET/CT. Extensive metastatic disease throughout the chest wall, axilla and supraclavicular region is again noted. There is also mediastinal and internal mammary lymphadenopathy. This is also progressed from previous. Airspace consolidation at the right lung base likely residence atelectasis. Correlate clinically. There is a rind of abnormal soft tissue around the lower thoracic spine c onsistent with metastatic disease there is no clear bony destruction of the underlying thoracic vertebral body. There is metastatic involvement of the sternum. Left lung appears clear. Allergies Allergy/AdvReac Type Severity Reaction Status Date / Time No Known Allergies Allergy Verified 03/07/23 23:51 Home Medications Medication Instructions Recorded Confirmed Type mirtazapine 15 mg tablet 15 mg PO HS 01/31/23 03/29/23 History oxycodone 30 mg tablet,crush 30 mg PO BID very severe 02/16/23 03/29/23 Rx resistant,extended release 12 hr metastatic cancer pain 1 month #60 (OxyContin) tabs olanzapine 2.5 mg tablet 2.5 mg PO DIRECTED nausea 02/21/23 03/29/23 History potassium chloride 20 mEq oral 20 meq PO DAILY #30 ea 02/25/23 03/29/23 Rx packet gabapentin 300 mg capsule See Rx Instructions .Route .COMPLEX 03/07/23 03/29/23 History ciprofloxacin HCl 500 mg tablet 500 mg PO BID #28 tabs 03/09/23 03/29/23 Rx (Cipro) enoxaparin 60 mg/0.6 mL 50 mg (0.5 mL) subcut Q12H #60 mL 03/09/23 03/29/23 Rx subcutaneous syringe ondansetron HCl 8 mg tablet 8 mg PO Q8 PRN Nausea And Vomiting 03/16/23 03/29/23 Rx 1 month #120 tabs polyethylene glycol 3350 17 17 g PO DAILY OIC 1 month #510 03/16/23 03/29/23 Rx gram/dose oral powder (Miralax) grams hydromorphone 4 mg tablet 4 mg PO Q4H PRN breakthrough 03/17/23 03/29/23 Rx (Dilaudid) cancer pain #100 tabs senna 2 tab PO BID constipation 03/29/23 03/29/23 History sulfamethoxazole 800 1 tab PO BID 03/29/23 03/29/23 History mg-trimethoprim 160 mg tablet Patient History Medical History (Updated 03/29/23 @ 13:08 by Max Sam DO) Advanced care planning/counseling discussion Constipation due to opioid therapy Palliative care by specialist Breast cancer metastasized to multiple sites Cancer associated pain Pseudomonas aeruginosa infection Chest wall abscess Streptococcal bacteremia Septic shock Metastatic malignant neoplasm to breast Stage IV metastatic ductal carcinoma. Aggressive disease. Continued and persistent disease progression on multiple lines of chemotherapy. Radiation burn Open wound of chest wall Metastatic breast cancer Depression Ureteral obstruction History of anemia HX: breast cancer s/p right lumpectomy, chemo, xrt (no limb restriction) Hydronephrosis History of COVID-19 Early 01/2022 > symptoms resolved Surgical History Nephrostomy status S/P bilateral mastectomy History of hysterectomy History of section X 2 H/O myomectomy History of appendectomy H/O lumpectomy Right [place] teeth removed Family History Grandmother (Maternal) Lung cancer Grandmother (Paternal) Ovarian cancer Other No family history of adverse response to anesthesia Social History Smoking Status: Never smoker Second Hand Exposure: No; Do You Dip or Chew Tobacco: No; Hx Alcohol Use: No Hx Substance Use: No Preferred Language: Persian Communication Ability: Effective Visual Impairment: No Limitations Director Life Insurance Required: No Beliefs That Will Affect Care: None marital status: Current Living Situation: Parent and Family current occupational status: employed current occupation: [employer] Feels Safe at Home: Yes Assistive Devices: None Review of Systems Review of Systems: All systems reviewed & are unremarkable except as noted in Subjective Physical Exam Physical Exam: Frail, cachectic, chronically critically ill-appearing young female lying in ED stretcher. Bitemporal wasting. Chemo related alopecia. Pupils are equal, round and reactive to light. Extraocular movements are intact. Mood is very subdued and anxious. Respiratory distress is noted with tachypnea, respiratory rate noted to be in the 30s. There is no stridor. There is mild JVD. Breath sounds are overall diminished, right more than left. Chest wall demonstrates a protrusion of cancer lesions, this is progressed since last evaluation with me in clinic on 03/16/2023. These remain tender to even mild examination. Tachycardic, S1-S2 Abdomen is scaphoid. Right upper extremity edema noted. This is tender to palpation throughout. No significant lower extremity edema. Muscle wasting appreciated. No calf tenderness. She is awake, alert and oriented x 3. She is able to follow commands. Generalized weakness noted throughout. Skin is pale, warm to touch. Results & Data Vital Signs (Past 12 Hours) Vital Signs Temp Pulse Pulse Resp BP BP Pulse Ox 03/29/23 11:30 129 H 03/29/23 11:00 129 H 43 H 127/83 100 03/29/23 11:00 100 03/29/23 09:00 133 H 53 H 100 03/29/23 09:00 108/79 03/29/23 08:50 133 H 46 H 100 03/29/23 08:40 133 H 47 H 100 03/29/23 08:30 126/80 03/29/23 08:30 133 H 48 H 100 03/29/23 08:20 134 H 33 H 100 03/29/23 08:00 135 H 51 H 100 03/29/23 08:00 120/76 03/29/23 07:53 143 H 49 H 100 03/29/23 07:53 117/85 03/29/23 07:50 144 H 51 H 100 03/29/23 07:40 139 H 43 H 100 03/29/23 07:30 138 H 46 H 100 03/29/23 07:23 142 H 50 H 100 03/29/23 07:23 142 H 50 H 113/83 100 03/29/23 07:23 100 03/29/23 07:23 03/29/23 07:20 142 H 47 H 03/29/23 07:20 112/80 03/29/23 07:10 141 H 52 H 100 03/29/23 07:06 142 H 54 H 100 03/29/23 07:06 113/83 03/29/23 07:03 149 H 03/29/23 07:00 149 H 12 03/29/23 06:45 36.5 C 158 H 24 130/93 100 O2 Del Method O2 Flow Rate 03/29/23 11:30 03/29/23 11:00 Nasal Cannula 2 03/29/23 11:00 Room Air 03/29/23 09:00 03/29/23 09:00 03/29/23 08:50 03/29/23 08:40 03/29/23 08:30 03/29/23 08:30 03/29/23 08:20 03/29/23 08:00 03/29/23 08:00 03/29/23 07:53 03/29/23 07:53 03/29/23 07:50 03/29/23 07:40 03/29/23 07:30 03/29/23 07:23 Room Air 03/29/23 07:23 Room Air 03/29/23 07:23 Room Air 03/29/23 07:23 Room Air 03/29/23 07:20 03/29/23 07:20 03/29/23 07:10 03/29/23 07:06 03/29/23 07:06 03/29/23 07:03 03/29/23 07:00 03/29/23 06:45 Room Air Laboratory Results see HPI, data reviewed Diagnostic Findings CT SCAN OF THE CHEST WITHOUT IV CONTRAST CLINICAL HISTORY: Dyspnea. Breast cancer. COMPARISON STUDY: Chest x-ray dated 03/29/2023. Chest CT dated 02/01/2023. PET/CT dated 03/01/2023. TECHNIQUE: CT scan of the thorax was performed from the thoracic inlet to the upper abdomen. Images are reviewed in the axial, sagittal, and coronal planes. IV contrast was not administered for this examination as per the referring clinician. The examination is significant suboptimal without IV contrast. A dose lowering technique was utilized adhering to the principles of ALARA. CT DOSE: 306.11 mGy.cm FINDINGS: Thyroid: Imaged portions of the thyroid gland are normal in size and attenuation. Thoracic aorta: The thoracic aorta is normal in caliber and demonstrates standard 3-vessel arch anatomy. Heart: The heart is normal in size and without pericardial effusion. There is diminished attenuation of the cardiac blood pool as compared to the myocardium suggesting anemia. Lungs and pleural spaces: There is metastatic pleural disease throughout the right lung and a small right pleural effusion. Loculated fluid is seen along the right major fissure. Consolidation of the right lung base likely represents atelectasis. The left lung appears clear. Lower neck: There is bilateral supraclavicular lymphadenopathy. A left supraclavicular node on image #36 measures approximately 3 x 2.5 cm. Mediastinum: There is mediastinal lymphadenopathy. A precarinal node measures 13 mm short axis. There is likely a subcarinal node which is not well assessed without contrast. There is also diffuse internal mammary lymphadenopathy. Yamel: Not well assessed without IV contrast. Axillae: Axillary surgical clips are seen bilaterally. There is bulky bilateral axillary lymphadenopathy. A operations support representative left axillary/subpectoral lesion on the left measures approximately 5 x 3 cm. Upper abdomen: There is evidence of multifocal hepatic metastatic disease. A operations support representative lesion in the left lobe on image #153 measures 3.5 cm. There is marked asymmetrical cortical atrophy of the partially imaged left kidney. Skeletal structures: A rind of soft tissue around the lower thoracic spine is consistent with metastatic disease. There is no clear bony destruction. Metastatic disease is seen involving the sternum. Soft tissues: The patient is cachectic. Findings suggest bilateral mastectomy. Extensive metastatic disease is again seen throughout the chest wall. A operations support representative lesion in the right anterior chest on image #97 measures approximately 14 x 6.5 cm. A lesion in the right lateral chest wall on image #129 measures 4.4 x 3.2 cm. PG Care Time/CCT Total # of Minutes Spent Total Time Spent: 135 Total Time Spent with Patient: Total time spent is greater than 50% in coordination of care (as documented) at patient's floor/unit and/or counseling patient: I spent 135 minutes overall addressing this very complex case over multiple visits today: 10 min in medical data review/discussion with referring provider(s) and/or preparation for the visit 25 min in direct interaction with the patient/exam 60 min in Advance Care Planning/Goals of Care discussions as detailed above in note (must be >16min) 15 min in subsequent review and synthesis of assessment and plan 25 min communicating with other providers regarding the patient's case: Primary team, nursing, oncology updated Advanced Care Planning 23008 Advanced Care Planning 30 Min 82352 Advanced Care Planning Additional 30 [place] [address] IN/OBS CONSULT LVL 5,80M Patient Type New History Comprehensive Exam Comprehensive Medical Decision Making High Complexity Diagnoses Dyspnea and respiratory abnormalities R06.00; R06.89 Cancer associated pain G89.3 Nausea and vomiting, unspecified vomiting type R11.2 Vomiting type: unspecified Constipation due to opioid therapy K59.03; T40.2X5A Advanced care planning/counseling discussion Z71.89 Palliative care by specialist Z51.5 Open wound of chest wall S21.101A Encounter type: initial encounter Laterality: right Acute respiratory failure with hypoxia J96.01 Respiratory failure complication: hypoxia Carcinoma of breast metastatic to multiple sites, unspecified laterality C50.919 Laterality: unspecified laterality Additional Codes Advanced Care Planning - 37081 Advanced Care Planning 30 Min: 17118 Advanced Care Planning 30 Min ([id number]) Advanced Care Planning - 64416 Advanced Care Planning Additional 30 Min: 41679 Advanced Care Planning Additional 30 Min ([id number])
[2023-03-29] MEDS ORDERED: HYDROmorphone HCL 4 MG TAB PO PRN (12:14)
[2023-03-29] MEDS ORDERED: GABAPENTIN 300 MG CAP PO SCH (12:14)
[2023-03-29] MEDS ORDERED: HYDROmorphone INJ 0.5 MG/0.5 ML SYR IV PRN (12:14)
[2023-03-29] MEDS ORDERED: ACETAMINOPHEN 325 MG TAB PO PRN (12:14)
[2023-03-29] MEDS ORDERED: ONDANSETRON INJ 2 MG/ML 2 ML VIAL IV PRN (12:14)
[2023-03-29] MEDS ORDERED: HYDROmorphone HCL 2 MG TAB PO PRN (12:25)
[2023-03-29] MEDS: oxyCODONE HCL 10 MG TABCR (OxyCONTIN) PO SCH (12:57)
--- NOTE | 2023-03-29 13:07 | Oncology Consultation ---
Date of Consultation March 29, 2023 Assessment & Plan (1) Breast cancer metastasized to multiple sites: (2) Shortness of breath: (3) Tachycardia: Plan - Recent imaging suggestive of significant disease progression within less than 4 weeks. Although enrolled in clinical trial at [facility], patient appears very weak and cachectic. Labs also show worsening transaminitis likely secondary to bulky metastatic liver disease. Shantel and Suri Davis of palliative care had a long conversation with patient, her partner and cousin (Ling-over the phone). Discussed imaging findings, labs and current clinical status. Explained to them that given current clinical status and overall poor prognosis, would recommend she strongly consider transitioning to hospice. Following our discussion, she agreed with transitioning to hospice when clinically more stable Thank you for this consult. Oncology will follow while patient is in the hospital. Please feel free to call if you have any further questions. 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 She has progressed on multiple lines of treatment and recently enrolled in clinical trial at [facility]. Presented to the ER with worsening shortness of breath. Vital signs significant for tachycardia, tachypnea. Labs in ER significant for anemia with hemoglobin of 7.6, hematocrit of 24.1 and thrombocytopenia platelet count of 74,000. Chemistry significant for hyponatremia with sodium of 128, chloride of 90, elevated calcium of 10.6. Transaminitis with AST of 204, ALT of 85 and significantly elevated alkaline phosphatase of 863. CT chest on 03/29/2023 revealed extensive metastatic disease which had progressed when compared with 03/01/2023 PET examination with bulky metastatic pleural disease in the right lung, small right pleural effusion, extensive/multifocal hepatic metastatic disease significantly progressed, extensive metastatic disease throughout the chest wall, axilla and supraclavicular region with mediastinal and internal mammary lymphadenopathy as well as rind of abnormal soft tissue around the lower thoracic spine consistent with metastatic disease. Allergies Allergy/AdvReac Type Severity Reaction Status Date / Time No Known Allergies Allergy Verified 03/07/23 23:51 Home Medications Medication Instructions Recorded Confirmed Type mirtazapine 15 mg tablet 15 mg PO HS 01/31/23 03/29/23 History oxycodone 30 mg tablet,crush 30 mg PO BID very severe 02/16/23 03/29/23 Rx resistant,extended release 12 hr metastatic cancer pain 1 month #60 (OxyContin) tabs olanzapine 2.5 mg tablet 2.5 mg PO DIRECTED nausea 02/21/23 03/29/23 History potassium chloride 20 mEq oral 20 meq PO DAILY #30 ea 02/25/23 03/29/23 Rx packet gabapentin 300 mg capsule See Rx Instructions .Route .COMPLEX 03/07/23 03/29/23 History ciprofloxacin HCl 500 mg tablet 500 mg PO BID #28 tabs 03/09/23 03/29/23 Rx (Cipro) enoxaparin 60 mg/0.6 mL 50 mg (0.5 mL) subcut Q12H #60 mL 03/09/23 03/29/23 Rx subcutaneous syringe ondansetron HCl 8 mg tablet 8 mg PO Q8 PRN Nausea And Vomiting 03/16/23 03/29/23 Rx 1 month #120 tabs polyethylene glycol 3350 17 17 g PO DAILY OIC 1 month #510 03/16/23 03/29/23 Rx gram/dose oral powder (Miralax) grams hydromorphone 4 mg tablet 4 mg PO Q4H PRN breakthrough 03/17/23 03/29/23 Rx (Dilaudid) cancer pain #100 tabs senna 2 tab PO BID constipation 03/29/23 03/29/23 History sulfamethoxazole 800 1 tab PO BID 03/29/23 03/29/23 History mg-trimethoprim 160 mg tablet Patient History Medical History (Updated 03/29/23 @ 13:08 by Max Sam DO) Advanced care planning/counseling discussion Constipation due to opioid therapy Palliative care by specialist Breast cancer metastasized to multiple sites Cancer associated pain Pseudomonas aeruginosa infection Chest wall abscess Streptococcal bacteremia Septic shock Metastatic malignant neoplasm to breast Stage IV metastatic ductal carcinoma. Aggressive disease. Continued and persistent disease progression on multiple lines of chemotherapy. Radiation burn Open wound of chest wall Metastatic breast cancer Depression Ureteral obstruction History of anemia HX: breast cancer s/p right lumpectomy, chemo, xrt (no limb restriction) Hydronephrosis History of COVID-19 Early 01/2022 > symptoms resolved Surgical History Nephrostomy status S/P bilateral mastectomy History of hysterectomy History of section X 2 H/O myomectomy History of appendectomy H/O lumpectomy Right Max teeth removed Family History Grandmother (Maternal) Lung cancer Grandmother (Paternal) Ovarian cancer Other No family history of adverse response to anesthesia Social History Smoking Status: Never smoker Second Hand Exposure: No; Do You Dip or Chew Tobacco: No; Hx Alcohol Use: No Hx Substance Use: No Preferred Language: Frisian Communication Ability: Effective Visual Impairment: No Limitations [employer] Required: No Beliefs That Will Affect Care: None marital status: Current Living Situation: Parent and Family current occupational status: employed current occupation: [employer] Feels Safe at Home: Yes Assistive Devices: None Results & Data Vital Signs (Past 12 Hours) Vital Signs Temp Pulse Pulse Resp BP BP Pulse Ox 03/29/23 12:30 128 H 36 H 118/77 100 03/29/23 12:14 03/29/23 12:04 36.8 C 03/29/23 12:00 129 H 38 H 114/76 100 03/29/23 11:30 134 H 43 H 125/82 100 03/29/23 11:30 129 H 03/29/23 11:00 129 H 43 H 127/83 100 03/29/23 11:00 100 03/29/23 09:00 133 H 53 H 100 03/29/23 09:00 108/79 03/29/23 08:50 133 H 46 H 100 03/29/23 08:40 133 H 47 H 100 03/29/23 08:30 126/80 03/29/23 08:30 133 H 48 H 100 03/29/23 08:20 134 H 33 H 100 03/29/23 08:00 135 H 51 H 100 03/29/23 08:00 120/76 03/29/23 07:53 143 H 49 H 100 03/29/23 07:53 117/85 03/29/23 07:50 144 H 51 H 100 03/29/23 07:40 139 H 43 H 100 03/29/23 07:30 138 H 46 H 100 03/29/23 07:23 142 H 50 H 100 03/29/23 07:23 142 H 50 H 113/83 100 03/29/23 07:23 100 03/29/23 07:23 03/29/23 07:20 142 H 47 H 03/29/23 07:20 112/80 03/29/23 07:10 141 H 52 H 100 03/29/23 07:06 142 H 54 H 100 03/29/23 07:06 113/83 03/29/23 07:03 149 H 03/29/23 07:00 149 H 12 03/29/23 06:45 36.5 C 158 H 24 130/93 100 O2 Del Method O2 Flow Rate 03/29/23 12:30 Nasal Cannula 2 03/29/23 12:14 Room Air 03/29/23 12:04 03/29/23 12:00 Nasal Cannula 2 03/29/23 11:30 Nasal Cannula 2 03/29/23 11:30 03/29/23 11:00 Nasal Cannula 2 03/29/23 11:00 Room Air 03/29/23 09:00 03/29/23 09:00 03/29/23 08:50 03/29/23 08:40 03/29/23 08:30 03/29/23 08:30 03/29/23 08:20 03/29/23 08:00 03/29/23 08:00 03/29/23 07:53 03/29/23 07:53 03/29/23 07:50 03/29/23 07:40 03/29/23 07:30 03/29/23 07:23 Room Air 03/29/23 07:23 Room Air 03/29/23 07:23 Room Air 03/29/23 07:23 Room Air 03/29/23 07:20 03/29/23 07:20 03/29/23 07:10 03/29/23 07:06 03/29/23 07:06 03/29/23 07:03 03/29/23 07:00 03/29/23 06:45 Room Air (1) Breast cancer metastasized to multiple sites Laterality: unspecified laterality Qualified Code(s): C50.919 - Malignant neoplasm of unspecified site of unspecified female breast
--- NOTE | 2023-03-29 13:44 | Pharmacy Report ---
Pharmacy PK ABX Note - Date of Service March 29, 2023 - Assessment and Plan Assessment 33 year old F receiving vancomcyin for empiric treatment, SOB, hx of metastatic breast cancer. Pertinent microbiologic data includes: recent chest culture with MSSA, previous breast cultures with Pseudomonas aeruginosa, MSSA. GRP A strep bacteremia 02/21/23. Plan Vancomycin * Loading dose: 1000 mg IV x 1 * Maintenance dose: 750 mg IV every 8 hours * Regimen is predicted to achieve target AUC/TRINH of 400-600 mg/L.hr * Random level for 03/30 @0405 Pharmacy will continue to follow and will adjust dose/frequency as necessary. Thank you. Pharmacy has transitioned to AUC monitoring for vancomycin. AUC/TRINH is the preferred PK/PD target and is associated with decreased risk of nephrotoxicity compared to traditional trough targets.
[2023-03-29] MEDS: HYDROmorphone PCA 30 MG/30 ML IV PRN (13:56)
--- NOTE | 2023-03-29 14:06 | Pulmonary Consultation ---
Date of Consultation March 29, 2023 Assessment & Plan (1) Shortness of breath: Plan Impression: 33-year-old female with advanced breast cancer. She presented with shortness of breath and appears to have advancing disease despite aggressive therapies. She has a small pleural effusion which is not amenable to thoracentesis and a small to moderate-sized pseudotumor (loculated fluid in the fissure) which is not amenable to intervention either. Recommendations: 1. Pleural effusion: Too small to consider thoracentesis and unlikely to be causing any significant pulmonary symptoms. Patient has multiple pleural implants which are likely causing her problems. After discussion with palliative care and medical oncology there is better decision made to pursue palliative care and hospice at home which certainly seems reasonable. Would recommend continued palliation of the patient's symptoms. No indication for Pleurx catheter or additional pleural procedures at this point in time. The above recommendations and plan were discussed with the patient as well as with at bedside. Questions were answered. They are in agreement with and understand the plan moving forward. Pulmonary will sign off. Feel free to contact us with questions or concerns History of Present Illness Attending Physician: Angelina Salgado MD History of Present Illness Asked by hospitalist to evaluate this patient with potential pleural effusion. History is obtained from review electronic medical record and discussion with the patient. Patient is a 33-year-old female with advanced breast cancer. She has known pleural metastatic disease and has had an effusion in the past. She presented to the emergency room with shortness of breath. A CT scan was performed which revealed a loculated fluid collection within the fissure and multiple pleural implants but the free-flowing effusion was small on the right. She is hypoxemic and tachycardic. Pulmonary was consulted for evaluation of the effusion. The patient denies fevers or chills. Pain is not adequately controlled. She is just been seen by palliative care and oncology with plans to dismiss home on home hospice. Allergies Allergy/AdvReac Type Severity Reaction Status Date / Time No Known Allergies Allergy Verified 03/07/23 23:51 Home Medications Medication Instructions Recorded Confirmed Type mirtazapine 15 mg tablet 15 mg PO HS 01/31/23 03/29/23 History oxycodone 30 mg tablet,crush 30 mg PO BID very severe 02/16/23 03/29/23 Rx resistant,extended release 12 hr metastatic cancer pain 1 month #60 (OxyContin) tabs olanzapine 2.5 mg tablet 2.5 mg PO DIRECTED nausea 02/21/23 03/29/23 History potassium chloride 20 mEq oral 20 meq PO DAILY #30 ea 02/25/23 03/29/23 Rx packet gabapentin 300 mg capsule See Rx Instructions .Route .COMPLEX 03/07/23 03/29/23 History ciprofloxacin HCl 500 mg tablet 500 mg PO BID #28 tabs 03/09/23 03/29/23 Rx (Cipro) enoxaparin 60 mg/0.6 mL 50 mg (0.5 mL) subcut Q12H #60 mL 03/09/23 03/29/23 Rx subcutaneous syringe ondansetron HCl 8 mg tablet 8 mg PO Q8 PRN Nausea And Vomiting 03/16/23 03/29/23 Rx 1 month #120 tabs polyethylene glycol 3350 17 17 g PO DAILY OIC 1 month #510 03/16/23 03/29/23 Rx gram/dose oral powder (Miralax) grams hydromorphone 4 mg tablet 4 mg PO Q4H PRN breakthrough 03/17/23 03/29/23 Rx (Dilaudid) cancer pain #100 tabs senna 2 tab PO BID constipation 03/29/23 03/29/23 History sulfamethoxazole 800 1 tab PO BID 03/29/23 03/29/23 History mg-trimethoprim 160 mg tablet Patient History Medical History (Updated 03/29/23 @ 13:08 by Max Sam DO) Advanced care planning/counseling discussion Constipation due to opioid therapy Palliative care by specialist Breast cancer metastasized to multiple sites Cancer associated pain Pseudomonas aeruginosa infection Chest wall abscess Streptococcal bacteremia Septic shock Metastatic malignant neoplasm to breast Stage IV metastatic ductal carcinoma. Aggressive disease. Continued and persistent disease progression on multiple lines of chemotherapy. Radiation burn Open wound of chest wall Metastatic breast cancer Depression Ureteral obstruction History of anemia HX: breast cancer s/p right lumpectomy, chemo, xrt (no limb restriction) Hydronephrosis History of COVID-19 Early 01/2022 > symptoms resolved Surgical History Nephrostomy status S/P bilateral mastectomy History of hysterectomy History of section X 2 H/O myomectomy History of appendectomy H/O lumpectomy Right [place] teeth removed Family History Grandmother (Maternal) Lung cancer Grandmother (Paternal) Ovarian cancer Other No family history of adverse response to anesthesia Social History Smoking Status: Never smoker Second Hand Exposure: No; Do You Dip or Chew Tobacco: No; Hx Alcohol Use: No Hx Substance Use: No Preferred Language: Indonesian Communication Ability: Effective Visual Impairment: No Limitations Cosmetic Counselor Required: No Beliefs That Will Affect Care: None marital status: Current Living Situation: Parent and Family current occupational status: employed current occupation: [employer] Feels Safe at Home: Yes Assistive Devices: None Review of Systems Review of Systems: Per admission H&P Physical Exam Physical Exam: Frail, cachectic, chronically critically ill-appearing young female lying in ED stretcher. Bitemporal wasting. Chemo related alopecia. Pupils are equal, round and reactive to light. Extraocular movements are intact. Mood is very subdued and anxious. Respiratory distress is noted with tachypnea, respiratory rate noted to be in the 30s. There is no stridor. There is mild JVD. Breath sounds are overall diminished, right more than left. Chest wall demonstrates a protrusion of cancer lesions, this is progressed since last evaluation with me in clinic on 03/16/2023. These remain tender to even mild examination. Tachycardic, S1-S2 Abdomen is scaphoid. Right upper extremity edema noted. This is tender to palpation throughout. No significant lower extremity edema. Muscle wasting appreciated. No calf tenderness. She is awake, alert and oriented x 3. She is able to follow commands. Generalized weakness noted throughout. Skin is pale, warm to touch. Results & Data Results & Data Vital Signs (Past 12 Hours) Vital Signs Temp Pulse Pulse Resp BP BP Pulse Ox 03/29/23 12:30 128 H 36 H 118/77 100 03/29/23 12:14 03/29/23 12:04 36.8 C 03/29/23 12:00 129 H 38 H 114/76 100 03/29/23 11:30 134 H 43 H 125/82 100 03/29/23 11:30 129 H 03/29/23 11:00 129 H 43 H 127/83 100 03/29/23 11:00 100 03/29/23 09:00 133 H 53 H 100 03/29/23 09:00 108/79 03/29/23 08:50 133 H 46 H 100 03/29/23 08:40 133 H 47 H 100 03/29/23 08:30 126/80 03/29/23 08:30 133 H 48 H 100 03/29/23 08:20 134 H 33 H 100 03/29/23 08:00 135 H 51 H 100 03/29/23 08:00 120/76 03/29/23 07:53 143 H 49 H 100 03/29/23 07:53 117/85 03/29/23 07:50 144 H 51 H 100 03/29/23 07:40 139 H 43 H 100 03/29/23 07:30 138 H 46 H 100 03/29/23 07:23 142 H 50 H 100 03/29/23 07:23 142 H 50 H 113/83 100 03/29/23 07:23 100 03/29/23 07:23 03/29/23 07:20 142 H 47 H 03/29/23 07:20 112/80 03/29/23 07:10 141 H 52 H 100 03/29/23 07:06 142 H 54 H 100 03/29/23 07:06 113/83 03/29/23 07:03 149 H 03/29/23 07:00 149 H 12 03/29/23 06:45 36.5 C 158 H 24 130/93 100 O2 Del Method O2 Flow Rate 03/29/23 12:30 Nasal Cannula 2 03/29/23 12:14 Room Air 03/29/23 12:04 03/29/23 12:00 Nasal Cannula 2 03/29/23 11:30 Nasal Cannula 2 03/29/23 11:30 03/29/23 11:00 Nasal Cannula 2 03/29/23 11:00 Room Air 03/29/23 09:00 03/29/23 09:00 03/29/23 08:50 03/29/23 08:40 03/29/23 08:30 03/29/23 08:30 03/29/23 08:20 03/29/23 08:00 03/29/23 08:00 03/29/23 07:53 03/29/23 07:53 03/29/23 07:50 03/29/23 07:40 03/29/23 07:30 03/29/23 07:23 Room Air 03/29/23 07:23 Room Air 03/29/23 07:23 Room Air 03/29/23 07:23 Room Air 03/29/23 07:20 03/29/23 07:20 03/29/23 07:10 03/29/23 07:06 03/29/23 07:06 03/29/23 07:03 03/29/23 07:00 03/29/23 06:45 Room Air Critical Care Results & Data Vital Signs (Past 12 Hours) Vital Signs Temp Pulse Pulse Resp BP BP Pulse Ox 03/29/23 12:30 128 H 36 H 118/77 100 03/29/23 12:14 03/29/23 12:04 36.8 C 03/29/23 12:00 129 H 38 H 114/76 100 03/29/23 11:30 134 H 43 H 125/82 100 03/29/23 11:30 129 H 03/29/23 11:00 129 H 43 H 127/83 100 03/29/23 11:00 100 03/29/23 09:00 133 H 53 H 100 03/29/23 09:00 108/79 03/29/23 08:50 133 H 46 H 100 03/29/23 08:40 133 H 47 H 100 03/29/23 08:30 126/80 03/29/23 08:30 133 H 48 H 100 03/29/23 08:20 134 H 33 H 100 03/29/23 08:00 135 H 51 H 100 03/29/23 08:00 120/76 03/29/23 07:53 143 H 49 H 100 03/29/23 07:53 117/85 03/29/23 07:50 144 H 51 H 100 03/29/23 07:40 139 H 43 H 100 03/29/23 07:30 138 H 46 H 100 03/29/23 07:23 142 H 50 H 100 03/29/23 07:23 142 H 50 H 113/83 100 03/29/23 07:23 100 03/29/23 07:23 03/29/23 07:20 142 H 47 H 03/29/23 07:20 112/80 03/29/23 07:10 141 H 52 H 100 03/29/23 07:06 142 H 54 H 100 03/29/23 07:06 113/83 03/29/23 07:03 149 H 03/29/23 07:00 149 H 12 03/29/23 06:45 36.5 C 158 H 24 130/93 100 O2 Del Method O2 Flow Rate 03/29/23 12:30 Nasal Cannula 2 03/29/23 12:14 Room Air 03/29/23 12:04 03/29/23 12:00 Nasal Cannula 2 03/29/23 11:30 Nasal Cannula 2 03/29/23 11:30 03/29/23 11:00 Nasal Cannula 2 03/29/23 11:00 Room Air 03/29/23 09:00 03/29/23 09:00 03/29/23 08:50 03/29/23 08:40 03/29/23 08:30 03/29/23 08:30 03/29/23 08:20 03/29/23 08:00 03/29/23 08:00 03/29/23 07:53 03/29/23 07:53 03/29/23 07:50 03/29/23 07:40 03/29/23 07:30 03/29/23 07:23 Room Air 03/29/23 07:23 Room Air 03/29/23 07:23 Room Air 03/29/23 07:23 Room Air 03/29/23 07:20 03/29/23 07:20 03/29/23 07:10 03/29/23 07:06 03/29/23 07:06 03/29/23 07:03 03/29/23 07:00 03/29/23 06:45 Room Air Lab & Micro Results (Past 24 Hours) RBC 2.80 M/uL (4.20-5.40) L 03/29/23 WBC 10.53 K/ul (4.8-10.8) 03/29/23 Hgb 7.6 g/dl (12.0-16.0) L 03/29/23 Hct 24.1 % (37.0-47.0) L 03/29/23 MCV 86.1 fL (80.0-100.0) 03/29/23 MCH 27.1 pg (25.0-34.0) 03/29/23 MCHC 31.5 g/dL (32.0-36.0) L 03/29/23 RDW Standard Deviation 55.7 fL (36.4-46.3) H 03/29/23 RDW Coefficient of Variation 19.5 % (11.5-14.5) H 03/29/23 Plt Count 74 K/uL (130-400) L 03/29/23 MPV 10.8 fL (9.4-12.4) 03/29/23 Nucleated Red Blood Cells % (auto) 7.4 % 03/29 Nucleated RBC Absolute Count (auto) 0.78 K/uL (0.00-0.12) H 03/29/23 ANC 8.95 K/uL (1.4-6.5) H 03/29/23 ALC 0.53 K/uL (1.2-3.4) L 03/29/23 Neutrophils % (Manual) 85 % 03/29/23 Lymphocytes % (Manual) 5 % 03/29/23 Monocytes % (Manual) 5 % 03/29/23 Metamyelocytes % (manual) 3 % 03/29/23 Myelocytes % (Manual) 2 % 03/29/23 Neutrophils # (Manual) 8.95 K/uL (1.40-6.50) H 03/29/23 Lymphocytes # (Manual) 0.53 K/uL (1.2-3.4) L 03/29/23 Monocytes # (Manual) 0.53 K/uL (0.11-0.59) 03/29/23 Metamyelocytes # (Manual) 0.32 K/uL (0-0) H 03/29/23 Myelocytes # (Manual) 0.21 K/uL (0-0) H 03/29/23 Polychromasia 1+ 03/29/23 Tear Drop Cells 1+ 03/29/23 Na 128 mmol/L (136-145) L 03/29/23 K 4.3 mmol/L (3.5-5.1) 03/29/23 Cl 90 mmol/L (98-107) L 03/29/23 CO2 26 mmol/L (21-32) 03/29/23 Anion Gap 12 (3-11) H 03/29/23 BUN 16 mg/dl (6-23) 03/29/23 Creatinine 0.51 mg/dl (0.6-1.2) L 03/29/23 Estimated GFR ( Amer) 145.4 ml/min 03/29/23 Estimated GFR (Non-Af Amer) 125.5 ml/min 03/29/23 BUN/Creatinine Ratio 31.4 (10-20) H 03/29/23 Glu 101 mg/dl (70-99(Fasting)) H 03/29/23 Ca 10.6 mg/dl (8.6-10.3) H 03/29/23 Total Bilirubin 0.7 mg/dl (0.2-1.0) 03/29/23 Direct Bilirubin 0.2 mg/dl (0-0.2) 03/29/23 AST 204 U/L (13-39) H 03/29/23 ALT 85 U/L (7-52) H 03/29/23 Alkaline Phosphatase 863 U/L (34-104) H 03/29/23 TP 6.3 gm/dl (6.0-8.3) 03/29/23 Albumin 3.5 gm/dl (3.4-5.0) 03/29/23 Mg 2.1 mg/dl (1.7-2.4) 03/29/23 07:49 Calcium Level 10.6 mg/dl (8.6-10.3) H 03/29/23 07:49 Venous Blood pH 7.40 (7.36-7.41) 03/29/23 07:49 Venous Blood Partial Pressure CO2 40 mmHg (38-50) 03/29/23 07:4 9 Venous Blood Partial Pressure O2 23 mmHg 03/29/23 07:49 Venous Blood HCO3 25 mmol/L 03/29/23 07:49 Venous Blood Base Excess 0 mEq/L 03/29/23 07:49 Venous Blood Oxygen Saturation < 60.0 % 03/29/23 07:49 Diagnostic Findings (Past 24 Hours) Chest X-Ray 03/29/23 06:59 XR chest 1V portable CLINICAL HISTORY: Sepsis TECHNIQUE: Single frontal radiograph of the chest was obtained. Comparison: Comparison is made to chest radiograph 03/08/2023 and PET/CT on 05/17/2023 FINDINGS: No lines and tubes are seen. The cardiomediastinal silhouette is normal. Right l misael underinflation is seen with underlying density compatible with known malignancy. No evidence of pleural effusion or pneumothorax. IMPRESSION: Atelectasis of the right lung with right chest density is compatible with known chest wall masses and metastatic disease. Superimposed pneumonia is considered less likely. ACT 112: Negative or not required by law. Electronically signed by: Tay Merida M.D. 03/29/2023 7:[address] 03/29/23 07:52 CT SCAN OF THE CHEST WITHOUT IV CONTRAST CLINICAL HISTORY: Dyspnea. Breast cancer. COMPARISON STUDY: Chest x-ray dated 03/29/2023. Chest CT dated 02/01/2023. PET/CT dated 03/01/2023. TECHNIQUE: CT scan of the thorax was performed from the thoracic inlet to the upper abdomen. Images are reviewed in the axial, sagittal, and coronal planes. IV contrast was not administered for this examination as per the referring clinician. The examination is significant suboptimal without IV contrast. A dose lowering technique was utilized adhering to the principles of ALARA. CT DOSE: 306.11 mGy.cm FINDINGS: Thyroid: Imaged portions of the thyroid gland are normal in size and attenuation. Thoracic aorta: The thoracic aorta is normal in caliber and demonstrates standard 3-vessel arch anatomy. Heart: The heart is normal in size and without pericardial effusion. There is diminished attenuation of the cardiac blood pool as compared to the myocardium suggesting anemia. Lungs and pleural spaces: There is metastatic pleural disease throughout the right lung and a small right pleural effusion. Loculated fluid is seen along the right major fissure. Consolidation of the right lung base likely represents atelectasis. The left lung appears clear. Lower neck: There is bilateral supraclavicular lymphadenopathy. A left supra clavicular node on image #36 measures approximately 3 x 2.5 cm. Mediastinum: There is mediastinal lymphadenopathy. A precarinal node measures 13 mm short axis. There is likely a subcarinal node which is not well assessed without contrast. There is also diffuse internal mammary lymphadenopathy. Yamel: Not well assessed without IV contrast. Axillae: Axillary surgical clips are seen bilaterally. There is bulky bilateral axillary lymphadenopathy. A maintenance representative left axillary/subpectoral lesion on the left measures approximately 5 x 3 cm. Upper abdomen: There is evidence of multifocal hepatic metastatic disease. A maintenance representative lesion in the left lobe on image #153 measures 3.5 cm. There is marked asymmetrical cortical atrophy of the partially imaged left kidney. Skeletal structures: A rind of soft tissue around the lower thoracic spine is consistent with metastatic disease. There is no clear bony destruction. Metastatic disease is seen involving the sternum. Soft tissues: The patient is cachectic. Findings suggest bilateral mastectomy. Extensive metastatic disease is again seen throughout the chest wall. A maintenance representative lesion in the right anterior chest on image #97 measures approximately 14 x 6.5 cm. A lesion in the right lateral chest wall on image #129 measures 4.4 x 3.2 cm. IMPRESSION: 1. Extensive multifocal metastatic disease as above. This has progressed as compared to 03/01/2023 PET examination. 2. There is bulky metastatic pleural disease seen in the right lung with a small right pleural effusion. 3. There is extensive/multifocal hepatic metastatic disease. This has significantly progressed from the prior PET. 4. Extensive metastatic disease throughout the chest wall, axillae, and supraclavicular region is again noted. There is also mediastinal and internal mammary lymphadenopathy. This has also progressed from previous. 5. Airspace consolidation at the right lung base likely resonance atelectasis. Correlate clinically. 6. There is a rind of abnormal soft tissue around the lower thoracic spine consistent with metastatic disease. There is no clear bony destruction of the underlying thoracic vertebral bodies. There is metastatic involvement of the sternum. 7. The left lung appears clear. 8. Additional findings as above. ACT 112: Negative or not required by law. Electronically signed by: Willian Jovel M.D. 03/29/2023 8:40 AM I & O Totals 24 Hours 03/28/23 03/29/23 03/30/23 06:59 06:59 06:59 Intake Total 2520 / 2520 Balance 2520 / 2520 Cumulative 03/29/23 06:43 thru 03/29/23 11:10 Intake Total 2520 Balance 2520 RT Ventilator Mngmt (Last Documented) Ventilator Ordered Settings Respiratory Rate 36 03/29/23 12:30 Ventilator - PT Measurements Respiratory Rate 36 PG Care Time/CCT Total # of Minutes Spent Total Time Spent with Patient: Total time spent is greater than 50% in coordination of care (as documented) at patient's floor/unit and/or counseling patient: Coding Level of Care Code 55211 IN/OBS CONSULT LVL 4,60M Diagnoses Shortness of breath R06.02
[2023-03-29] MEDS: POLYETHYLENE (MIRALAX) 17 GM PACK PO SCH (14:19)
[2023-03-29] MEDS: ENOXAPARIN INJ 60 MG/0.6 ML SYR SQ SCH (14:19)
--- NOTE | 2023-03-29 15:11 | Electrocardiogram Report ---
Test Reason : Blood Pressure : / mmHG Vent. Rate : 143 BPM Atrial Rate : 143 BPM P-R Int : 126 ms QRS Dur : 064 ms QT Int : 278 ms P-R-T Axes : 063 -13 068 degrees QTc Int : 429 ms Sinus tachycardia Low voltage QRS Nonspecific T wave abnormality Abnormal ECG When compared with ECG of 07-MAR-2023 23:45, Criteria for Septal infarct are no longer Present Nonspecific T wave abnormality no longer evident in Inferior leads Inverted T waves have replaced nonspecific T wave abnormality in Anterior leads Confirmed by Alton Moore ([id number]) on 03/29/2023 3:11:29 PM Referred By: Confirmed By:Alton Moore
[2023-03-29] MEDS: VANCOMYCIN HCL 750 MG in SODIUM CHLORIDE 0.9% 250 ML IV SCH (15:58)
[2023-03-29] MEDS: CEFEPIME 2,000 MG in SYRINGE 0 ML IV SCH (17:47)
[2023-03-29] MEDS: GABAPENTIN 300 MG CAP PO SCH ×2 (17:52→21:03)
[2023-03-29] MEDS: SENNA 8.6 MG TAB PO SCH (21:02)
[2023-03-29] MEDS: MIRTAZAPINE TAB 15 MG TAB PO SCH (21:03)
[2023-03-30] MEDS: VANCOMYCIN LEVEL ONE (05:24)
[2023-03-30 06:01] LABS: Hematocrit (blood only) 20.3 % (37.0-47.0); Hemoglobin 6.3 g/dl (12.0-16.0); Mean Corpuscular Hemoglobin 27.3 pg (25.0-34.0); Mean Corpuscular Volume 87.9 fL (80.0-100.0); Mean Platelet Volume 11.4 fL (9.4-12.4); Nucleated RBC # (auto) 1.17 K/uL (0.00-0.12); Nucleated RBC % (auto) 12.4 %; Platelet Count 50 K/uL (130-400); RDW Coefficient of Variation 20.5 % (11.5-14.5); RDW Standard Deviation 59.7 fL (36.4-46.3); Red Blood Count 2.31 M/uL (4.20-5.40); White Blood Count 9.44 K/ul (4.8-10.8)
[2023-03-30 06:09] LABS: Alanine Aminotransferase 64 U/L (7-52); Albumin Globulin Ratio 1.2 (0.9-2); Albumin Level 2.6 gm/dl (3.4-5.0); Alkaline Phosphatase 627 U/L (34-104); Anion Gap 8 (3-11); Aspartate Aminotransferase 150 U/L (13-39); BUN Creatinine Ratio 33.3 (10-20); Bilirubin,Total 0.7 mg/dl (0.2-1.0); Blood Urea Nitrogen 13 mg/dl (6-23); Calcium 8.8 mg/dl (8.6-10.3); Carbon Dioxide 21 mmol/L (21-32); Chloride 104 mmol/L (98-107); Est GFR (African American) > 150.0 ml/min; Globulin 2.2 gm/dl (2.5-4.0); Glucose 55 mg/dl (70-99(Fasting)); Magnesium 1.9 mg/dl (1.7-2.4); Sodium 133 mmol/L (136-145); Total Protein 4.8 gm/dl (6.0-8.3)
[2023-03-30 07:17] LABS: ALC (manual) 0.57 K/uL (1.2-3.4); ANC (manual) 6.89 K/uL (1.4-6.5); Basophils # (manual) 0.28 K/uL (0-0.2); Basophils % (manual) 3 %; Eosinophils # (manual) 0.09 K/uL (0-0.50); Eosinophils % (manual) 1 %; Lymphocytes # (manual) 0.57 K/uL (1.2-3.4); Lymphocytes % (manual) 6 %; Metamyelocytes # (manual) 0.76 K/uL (0-0); Metamyelocytes % (manual) 8 %; Monocytes # (manual) 0.47 K/uL (0.11-0.59); Monocytes % (manual) 5 %; Myelocytes # (manual) 0.38 K/uL (0-0); Myelocytes % (manual) 4 %; Neutrophils # (manual) 6.89 K/uL (1.40-6.50); Neutrophils % (manual) 73 %
[2023-03-30] MEDS ORDERED: SODIUM CHLORIDE 0.9% 250 ML IV PRN (07:25)
--- NOTE | 2023-03-30 07:25 | Pharmacy Report ---
Pharmacy PK ABX Note - Date of Service March 30, 2023 - Assessment and Plan Assessment 03/30: Vancomycin day 2: Reviewed vancomycin level, predicting AUC/TRINH within goal range. Continue current regimen. 03/29: 33 year old F receiving vancomcyin for empiric treatment, SOB, hx of m etastatic breast cancer. Pertinent microbiologic data includes: recent chest culture with MSSA, previous breast cultures with Pseudomonas aeruginosa, MSSA. GRP A strep bacteremia 02/21/23. Plan Vancomycin * Maintenance dose: 750 mg IV every 8 hours * Regimen is predicted to achieve target AUC/TRINH of 400-600 mg/L.hr * Random level for 03/31 @8789 Pharmacy will continue to follow and will adjust dose/frequency as necessary. Thank you. Pharmacy has transitioned to AUC monitoring for vancomycin. AUC/TRINH is the preferred PK/PD target and is associated with decreased risk of nephrotoxicity compared to traditional trough targets.
[2023-03-30] MEDS ORDERED: HYDROmorphone INJ 0.5 MG/0.5 ML SYR IV PRN (08:00)
--- NOTE | 2023-03-30 08:35 | Hospitalist Progress Note ---
Date of Service March 30, 2023 Assessment & Plan (1) Acute respiratory failure: Plan: With tachypnea, not hypoxic, not hypercarbic. Secondary to tachycardia, widely metastatic disease in chest wall, pleural mets, atelectasis, pleural effusion, and severe anemia all contributing Doubt PE as taking Lovenox and POx normal Cannot rule out secondary bacterial PNA-treating empirically with antibiotics but can discontinue vancomycin No supplemental O2 needed today Pulm consult appreciated-no intervention will help except Palliative meds and pain control Appreciate Oncology and Palliative consults-->started Dilaudid SHAREPOINT TRAINER pump and discharge to home with hospice tomorrow-arrangements already made for at home and transportation at 10 AM tomorrow Start Ativan as needed for anxiety Transfusing 1 unit PRBCs today (2) Tachycardia: Plan: sinus tachycardia in the 150s secondary to dehydration, anemia, widely metastatic disease, and pain giving IVFs, pain control, PRBC transfusion, Ativan as needed for anxiety Suspect she is actively dying-plan for home with hospice tomorrow morning monitor on tele No further lab draws (3) Breast cancer metastasized to multiple sites: Plan: Not responding to numerous treatment regimens. With open, fungating chest wall masses, mets to pleura, LNs, lungs, pl effusion, liver, and bones With cancer-associated pain Would not be able to withstand any further chemo. Was to possibly start a new trial in the near future but Oncology here recommends hospice and patient is agreeable to this Appreciate Palliative and Oncology recommendations-as above, plan to transition to hospice at home with Dilaudid SHAREPOINT TRAINER Continue Dilaudid SHAREPOINT TRAINER here, continue home Oxycontin 30mg po bid, and add Ativan today Add Lacri-Lube eye ointment for dry eyes continue bowel regimen, olanzaprine prn nausea With some hypoglycemia from very poor p.o. intake and from metastatic cancer- start D5 and fluids and no further Accu-Cheks needed to provide comfort/no needle sticks (4) Deep vein thrombosis, upper right extremity: Plan: causing pain continue Lovenox SQ, pain control She can discontinue the Lovenox injections at home if she desires as they can cause pain (5) Hyponatremia: Plan: Na+ 128 on admission up from 124 a few days ago after started Na tabs likely from hypovolemia but could be some SIADH from pulmonary process and from pain Gave IVF with NS and sodium up to 133 No further lab draws (6) Anemia: Plan: hgb down to 6.3, also with thrombocytopenia secondary to chemotherapy Transfuse 1 unit PRBCs today at patient's request prior to going home with hospice No further lab draws (7) Lactic acidosis: Plan: lactate 7 on admission from metastatic CA not likely from sepsis but treating with IVFs and antibiotics (8) Open wound of chest wall: Plan: multiple large open areas from breast CA eroding chest wall consult wound care, keep covered (9) Cancer associated pain: Plan: as above (10) Severe malnutrition: Plan: severe malnutrition Secondary to cancer Food for comfort Plan Dispo-continued stay on PCU, discharged home tomorrow morning with hospice Admission and Anticipated Discharge Date Admission Date: March 29, 2023 Subjective Pt reports ongoing pain in RUE especially. Still feeling SOB, anxious. She wasn't sure when she would want to go home with hospice when I saw her in the AM but after she spoke to Dr. Moore, she and her family decided she wants to go home with hospice as soon as possible. She knows that she may only have days to week to live. She was interested in getting a blood transfusion today I discussed her care with Dr. Moore and the casework managerautomated teller manager of Systems Review of Systems: Having frequent tearing from the eyes Physical Exam 2 Constitutional: + ill appearing and + cachectic Eyes: + anicteric sclerae Respiratory: + tachypneic Auscultation: + diminish ed lung sounds (throughout); no rhonchi and no wheezes Cardiovascular: Rate/Rhythm: regular rhythm and + tachycardic Heart Sounds: no murmur Extremities: no edema Chest (Breasts): Chest: + mass (multiple large fungating masses across entire chest,draining serous fluid) Gastrointestinal (Abdomen): normal bowel sounds, soft, nontender, no hepatosplenomegaly Musculoskeletal: Extremities: + extremities abnormal to inspection (diffuse sarcopenia; RUE with 3+ edema to shoulder) Psychiatric: Orientation: alert and oriented x 3 Affect: + anxious affect Results & Data Results & Data Vital Signs (Past 12 Hours) Vital Signs Temp Pulse Resp BP Pulse Ox O2 Del Method 03/30/23 07:32 37.0 C 140 H 18 117/80 97 Nasal Cannula 03/30/23 02:40 36.8 C 131 H 18 122/80 100 Room Air 03/29/23 22:34 36.5 C 122 H 18 113/77 100 Room Air Laboratory Results CBC, BMP, magnesium reviewed Blood cultures reviewed-no growth PG Care Time/CCT Total # of Minutes Spent Total Time Spent with Patient: Total time spent is greater than 50% in coordination of care (as documented) at patient's floor/unit and/or counseling patient: Coding Level of Care Code 95381 SUB INP/OBS CARE 3/50MIN Diagnoses Acute respiratory failure with hypoxia J96.01 Respiratory failure complication: hypoxia Tachycardia R00.0 Carcinoma of breast metastatic to multiple sites, unspecified laterality C50.919 Laterality: unspecified laterality Deep vein thrombosis, upper right extremity I82.621 Hyponatremia E87.1 Anemia D64.9 Anemia type: unspecified type Lactic acidosis E87.20 Open wound of chest wall S21.101A Encounter type: initial encounter Laterality: right Cancer associated pain G89.3 Severe malnutrition E43 (1) Acute respiratory failure Respiratory failure complication: hypoxia Qualified Code(s): J96.01 - Acute respiratory failure with hypoxia (3) Breast cancer metastasized to multiple sites Laterality: unspecified laterality Qualified Code(s): C50.919 - Malignant neoplasm of unspecified site of unspecified female breast (6) Anemia Anemia type: unspecified type Qualified Code(s): D64.9 - Anemia, unspecified (8) Open wound of chest wall Encounter type: initial encounter Laterality: right Qualified Code(s): S21.101A - Unspecified open wound of right front wall of thorax without penetration into thoracic cavity, initial encounter
[2023-03-30] MEDS: DEXTROSE 50% 50 ML SYRINGE IV ONE ×2 (09:07→09:58)
[2023-03-30] MEDS: HYDROmorphone Bolus from PCA IV PRN (10:08)
[2023-03-30] MEDS: LORazepam 0.5 MG TAB PO PRN (12:10)
[2023-03-30] MEDS: D5W AND NSS 1,000 ML IV SCH (17:01)
[2023-03-30] MEDS: ARTIFICIAL TEARS OP OINT 3.5 GM TUBE OP PRN (20:29)
--- NOTE | 2023-03-31 08:13 | Discharge Summary ---
Discharge Summary Date of Service March 31, 2023 Notes For Next Care Provider Went home with home hospice Medication Changes From Visit Dilaudid PUBLISHING SYSTEMS ANALYST pump Lorazepam 1 mg p.o. every 6 hours as needed anxiety Discontinue Lovenox Added Lacri-Lube artificial tear ointment Admission HPI Per Admitting Provider This pt is a 33 yo female with a h/o widely metastatic breast CA with mets to chest wall, lungs, malignant pleural effusion, liver, bones, and lymph nodes that has been unresponsive to numerous rounds of chemotherapy, RUE DVT on Lovenox who presents to the ER with worsening SOB. She was found to have a normal POx but was tachycardic in the 150s, tachypneic in the 50s, normotensive, and afebrile. She denies any recent fevers/chills and does not have a port present. She has been getting wound care for her open, fungating chest wall masses at home and does not note any worsening drainage from her wounds. She has been eating but it is very minimal. SHe reports she has not been able to get out of bed for several weeks due to generalized weakness. Denies diarrhea or constipation. Denies chest pain. In the ER, she was found to have chronic anemia with hgb 7, hyponatremia, elevated LFTs, elevated lactate at 7, and elevated procal at 3. CT CHest no contrast shows loculated pleural effusion, atelectasis, chest wall masses, skeletal mets, all progressed from previous. She was given IVFs and HR improved down to the 130s from the 150s. She knows that her dying time is near and states she does not want to in the hospital. She wants to be at home with her kids to pass away. Initially when I saw her she was wavering back and forth about code status. Later, after speaking to Oncology and Palliative, she decided to become a full code, pursue antibiotic therapy and IVF resuscitation for now to stabilize herself enough to get home and go on hospice. She does report a significant amount of pain in her RUE from her DVT as well as her chest and back. Principal Dx & Hospital Course #1 = Principal Diagnosis (1) Acute respiratory failure: With tachypnea, not hypoxic, not hypercarbic. Secondary to tachycardia, widely metastatic disease in chest wall, pleural mets, atelectasis, pleural effusion, and severe anemia all contributing Doubt PE as taking Lovenox and POx normal Cannot rule out secondary bacterial PNA- empirically treated with antibiotics x 2 days but then discontinued No supplemental O2 needed Pulm consult appreciated-no intervention will help except Palliative meds and pain control Appreciate Oncology and Palliative consults-->started Dilaudid PUBLISHING SYSTEMS ANALYST pump and discharge to home with hospice -arrangements made for at home Started Ativan as needed for anxiety Transfused 1 unit PRBCs while admitted (2) Tachycardia: sinus tachycardia in the 150s secondary to dehydration, anemia, widely metastatic disease, and pain gave IVFs, pain control, PRBC transfusion, Ativan as needed for anxiety and remained in sinus tach in 130s-150s throughout her stay Suspect she is actively dying-plan for home with hospice No further lab draws (3) Breast cancer metastasized to multiple sites: Not responding to numerous treatment regimens. With open, fungating chest wall masses, mets to pleura, LNs, lungs, pl effusion, liver, and bones With cancer-associated pain Would not be able to withstand any further chemo. Was to possibly start a new trial in the near future but Oncology here recommends hospice and patient is agreeable to this Appreciate Palliative and Oncology recommendations-as above, plan to transition to hospice at home with Dilaudid PUBLISHING SYSTEMS ANALYST Continue Dilaudid PUBLISHING SYSTEMS ANALYST here, continue home Oxycontin 30mg po bid, and added Ativan Added Lacri-Lube eye ointment for dry eyes continue bowel regimen, olanzapine prn nausea With some hypoglycemia from very poor p.o. intake and from metastatic cancer (4) Deep vein thrombosis, upper right extremity: causing pain discontinue Lovenox SQ on hospice continue pain control (5) Hyponatremia: Na+ 128 on admission up from 124 a few days ago after started Na tabs likely from hypovolemia but could be some SIADH from pulmonary process and from pain Gave IVF with NS and sodium up to 133 No further lab draws (6) Anemia: hgb down to 6.3, also with thrombocytopenia secondary to chemotherapy Transfused 1 unit PRBCs at patient's request prior to going home with hospice No further lab draws (7) Lactic acidosis: lactate 7 on admission from metastatic CA not likely from sepsis but treated with IVFs and antibiotics (8) Open wound of chest wall: multiple large open areas from breast CA eroding chest wall consult wound care, keep covered (9) Cancer associated pain: as above (10) Severe malnutrition: severe malnutrition Secondary to cancer Food for comfort Plan Dispo-dc to home with hospice Discharge Exam Constitutional + ill appearing and + cachectic Eyes + anicteric sclerae Respiratory + tachypneic Auscultation: + diminished lung sounds (throughout); no rhonchi and no wheezes Cardiovascular Rate/Rhythm: regular rhythm and + tachycardic Heart Sounds: no murmur Extremities: no edema Chest (Breasts) Chest: + mass (multiple large fungating masses across entire chest,draining serous fluid) Gastrointestinal (Abdomen) normal bowel sounds, soft, nontender, no hepatosplenomegaly Musculoskeletal Extremities: + extremities abnormal to inspection (diffuse sarcopenia; RUE with 3+ edema to shoulder) Psychiatric Orientation: alert and oriented x 3 Affect: + anxious affect Updated Medication List Medication Instructions Recorded Confirmed Type mirtazapine 15 mg tablet 15 mg PO HS 01/31/23 03/29/23 History oxycodone 30 mg tablet,crush 30 mg PO BID very severe 02/16/23 03/29/23 Rx resistant,extended release 12 hr metastatic cancer pain 1 month #60 (OxyContin) tabs olanzapine 2.5 mg tablet 2.5 mg PO DIRECTED nausea 02/21/23 03/29/23 History gabapentin 300 mg capsule See Rx Instructions .Route .COMPLEX 03/07/23 03/29/23 History ondansetron HCl 8 mg tablet 8 mg PO Q8 PRN Nausea And Vomiting 03/16/23 03/29/23 Rx 1 month #120 tabs polyethylene glycol 3350 17 17 g PO DAILY OIC 1 month #510 03/16/23 03/29/23 Rx gram/dose oral powder (Miralax) grams senna 2 tab PO BID constipation 03/29/23 03/29/23 History Artificial Tears [Lacri-Lube] 1 applic ophthalmic (eye) BID PRN 03/31/23 Rx watery eyes #1 tube lorazepam 1 mg tablet 1 mg PO Q6H PRN anxiety #10 tabs 03/31/23 Rx Hospital Stay Data Consultations 03/29/23 08:54 ED Decision to Admit Stat 03/29/23 11:11 Consult Oncology Routine Consult Palliative Care Routine Consult Pulmonology Routine Diagnostic Imagining Performed 03/29/23 07:52 CT chest diagnostic wo con Stat Pending Results Patient Have Any Pending Studies at Discharge: No Discharge Instructions Given to Patient (Per Discharging Provider) You were admitted for shortness of breath which is caused by the cancer throughout your lungs, your severe anemia from chemotherapy and from cancer, and possibly from infection but this seems less likely. You do not need any further antibiotics. You have chosen to go home and focus on comfort, improving the quality of the time that you have left with your family and friends. You will have an infusion of dilaudid and can push the button whenever you need pain control. You can take lorazepam as needed for anxiety. The hospice agency nurse will meet with you at your home and go over everything with you when you get home. You can continue the Lovenox injections for your blood clot if you desire but if they are too painful, then you can stop taking them. I will be keeping you and your family in my prayers, Dr. Angelina Salgado Total Time Total Time Spent Total Time Spent (In Minutes): 60 min Coding Level of Care Code 33096 INP/OBS DISCH >30 MIN Diagnoses Acute respiratory failure with hypoxia J96.01 Respiratory failure complication: hypoxia Tachycardia R00.0 Carcinoma of breast metastatic to multiple sites, unspecified laterality C50.919 Laterality: unspecified laterality Deep vein thrombosis, upper right extremity I82.621 Hyponatremia E87.1 Anemia D64.9 Anemia type: unspecified type Lactic acidosis E87.20 Open wound of chest wall S21.101A Encounter type: initial encounter Laterality: right Cancer associated pain G89.3 Severe malnutrition E43
[2023-03-31] MEDS: HYDROmorphone INJ 0.5 MG/0.5 ML SYR IV PRN (10:05)
--- NOTE | 2023-04-06 07:42 | Coding Query ---
CODING QUERY To promote full compliance with coding requirements relating to patient care, provider participation is requested in all cases of certified medical coder uncertainty. Please assist us with the question(s) below: Coding Question(s): Your help is needed and appreciated in order to determine the diagnosis most responsible for occasioning the inpatient admission. The Emergency Room Visit Notes document, "discussed with the hospitalist and was given IV cefepime and vancomycin as well and admitted for further workup of possible sepsis", and the H&P documents, "she decided to become a full code, pursue antibiotic therapy and IVF resuscitation for now to stabilize herself enough to get home and go on hospice", and, "Plan Dispo-admit to PCU, elizabeth go home with hospice in 1-2 days after stabilized further and pain controlled. Discussed with keycase assembler", and the Discharge Summary documents, "You were admitted for shortness of breath which is caused by the cancer throughout your lungs, your severe anemia from chemotherapy and from cancer, and possibly from infection but this seems less likely. You do not need any further antibiotics. You have chosen to go home and focus on comfort, improving the quality of the time that you have left with your family and friends". Please specify below, in your clinical opinion, the diagnosis(es) most responsible for occasioning the inpatient admission: ( ) Possible Sepsis. Please specify below, the most likely cause of possible Sepsis: ( ) Possible bacterial Pneumonia ( ) Other: Please Specify ( ) Unknown likely cause ( x ) Acute Respiratory Failure/Shortness of Breath ( ) Cancer throughout lungs ( ) Possible bacterial pneumonia ( ) Other: Please Specify Physician's Response(s): Thank you Misti Gunn Principal Diagnosis: "that condition established after study, to be chiefly responsible for occasioning the admission of the patient to the hospital for care." Co-Existing Principal Diagnosis: "when two or more diagnoses equally meet the criteria for principal diagnosis as determined by the circumstances of admission, diagnostic work up, and/or therapy provided, and the Alphabetic Index, Tabular List, or another coding guideline does not provide sequencing direction, any one of the diagnoses may be sequenced first." "When the physician has documented what appears to be a current diagnosis in the body of the record, but has not included the diagnosis in the final diagnostic statement, the physician should be asked whether the diagnosis should be added." (Source [facility]oding [facility] 2 QTR90. p3-4) STEFANO
== END 2023-03-31 10:22 | disposition hospice, home (50) | DRG 189 ==
LOC: SUATTDRO → ED 06:43 → EDINP 10:24 → 2S 12:14